=== PATIENT | male | born 1935 | race Caucasian/White ===

== ENCOUNTER 2019-04-09 10:00 | Emergency (ER) | payer OTHER ==
[2019-04-09 10:49] LABS: Absolute Lymphocytes (CBC) 1.4 K/uL (0.7-4.9); Hematocrit 46.7 % (39.6-49.0); MPV 8.6 fL (7.6-11.3); RBC Red Blood Cell Count 5.26 M/uL (4.33-5.43)
[2019-04-09 10:50] LABS: Protime INR 2.61
[2019-04-09 11:08] LABS: ALT/SGPT 15 U/L (12-78); AST/SGOT 13 U/L (15-37); Albumin 3.5 g/dL (3.4-5.0); Alkaline Phosphatase 97 U/L (45-117); BUN Blood Urea Nitrogen 13 mg/dL (7-18); Bicarbonate 25 mmol/L (21-32); Bilirubin Direct 0.4 mg/dL (0-0.2); Bilirubin Total 2.4 mg/dL (0.2-1.0); Glucose Level 75 mg/dL (74-106); Magnesium 2.3 mg/dL (1.8-2.4); NT PRO-BNP 1705 pg/mL (<450); Potassium 3.9 mmol/L (3.5-5.1); Protein, Total 7.3 g/dL (6.4-8.2); Sodium Level 143 mmol/L (136-145); Troponin (Emerg Dept Use Only) < 0.02 ng/mL (0.0-0.045)
[2019-04-09 11:43] LABS: Blood Morphology Comment NOT SEEN (NOT SEEN); Platelet Estimate ADEQ
--- NOTE | 2019-04-09 12:07 | RAD REPORT ---
EXAM DESCRIPTION: CT - Chest For Pe Angio - 04/09/2019 11:42 am CLINICAL HISTORY: HEMOPTYSIS COMPARISON: None. TECHNIQUE: Dynamically enhanced axial 3 mm thick images of the chest were obtained during administra tion of <100> mL Isovue 370 IV contrast. Coronal and oblique reconstruction images were generated and reviewed. Exam utilizes a protocol for optimal evaluation of pulmonary arterial tree. Maximum intensity projections 3D imaging was utilized All CT scans are performed using dose optimization technique as appropriate and may include automated exposure control or mA/KV adjustment according to patient size. FINDINGS: A pulmonary embolus is not seen. The main pulmonary artery is prominent which may indicate pulmonary arterial hypertension. The heart is enlarged. A thoracic aortic aneurysm is not noted. A pleural effusion is not seen. A pericardial effusion is not seen. Mild right lower lobe ground-glass opacity Gallstones are present. Gallbladder wall is not thickened Mild splenomegaly IMPRESSION: Negative for a pulmonary embolism. Mild right lower lobe ground-glass opacities indicative of alveolitis
--- NOTE | 2019-04-09 12:08 | RAD REPORT ---
EXAM DESCRIPTION: Nick Single View04/09/2019 10:30 am CLINICAL HISTORY: HEMOPTYSIS COMPARISON: none FINDINGS: The lungs appear clear of acute infiltrate. The heart is moderately enlarged. Postsurgica l changes involve the chest IMPRESSION: No acute abnormalities displayed
--- NOTE | 2019-04-09 12:21 | ER ---
Nurse's Notes [facility] Name: John Henriquez Age: 83 yrs Sex: Male : 1935 Arrival Date: 04/09/2019 Time: 10:03 Bed 5 Private MD: Diagnosis: Pneumonia Presentation: 04/09 10:07 Presenting complaint: Patient states: i noticed about 2-4 days ago when I clear my la1 throat of cough there is some blood in my sputum. Transition of care: patient was not received from another setting of care. Onset of symptoms was April 09, 2019. Risk Assessment: Do you want to hurt yourself or someone else? Patient reports no desire to harm self or others. Initial Sepsis Screen: Does the patient meet any 2 criteria? No. Patient's initial sepsis screen is negative. Does the patient have a suspected source of infection? No. Patient's initial sepsis screen is negative. Care prior to arrival: None. 10:07 Method Of Arrival: Ambulatory la1 10:07 Acuity: DILIP 3 la1 Historical: - Allergies: 10:11 NKDA; la1 - Home Meds: 10:11 Xarelto 20 mg oral tab 1 tab once daily [Active]; amlodipine 5 mg tab 1 tab once daily la1 [Active]; lisinopril 20 mg Oral tab 1 tab once daily [Active]; lisinopril 10 mg Oral tab 1 tab at night [Active]; pravastatin 40 mg oral tab 1 tab once daily [Active]; aspirin 81 mg Oral TbEC 1 tab once daily [Active]; tamsulosin 0.4 mg Oral cp24 1 cap once daily [Active]; - PMHx: 10:11 CVA; Hypertension; Atrial Fib; la1 - Immunization history:: Adult Immunizations up to date. - Social history:: Smoking status: Patient/guardian denies using tobacco. - Ebola Screening: : No symptoms or risks identified at this time. Screenin:20 Abuse screen: Denies threats or abuse. Denies injuries from another. Nutritional sg screening: No deficits noted. Tuberculosis screening: No symptoms or risk factors identified. Tuberculosis screening: Never had TB. Fall Risk None identified. Assessment: 10:20 General: Appears in no apparent distress. well groomed, well developed, well nourished, sg Behavior is calm, cooperative, appropriate for age. Pain: Denies pain. Neuro: Level of Consciousness is awake, alert, obeys commands, Oriented to person, place, time, Employee Benefits Manager are equal bilaterally Moves all extremities. Full function Gait is steady, Speech is normal, Facial symmetry appears normal. Cardiovascular: Patient's skin is warm and dry. Chest pain is denied. Respiratory: Parent/caregiver reports the patient having cough that is productive, persistent with streaks of blood. GI: Abdomen is round non-distended. : No signs and/or symptoms were reported regarding the genitourinary system. EENT: No signs and/or symptoms were reported regarding the EENT system. Derm: Skin is pink, warm \T\ dry. Musculoskeletal: Circulation, motion, and sensation intact. Range of motion: intact in all extremities, Swelling absent. 12:30 Reassessment: Patient is alert, oriented x 3, equal unlabored respirations, skin aa5 warm/dry/pink. Vital Signs: 10:11 BP 130 / 98; Pulse 88; Resp 16; Temp 98.4; Pulse Ox 98% on R/A; Weight 83.91 kg; Height la1 5 ft. 10 in. (177.80 cm); Pain 0/10; 10:11 Body Mass Index 26.54 (83.91 kg, 177.80 cm) la1 ED Course: 10:03 Patient arrived in ED. mr 10:09 Triage completed. la1 10:11 Arm band placed on left wrist. la1 10:15 Patient has correct armband on for positive identification. Bed in low position. Call sg light in reach. Side rails up X2. child monitor on. Pulse ox on. NIBP on. Warm blanket given. Head of bed elevated. 10:16 Jose Crowder PA is PHCP. jm 10:16 Mert Rinaldi MD is Attending Physician. jmm 10:31 XRAY Chest (1 view) In Process Unspecified. EDMS 10:38 Missed attempt(s): 20 gauge in right forearm. by Rosalva. hb 10:41 Inserted saline lock: 20 gauge in left forearm, using aseptic technique. ,using aseptic hb technique. by Rosalva. 11:43 CT Chest For PE Angio In Process Unspecified. EDMS 12:24 Arthur Quinn, DENNY is Primary Nurse. sg 12:30 No provider procedures requiring assistance completed. IV discontinued, intact, aa5 bleeding controlled, No redness/swelling at site. Pressure dressing applied. Administered Medications: 12:27 Drug: AZITHromycin 500 mg Route: PO; aa5 12:30 Follow up: Response: Medication administered at discharge. aa5 Outcome: 12:20 Discharge ordered by . kassy 12:30 Discharged to home ambulatory, with family. aa5 12:30 Condition: stable 12:30 Discharge instructions given to patient, family, Instructed on discharge instructions, follow up and referral plans. medication usage, Demonstrated understanding of instructions, follow-up care, medications, Prescriptions given X 1. 12:32 Patient left the ED. aa5 Signatures: Dispatcher [employer] EDMS Arthur Quinn RN RN Jose Lilly PA PA jmm Rivera, Mary mr SierraAlesha daniels RN RN aa5 Gm Garcia RN RN la1 Chelsea Hassan RN RN
--- NOTE | 2019-04-09 12:22 | EDPHYS ---
Physician Documentation [facility] Name: John Henriquez Age: 83 yrs Sex: Male : 1935 Arrival Date: 04/09/2019 Time: 10:03 Bed 5 Private MD: ED Physician Mert Rinaldi HPI: 04/09 10:29 This 83 yrs old Male presents to ER via Ambulatory with complaints of jmm Coughing up blood. 10:29 The patient or guardian reports cough. Onset: The symptoms/episode began/occurred jmm gradually, 4 day(s) ago. Modifying factors: The symptoms are alleviated by nothing, the symptoms are aggravated by nothing. Associated signs and symptoms: Pertinent negatives: chest pain, negative for shortness of breath. This is an 83 year old male with a history of atrial fib, HTN, that presents to the ED with complaints of coughing up blood for the past 4 days. Patient is currently taking 20 mg of Xarelto daily. Patient denies fever, denies shortness of breath, denies abdominal pain, denies dark or bloody stools. . Historical: - Allergies: 10:11 NKDA; la1 - Home Meds: 10:11 Xarelto 20 mg oral tab 1 tab once daily [Active]; amlodipine 5 mg tab 1 tab once daily la1 [Active]; lisinopril 20 mg Oral tab 1 tab once daily [Active]; lisinopril 10 mg Oral tab 1 tab at night [Active]; pravastatin 40 mg oral tab 1 tab once daily [Active]; aspirin 81 mg Oral TbEC 1 tab once daily [Active]; tamsulosin 0.4 mg Oral cp24 1 cap once daily [Active]; - PMHx: 10:11 CVA; Hypertension; Atrial Fib; la1 - Immunization history:: Adult Immunizations up to date. - Social history:: Smoking status: Patient/guardian denies using tobacco. - Ebola Screening: : No symptoms or risks identified at this time. ROS: 10:29 Constitutional: Negative for fever, chills, and weight loss, Cardiovascular: Negative jmm for chest pain, palpitations, and edema. 10:29 Abdomen/GI: Negative for abdominal pain, nausea, vomiting, diarrhea, and constipation, MS/Extremity: Negative for injury and deformity, Neuro: Negative for headache, weakness, numbness, tingling, and seizure. 10:29 Respiratory: Positive for cough, hemoptysis. 10:29 All other systems are negative. Exam: 10:29 Constitutional: This is a well developed, well nourished patient who is awake, alert, jmm and in no acute distress. Head/Face: atraumatic. Eyes: EOMI, no conjunctival erythema appreciated ENT: Moist Mucus Membranes Neck: Trachea midline, Supple Chest/axilla: Normal chest wall appearance and motion. 10:29 Abdomen/GI: Non distended, soft Back: Normal ROM Skin: General appearance color normal MS/ Extremity: Moves all extremities, no obvious deformities appreciated, no edema noted to the lower extremities Neuro: Awake and alert, normal gait Psych: Behavior is normal, Mood is normal, Patient is cooperative and pleasant 10:29 Cardiovascular: Rate: normal, Rhythm: regular, Pulses: no pulse deficits are appreciated. 10:29 Respiratory: the patient does not display signs of respiratory distress, Respirations: normal, Breath sounds: are clear throughout. Vital Signs: 10:11 BP 130 / 98; Pulse 88; Resp 16; Temp 98.4; Pulse Ox 98% on R/A; Weight 83.91 kg; Height la1 5 ft. 10 in. (177.80 cm); Pain 0/10; 10:11 Body Mass Index 26.54 (83.91 kg, 177.80 cm) la1 MDM: 10:19 Patient medically screened. [facility] 12:20 Data reviewed: vital signs, nurses notes. Counseling: I had a detailed discussion with [facility] the patient and/or guardian regarding: the historical points, exam findings, and any diagnostic results supporting the discharge/admit diagnosis, lab results, radiology results, the need for outpatient follow up, to return to the emergency department if symptoms worsen or persist or if there are any questions or concerns that arise at home. 04/09 10:19 Order name: Basic Metabolic Panel; Complete Time: 11:10 [facility] 04/09 10:19 Order name: CBC with Diff; Complete Time: 12:05 [facility] 04/09 10:19 Order name: LFT's; Complete Time: 11:10 [facility] 04/09 10:19 Order name: Magnesium; Complete Time: 11:10 [facility] 04/09 10:19 Order name: NT PRO-BNP; Complete Time: 11:10 [facility] 04/09 10:19 Order name: PT-INR; Complete Time: 10:57 [facility] 04/09 10:19 Order name: Troponin (emerg Dept Use Only); Complete Time: 11:10 [facility] 04/09 10:19 Order name: XRAY Chest (1 view); Complete Time: 12:22 [facility] 04/09 10:19 Order name: EKG; Complete Time: 10:20 [facility] 04/09 10:19 Order name: Cardiac monitoring; Complete Time: 11:23 [facility] 04/09 10:19 Order name: EKG - Nurse/Tech; Complete Time: 12:27 [facility] 04/09 11:12 Order name: CT Chest For PE Angio; Complete Time: 12:09 [facility] 04/09 11:44 Order name: Manual Differential; Complete Time: 12:05 [facility] 04/09 10:19 Order name: IV Saline Lock; Complete Time: 11:23 [facility] 04/09 10:19 Order name: Labs collected and sent; Complete Time: 11:23 [facility] 04/09 10:19 Order name: O2 Per Protocol; Complete Time: 11:22 [facility] 04/09 10:19 Order name: O2 Sat Monitoring; Complete Time: 11:22 [facility] Administered Medications: 12:27 Drug: AZITHromycin 500 mg Route: PO; aa5 12:30 Follow up: Response: Medication administered at discharge. aa5 Disposition: 04/09/19 12:20 Discharged to Home. Impression: Pneumonia. - Condition is Stable. - Discharge Instructions: Hemoptysis, Community-Acquired Pneumonia, Adult. - Prescriptions for azithromycin 250 mg Oral tablet - take 1 tablet by ORAL route once daily for 4 days; 4 tablet. - Medication Reconciliation Form, Thank You Letter, Antibiotic Education, Prescription Opioid Use form. - Follow up: Private Physician; When: 2 - 3 days; Reason: Recheck today's complaints, Continuance of care, Re-evaluation by your physician. Addendum: 04/11/2019 09:08 Co-signature as Attending Physician, Mert Rinaldi MD I agree with the assessment and c shin plan of care. Signatures: Dispatcher [employer] Mert Ashton MD MD cha Mickail, Joel, PA PA Alesha Ron, RN RN aa5 Attema, Gm, RN RN la1 Corrections: (The following items were deleted from the chart) 04/09 12:32 12:20 04/09/2019 12:20 Discharged to Home. Impression: Pneumonia. Condition is Stable. aa5 Forms are Medication Reconciliation Form, Thank You Letter, Antibiotic Education, Prescription Opioid Use. Follow up: Private Physician; When: 2 - 3 days; Reason: Recheck today's complaints, Continuance of care, Re-evaluation by your physician. kassy
[2019-04-09] MEDS ORDERED: AZITHROMYCIN 250 MG TAB ONE (12:25)
--- NOTE | 2019-04-10 08:09 | EKG ---
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
== END 2019-04-09 12:32 | disposition home or self-care (01) ==
LOC: ER 10:00
DX: J18.9 Pneumonia, unspecified organism (principal); I10 Essential (primary) hypertension; I63.9 Cerebral infarction, unspecified; I48.91 Unspecified atrial fibrillation
CPT/HCPCS: 93005; 85025; 80048; 36415; 83735; 85610; 80076; 84484; 83880; 71275; 71045; 99284; Q9967

== ENCOUNTER 2020-07-06 08:33 | Inpatient (IN) | payer OTHER ==
--- OUTSIDE RECORDS SUMMARY | 2020-07-06 08:37 | XMS REPORT | Continuity of Care Document ---
:1935 Author Organization [facility] t Address [address] [place] [address] Care Team Providers Name Role Phone Neo JI Primary Care Physician DR Naheed COX Attending Clinician Unavailable DR Naheed COX Admitting Clinician Unavailable Payers Payer Name Policy Type Policy Number Effective Date Expiration Date S ource Problems Condition Condition Condition Status Onset Resolution Last Treating Co mments Source Name Details Category Date Date Treatment Clinician Date Systemic Systemic Disease Active mastocytos mastocytos 09-21 An derso is is 00:00: n 00 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 09-21 Anderso 00:00: n 00 Allergies, Adverse Reactions, Alerts This patient has no known allergies or adverse reactions. Social History Social Habit Start Date Stop Date Quantity Comments Source Sex Assigned At MD Vela on Tobacco use and 2018-09-21 2018-09-21 Never used MD Vela on exposure 00:00:00 00:00:00 Alcohol intake 2018-09-21 2018-09-21 Current MD Rah webber 00:00:00 00:00:00 non-drinker of alcohol (finding) Smoking Status Start Date Stop Date Source Never smoker MD Rinaldi Medications Ordered Filled Start Stop Current Ordering Indication Dosage Frequency Signature Comments Components Source Medication Medication Date Date Medication? Clinician (SIG) Name Name amLODIPine Yes 1{tbl} Take 1 MD (NORVASC) 5 2-12 tablet by And erso mg tablet 16:41: mouth n 14 daily. aspirin 81 Yes 1{tbl} Take 1 MD mg EC 2-12 tablet by Anderso tablet 16:41: mouth n 14 daily. lisinopril 2019-0 Yes 20mg Take 20 mg M D (PRINIVIL,Z 2-12 by mouth Rashaun rso ESTRIL) 20 16:41: every n mg tablet 14 morning. lisinopril 2019-0 Yes 10mg Take 10 mg M D (PRINIVIL,Z 2-12 by mouth Rashaun rso ESTRIL) 10 16:41: every n mg tablet 14 evening. cromolyn 2019-0 Yes Systemic 100mg Take 5 mL MD (GASTROCROM 2-12 mastocytosi (100 mg) Anderso ) 100 mg/5 00:00: s by mouth 4 n mL solution 00 (four) times a day before meals and nightly. nitroglycer 2018-0 Yes 1{tbl} Place 1 M D in 1-11 tablet Anderso (NITROSTAT) 00:00: under the n 0.4 mg SL 00 tongue tablet every 5 (five) minutes as needed. Take up to 3 times XARELTO 20 Yes 1{tbl} Take 1 MD mg tablet 1-04 tablet by Brayden so 00:00: mouth n 00 daily. furosemide 2018- Yes 1{tbl} Take 1 MD (LASIX) 40 1-04 tablet by Rashaun rso mg tablet 00:00: mouth n 00 daily. pravastatin Yes 40mg Take 40 mg MD (PRAVACHOL) 6-10 by mouth Rashaun rso 40 mg 00:00: at n tablet 00 bedtime. Procedures This patient has no known procedures. Encounters Start End Encounter Admission Attending Care Care Encounter Source Date/Time Date/Time Type Type Clinicians Facility Department ID 2019-02-14 2019-02-14 Outpatient Elza [facility] [id number] [address] 10:22:00 23:59:00 [facility] Results Test Description Test Time Test Comments Results Result [facility] e Comments XR CHEST 2 VIEW 2019-02-14 PA and lateral chest, 11:11:17 2 viewsLocation code: [id number] HISTORY: Cough, Hypertensive disorderCOMPARISON: 07/26/2013COMMENTS: The lungs are clear and well inflated. The costophrenic angles aresharp. The cardiomediastinal silhouette is stable. The bones are intact.IMPRESSION: Stable chest with no acute abnormality ERYTHROCYTE SED RATE 2017-03-19 15:36:00 Test Item Value Reference Range Interpretation Comme nts SED RATE (test code = SEDR) 1 mm/hr 0-15 THYROID PANEL/SCREEN (TSH)2017-03-19 15:14:00 Test Item Value Reference Range Interpretation Comments TSH (test code = A57) 1.640 uIU/mL 0.358-3.740 B12 [id number] 15:10:00 Test Item Value Reference Range Interpretation Comments VIT B12 (test code = A60) 807.0 pg/mL 180.0-914.0 [id number] 15:10:00 Test Item Value Reference Range Interpretation Comments FOLATE (test code = A75) 22.4 ng/mL 3.1-17.5 H VITAMIN D TOTAL 25 (OH)2017-03-19 14:48:00 Test Item Value Reference Range Interpretation Comments VITAMIN D 25(OH) (test code = VD) 40.2 ng/mL 30.0-100.0 CBC (INCLUDES AUTOMATED DIFFERENTIAL)2017-03-19 14:28:00 Test Item Value Reference Range Interpretation Comments WBC (test code = WBC) 8.6 10\S\3/uL 4.5-11.0 RBC (test code = RBC) 5.58 10\S\6/uL 3.80-5.80 HGB (test code = HBG) 15.9 g/dL 14.0-18.0 HCT (test code = HCT) 50.3 % 35.0-46.0 H MCV (test code = MCV) 90.1 fL 80.0-94.0 MCH (test code = MCH) 28.5 pg 27.0-31.0 MCHC (test code = MCHC) 31.6 g/dL 32.0-36.0 L RDW (test code = RDW) 15.9 % 11.5-14.5 H PLT (test code = PLT) 180 10\S\3/uL 130-400 MPV (test code = MPV) 11.0 fL 9.4-12.4 NEUTROP # (test code = NE#) 3.9 10\S\3/uL 2.0-8.0 LYMPH # (test code = LY#) 1.8 10\S\3/uL 1.2-4.0 MONOCYTE # (test code = MO#) 0.9 10\S\3/uL 0.0-1.1 EOSINOPH # (test code = EO#) 1.9 10\S\3/uL 0.0-0.7 H BASOPHIL # (test code = BA#) 0.1 10\S\3/uL 0.0-0.3 IG # (test code = IG#) 0.13 10\S\3/uL 0.00-0.06 H NRBC # (test code = NRBC#) 0.00 10\S\3/uL 0.00-0.01 NEUTROPH % (test code = NE%) 45.5 % 35.0-73.0 LYMPH % (test code = LY%) 20.8 % 20.0-55.0 MONO % (test code = MO%) 9.8 % 2.5-10.0 EOSINOPH % (test code = EO%) 21.5 % 0.0-5.0 H BASOPHIL % (test code = BA%) 0.9 % 0.0-2.0 IG % (test code = IG%) 1.5 % 0.0-0.8 H NRBC% (test code = NRBC%) 0.0 % 0.0-0.2 MANDIFF (test code = MDIFF) NO NO RBC MORPH (test code = RBCMOR) NORMAL
[2020-07-06] MEDS ORDERED: ALBUTEROL 2.5 MG/3 ML NEB SOL ONE (09:19)
[2020-07-06] MEDS ORDERED: METHYLPREDNISOLONE 125 MG INJ ONE (09:19)
[2020-07-06 09:39] LABS: Absolute Lymphocytes (CBC) 1.3 K/uL (0.7-4.9); Basophils % 0.4 % (0-1.3); Hematocrit 45.3 % (39.6-49.0); Lymphocytes % 5.7 % (15.3-44.8); MPV 8.7 fL (7.6-11.3); RBC Red Blood Cell Count 5.61 M/uL (4.33-5.43)
[2020-07-06 09:42] LABS: Protime INR 1.88
[2020-07-06 09:54] LABS: ALT/SGPT 41 U/L (12-78); AST/SGOT 19 U/L (15-37); Albumin 3.4 g/dL (3.4-5.0); Alkaline Phosphatase 97 U/L (45-117); BUN Blood Urea Nitrogen 21 mg/dL (7-18); Bicarbonate 30 mmol/L (21-32); Bilirubin Direct 0.5 mg/dL (0-0.2); Bilirubin Total 2.9 mg/dL (0.2-1.0); CKMB Creatine Kinase MB < 1.0 ng/mL (0.3-3.6); Creatine Phosphokinase 14 U/L (39-308); Glucose Level 126 mg/dL (74-106); Lipase 81 U/L (73-393); Magnesium 2.2 mg/dL (1.8-2.4); NT PRO-BNP 3549 pg/mL (<450); Potassium 3.8 mmol/L (3.5-5.1); Protein, Total 7.3 g/dL (6.4-8.2); Sodium Level 141 mmol/L (136-145); Troponin (Emerg Dept Use Only) 0.02 ng/mL (0.0-0.045)
--- NOTE | 2020-07-06 10:01 | RAD REPORT ---
EXAM DESCRIPTION: Nick Single View07/06/2020 9:30 am CLINICAL HISTORY: Congestion COMPARISON: 2019 FINDINGS: The lungs appear clear of acute infiltrate. The heart is mildly enlarged. Postsurgical changes involve the chest. IMPRESSION: No acute abnormalities displayed
--- NOTE | 2020-07-06 10:01 | RAD REPORT ---
EXAM DESCRIPTION: CT - Abdomen Pelvis W Contrast - 07/06/2020 9:43 am CLINICAL HISTORY: Abdominal pain COMPARISON: none. TECHNIQUE: Computed axial tomography of the abdomen pelvis was obtained. 100 cc Isovue-300 was admin istered intravenously. Oral contrast was not requested which limits evaluation of bowel. All CT scans are performed using dose optimization technique as appropriate and may include automated exposure control or mA/KV adjustment according to patient size. FINDINGS: The liver, pancreas and adrenals are unremarkable Bilateral renal cysts are present. The spleen contains many hypo to isodense lesions which vary in size from a few millimeters to 17 mil limeters. Gallstones. Gallbladder wall appears mildly thickened. Prostate gland is mildly to moderately enlarged. Mild left inguinal lymphadenopathy There is no evidence of diverticulitis. IMPRESSION: Cholelithiasis. Mild gallbladder wall thickening may indicate cholecystitis Multiple splenic lesions may a represent metastases, infection or a benign process
[2020-07-06] MEDS ORDERED: CEFTRIAXONE/SWI 1gm 1 GM/10 ML SYR ONE (10:02)
[2020-07-06] MEDS ORDERED: NA CHLORIDE 0.9% 1,000 ML ONE (10:32)
[2020-07-06] MEDS ORDERED: METRONIDAZOLE 500mg IVPB 500 MG/100 ML BAG IV ONE (10:33)
--- NOTE | 2020-07-06 10:34 | EDPHYS ---
Physician Documentation [facility] Name: John Henriquez Age: 84 yrs Sex: Male : 1935 Arrival Date: 07/06/2020 Time: 08:34 Bed 14 Private MD: ED Physician Eric Murphy HPI: 07/06 09:25 This 84 yrs old Male presents to ER via Wheelchair with complaints of ma2 Shortness Of Breath. 09:25 The patient has shortness of breath with light activity. Onset: The symptoms/episode ma2 began/occurred gradually, 1 week(s) ago. Associated signs and symptoms: Pertinent positives: constipation and abdominal distension, and diffuse abd pain x 2 days , Pertinent negatives: non-productive cough, diaphoresis, fever, hemoptysis, nausea. Severity of symptoms: At their worst the symptoms were moderate in the emergency department the symptoms are unchanged. The patient has not experienced similar symptoms in the past. Historical: - Allergies: 09: Cipro; jl7 - Home Meds: : lisinopril 20 mg Oral tab 1 tab once daily [Active]; lisinopril 10 mg Oral tab 1 tab AT jl7 NIGHT [Active]; amlodipine 5 mg tab 1 tab once daily [Active]; pravastatin 40 mg Oral tab 1 tab once daily [Active]; aspirin 81 mg Oral TbEC 1 tab once daily [Active]; Xarelto 20 mg Oral tab 1 tab once daily [Active]; allopurinol 100 mg Oral tab 1 tab once daily [Active]; furosemide 40 mg Oral tab 1 tab once daily [Active]; methylprednisolone 4 mg Oral tab 1 tab once daily [Active]; - PMHx: 09:01 Atrial Fib; CVA; Hypertension; Systemic mastocytosis blood disorder; Hyperlipidemia; jl7 CHF; Gout; - PSHx: 09:01 Heart stents; CABG; Cataract surgy- Bilateral; jl7 - Immunization history:: Adult Immunizations not up to date. - Social history:: Smoking status: Patient denies any tobacco usage or history of. Patient/guardian denies using alcohol, street drugs, The patient lives with family. - Family history:: not pertinent. ROS: 09:25 Constitutional: Negative for fever, chills, and weight loss. ma2 09:25 All other systems are negative. Exam: 09:25 Constitutional: This is a well developed, well nourished patient who is awake, alert, ma2 and in no acute distress. Head/Face: Normocephalic, atraumatic. Eyes: Pupils equal round and reactive to light, extra-ocular motions intact. Lids and lashes normal. Conjunctiva and sclera are non-icteric and not injected. Cornea within normal limits. Periorbital areas with no swelling, redness, or edema. ENT: Nares patent. No nasal discharge, no septal abnormalities noted. Tympanic membranes are normal and external auditory canals are clear. Oropharynx with no redness, swelling, or masses, exudates, or evidence of obstruction, uvula midline. Mucous membranes moist. Neck: Trachea midline, no thyromegaly or masses palpated, and no cervical lymphadenopathy. Supple, full range of motion without nuchal rigidity, or vertebral point tenderness. No Meningismus. Chest/axilla: Normal chest wall appearance and motion. Nontender with no deformity. No lesions are appreciated. Cardiovascular: Regular rate and rhythm with a normal S1 and S2. No gallops, murmurs, or rubs. Normal PMI, no JVD. No pulse deficits. Respiratory: has expiratory wheeze diffuse, yet Lungs have equal breath sounds bilaterally, clear to auscultation and percussion. No rales, rhonchi noted. No increased work of breathing, no retractions or nasal flaring. Abdomen/GI: Soft, non-tender,yet moderately distended, n n tympsanic, with normal bowel sounds. No distension or tympany. No guarding or rebound. No evidence of tenderness throughout. Skin: Warm, dry with normal turgor. Normal color with no rashes, no lesions, and no evidence of cellulitis. MS/ Extremity: Pulses equal, no cyanosis. Neurovascular intact. Full, normal range of motion. Neuro: Awake and alert, GCS 15, oriented to person, place, time, and situation. Cranial nerves II-XII grossly intact. Motor strength 5/5 in all extremities. Sensory grossly intact. Cerebellar exam normal. Normal gait. Vital Signs: 08:48 BP 150 / 83; Pulse 90; Resp 28 S; Temp 98(O); Pulse Ox 97% on R/A; Weight 81.65 kg (R); jl7 Height 5 ft. 9 in. (175.26 cm) (R); Pain 0/10; 09:00 BP 139 / 56; Pulse 89; Resp 29; Pulse Ox 98% ; jl7 09:45 BP 132 / 56; Pulse 97; Resp 25; Pulse Ox 98% ; jl7 10:28 BP 140 / 56; Pulse 110; Resp 24; Pulse Ox 97% ; jl7 12:00 BP 112 / 68; Pulse 112; Resp 21 S; Pulse Ox 97% on R/A; ca1 13:00 BP 127 / 49; Pulse 100; Resp 21; Pulse Ox 97% ; jl7 08:48 Body Mass Index 26.58 (81.65 kg, 175.26 cm) 7 MDM: 08:46 Patient medically screened. [facility] 09:25 Differential diagnosis: Anxiety Reaction asthma, CHF exacerbation, Chronic Obstructive ma2 Pulmonary Disease. 10:31 Data reviewed: vital signs, nurses notes. Counseling: I had a detailed discussion with [facility] the patient and/or guardian regarding: the historical points, exam findings, and any diagnostic results supporting the discharge/admit diagnosis, the presence of at least one elevated blood pressure reading (>120/80) during this emergency department visit, the need for further work-up and treatment in the hospital. Response to treatment: the patient's symptoms have markedly improved after treatment. ED course: discussed with dr. jacobson, accepted by dr. ulloa . 07/06 08:59 Order name: BMP [facility] 07/06 08:59 Order name: CBC with Diff [facility] 07/06 08:59 Order name: Ckmb [facility] 07/06 08:59 Order name: CPK [facility] 07/06 08:59 Order name: Hepatic Function [facility] 07/06 08:59 Order name: Lipase [facility] 07/06 08:59 Order name: Magnesium [facility] 07/06 08:59 Order name: NT PRO-BNP [facility] 07/06 08:59 Order name: PT-INR; Complete Time: 10:09 [facility] 07/06 08:59 Order name: Ptt, Activated; Complete Time: 10:09 [facility] 07/06 08:59 Order name: Troponin (emerg Dept Use Only); Complete Time: 10:09 [facility] 07/06 09:01 Order name: Basic Metabolic Panel; Complete Time: 10:09 [facility] 07/06 09:01 Order name: CBC with Automated Diff; Complete Time: 21:33 [facility] 07/06 09:01 Order name: CKMB Creatine Kinase MB; Complete Time: 10:09 [facility] 07/06 08:59 Order name: XRAY CXR (1 view); Complete Time: 10: [facility] 07/06 08:59 Order name: CT Abd/Pelvis - IV Contrast Only; Complete Time: 10: [facility] 07/06 09:01 Order name: Creatine Phosphokinase; Complete Time: 10: [facility] 07/06 09:01 Order name: Liver (Hepatic) Function; Complete Time: 10: [facility] 07/06 09:01 Order name: Lipase; Complete Time: 10: [facility] 07/06 09:01 Order name: Magnesium; Complete Time: 10: [facility] 07/06 09:01 Order name: NT PRO-BNP; Complete Time: 10: [facility] 07/06 09:29 Order name: Influenza Screen (A ; Complete Time: 21:33 [facility] 07/06 10:13 Order name: US Abdomen Limited [facility] 07/06 12:23 Order name: US; Complete Time: :33 [facility] 07/06 12:28 Order name: Manual Differential; Complete Time: 21:33 [facility] 07/06 12:31 Order name: SARS-COV-2 RT PCR; Complete Time: 21:33 [facility] 07/06 08:59 Order name: EKG; Complete Time: 09:01 [facility] 07/06 08:59 Order name: Cardiac monitoring; Complete Time: 09:15 [facility] 07/06 08:59 Order name: EKG - Nurse/Tech; Complete Time: 09:15 [facility] 07/06 08:59 Order name: IV Saline Lock; Complete Time: 09:21 [facility] 07/06 08:59 Order name: Labs collected and sent; Complete Time: 09:25 [facility] 07/06 08:59 Order name: O2 Per Protocol; Complete Time: 09:15 [facility] 07/06 08:59 Order name: O2 Sat Monitoring; Complete Time: 09:15 [facility] 07/06 10:13 Order name: NPO; Complete Time: 10: [facility] 07/06 11:36 Order name: CONS Physician Consult EDMS Administered Medications: 09:25 Drug: SOLU-Medrol 125 mg Route: IVP; Site: right forearm; jl7 10:00 Follow up: Response: No adverse reaction jl7 09:26 Drug: Albuterol 1.25 mg Route: Inhalation; jl7 10:00 Follow up: Response: No adverse reaction jl7 10:15 Drug: Rocephin 1 grams Route: IV; Rate: calculated rate; Site: right forearm; jl7 10:18 Follow up: Response: No adverse reaction; IV Status: Completed infusion jl7 10:25 Drug: Flagyl 500 mg Volume: 100 ml; Route: IVPB; Rate: 200 ml/hr; Infused Over: 30 jl7 mins; Site: right forearm; 10:45 Follow up: Response: No adverse reaction; IV Status: Completed infusion jl7 10:25 Drug: NS 0.9% 1000 ml Route: IV; Rate: 125 ml/hr; Site: right forearm; jl7 13:59 Follow up: IV Status: Infusion continued upon admission jl7 Disposition: 07/06/20 10:33 Hospitalization ordered by Elan Ulloa for Inpatient Admission. Preliminary diagnosis is Acute cholecystitis. - Bed requested for Telemetry/MedSurg (Inpatient). - Status is Inpatient Admission. jl7 - Condition is Stable. - Problem is new. - Symptoms are unchanged. Signatures: Dispatcher [employer] EDMS Gage Humphrey PA PA jr8 Kori Wiseman RN RN jl7 Eric Murphy MD MD dc2 Malathi Reveles Corrections: (The following items were deleted from the chart) 09:29 09:29 Influenza Screen (A \T\ B)+BA.LAB.BRZ ordered. EDMS EDMS 10:22 09:38 CORONAVIRUS+MR.LAB.BRZ ordered. EDID EDMS 12:23 10:33 Hospitalization Ordered by Elan Ulloa MD for Inpatient Admission. Preliminary eb diagnosis is Acute cholecystitis. Bed requested for Telemetry/MedSurg (Inpatient). Status is Inpatient Admission. Condition is Stable. Problem is new. Symptoms are unchanged. ma2 14:02 12:23 07/06/2020 10:33 Hospitalization Ordered by Elan Ulloa MD for Inpatient jl7 Admission. Preliminary diagnosis is Acute cholecystitis. Bed requested for Telemetry/MedSurg (Inpatient). Status is Inpatient Admission. Condition is Stable. Problem is new. Symptoms are unchanged. eb
--- NOTE | 2020-07-06 10:34 | ER ---
Nurse's Notes [facility] Name: John Henriquez Age: 84 yrs Sex: Male : 1935 Arrival Date: 07/06/2020 Time: 08:34 Bed 14 Private MD: Diagnosis: Acute cholecystitis Presentation: 07/06 08:48 Chief complaint: Patient states: Started feeling bloated last night and it's it kind of jl7 making it hard to breathe. Reports feeling like needing to burp or pass gas but can't. Small, hard BM this morning. Coronavirus screen: Client denies travel out of the [place] in the last 14 days. At this time, the client does not indicate any symptoms associated with coronavirus-19. Ebola Screen: No symptoms or risks identified at this time. Initial Sepsis Screen: Does the patient meet any 2 criteria? No. Patient's initial sepsis screen is negative. Does the patient have a suspected source of infection? No. Patient's initial sepsis screen is negative. Risk Assessment: Do you want to hurt yourself or someone else? Patient reports no desire to harm self or others. Onset of symptoms was July 05, 2020. Care prior to arrival: None. Transition of care: patient was not received from another setting of care. 08:48 Method Of Arrival: Wheelchair jl7 08:48 Acuity: DILIP 3 jl7 Triage Assessment: 08:40 General: Appears in no apparent distress. uncomfortable, Behavior is calm, cooperative, jl7 appropriate for age. Pain: Denies pain. Neuro: Level of Consciousness is awake, alert, obeys commands, Oriented to person, place, time, situation. Cardiovascular: Heart tones present Patient's skin is warm and dry. Respiratory: Reports labored breathing Breath sounds are clear bilaterally. Onset: The symptoms/episode began/occurred yesterday, the patient has moderate shortness of breath. GI: Abdomen is round non-distended, Stools are reported to be constipated. Last BM was July 06, 2020. Bowel sounds hypoactive in right upper quadrant, left upper quadrant, right lower quadrant and left lower quadrant Abd is soft X 4 quads Abdomen is tender to palpation in right upper quadrant and left lower quadrant. Derm: Skin is pink, warm \T\ dry. Historical: - Allergies: 09:01 Cipro; jl7 - Home Meds: 09:01 lisinopril 20 mg Oral tab 1 tab once daily [Active]; lisinopril 10 mg Oral tab 1 tab AT jl7 NIGHT [Active]; amlodipine 5 mg tab 1 tab once daily [Active]; pravastatin 40 mg Oral tab 1 tab once daily [Active]; aspirin 81 mg Oral TbEC 1 tab once daily [Active]; Xarelto 20 mg Oral tab 1 tab once daily [Active]; allopurinol 100 mg Oral tab 1 tab once daily [Active]; furosemide 40 mg Oral tab 1 tab once daily [Active]; methylprednisolone 4 mg Oral tab 1 tab once daily [Active]; - PMHx: 09: Atrial Fib; CVA; Hypertension; Systemic mastocytosis blood disorder; Hyperlipidemia; jl7 CHF; Gout; - PSHx: : Heart stents; CABG; Cataract surgy- Bilateral; jl7 - Immunization history:: Adult Immunizations not up to date. - Social history:: Smoking status: Patient denies any tobacco usage or history of. Patient/guardian denies using alcohol, street drugs, The patient lives with family. - Family history:: not pertinent. Screenin:00 Abuse screen: Denies threats or abuse. Denies injuries from another. Nutritional jl7 screening: No deficits noted. Tuberculosis screening: No symptoms or risk factors identified. Fall Risk IV access (20 points). Total Hoffman Fall Scale indicates No Risk (0-24 pts). Assessment: 09:00 General: See triage assessment. jl7 10:00 Reassessment: Patient appears in no apparent distress at this time. Patient and/or jl7 family updated on plan of care and expected duration. Pain level reassessed. Patient is alert, oriented x 3, equal unlabored respirations, skin warm/dry/pink. Patient states feeling better. Patient states symptoms have improved. 10:20 Reassessment: Dr. Murphy at bedside discussing results and POC. [facility] 12:53 Reassessment: Attempted to call report. Nurse is en route to ER ICU for another pt. ca1 Will call back to take report. Vital Signs: 08:48 BP 150 / 83; Pulse 90; Resp 28 S; Temp 98(O); Pulse Ox 97% on R/A; Weight 81.65 kg (R); jl7 Height 5 ft. 9 in. (175.26 cm) (R); Pain 0/10; 09:00 BP 139 / 56; Pulse 89; Resp 29; Pulse Ox 98% ; jl7 09:45 BP 132 / 56; Pulse 97; Resp 25; Pulse Ox 98% ; jl7 10:28 BP 140 / 56; Pulse 110; Resp 24; Pulse Ox 97% ; jl7 12:00 BP 112 / 68; Pulse 112; Resp 21 S; Pulse Ox 97% on R/A; ca1 13:00 BP 127 / 49; Pulse 100; Resp 21; Pulse Ox 97% ; jl7 08:48 Body Mass Index 26.58 (81.65 kg, 175.26 cm) jl7 ED Course: 08:34 Patient arrived in ED. ds1 08:35 Kori Wiseman, DENNY is Primary Nurse. jl7 08:40 Arm band placed on right wrist. jl7 08:45 Eric Murphy MD is Attending Physician. ma2 08:52 Triage completed. jl7 09:00 Patient has correct armband on for positive identification. Placed in gown. Bed in low jl7 position. Call light in reach. Side rails up X 1. front desk monitor on. Pulse ox on. NIBP on. Warm blanket given. 09:00 No provider procedures requiring assistance completed. jl7 09:12 EKG done, by ED staff, reviewed by Eric Murphy MD. 3 09:22 Initial lab(s) drawn, by [facility], sent to lab. Inserted saline lock: 20 gauge in right jl7 forearm, using aseptic technique. Blood collected. 09:30 XRAY CXR (1 view) In Process Unspecified. EDMS 09:43 CT Abd/Pelvis - IV Contrast Only In Process Unspecified. EDMS 10:12 COVID swab sent to lab. Flu and/or RSV swab sent to lab. jl7 10:33 Elan Ulloa MD is Hospitalizing Provider. ma2 14:01 Patient admitted, IV remains in place. intact, No redness/swelling at site. jl7 Administered Medications: 09:25 Drug: SOLU-Medrol 125 mg Route: IVP; Site: right forearm; jl7 10:00 Follow up: Response: No adverse reaction jl7 09:26 Drug: Albuterol 1.25 mg Route: Inhalation; jl7 10:00 Follow up: Response: No adverse reaction jl7 10:15 Drug: Rocephin 1 grams Route: IV; Rate: calculated rate; Site: right forearm; jl7 10:18 Follow up: Response: No adverse reaction; IV Status: Completed infusion jl7 10:25 Drug: Flagyl 500 mg Volume: 100 ml; Route: IVPB; Rate: 200 ml/hr; Infused Over: 30 jl7 mins; Site: right forearm; 10:45 Follow up: Response: No adverse reaction; IV Status: Completed infusion jl7 10:25 Drug: NS 0.9% 1000 ml Route: IV; Rate: 125 ml/hr; Site: right forearm; jl7 13:59 Follow up: IV Status: Infusion continued upon admission jl7 Outcome: 10:33 Decision to Hospitalize by Provider. ma2 14:01 Admitted to Med/surg accompanied by tech, via wheelchair, room 202, with chart, Report jl7 called to DENNY Aparicio 14:01 Condition: stable 14:01 Discharge instructions given to patient, family, Instructed on the need for admit, Demonstrated understanding of instructions. 14:02 Patient left the ED. jl7 Signatures: Dispatcher [employer] EDNE Maggie Wilkes ds1 Kori Wiseman RN RN jl7 Kateryna Vee 3 Eric Murphy MD MD ma2 Joselyn Amezquita RN RN ca1 Corrections: (The following items were deleted from the chart) 09:31 08:25 SOLU-Medrol 125 mg IVP in right forearm jl7 jl7
--- NOTE | 2020-07-06 12:22 | RAD REPORT ---
EXAM DESCRIPTION: US - Abdomen Exam Limited - 07/06/2020 11:36 am CLINICAL HISTORY: Abdominal pain. COMPARISON: July 06, 2020 cat scan FINDINGS: Cholelithiasis. Stones are present within the gallbladder neck. Gallbladder wall measures 6 millimeters. Small to moderate amount of sludge within the gallbladder The biliary tree is normal caliber. IMPRESSION: Cholelithiasis. Thickened gallbladder wall probably indicating cholecystitis.
[2020-07-06 12:28] LABS: Blood Morphology Comment NOTED (NOT SEEN); Ovalocytes 1+; Platelet Estimate ADEQ
[2020-07-06 14:31] VITALS: BMI 26.2
[2020-07-06] MEDS ORDERED: NA CHLORIDE 0.9% 1,000 ML IV SCH (14:34)
[2020-07-06] MEDS ORDERED: ONDANSETRON 4 MG/2 ML VIAL IV PRN (14:34)
[2020-07-06] MEDS ORDERED: MORPHINE 2 MG/ML SYR IV PRN (14:34)
--- NOTE | 2020-07-06 15:37 | P.HP ---
Certification for Inpatient Patient admitted to: Inpatient With expected LOS: >2 Midnights Practitioner: I am a practitioner with admitting privileges, knowledge of patient current condition, hospital course, and medical plan of care. Services: Services provided to patient in accordance with Admission requirements found in Title 42 Section 412.3 of the Code of Federal Regulations Patient History Date of Service: 07/06/20 Reason for admission: Acute cholecystitis History of Present Illness: 84-year-old male, PMH: AFib (on Xarelto), hypertension, prior CVA (used very mild right-sided weakness), CAD s.p CABGx3 and stenting. Patient reports pain came on all of a sudden after eating dinner yesterday. He had right upper quadrant pain, felt bloated, with some mild nausea. Denies vomiting, diarrhea, fevers/chills. He reports he was otherwise in his usual state of health up until this began yesterday. He states the pain continued to worsen so he came to the ED. He has never had pain like this before. He states he has been more fatigued today, and feeling a little bit more short of breath than usual. She reports at baseline he gets short of breath just walking a f light of stairs. He denies any history of heart failure, and denies orthopnea. In the ED, he was noted to have a leukocytosis of 22.4, BNP: 3549, lipase: 81, COVID negative. CT abdomen/pelvis consistent with cholelithiasis with mild gallbladder wall thickening indicating cholecystitis. RUQ ultrasound confirms similar findings. The case was briefly discussed with the general surgeon who recommended admission for surgical clearance. Allergies No Known Drug Allergies Allergy (Verified 07/06/20 14:46) Unknown Home Medications: Allopurinol 100 mg PO DAILY 07/06/20 Amlodipine [Norvasc*] 5 mg PO DAILY 07/06/20 Aspirin 81 mg PO DAILY 07/06/20 Furosemide 40 mg PO DAILY 07/06/20 Lisinopril [Zestril] 10 mg PO BEDTIME 07/06/20 Lisinopril [Zestril] 20 mg PO DAILY 07/06/20 Pravastatin Sodium 40 mg PO DAILY 07/06/20 Rivaroxaban [Xarelto] 20 mg PO DAILY 07/06/20 methylPREDNISolone [Methylprednisolone] 4 mg PO DAILY 11/27/20 - Past Medical/Surgical History Diabetic: No -: afib -: CVA -: HTN -: systemic mystocytosis -: hyperlipidemia -: Gout -: heart stents -: CABG -: Cataract Sx - Family History Family History: Reviewed- Non-Contributory - Family History Father Notes: old age - Social History Smoking Status: Never smoker Alcohol use: No CD- Drugs: No Caffeine use: Yes Place of Residence: Home Review of Systems 10-point ROS is otherwise unremarkable Physical Examination - Vital Signs Temperature: 98.8 F Blood Pressure: 133/70 Pulse: 118 Respirations: 18 Pulse Ox (%): 96 - Physical Exam General: Alert, Mild distress Respiratory: Diminished, Expiratory wheezes, Other (Shallow breathing) Cardiovascular: Irregular heart rate/rhythm (Atrial fibrillation, HR: 100-115) Gastrointestinal: Soft and benign, Tenderness (RUQ and epigastrium, moderate) Musculoskeletal: No tenderness Integumentary: Other (multiple small petechiae / red lesions) Neurological: Normal speech, Normal affect - Studies Laboratory Data (last 24 hrs) 07/06/20 09:22: PT 21.9 H, INR 1.88, APTT 33.4 07/06/20 09:22: WBC 22.4 H*, Hgb 14.1, Hct 45.3, Plt Count 206 07/06/20 09:22: Sodium 141, Potassium 3.8, BUN 21 H, Creatinine 1.23, Glucose 126 H, Magnesium 2.2, Total Bilirubin 2.9 H, AST 19, ALT 41, Alkaline Phosphatase 97, Lipase 81 Microbiology Data (last 24 hrs): 07/06/20 09:57 Nasopharnyx Influenza Type A Antigen Screen - Final 07/06/20 09:57 Nasopharnyx Influenza Type B Antigen Screen - Final Assessment and Plan - Advance Directives Does patient have a Living Will: Yes Does patient have a Durable POA for Healthcare: Yes Physician Review Additional Text: Acute cholecystitis CAD s/p CABG x3, stenting Afib, persistent, on xarelto HTN History of CVA (mild right-sided weakness) -discussed with general surgery, admit, Zosyn, NPO for possible OR tomorrow pending cardiac clearance -patient is very high risk for this procedure -cardiology consulted given significant past medical history -afib with rates in 100-115 which is atypical for him, doesn't take any rate control medication -will give metoprolol -hold xarelto for surgery Time Spent Managing Pts Care (In Minutes): 55
[2020-07-06] MEDS ORDERED: FUROSEMIDE 40 MG/4 ML VIAL IV ONE (16:15)
[2020-07-06] MEDS: PIPER/TAZO/NS 3.375gm 3.375 GM/100 ML BAG IVPB SCH (16:26)
[2020-07-06] MEDS ORDERED: METOPROLOL TAR 25 MG TAB PO SCH (16:30)
[2020-07-06] MEDS: METOPROLOL TAR 25 MG TAB PO SCH (16:44)
--- NOTE | 2020-07-06 18:58 | CON ---
Date of Consultation: 07/06/2020 Reason For Service: Acute cholecystitis. History Of Present Illness: This is a case of a male with a history of CVA, history of coronary silvino ry disease, history of CABG in the past and stenting with atrial fibrillation on anticoagulation. Ye sterday, he says he had too large dinner and after that developed epigastric right upper quadrant yuri n, radiating to the back with nausea. The pain got worse to the point that he came today to the ER, admitted for acute cholecystitis with Arroyo sign positive, and a surgical consult was obtained for p ossible cholecystectomy. He says that he knows he has to do some cardiac procedures. His cardiac do ctors are in [place]. He claimed he has to have a procedure done and he has not been able to do so because he was afraid of the COVID. Now, he is regretting since now we might have to do surgical int ervention and we do not have that evaluation. The primary doctor decided to get a cardiac clearance and the cardiac clearance cannot be done, they need to do some cardiac workup and cardiac treatments before clearance for surgery could be done. Allergies: NONE. Medications: Include Norvasc, Xarelto, prednisone, lisinopril, aspirin, Norvasc. Past Surgical History: As above. Past Medical History: As above. Family History: Noncontributory. Social History: He does not smoke. He does not drink alcohol. Review of Systems: See H and P. Ten points otherwise unremarkable. No melena. No hematochezia. Physical Examination: General: Patient is awake and alert. HEENT: Pupils anicteric. Neck: Supple. Chest: Clear. Abdomen: Epigastric right upper quadrant tenderness with Arroyo sign positive. Extremities: Good capillary refill. Rectal: Deferred. Laboratory Data: Blood work shows a WBC count of 22, with hemoglobin of 14.1, and potassium is 3. T otal bilirubin of 2.9 and alkaline phos of 97. Assessment: This is an 84-year-old patient with acute cholecystitis, we have no clearance and with t hat leukocytosis, I believe that this patient needs more than just waiting for that clearance. I bel ieve this patient should be transferred to [place] since we checked in this hospital and they do not provide the cardiac clearance this weekend and also they cannot provide the service of cholecystostom y tube. If this patient cannot be taken to surgery, at least relieve the area. The patient might ne ed also workup by the GI due to increased bilirubin and that [facility], which I believe will be too risky to wait. So, my proposi tion to the primary doctor in this hospital is to transfer this patient for continuation of care and evaluation for the possible cholecystostomy tube and then elective cholecystectomy, when he is cardia c stable. The ultrasound was discussed with the patient showing the cholelithiasis and stones in the gallbladder, and also the inflammation of the gallbladder too. The common bile duct at least in thi s ultrasound does not look abnormal. Although with a bilirubin of almost 3, we should be able to rul e out if there is any stone in the common bile duct on top of the inflammation of the gallbladder, an d this needs to be addressed as soon as possible. YASMANY/SABRINA Voice ID: [id number] Report ID: [id number]
[2020-07-06 19:44] LABS: Urine Appearance CLEAR; Urine Bilirubin NEGATIVE (NEG); Urine Blood TRACE (NEG); Urine Color YELLOW; Urine Glucose NEGATIVE (NEG); Urine Protein NEGATIVE (NEG); Urine Urobilinogen 0.2 mg/dL (0.2-1.0); Urine pH 7.5 (5.0-7.0)
[2020-07-06 20:14] LABS: Urine Bacteria NONE SEEN /HPF (NONE SEEN); Urine Microscopic Reflex ORDER UMIC; Urine Mucus 1+ /HPF (NONE SEEN)
[2020-07-07] MEDS: PIPER/TAZO/NS 3.375gm 3.375 GM/100 ML BAG IVPB SCH ×3 (00:50→16:39)
[2020-07-07 06:07] LABS: Absolute Lymphocytes (CBC) 0.8 K/uL (0.7-4.9); Basophils % 0.5 % (0-1.3); Hematocrit 36.8 % (39.6-49.0); Lymphocytes % 4.2 % (15.3-44.8); MPV 8.8 fL (7.6-11.3); RBC Red Blood Cell Count 4.61 M/uL (4.33-5.43)
[2020-07-07 06:19] LABS: Protime INR 3.7
[2020-07-07 06:36] LABS: Albumin 2.6 g/dL (3.4-5.0); Bilirubin Total 3.1 mg/dL (0.2-1.0); Magnesium 2.4 mg/dL (1.8-2.4)
[2020-07-07] MEDS: METOPROLOL TAR 25 MG TAB PO SCH (08:54)
[2020-07-07] MEDS ORDERED: methylPREDNISolone 4 MG TAB PO SCH (09:30)
[2020-07-07 09:36] VITALS: O2SAT 95
--- NOTE | 2020-07-07 13:23 | PN ---
Date of Progress Note: 07/07/2020 Reason For Services: Heart disease, increased bilirubin, acute cholecystitis, symptomatic cholelithi asis. Subjective: This is a case of an 84-year-old patient admitted to this hospital with multiple medical problems that was consulted for surgical intervention. When we trying to do surgical intervention, we noticed the patient has not cardiac clearance and cannot be cleared for surgical intervention unti l further studies are done. So, we discussed with the hospital resources and there is no ERCP availa ble. There is no MRCP available. There is no GI consult available and there is nobody, who can give us the clearance for a surgical intervention. So, we initiated transfer to a higher level of care f or few things, the MRI or MRCP, GI consult and also the possibility of percutaneous cholecystostomy t ube. This may somehow relieve the area of the gallbladder and then by some time for the cardiac doct ors to do their proper testing for cholecystectomy. Even though this was done, patient is still here in the hospital. We still have no resources like those and we still pending for bed in [place]. Th e patient was accepted already in that institution. In the meantime, patient is awake and alert. Ab domen is soft and depressible. Arroyo sign positive. Laboratory Data: WBC count came down from 22 to 19. Bilirubin came up from 2.9 to 3.1. Plan: Continue with the plans of transfer to a higher level of care. Continue antibiotics. No diet yet. If you need to give some nutrition, we would suggest parenteral nutrition. HM/MODL Voice ID: [id number] Report ID: [id number]
[2020-07-07 15:01] VITALS: BP 122/59; TEMP 97.5
--- NOTE | 2020-07-07 15:58 | CON ---
Reason For Consultation: Cardiac risk evaluation prior to gallbladder surgery. History Of Present Illness: This is an 84-year-old male who presented to the emergency room with rig ht upper quadrant pain, bloating, mild nausea, and significant tenderness; presented to the emergency room, had a very high white count and signs of acute cholecystitis confirmed by right upper quadrant ultrasound. From the cardiac standpoint, patient has history of AFib on Xarelto and last Xarelto do se was taken on the 27th in the morning. He has hypertension, prior history of CVA, coronary artery disease status post cardiac bypass surgery and multiple stents placement. Patient appears to be shor t of breath and wheezing and has some orthopnea and then heart rate was fast and rapid ventricular re sponse at the time of evaluation. Past Medical History: As outlined above in HPI. Medications: Refer to reconciliation sheet for detailed list. Allergies: NO KNOWN DRUG ALLERGIES. Family History: No premature coronary artery disease or cancer. Social History: Does not smoke or drink. Does not use any drugs. Review of Systems: All systems reviewed and were negative except for mentioned in the HPI. Physical Examination: Vital Signs: Temperature of 98.8, pulse 118, breathing at 18, blood pressure 133/70, saturating 96% on room air. General: Pleasant, elderly male, in no apparent distress, however, slightly short of breath. Head and Neck: Pupils are equal, reactive to light. Intact eye movements. Mild JVD. No cervical l ymphadenopathy. Neck: Supple. Thyroid is not enlarged. Lungs: Crackles in the bases with wheezing. Heart: Irregularly irregular, tachycardic. Abdomen: Soft, nontender. Bowel sounds positive. No organomegaly. No masses or hernia. No rigidi ty or rebound. Extremities: No clubbing or cyanosis. Intact pulses. Trace edema. Skin: No rashes. Neurologic: Alert, awake, oriented x3. No acute focal deficits appreciated. Investigations: Labs were reviewed. Troponin is negative. Creatinine is 1.23. White blood cell co unt was 22.4. Assessment And Recommendations: Cardiac preop risk assessment: This is an 84-year-old male with unc ontrolled atrial fibrillation and signs of diastolic heart failure symptoms and known history of mari nary artery disease, unable to assess the functional capacity as the patient is not very active. If this surgery is emergent, I recommend to proceed with this surgery and otherwise, the patient is at m [id number] risk from the cardiac standpoint and needs further risk stratification for which I re commend a stress test. Again, unless the surgery is emergent, in which condition I would recommend t o proceed and we will monitor the patient closely. Meanwhile, he is on beta tonya for rate control and if we are to hold the Xarelto, recommend to shreyas dge with heparin due to the known history of CVA, likely linked to atrial fibrillation and heparin to be stopped for the surgery and resumed afterwards. In conclusion, this patient is at least moderate -to-high risk from the cardiac standpoint and further workup is recommended unless the surgery is kamran med to be emergent/urgent in which case, I recommend to proceed. We will monitor the patient with yo u closely. Thank you for the consult. /SABRINA Voice ID: [id number] Report ID: [id number]
--- NOTE | 2020-07-07 16:05 | P.PN ---
Subjective Date of Service: 07/07/20 Chief Complaint: Acute cholecystitis Subjective: Improving (Patient reports he feels a little bit better this morning, continues with pain, denies nausea/vomiting. Denies chest pain, shortness of breath) Review of Systems 10-point ROS is otherwise unremarkable Physical Examination - Vital Signs Temperature: 97.5 F Blood Pressure: 122/59 Pulse: 79 Respirations: 20 Pulse Ox (%): 96 - Physical Exam General: Alert, In no apparent distress, Oriented x3 HEENT: Sclerae nonicteric Respiratory: Diminished, Crackles/rales (At bases bilaterally) Cardiovascular: Irregular heart rate/rhythm (Atrial fibrillation, HR 80-90s) Gastrointestinal: Soft and benign, Tenderness (RUQ, mild-moderate. 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 lower extremities) Neurological: Normal speech, Normal affect - Studies Laboratory Data (last 24 hrs) 07/07/20 05:37: Sodium 141, Potassium 4.0, BUN 22 H, Creatinine 1.12, Glucose 115 H, Magnesium 2.4, Total Bilirubin 3.1 H, AST 16, ALT 33, Alkaline Phosphatase 71 07/07/20 05:37: PT 42.5 H, INR 3.70 07/07/20 05:37: WBC 19.2 H D, Hgb 11.7 L, Hct 36.8 L D, Plt Count 156 D Microbiology Data (last 24 hrs): 07/06/20 09:57 Nasopharnyx Influenza Type A Antigen Screen - Final 07/06/20 09:57 Nasopharnyx Influenza Type B Antigen Screen - Final Assessment & Plan Physician Review Additional Text: Acute cholecystitis CAD s/p CABG x3, stenting Afib, persistent, on xarelto HTN History of CVA (mild right-sided weakness) Systemic mastocytosis blood disorder -discussed with general surgery and cardiology -cardiology recommended patient should undergo further evaluation, a stress test, before surgical intervention. Given patient's significant past medical history. -general surgery feels the patient's gallbladder would be too high risk to undergo emergent surgery, especially patient has been on chronic steroids. In addition, with elevated bilirubin, recommends possible ERCP/MRCP, and GI/IR consult for the possibility of percutaneous cholecystostomy tube placement. This may Soma relieve the area of the gallbladder to allow the patient to undergo further cardiac evaluation prior to surgery. -transfer was initiated yesterday afternoon, and patient was accepted to [facility] in [place]. Unfortunately, we are still awaiting bed availability. -Leukocytosis to 19.2, from 22.4; Tbili up to 3.1 from 2.9 -continue IV Zosyn, NPO -holding Xarelto -his home dose steroids was doubled due to recent infection -continue metoprolol - started due to AFib in 110s-120s, with improvement of HR Dispo: awaiting bed availability for transfer to [facility] Time Spent Managing Pts Care (In Minutes): 35
--- NOTE | 2020-07-07 16:45 | P.DS ---
Admission Date: 07/07/20 Discharge Date: 07/07/20 Disposition: TRANSFER TO [facility] Reason for Admission: Acute cholecystitis Consultations: General Surgery - Dr. Rob Cardiology - Dr. Lira Procedures: CT abdomen/pelvis (07/06): Cholelithiasis. Mild gallbladder wall thickening may indicate cholecystitis. Multiple splenic lesions may a represent metastases, infection or a benign process CXR (07/06): Lungs appear clear of acute infiltrate. Heart is mildly enlarged. RUQ U/S (07/06): Cholelithiasis. Stones are present within the gallbladder neck. Gallbladder wall measures 6 mm. Small to moderate amount of sludge within the gallbladder. The biliary tree is normal caliber. Findings probably indicate cholecystitis Problem list Acute cholecystitis CAD s/p CABG x3, stenting Afib, persistent, on xarelto HTN History of CVA (mild right-sided weakness) Systemic mastocytosis blood disorder multiple Lipomas Brief History of Present Illness: 84-year-old male, presenting with right upper quadrant abdominal pain that began suddenly after eating dinner the day before presentation. He had right upper quadrant pain, felt bloated, with some mild nausea. Denies vomiting, diarrhea, fevers/chills. He reports he was otherwise in his usual state of health up until this. In the ED, he was noted to have a leukocytosis of 22.4, BNP: 3549, lipase: 81, COVID negative. CT abdomen/pelvis consistent with cholelithiasis with mild gallbladder wall thickening indicating cholecystitis. RUQ ultrasound confirms similar findings. The case was briefly discussed with the general surgeon over the phone who recommended admission to the Medical service and to obtain surgical clearance. Hospital Course: Patient was admitted, kept NPO, and started on IV Zosyn. His Xarelto was held (last taken 07/06 AM at home). He was noted to have atrial fibrillation in the 110-120s, and was started on metoprolol 25 mg b.i.d. with improvement. Cardiology was consulted and recommended that the patient should undergo further evaluation, stress test, before surgical intervention due to the patient's significant past medical history. General surgery feels the patient's gallbladder would be too high risk to undergo emergent surgery, especially patient has been on chronic steroids. In addition, with elevated bilirubin, recommends possible ERCP/MRCP, and GI/IR consult for the possibility of percutaneous cholecystostomy tube placement. This may Soma relieve the area of the gallbladder to allow the patient to undergo further cardiac evaluation prior to surgery. Transferred to tertiary care center was initiated yesterday afternoon, and patient has been accepted to [facility] in [place] and a bed has become available today. Today, patient reports feeling a little bit better, continues with the pain, denies nausea/vomiting. Morning labs revealed leukocytosis to 19.2, from 22.4; Tbili up to 3.1 from 2.9 Patient is on chronic steroids, reportedly for his gout. This was increased to twice a day given that his ongoing stress/infection. Vital Signs/Physical Exam: Temp Pulse Resp BP Pulse Ox 97.5 F 79 20 122/59 L 96 07/07/20 16:14 07/07/20 16:14 07/07/20 16:14 07/07/20 16:14 07/07/20 16:14 General: Alert (uncomfortable at times), Oriented x3 HEENT: Sclerae nonicteric Respiratory: Crackles/rales (Mild at bases bilaterally) Cardiovascular: Other (Irregularly irregular rhythm, 80s-90s) Gastrointestinal: Soft and benign, Non-distended, Tenderness (mild-moderate in RUQ; no rebound) Integumentary: Rash(es) (b/l legs, chronic), Other (multiple lipomas in bilateral arms/legs) Neurological: Normal speech, Normal affect Laboratory Data at Discharge: WBC 19.2 K/uL (4.3-10.9) H D 07/07/20 05:37 Hgb 11.7 g/dL (13.6-17.9) L 07/07/20 05:37 Hct 36.8 % (39.6-49.0) L D 07/07/20 05:37 Plt Count 156 K/uL (152-406) D 07/07/20 05:37 PT 42.5 SECONDS (9.5-12.5) H 07/07/20 05:37 INR 3.70 07/07/20 05:37 APTT 33.4 SECONDS (24.3-36.9) 07/06/20 09:22 Sodium 141 mmol/L (136-145) 07/07/20 05:37 Potassium 4.0 mmol/L (3.5-5.1) 07/07/20 05:37 BUN 22 mg/dL (7-18) H 07/07/20 05:37 Creatinine 1.12 mg/dL (0.55-1.3) 07/07/20 05:37 Glucose 115 mg/dL (74-106) H 07/07/20 05:37 Magnesium 2.4 mg/dL (1.8-2.4) 07/07/20 05:37 Total Bilirubin 3.1 mg/dL (0.2-1.0) H 07/07/20 05:37 AST 16 U/L (15-37) 07/07/20 05:37 ALT 33 U/L (12-78) 07/07/20 05:37 Alkaline Phosphatase 71 U/L (45-117) 07/07/20 05:37 Lipase 81 U/L (73-393) 07/06/20 09:22 Home Medications: Allopurinol 100 mg PO DAILY 07/06/20 Amlodipine [Norvasc*] 5 mg PO DAILY 07/06/20 Aspirin 81 mg PO DAILY 07/06/20 Furosemide 40 mg PO DAILY 07/06/20 Lisinopril [Zestril] 10 mg PO BEDTIME 07/06/20 Lisinopril [Zestril] 20 mg PO DAILY 07/06/20 Pravastatin Sodium 40 mg PO DAILY 07/06/20 Rivaroxaban [Xarelto] 20 mg PO DAILY 07/06/20 methylPREDNISolone [Methylprednisolone] 4 mg PO DAILY 07/06/20 Followup: ALEM FERRARA [Primary Care Provider] - Time spent managing pt's care (in minutes): 35
== END 2020-07-07 19:24 | disposition short-term general hospital (02) | DRG 445 ==
LOC: ER 08:33 → ERHOLD 11:34 → 2ND 13:44 → OBSVTOIN 07-07 09:18
PROVIDERS: ADMIT Hospitalist; ATTEND Hospitalist
DX: K80.00 Calculus of gallbladder with acute cholecystitis without obstruction (principal); I69.351 Hemiplegia and hemiparesis following cerebral infarction affecting right dominant side; D47.02 Systemic mastocytosis; I48.91 Unspecified atrial fibrillation; I25.10 Atherosclerotic heart disease of native coronary artery without angina pectoris; E78.5 Hyperlipidemia, unspecified; D17.9 Benign lipomatous neoplasm, unspecified; I10 Essential (primary) hypertension; Z79.82 Long term (current) use of aspirin; Z79.01 Long term (current) use of anticoagulants; Z79.52 Long term (current) use of systemic steroids; Z79.899 Other long term (current) drug therapy; Z95.5 Presence of coronary angioplasty implant and graft; Z95.1 Presence of aortocoronary bypass graft; Z88.1 Allergy status to other antibiotic agents; Z20.828 Contact with and (suspected) exposure to other viral communicable diseases
CPT/HCPCS: 36415; 71045; 74177; 76705; 80048; 80053; 80076; 81003; 81015; 82550; 82553; 82565; 83690; 83735; 83880; 84484; 85025; 85610; 85730; 87804; 93005; 94760; 96361; 96365; 96375; 99285; G0378; J0696; J1940; J2543; J2930; J7030; J7509; Q9967; U0003

== ENCOUNTER 2020-11-23 13:21 | Inpatient (IN) | payer OTHER ==
--- OUTSIDE RECORDS SUMMARY | 2020-11-23 13:27 | XMS REPORT | Continuity of Care Document ---
:1935 Author Organization [facility] t Address [address] [place] [address] Care Team Providers Name Role Phone Neo JI Primary Care Physician Bucky JI Attending Clinician Stephanie JI Attending Clinician Cathy Stubbs MD Attending Clinician Ronit Bran MD Attending Clinician Stuart Mann MD Attending Clinician STEPHANIE Attending Clinician Unavailable Alysa JI, Brenden Attending Clinician Nidia JI Attending Clinician Valencia JI Attending Clinician Jessica Pompa MD Attending Clinician Jossie Devi CRNA Attending Clinician Yadi JI Attending Clinician DR Naheed COX Attending Clinician Unavailable CATHY STUBBS Admitting Clinician Unavailable DR Naheed COX Admitting Clinician Unavailable Payers Payer Name Policy Type Policy Effective Date Expiration Date Sour ce Number MEDICAREMEDICARE PART [id number] MD Gentry Kumar AND 00:00:00 [id number] STOKevin, [place]Medicare [place]ET[place] MANAGED [id number] MD Rinaldi CAREAETNA 00:00:00 [id number]/08/2000- PresentO MEDICAREMEDICARE A [id number] [facility] [id number] 2002- 00:00[facility]00 - [facility] AET[facility] - MGD CAREAETNA [id number] [address] [facility] INDEMNITY NON 00:00:00 - Medical [id number]/ Davida ter 4-PresentComm Problems Condition Condition Condition Status Onset Resolution Last Treating Co mments Source Name Details Category Date Date Treatment Clinician Date Urinary Urinary Disease Active 2019-[address] [facility] retention retention 2-06 [facility] - 00:00: Medical 00 [place] Hypokalemi Hypokalemi Disease Active 2019-[address] a a 2-02 [facility] - 00:00: Medical 00 [place] Atrial Atrial Disease Active 2019-[address] fibrillati fibrillati 2-02 [place] kes - on on 00:00: Medical 00 [place] Chronic Chronic Disease Active 2019-[address] [facility] anticoagul anticoagul 2-02 [place] [facility] - ation ation 00:00: Medical 00 [place] Acute Acute Disease Active 2019-[address] [facility] cholecysti cholecysti 1-28 [place] [facility] - tis tis 00:00: Medical 00 [place] 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 Social History Social Habit Start Date Stop Date Quantity Comments Source Sex Assigned At [facility] kes Medical [place] Tobacco use and 2020-07-16 2020-07-[address] [facility] [address] [place] k[facility] - exposure 00:00:00 00:00:00 Medical Center Alcohol intake 2018-09-21 2018-09-21 Current MD Rah webber 00:00:00 00:00:00 non-drinker of alcohol (finding) Smoking Status Start Date Stop Date Source Never smoker [facility] - M edical [place] Medications Ordered Filled Start Stop Current Ordering Indication Dosage Frequency Signature Comments Components Source Medication Medication Date Date Medication? Clinician (SIG) Name Name rivaroxaban 2019-08 Yes prevention Take by [facility] (XARELTO) 2-08 of mouth [facility] - 20 mg Tab 17:07: thromboembo daily with Medical tablet 20 lism in dinner. [place] paroxysmal atrial fib pravastatin 2019-08 Yes 40mg QD Take [address] (PRAVACHOL) 2-08 by mouth [facility] - 40 MG 17:07: daily. Medical tablet 20 [place] lisinopriL 2019-08 Yes 20mg QD Take [address] (PRINIVIL,Z 2-08 by mouth [facility] - ESTRIL) 20 17:07: daily. Medic al MG tablet 20 [place] furosemide 2019-08 Yes 40mg QD Take [address] (LASIX) 40 2-08 by mouth [facility] - MG tablet 17:07: daily. Medica l 20 [place] aspirin 81 2019-08 Yes 81mg QD Take [address] MG EC 2-08 by mouth [facility] - tablet 17:07: daily. Medical [address] [place] [address] amLODIPine 2019-08 Yes 5mg QD Take [address] (NORVASC) 5 2-08 by mouth [facility] - MG tablet 17:07: daily. Medica l 20 [place] allopurinoL 2019-08 Yes 100mg QD Take [address] (ZYLOPRIM) 2-08 mg by [facility] - 100 MG 17:07: mouth Medical tablet 20 daily. [place] lisinopriL 2019-08 Yes 10mg QD Take [address] (PRINIVIL,Z 2-08 by mouth [facility] - ESTRIL) 10 17:07: nightly. Med ical MG tablet 20 [place] methylPREDN 2019-08 Yes 4mg QD Take [address] ISolone 2-08 by mouth [facility] - (MEDROL) 4 17:07: daily. Medic al MG tablet 20 [place] acetaminoph 2019-08 Yes 650mg Take [address] [facility] en 2-08 tablets [facility] - (TYLENOL) 00:00: (650 mg Medic al 325 MG 00 total) by Center tablet mouth every 6 (six) hours as needed for Pain (mild pain). tamsulosin 2019-08- No .4mg QD Take [address] (FLOMAX) 09-17 12-08 capsule [facility] - 0.4 mg Cap 00:00: 23:59 (0.4 mg Med ical 24 hr 00 :00 total) by Center capsule mouth nightly. traMADoL 2019-08- No 50mg Take [address] (ULTRAM) 50 09-17 12-15 tablet (50 L [facility]kes - mg tablet 00:00: 23:59 mg total) Me dical 00 :00 by mouth Center every 6 (six) hours as needed (moderate to severe pain) for up to 7 days. Max Daily Amount: 200 mg amLODIPine 2018-0 Yes 1{tbl} Take 1 MD (NORVASC) 5 2-12 tablet by And erso mg tablet 16:41: mouth n 14 daily. aspirin 81 2018-0 Yes 1{tbl} Take 1 MD mg EC [...] a day before meals and nightly. nitroglycer 2019-0 Yes 1{tbl} Place 1 M D in 1-11 tablet Anderso (NITROSTAT) 00:00: under the n 0.4 mg SL 00 tongue tablet every 5 (five) minutes as needed. Take up to 3 times XARELTO 20 2018-0 Yes 1{tbl} Take 1 MD mg tablet 1-04 tablet by Brayden so 00:00: mouth n 00 daily. furosemide 2019- Yes 1{tbl} Take 1 MD (LASIX) 40 1-04 tablet by Rashaun rso mg tablet 00:00: mouth n 00 daily. pravastatin 2015- Yes 40mg Take 40 mg MD (PRAVACHOL) 6-10 by mouth Rashaun rso 40 mg 00:00: at n tablet 00 bedtime. Vital Signs Vital Name Observation Time Observation Value Comments Source Systolic blood 2020-07-17 08:00:00 141 mm[Hg] [facility] Diastolic blood 2020-07-17 08:00:00 63 mm[Hg] [facility] Heart rate 2020-07-17 08:00:00 111 /min [facility] Body temperature 2020-07-17 08:00:00 35.78 [facility] Respiratory rate 2020-07-17 08:00:00 18 /min [facility] Oxygen saturation in 2020-07-17 08:00:00 99 /min [facility] Arterial blood by Medical Ce nter Pulse oximetry Body height 2020-07-10 15:32:00 175.3 cm [facility] Body weight 2020-07-10 15:32:00 78.8 kg [facility] BMI 2020-07-10 15:32:00 25.64 kg/m2 [facility] Procedures Procedure Date / Time Performed Performing Clinician Sour e CBC W/PLT COUNT & AUTO 2020-07-17 05:06:[address] [facility] BASIC METABOLIC PANEL (7) 2020-07-17 05:06:00 Ziyad Otero [facility] MAGNESIUM 2020-07-17 05:06:00 Ziyad Otero [facility] PHOSPHORUS 2020-07-17 05:06:00 Ziyad Otero [facility] HEPATIC FUNCTION PANEL 2020-07-17 05:06:00 Ziyad Otero CH, I [facility] (CELLAVISION MANUAL DIFF) 2020-07-17 05:06:00 Ziyad Otero [facility] CBC W/PLT COUNT & AUTO 2020-07-16 05:10:00 Ziyad Otero CH I [facility] BASIC METABOLIC PANEL (7) 2020-07-16 05:10:00 Ziyad Otero [facility] MAGNESIUM 2020-07-16 05:10:00 Ziyad Otero [facility] PHOSPHORUS 2020-07-16 05:10:00 Ziyad Otero [facility] HEPATIC FUNCTION PANEL 2020-07-16 05:10:00 Ziyad Otero [facility] SARS-COV2/RT-PCR ([facility] & 2020-07-15 17:28:00 Ziyad Otero [facility] LABS) [facility] CBC W/PLT COUNT & AUTO 2020-07-15 06:07:[address] [facility] BASIC METABOLIC PANEL (7) 2020-07-15 06:07:00 Ziyad Otero [facility] MAGNESIUM 2020-07-15 06:07:00 Ziyad Otero [facility] PHOSPHORUS 2020-07-15 06:07:00 Ziyad Otero [facility] HEPATIC FUNCTION PANEL 2020-07-15 06:07:00 Ziyad Otero [facility] CBC W/PLT COUNT & AUTO 2020-07-14 04:18:[address] [facility] BASIC METABOLIC PANEL (7) 2020-07-14 04:18:00 Ziyad Otero [facility] MAGNESIUM 2020-07-14 04:18:00 Ziyad Otero [facility] PHOSPHORUS 2020-07-14 04:18:00 Ziyad Otero [facility] HEPATIC FUNCTION PANEL 2020-07-14 04:18:00 Ziyad Otero [facility] (CELLAVISION MANUAL DIFF) 2020-07-14 04:18:00 Ziyad Otero [facility] TISSUE EXAM 2020-07-13 18:47:00 Barrera [place] [facility] AFB CULTURE + SMEAR 2020-07-13 18:44:37 ValenciaBarrera [facility] (NON-SPUTUM) [facility] ANAEROBIC CULTURE 2020-07-13 18:44:37 Valencia, Omar [facility] FUNGUS CULTURE + SMEAR 2020-07-13 18:44:37 Valencia Barrera [facility] SURGICALLY OBTAINED 2020-07-13 18:44:37 Valencia [facility] - CULTURE + GRAM STAIN Medical [facility] ter SPIN/CONCENTRATION CHARGE 2020-07-13 18:44:00 Barrera [place] [facility] LAPAROSCOPY,CHOLECYSTECTO 2020-07-13 17:55:00 Valencia Barrera [facility] COMPREHENSIVE METABOLIC 2020-07-13 05:05:00 Ziyad Otero [facility] CBC W/PLT COUNT & AUTO 2020-07-13 05:05:[address] [facility] POCT-GLUCOSE METER 2020-07-12 22:57:00 Siomara Mann [facility] NM HEPATOBILIARY (HIDA) 2020-07-12 15:15:00 Ziyad Otero [facility] CBC W/PLT COUNT & AUTO 2020-07-12 05:14:[address] [facility] ECG 12-LEAD 2020-07-11 13:21:25 Sim [facility] COMPREHENSIVE METABOLIC 2020-07-11 06:01:00 Ziyad Otero [facility] CBC W/PLT COUNT & AUTO 2020-07-11 06:01:[address] [facility] PT/APTT 2020-07-11 06:01:00 Emma Bran [facility] BILIRUBIN, DIRECT 2020-07-11 06:01:00 Beckyam, Emma Ronit [facility] LIPASE 2020-07-11 06:01:00 Siomara Mann [facility] (CELLAVISION MANUAL DIFF) 2020-07-11 06:01:00 Emma Bran [facility] [place] ERCP 2020-07-10 17:10:00 Yadi [facility] REPORT OF PROCEDURE - 2020-07-10 17:00:27 Eran Grullon [facility] ENDOSCOPY URL [facility] ERCP 2020-07-10 16:17:00 Yadi [facility] PROCEDURE W/ C-ARM 2020-07-10 16:17:00 Yadi [facility] ERCP,PAPILLOTOMY 2020-07-10 16:17:00 Yadi [facility] [place] MYOCARDIAL PERFUSION 2020-07-10 13:08:00 John Olivas [facility] I [facility] SPECT, PHARM(LEXISCAN) Medical C enter ECG 12-LEAD 2020-07-10 11:23:10 Unknown, Hl7 [facility] TREADMILL 2020-07-10 11:22:48 Unknown, Hl7 [facility] TOLERANCE(NON-NUCLEAR Medical Ce nter TREADMILL) ECG 12-LEAD 2020-07-10 11:13:05 Unknown, 7 [facility] ECG 12-LEAD 2020-07-10 11:11:00 Unknown, Hl7 [facility] COMPREHENSIVE METABOLIC 2020-07-10 05:47:00 Ziyad Otero [facility] CBC W/PLT COUNT & AUTO 2020-07-10 05:47:00 Ziyad Otero CH I [facility] PT/APTT 2020-07-10 05:47:00 Emma Bran [facility] (CELLAVISION MANUAL DIFF) 2020-07-10 05:47:00 Emma Bran [facility] US ABDOMEN LIMITED 2020-07-09 16:01:00 Evelyne, Chimkama Cathy [facility] 2D ECHO W/ DOPPLER 2020-07-09 08:27:41 John Olivas [facility] (CW/PW/COLOR) [facility] COMPREHENSIVE METABOLIC 2020-07-09 03:52:00 Ziyad Otero [facility] CBC W/PLT COUNT & AUTO 2020-07-09 03:52:[address] [facility] PT/APTT 2020-07-09 03:52:00 Emma Bran [facility] BILIRUBIN, DIRECT 2020-07-09 03:52:00 Franky Mello [facility] MR ABDOMEN WO CONTRAST 2020-07-08 15:01:00 Mario Arriaza [facility] SARS-COV2/RT-PCR ([facility] & 2020-07-08 11:36:00 Ziyad Otero [facility] - REF LABS) [facility] ECG 12-LEAD 2020-07-08 11:16:16 Yana Quintanilla [facility] PT/APTT 2020-07-08 04:56:00 Aries Villalba [facility] HEPATIC FUNCTION PANEL 2020-07-08 04:53:00 EvelyneSandip [facility] MAGNESIUM 2020-07-08 04:53:00 [facility] 2020-07-08 04:53:00 Evelyne [facility] CBC W/PLT COUNT & AUTO 2020-07-08 04:53:00 EvelyneSandip [facility] B-TYPE NATRIURETIC FACTOR 2020-07-08 04:53:00 Aries Villalba [facility] (BNP) [facility] (CELLAVISION MANUAL DIFF) 2020-07-08 04:53:00 Evelyne [facility] BASIC METABOLIC PANEL (7) 2020-07-08 04:53:00 Evelyne [facility] Plan of Care Planned Activity Planned Date Details Comments Source Future Scheduled 2020-08-10 DEPRESSION SCREENING [facility] - Test 00:00:00 (12+) [code = Medical Center DEPRESSION SCREENING (12+)] Future Scheduled 2020-04-10 INFLUENZA VACCINE (#1) [facility] Test 00:00:00 [code = INFLUENZA Medical Ce nter VACCINE (#1)] Future Scheduled 2003-12-[address] [facility] - Test 00:00:00 WELLNESS (YEAR 2 or Medical Center FIRST YEAR if no IPPE) [code = MEDICARE ANNUAL WELLNESS (YEAR 2 or FIRST YEAR if no IPPE)] Future Scheduled 2002 PNEUMOCOCCAL 65+ YRS [facility] - Test 00:00:00 (2 of 2 - PPSV23) Medical Ce nter [code = PNEUMOCOCCAL 65+ YRS (2 of 2 - PPSV23)] Encounters Start End Encounter Admission Attending Care Care Encounter Source Date/Time Date/Time Type Type Clinicians Facility Department ID 2019-02-14 2019-02-14 Outpatient Elza [facility] RAD [id number] [address] 10:22:00 23:59:00 [facility] Results Test Description Test Time Test Comments Results Result Comments Source AFB culture + smear (non-sputum) 2020-08-28 07:22:00 Test Item Value Reference Range Interpretation Comme nts Result (test code = 6463-4) No acid-fast bacilli isolated in 42 day s AFB Smear (test code = 40247-3) No acid fast bacilli [facility]2020-08-28 07:22:00 Test Item Value Reference Range Interpretation Comments CULTURE (BEAKER) (test No acid-fast bacilli code = 1095) isolated in 42 days AFB SMEAR (BEAKER) No acid fast bacilli (test code = 994) seen Fungus culture + [id number] 23:54:00 Test Item Value Reference Range Interpretation Comments Result (test code = No fungus isolated in 6463-4) 28 days Fungus Smear (test No fungal elements seen code = 1406) [facility] [id number] 23:54:00 Test Item Value Reference Range Interpretation Comments CULTURE (BEAKER) (test No fungus isolated in code = 1095) 28 days FUNGUS SMEAR (BEAKER) No fungal elements seen (test code = 1406) Anaerobic [id number] 19:09:00 Test Item Value Reference Range Interpretation Comments Result (test code = No anaerobes isolated 6463-4) [facility] [id number] 19:09:00 Test Item Value Reference Range Interpretation Comments CULTURE (BEAKER) (test No anaerobes isolated code = 1095) Tissue [id number] 16:29:00 Test Item Value Reference Range Interpretation Comments Case Report (test code Surgical Pathology = 104) Report Case: [id number] Authorizing Provider: Barrera [place] MD Collected: 07/13/2020 06:47 PM Ordering Location: [facility] Received: 07/16/2020 09:59 AM SERVICES Pathologist: Aletha Funez MD Specimen: Gallbladder DIAGNOSIS (test code = g8ierTEcUBPwa5fzVTIobBF 3220) uZzEwMzNcZnRuYmpcdWMxIH tccnRmMVxlcGljOTIwMFxhb iYwACQooLYcY5VetvwtSLqz YF5rDJ5voRrchOJgnQObVNU tNiSil8hwq992xYGyl8ciGC CDziulmLv0eXiiA46kz4Q9Z cftI04srFGmTBvkfJMlkkdm czIwXHBhclxwYXJkIEEuIEd TATmQLKGEIVPFFOJSWQ1MDT WQE5QRP2WEOMl7ACJonfVlA XVuLR5uTBUSYRCyZM7RNJJB Wg7IXGIbE9bORVOLCROCAOU SAxGBJUQJSOVVCu7LSYHPCu AAFkEhR7zQSPVPSWZWVVAVT CPhDJJppv99QJI7XePtm7V5 PHR1XBHcUKYnm0gxOXRulTF uZzEwMzNcZnRuYmpcdWMxXG OkTdHec2tae417zBAba4ryZ UQlIjU3xJGrKLKxiPFqB237 ODDqQBkkz6xpj3PjHERiwGK ss3Y4UTIPbvjojHr3jJvxH2 9rz1J9IrhcG4iyNHIhIXNdU 8DnZX8xFPEmOro7UKG9BOJ5 RYGuBPNsE0KbRB9kJPQdxJV gUPu5c1bozFbdGUNbRBK8x6 onXMgwnaKoZB1btx0lvCf4c 1xjczEgRGVmYXVsdCBQYXJh C2CvzTymDz8oaAl7bEsiTph uFJC4Duv5SG3vct30jym7zC zvSUIdfzuyHpA7XHmjKCDgu pgkMVr8SEpnHGMvsBJ0WMPl oLBtS3WcEDXzGP0ucsc8TJI 3CDjpVGDwSuK5KUQcrAImRS RzhIkjNJiil975ZQE1VkCiG I4uH0Cqi0I1mU5ufAEaTJXo pMDwJnFrODSrsi2ngBHdKFq dp9MtVRF2irT4dSZjlBBmQR HwPjE8QMpfOP8ylc14JBNoT KV6dk7dtIQkjSlfwzBgvFHo IEwhY3RjXGWws004MEGfK3N iMZJxu0N8gtNnPcKgVIMvcQ X3llJ2WMMeKJ2qtgewk2xcE FjvRJeoKDVylbP8ogJ7RODy iMVnA8XvzV7pEXLaRP8vnjr uw9pyTYR2FDmjMVCySDU9Gj CfQVYmk3Gdyqn7CpFgo7You JNaZAceN46ms544DVLnaoEh E6tspMNplzosvUYvusicMYq rkuQ8IZCuTTzzyfhlUWAuLP jlU1fnHyXlKTTahVioDHgll 2NoXGYxXGZzMjJcdGFiXHRh Bgt6AJBnqJWoSFXeVgWrN1t agipuWuOENJZvk7ngK9zlqQ HGgPIuD5WlOAkmpuTeEYfqY WxrVVKzYCR9KJ3iGfH7GOSn cn19 CPT Code(s) (test code g0gmbHYyYFYkkIA2ZiOcZRM = 3357) zq4ont8NfkMWokZLbCSjcjE IpocHgfv69cKQ8xI81LH0iW LDmPmK5TVGjlgW4Nkp7DFXm DBUnlIPxH456f9zzc2bujpH upMF5eCmyTTKzDHMlJCimUI ZzMjAgODgzMDRccGFyfQ== CLINICAL HISTORY (test d3tgoPTjVURjcGL2UbRzJCN code = 3356) dy5tbl7LsqEHihDUmAKilvC IxkyFuuw54lBB0eF70NE5tF CHcKpO6LTIcbzO8Gwf4QSVs ULWngRDwY288j9tpv2uylhK mwBQ4sGziMJWrLGNnBWlnCL UpGuAqKCD4bLUrT8xtmUUzs EH7iHGcryHfrPCxmS== SPECIMEN SOURCE (test b6rrvGDrQBZyjGX5ZkXuQKE code = 3377) sd3fzs8CymPVhwWYsPHjmdC AiyoUqou27dMR7sO43LM5wG COjOlH8UBYxdiT4Ayt9NKQa LVSwsAOgM854d7ujq1ydzrI xjCJ8hMgjYDHdRMLnARaaNA KxHuZyC0NomQSyEMLzTYFzc GFyfQ== GROSS DESCRIPTION n0woaPAlMVCayFZrYmLlSGY (test code = 3366) eINJsi6qxHEAqcKAmYcGmYu NcZnRuYmpcdWMxXGRlZmYwe 1qer136hRAou7cuOFAiUjP5 zOSgQMGyuJYdE515g5etx3n zooQhcCX8LORgPBE4KLjcqf TbejZ0JXtjuFCxGsK6TXyhd gZiCPnkcbHpztByNte9ZWAf Q261QPH4pJsaj0zuERR8FQX jDIAcVuZrBf9pjQFsA396LA CgDIGFWNGxqIe9GFWmslObt iXaqHSGy852H498s4iuPFDq vaCvwHhYgjytv5xcS948DBS hcGVydzEyMjQwXHBhcGVyaD D1ABJjSO6iovezExYnTE4wc velXiKyAB8zwrm6JpTjDG2g cmdiNzIwXGhlYWRlcnkwXGZ tx7EbwfmcYX6oZ6Abj3A6hA 9maXRcZGVmdGFiNzIwXGZvc k7hnIKtNUsjs1ZlCXK9utD2 cGRiqOVyNGQdKS66Aybpy5U bJrpuZFZ4HELpfvIfs1Kio4 cyZlLabxHsE2vtX2GhPJHbO SGpSOXrObLqcgOsc3Tgi0Cl jMUyxSw5h9jmRFEtTESguIz dj2ftKXQ0BBLvZ3Y6fKXmf8 ohHMrqIJZmxDC4xvwsQNxpX HQhebR8dbdnSWmgZSZppPG0 xpwqWOtoAZTgEaF0wgsaNMm hAJGtFJP8TVpxh832CAQ2XE xzYmtwYWdlXHBnbmNvbnRcc GduZGVjXHBsYWluXHBsYWlu XGYwXGZzMjRccWxccGxhaW5 yCeJmJxAbMCvpAK3eJZQlK7 cocWYaWIUlIBGvQ5lnChHrc V0swNetZSofqqOpWMHsE0Mc zwRlUNoxOMNvnz5miIlrRDi rLtIwXSXxv9h6vXO1nFCsbH Q4pHWcdEkjEJ9xiSOiZQWuH 9Dzn6bqyoYecL3aAAHlHT5y ICJnYWxsYmxhZGRlciIgaXM nWZR9MtRalJIqPrqejRYiIv QlH57oxLKchdynzHIbpCOtt LFoJTCnK6OmuKYvDAYgFDLm u8z7oEIsWXFlMdSksEQgvtT zSW4czNbvIneuBI2oLCBsWK qyBVLnSI7plZFqZAC8aJNfv SXeGAD1y3WgVaJxsDZ8OgTo XKfnNUHogr6fHOPndbXqjKO nyPJ2OJ6wjScvnnyinWjhAO ErcEdsCGAjRDFcyN4tjMvjl L8qu8dxF9t9FkSjT0WvqZyd bmluZyByZXZlYWxzIGEgMC4 4TWuyES9oQDmzIM4mPGKtEW waiEdugn0qleHhtlzhQu3xd 6GbLIRmPGYcWEdlpQb5gm5k IFRoZXJlIGFyZSBubyBjYWx ekGzuKEssRJibNCZ7zMAeoX 0npRtoLRD3h7CpJrBcyTI6R tRsGGqkFG30S68fNLEzhjU7 QI3lCmOnb96dTXAiZ9BubDl qmMLje7WynPPplOWfSA4fKI CuUSLmZ8YlYNOjBW4wCRNxB JR9ELqkCH0gPXX8crVvGLWg VDVmzIW5tManvw3zNQUcsIB sc2BfkFY5vBVnCMWwK5Dng2 1eTZNrXLDyaXOluUQ3VJTgu T4lGNEuQEXwBLhabRbgsWyw QNojb1OiULY7k7NrOcNitUR 6JF0jurqlvsTskaLEUU4ejR NjPJTboeQGqNbdtkVBxbv8G WxsZXMsIFBBLCBIVCAoQVND UClccGFyfQ== MICROSCOPIC p2luuBVeCYFutPR1EmQjDME DESCRIPTION (test code ft7ksi6NceYCtmKTtNVgmbB = 3371) NtfrNpij80cVF1mK39KO4qQ SIzPwP3VCUkydN6Typ5GDJb YGDaaUIaY904e3lxd5zwgpD vmUD0yZikFFWtJUXgXBsxVC JmHpJwLNLeWj2ilHQiNlawH XJ9 Gross assessment was [facility] performed at ([facility], code = 2777) Department of Pathology, [address] [place] [address], Technical component [facility] was performed at ([facility], code = 2778) Department of Pathology, [address] [place] [id number], Professional component [facility] was performed at ([facility], code = 2779) Department of Pathology, [address] [place] [address], [facility] [id number] 16:29:00Surgical Pathology Report Case: [id number] Authorizing Provider: Barrera [place] MD Collected: 07/13/2020 06:47 PM Ordering Location: [facility] Received: 07/16/2020 09:59 AM SERVICES Pathologist: Aletha Funez MD Specimen: Gallbladder A. GALLBLADDER, CHOLECYSTECTOMY: - ACUTE AND CHRONIC CHOLECYSTITIS WITH SEROSITIS AND CHOLELITHIASIS. SigningPathologist Direct Phone Line: [phone] signed by Aletha Funez MD on 07/17/2020 at 4:29 [id number] cholecystitis GallbladderReceived in formalin labeled with the patient's name, accession number and "gallbladder" is a 7.0 x 3.7 x 1.4 cm previously opened gallbladder with a 0.2 cm inlength by 0.3 cm in diameter attached cystic duct. The serosa is dusky martinez-pink, hyperemic and smooth to shaggy. Sectioning reveals a 0.4 x 0.3 x 0.3 cm yellow-green, bosselated calculus. There are no calculi lodged within the cystic duct. The mucosa is martinez-brown, focally hemorrhagic and trabeculated. The wall measures 0.4 cm thick. Continuous Process Rotary [employer] sections are submitted in A1-A2, with the inkedcystic duct margin in A1.DARI Najera, HT (ASCP)Performed.[facility], Department of Pathology, [address] [place] [id number], CesktzHenry [facility], [facility], [address] [place] [id number], KyomrdHenry [facility], Department of [facility]ology, [address] [place] [id number], RBR with platelet count + automated [id number] 06:28:00 Test Item Value Reference Range Interpretation Comments WBC (test code = 6690-2) 10.6 See_Comment H [A utomated message] The system Xyo generated this result transmitted ref erence range: 3.5 - 10 .5 K/L. The refe rence range was not u sed to interpret this result as normal/abnor mal. RBC (test code = 789-8) 4.54 See_Comment L [Au tomated message] The system Xyo generated this result transmitted ref erence range: 4.63 - 6 .08 M/L. The refe rence range was not u sed to interpret this result as normal/abnor mal. MCHC (test code = 786-4) 29.4 See_Comment L [A utomated message] The system Xyo generated this result transmitted ref erence range: 32.3 - 3 6.5 GM/DL. The refe rence range was not u sed to interpret this result as normal/abnor mal. Hematocrit (test code = 39.1 % 40.1-51 L 4544-3) MCV (test code = 787-2) 86.1 fL 79-92.2 MCH (test code = 785-6) 25.3 pg 25.7-32.2 L RDW (test code = 788-0) 18.6 % 11.6-14.4 H Platelets (test code = 233 See_Comment [Aut omated message] 267-3) The system Xyo generated this result transmitted ref erence range: 150 - 45 0 K/CU MM. The referen ce range was not u sed to interpret this result as normal/abnor mal. MPV (test code = 10.1 fL 9.4-12.4 35696-0) nRBC (test code = 413) 0 See_Comment [Aut omated message] The system Xyo generated this result transmitted ref erence range: 0 - 0 /1 00 WBC. The refere nce range was not u sed to interpret this result as normal/abnor mal. Lab Interpretation (test Abnormal code = 09430-9) [facility] [id number] 06:28:00 Test Item Value Reference Range Interpretation Comments % Neutros (test code = 66 % 2816) % Lymphs (test code = 13 % 2817) % Monos (test code = 2818) 4 % % Eos (test code = 2819) 13 % % Baso (test code = 2820) 1 % % Atypical Lymphs (test 3 % 0-0 H code = 2829) # Neutros (test code = 7.00 K/ul 1.78-5.38 H 2830) # Lymphs (test code = 1.38 K/ul 1.32-3.57 2831) # Monos (test code = 2832) 0.42 K/uL 0.3-0.82 # Eos (test code = 2834) 1.38 K/uL 0.04-0.54 H # Baso (test code = 2835) 0.11 K/uL 0.01-0.08 H # Atypical Lymphs (test 0.32 K/uL 0-0 H code = 2858) Total Counted (test code = 100 1351) Platelet Morphology (test Normal code = 486) Toxic Granulation (test Present code = 771) Polychromasia (test code = 1+ few 478) Anisocytosis (test code = 1+ few 961) Macrocytes (test code = 1+ few 964) Poikilocytes (test code = 1+ few 966) Schistocytes (test code = 1+ few 765) Elliptocytes (test code = 1+ few 962) Ovalocytes (test code = 1+ few 477) Artifact (test code = Present 3432) Platelet Conc (test code = Adequate 3438) TON (test code = OTN) Structural Analysis Engineer ID - Jaida comments: Slide comments: Lab Interpretation (test Abnormal code = 43709-3) [facility](CELLAVISION MANUAL DIFF)2020-07-17 06:28:00 Test Item Value Reference Range Interpretation Comments NEUTROPHILS - REL 66 % (CELLAVISION)(BEAKER) (test code = 2816) LYMPHOCYTES - REL 13 % (CELLAVISION)(BEAKER) (test code = 2817) MONOCYTES - REL 4 % (CELLAVISION)(BEAKER) (test code = 2818) EOSINOPHILS - REL 13 % (CELLAVISION)(BEAKER) (test code = 2819) BASOPHILS - REL 1 % (CELLAVISION)(BEAKER) (test code = 2820) ATYPICAL LYMPHOCYTES - REL 3 % 0-0 H (CELLAVISION)(BEAKER) (test code = 2829) NEUTROPHILS - ABS 7.00 K/ul 1.78-5.38 H (CELLAVISION)(BEAKER) (test code = 2830) LYMPHOCYTES - ABS 1.38 K/ul 1.32-3.57 (CELLAVISION)(BEAKER) (test code = 2831) MONOCYTES - ABS 0.42 K/uL 0.30-0.82 (CELLAVISION)(BEAKER) (test code = 2832) EOSINOPHILS - ABS 1.38 K/uL 0.04-0.54 H (CELLAVISION)(BEAKER) (test code = 2834) BASOPHILS - ABS 0.11 K/uL 0.01-0.08 H (CELLAVISION)(BEAKER) (test code = 2835) ATYPICAL LYMPHOCYTES - ABS 0.32 K/uL 0.00-0.00 H (CELLAVISION)(BEAKER) (test code = 2858) TOTAL COUNTED (BEAKER) (test code = 100 1351) PLT MORPHOLOGY (BEAKER) (test code Normal = 486) TOXIC GRANULATION (BEAKER) (test Present code = 771) POLYCHROMATOPHILLIC RBCS(BEAKER) 1+ few (test code = 478) ANISOCYTOSIS (BEAKER) (test code = 1+ few 961) MACROCYTES (BEAKER) (test code = 1+ few 964) POIKILOCYTES (BEAKER) (test code = 1+ few 966) SCHISTOCYTES (BEAKER) (test code = 1+ few 765) ELLIPTOCYTES (BEAKER) (test code = 1+ few 962) OVALOCYTES (BEAKER) (test code = 1+ few 477) ARTIFACT (CELLAVISION)(BEAKER) Present (test code = 3432) PLATELET CONCENTRATION Adequate (CELLAVISION)(BEAKER) (test code = 3438) Structural Analysis Engineer ID - Jaida comments: Slide comments:CBC W/PLT COUNT & AUTO [id number] 06:28:00 Test Item Value Reference Range Interpretation Comments WHITE BLOOD CELL COUNT (BEAKER) 10.6 K/ L 3.5-10.5 H (test code = 775) RED BLOOD CELL COUNT (BEAKER) 4.54 M/ L 4.63-6.08 L (test code = 761) HEMOGLOBIN (BEAKER) (test code = 11.5 GM/DL 13.7-17.5 L 410) HEMATOCRIT (BEAKER) (test code = 39.1 % 40.1-51.0 L 411) MEAN CORPUSCULAR VOLUME (BEAKER) 86.1 fL 79.0-92.2 (test code = 753) MEAN CORPUSCULAR HEMOGLOBIN 25.3 pg 25.7-32.2 L (BEAKER) (test code = 751) MEAN CORPUSCULAR HEMOGLOBIN CONC 29.4 GM/DL 32.3-36.5 L (BEAKER) (test code = 752) RED CELL DISTRIBUTION WIDTH 18.6 % 11.6-14.4 H (BEAKER) (test code = 412) PLATELET COUNT (BEAKER) (test 233 K/CU MM 150-450 code = 756) MEAN PLATELET VOLUME (BEAKER) 10.1 fL 9.4-12.4 (test code = 754) NUCLEATED RED BLOOD CELLS 0 /100 WBC 0-0 (BEAKER) (test code = 413) Basic Metabolic [id number] 05:39:00 Test Item Value Reference Range Interpretation Comments Sodium (test code = 138 meq/L 667-930 5333-2) Potassium (test 3.9 meq/L 3.5-5.1 code = 2823-3) Chloride (test code 106 meq/L 98-107 = 2075-0) CO2 (test code = 27 meq/L 22-29 2027-9) BUN (test code = 17 mg/dL 7-21 3094-0) Creatinine (test 0.90 mg/dL 0.57-1.25 code = 2160-0) Glucose (test code 85 mg/dL 70-105 = 2345-7) Calcium (test code 8.6 mg/dL 8.4-10.2 = 13543-3) EGFR (test code = 81 mL/min/1.73 [place] [address]-0) NOT ACCURATE CREATININE CLEARANCE IN PREDICTING GLOMERULAR FILTRATION RATE . ESTIMATED GFR I S NOT APPLICABLE FOR DIALYSIS PATIEN LELA. TON (test code = Structural Analysis Engineer ID - TON) [facility] [id number] 05:39:00 Test Item Value Reference Range Interpretation Comments Protein, Total (test 5.4 See_Comment L [Autom ated code = 2885-2) message] The system which generated this result transmit florencio reference range : 6.0 - 8.3 gm/dL . The reference range was not u sed to interpret th is result as normal/abnormal . Albumin (test code = 2.6 g/dL 3.5-5 L 97823-3) Total Bilirubin (test 1.6 mg/dL 0.2-1.2 H code = 1974-2) Bilirubin, Direct 1.1 mg/dL 0.1-0.5 H (test code = 1967-7) Alkaline Phosphatase 189 U/L 40-150 H (test code = 6768-6) AST (test code = 20 U/L 5-34 1920-8) ALT (test code = 83 U/L 6-55 H 1742-6) TON (test code = TON) Structural Analysis Engineer ID - HOLGER [facility] Interpretation Abnormal (test code = 33088-2) [facility] 05:[facility]00 Test Item Value Reference Range Interpretation Comments Magnesium (test code = 2.0 mg/dL 1.6-2.6 66286-9) TON (test code = TON) Structural Analysis Engineer ID - HOLGER [facility] Interpretation (test Normal code = 86445-1) [facility] 05:[facility]00 Test Item Value Reference Range Interpretation Comments Phosphorus (test code = 3.0 mg/dL 2.3-4.7 2777-1) TON (test code = TON) Structural Analysis Engineer ID - HOLGER L Lab Interpretation (test Normal code = 81146-7) [facility] [id number] 05:39:00 Test Item Value Reference Range Interpretation Comments SODIUM (BEAKER) 138 meq/L 136-145 (test code = 381) POTASSIUM (BEAKER) 3.9 meq/L 3.5-5.1 (test code = 379) CHLORIDE (BEAKER) 106 meq/L 98-107 (test code = 382) CO2 (BEAKER) (test 27 meq/L 22-29 code = 355) BLOOD UREA NITROGEN 17 mg/dL 7-21 (BEAKER) (test code = 354) CREATININE (BEAKER) 0.90 mg/dL 0.57-1.25 (test code = 358) GLUCOSE RANDOM 85 mg/dL 70-105 (BEAKER) (test code = 652) CALCIUM (BEAKER) 8.6 mg/dL 8.4-10.2 (test code = 697) EGFR (BEAKER) (test 81 mL/min/1.73 ESTIMA FLORENCIO GFR IS code = 1092) sq m NOT ACCURATE CREATININE CLEARANCE IN PREDICTING GLOMERULAR FILTRATION RATE . ESTIMATED GFR I S NOT APPLICABLE FOR DIALYSIS PATIEN TS. Structural Analysis Engineer ID - HOLGER [id number] 05:39:00 Test Item Value Reference Range Interpretation Comments MAGNESIUM (BEAKER) (test code = 2.0 mg/dL 1.6-2.6 627) Structural Analysis Engineer ID - HOLGER [id number] 05:39:00 Test Item Value Reference Range Interpretation Comments PHOSPHORUS (BEAKER) (test code = 3.0 mg/dL 2.3-4.7 604) Structural Analysis Engineer ID - HOLGER LHEPATIC FUNCTION [id number] 05:39:00 Test Item Value Reference Range Interpretation Comments TOTAL PROTEIN (BEAKER) (test code = 5.4 gm/dL 6.0-8.3 L 770) ALBUMIN (BEAKER) (test code = 1145) 2.6 g/dL 3.5-5.0 L BILIRUBIN TOTAL (BEAKER) (test code 1.6 mg/dL 0.2-1.2 H = 377) BILIRUBIN DIRECT (BEAKER) (test 1.1 mg/dL 0.1-0.5 H code = 706) ALKALINE PHOSPHATASE (BEAKER) (test 189 U/L 40-150 H code = 346) AST (SGOT) (BEAKER) (test code = 20 U/L 5-34 353) ALT (SGPT) (BEAKER) (test code = 83 U/L 6-55 H 347) Structural Analysis Engineer ID - HOLGER LSurgically obtained culture + gram [id number] 11:33:00 Test Item Value Reference Range Interpretation Comments Result (test code = 6463-4) No growth Gram Stain Result (test No organisms seen code = 1123) TON (test code = TON) [facility] GRAM [id number] 11:33:00 Test Item Value Reference Range Interpretation Comments CULTURE (BEAKER) (test code No growth = 1095) GRAM STAIN RESULT (BEAKER) 1+ WBCs (test code = 1123) GRAM STAIN RESULT (BEAKER) No organisms seen (test code = 473990) SARS-CoV2/RT-PCR (Asymptomatic ONLY)2020-07-16 09:52:00 Test Item Value Reference Range Interpretation Comments SARS-COV2/RT-PCR Negative Not Detected, (test code = Negative, See 65543-6) external report for linked test SARS-COV-2 [facility] PERFORMING LAB (test code = 81364-0) TON (test code = Negative result for this TON) test determines that SARS-CoV-2 RNA was not present in the specimen above the Limit of Detection (LOD). However, Negative results do not preclude SARS-CoV-2 infection and should not be used as the sole basis for treatment or patient management decisions. Negative results must be combined with clinical observations, patient history, and epidemiological information. A false negative result may occur if a specimen is improperly collected, transported or handled. A false negative result should be considered if patient's recent exposures or clinical presentation indicate that COVID-19 (SARS-CoV-2) is likely and diagnostic tests for other causes of illness are negative. Re-testing should be considered in cases of suspected false negatives. The limit of detection for this assay is 800 copies/mL. This SARS CoV-2 test is a real-time RT-PCR test intended for the qualitative detection of nucleic acid from SARS-CoV-2 in a nasopharyngeal swab specimen collected from individuals suspected of COVID-19 by their healthcare provider. This test has not been Food and Drug Administration (FDA) cleared or approved. This is a modified version of an approved Emergency Use Authorization (EUA) and is in the process of review by the FDA. Once authorized by the FDA, the issued EUA will be effective until the declaration that circumstances exist justifying the authorization of the emergency use of in vitro diagnostic tests for detection and/or diagnosis of COVID-19 is terminated under Section 564(b)(2) of the Act or the EUA is revoked under Section 564(g) of the Act. Fact Sheet for Healthcare Providers:https://www.[employer]/sites/default/f claire/product/documents/F act_Sheet_HC_Providers_L rss_FBWJ-PpD-1.pdf Fact Sheet for Healthcare Patients:https://www.[employer]/sites/default/fi les/product/documents/Fa ct_Sheet_Patients_Lyra_S ARS-CoV-2.pdf Performing Laboratory:[facility] [address] [facility])2020-07-16 09:52:00 Test Item Value Reference Range Interpretation Comments SARS-COV2/RT-PCR (test Negative Not Detected, Negative, code = 0640299) See external report for linked test SARS-COV-2 PERFORMING LAB [facility] (test code = 5034408) Negative result for this test determines that SARS-CoV-2 RNA was not present in the specimen above the Limit of Detection (LOD). However, Negative results do not preclude SARS-CoV-2 infection and should not be used as the sole basis for treatment or patient management decisions. Negative results mustbe combined with clinical observations, patient history, and epidemiological information. A false negative result may occur if a specimen is improperly collected, transported or handled. A false negative result should be considered if patient's recent exposures or clinical presentation indicate that COVID-19 (SARS-CoV-2) is likely and diagnostic tests for other causes of illness are negative. Re-testing should be considered in cases of suspected false negatives.The limit of detection for this assay is 800 copies/mL.This SARS CoV-2 test is a real-time RT-PCR test intended for the qualitative detection of nucleic acid from SARS-CoV-2 in a nasopharyngeal swab specimen collected from individuals susp ected of COVID-19 by their healthcare provider.This test has not been Food and Drug Administration (FDA) cleared or approved. This is a modified version of an approved Emergency Use Authorization (EUA) and is in the process of review by the FDA. Once authorized by the FDA, the issued EUA will be effective until the declaration that circumstances exist justifying the authorization of the emergency use of in vitro diagnostic tests for detection and/or diagnosis of COVID-19 is terminated under Section 564(b)(2) of the Act or the EUA is revoked under Section 564(g) of the Act.Fact Sheet for Healthcare Providers:https://www.[employer]/sites/default/files/product/documents/Fact_Shee e_JY_Jypnovwty_Awlq_WTQE-UdA-9.pdfFact Sheet for Healthcare Patients:https://www.[employer]/sites/default/files/product/ documents/Vusj_Xbfvf_Zizaswbb_Jywi_NZRG-KrU-9.pdfPerforming Laboratory:[facility] [place], [place] [address].[place], [place] [address]DWY W/PLT COUNT & AUTO [id number] 06:22:00 Test Item Value Reference Range Interpretation Comments WHITE BLOOD CELL COUNT (BEAKER) 11.0 K/ L 3.5-10.5 H (test code = 775) RED BLOOD CELL COUNT (BEAKER) 4.46 M/ L 4.63-6.08 L (test code = 761) HEMOGLOBIN (BEAKER) (test code = 11.3 GM/DL 13.7-17.5 L 410) HEMATOCRIT (BEAKER) (test code = 39.1 % 40.1-51.0 L 411) MEAN CORPUSCULAR VOLUME (BEAKER) 87.7 fL 79.0-92.2 (test code = 753) MEAN CORPUSCULAR HEMOGLOBIN 25.3 pg 25.7-32.2 L (BEAKER) (test code = 751) MEAN CORPUSCULAR HEMOGLOBIN CONC 28.9 GM/DL 32.3-36.5 L (BEAKER) (test code = 752) RED CELL DISTRIBUTION WIDTH 18.1 % 11.6-14.4 H (BEAKER) (test code = 412) PLATELET COUNT (BEAKER) (test 223 K/CU MM 150-450 code = 756) MEAN PLATELET VOLUME (BEAKER) 10.6 fL 9.4-12.4 (test code = 754) NUCLEATED RED BLOOD CELLS 0 /100 WBC 0-0 (BEAKER) (test code = 413) NEUTROPHILS RELATIVE PERCENT 52 % (BEAKER) (test code = 429) LYMPHOCYTES RELATIVE PERCENT 18 % (BEAKER) (test code = 430) MONOCYTES RELATIVE PERCENT 9 % (BEAKER) (test code = 431) EOSINOPHILS RELATIVE PERCENT 15 % (BEAKER) (test code = 432) BASOPHILS RELATIVE PERCENT 1 % (BEAKER) (test code = 437) NEUTROPHILS ABSOLUTE COUNT 5.69 K/ L 1.78-5.38 H (BEAKER) (test code = 670) LYMPHOCYTES ABSOLUTE COUNT 2.03 K/ L 1.32-3.57 (BEAKER) (test code = 414) MONOCYTES ABSOLUTE COUNT (BEAKER) 1.03 K/ L 0.30-0.82 H (test code = 415) EOSINOPHILS ABSOLUTE COUNT 1.64 K/ L 0.04-0.54 H (BEAKER) (test code = 416) BASOPHILS ABSOLUTE COUNT (BEAKER) 0.13 K/ L 0.01-0.08 H (test code = 417) IMMATURE GRANULOCYTES-RELATIVE 5 % 0-1 H PERCENT (BEAKER) (test code = 2801) BASIC METABOLIC [id number] 06:20:00 Test Item Value Reference Range Interpretation Comments SODIUM (BEAKER) 138 meq/L 136-145 (test code = 381) POTASSIUM (BEAKER) 3.9 meq/L 3.5-5.1 (test code = 379) CHLORIDE (BEAKER) 107 meq/L 98-107 (test code = 382) CO2 (BEAKER) (test 28 meq/L 22-29 code = 355) BLOOD UREA NITROGEN 13 mg/dL 7-21 (BEAKER) (test code = 354) CREATININE (BEAKER) 0.86 mg/dL 0.57-1.25 (test code = 358) GLUCOSE RANDOM 79 mg/dL 70-105 (BEAKER) (test code = 652) CALCIUM (BEAKER) 8.6 mg/dL 8.4-10.2 (test code = 697) EGFR (BEAKER) (test 85 mL/min/1.73 ESTIMA FLORENCIO GFR IS code = 1092) sq m NOT ACCURATE CREATININE CLEARANCE IN PREDICTING GLOMERULAR FILTRATION RATE . ESTIMATED GFR I S NOT APPLICABLE FOR DIALYSIS PATIEN TS. Structural Analysis Engineer ID - HOLGER [id number] 06:20:00 Test Item Value Reference Range Interpretation Comments MAGNESIUM (BEAKER) (test code = 1.9 mg/dL 1.6-2.6 627) Structural Analysis Engineer ID - HOLGER [id number] 06:20:00 Test Item Value Reference Range Interpretation Comments PHOSPHORUS (BEAKER) (test code = 2.4 mg/dL 2.3-4.7 604) Structural Analysis Engineer ID - HOLGER LHEPATIC FUNCTION [id number] 06:20:00 Test Item Value Reference Range Interpretation Comments TOTAL PROTEIN (BEAKER) (test code = 5.3 gm/dL 6.0-8.3 L 770) ALBUMIN (BEAKER) (test code = 1145) 2.5 g/dL 3.5-5.0 L BILIRUBIN TOTAL (BEAKER) (test code 1.6 mg/dL 0.2-1.2 H = 377) BILIRUBIN DIRECT (BEAKER) (test 1.1 mg/dL 0.1-0.5 H code = 706) ALKALINE PHOSPHATASE (BEAKER) (test 194 U/L 40-150 H code = 346) AST (SGOT) (BEAKER) (test code = 27 U/L 5-34 353) ALT (SGPT) (BEAKER) (test code = 113 U/L 6-55 H 347) Structural Analysis Engineer ID - HOLGER [id number] 07:13:00 Test Item Value Reference Range Interpretation Comments MAGNESIUM (BEAKER) (test code = 1.8 mg/dL 1.6-2.6 627) Structural Analysis Engineer ID - HOLGER [id number] 07:13:00 Test Item Value Reference Range Interpretation Comments PHOSPHORUS (BEAKER) (test code = 2.2 mg/dL 2.3-4.7 L 604) Structural Analysis Engineer SONAL WREN LBASIC METABOLIC [id number] 07:13:00 Test Item Value Reference Range Interpretation Comments SODIUM (BEAKER) 139 meq/L 136-145 (test code = 381) POTASSIUM (BEAKER) 4.3 meq/L 3.5-5.1 (test code = 379) CHLORIDE (BEAKER) 108 meq/L 98-107 H (test code = 382) CO2 (BEAKER) (test 26 meq/L 22-29 code = 355) BLOOD UREA NITROGEN 9 mg/dL 7-21 (BEAKER) (test code = 354) CREATININE (BEAKER) 0.80 mg/dL 0.57-1.25 (test code = 358) GLUCOSE RANDOM 109 mg/dL 70-105 H (BEAKER) (test code = 652) CALCIUM (BEAKER) 8.4 mg/dL 8.4-10.2 (test code = 697) EGFR (BEAKER) (test 93 mL/min/1.73 ESTIMA FLORENCIO GFR IS code = 1092) sq m NOT ACCURATE CREATININE CLEARANCE IN PREDICTING GLOMERULAR FILTRATION RATE . ESTIMATED GFR I S NOT APPLICABLE FOR DIALYSIS PATIEN TS. Structural Analysis Engineer ID Rae WREN LSpecimen slightly ictericHEPATIC FUNCTION [id number] 07:13:00 Test Item Value Reference Range Interpretation Comments TOTAL PROTEIN (BEAKER) (test code = 5.3 gm/dL 6.0-8.3 L 770) ALBUMIN (BEAKER) (test code = 1145) 2.6 g/dL 3.5-5.0 L BILIRUBIN TOTAL (BEAKER) (test code 2.3 mg/dL 0.2-1.2 H = 377) BILIRUBIN DIRECT (BEAKER) (test 1.3 mg/dL 0.1-0.5 H code = 706) ALKALINE PHOSPHATASE (BEAKER) (test 205 U/L 40-150 H code = 346) AST (SGOT) (BEAKER) (test code = 44 U/L 5-34 H 353) ALT (SGPT) (BEAKER) (test code = 168 U/L 6-55 H 347) Structural Analysis Engineer SONAL WREN LSpecimen slightly ictericCBC W/PLT COUNT & AUTO [id number] 06:48:00 Test Item Value Reference Range Interpretation Comments WHITE BLOOD CELL COUNT (BEAKER) 13.8 K/ L 3.5-10.5 H (test code = 775) RED BLOOD CELL COUNT (BEAKER) 4.59 M/ L 4.63-6.08 L (test code = 761) HEMOGLOBIN (BEAKER) (test code = 11.6 GM/DL 13.7-17.5 L 410) HEMATOCRIT (BEAKER) (test code = 40.1 % 40.1-51.0 411) MEAN CORPUSCULAR VOLUME (BEAKER) 87.4 fL 79.0-92.2 (test code = 753) MEAN CORPUSCULAR HEMOGLOBIN 25.3 pg 25.7-32.2 L (BEAKER) (test code = 751) MEAN CORPUSCULAR HEMOGLOBIN CONC 28.9 GM/DL 32.3-36.5 L (BEAKER) (test code = 752) RED CELL DISTRIBUTION WIDTH 18.0 % 11.6-14.4 H (BEAKER) (test code = 412) PLATELET COUNT (BEAKER) (test 215 K/CU MM 150-450 code = 756) MEAN PLATELET VOLUME (BEAKER) 10.8 fL 9.4-12.4 (test code = 754) NUCLEATED RED BLOOD CELLS 0 /100 WBC 0-0 (BEAKER) (test code = 413) NEUTROPHILS RELATIVE PERCENT 67 % (BEAKER) (test code = 429) LYMPHOCYTES RELATIVE PERCENT 11 % (BEAKER) (test code = 430) MONOCYTES RELATIVE PERCENT 9 % (BEAKER) (test code = 431) EOSINOPHILS RELATIVE PERCENT 9 % (BEAKER) (test code = 432) BASOPHILS RELATIVE PERCENT 1 % (BEAKER) (test code = 437) NEUTROPHILS ABSOLUTE COUNT 9.22 K/ L 1.78-5.38 H (BEAKER) (test code = 670) LYMPHOCYTES ABSOLUTE COUNT 1.49 K/ L 1.32-3.57 (BEAKER) (test code = 414) MONOCYTES ABSOLUTE COUNT (BEAKER) 1.21 K/ L 0.30-0.82 H (test code = 415) EOSINOPHILS ABSOLUTE COUNT 1.18 K/ L 0.04-0.54 H (BEAKER) (test code = 416) BASOPHILS ABSOLUTE COUNT (BEAKER) 0.08 K/ L 0.01-0.08 (test code = 417) IMMATURE GRANULOCYTES-RELATIVE 5 % 0-1 H PERCENT (BEAKER) (test code = 2801) SPIN/CONCENTRATION [id number] 12:45:00 Test Item Value Reference Range Interpretation Comments Concentration charged (test code = Done 2658) [facility] [id number] 12:45:00 Test Item Value Reference Range Interpretation Comments CONCENTRATION CHARGED (BEAKER) (test Done code = 5821) CBC W/PLT COUNT & AUTO [id number] 10:02:00 Test Item Value Reference Range Interpretation Comments WHITE BLOOD CELL COUNT (BEAKER) 13.1 K/ L 3.5-10.5 H (test code = 775) RED BLOOD CELL COUNT (BEAKER) 5.29 M/ L 4.63-6.08 (test code = 761) HEMOGLOBIN (BEAKER) (test code = 13.3 GM/DL 13.7-17.5 L 410) HEMATOCRIT (BEAKER) (test code = 46.7 % 40.1-51.0 411) MEAN CORPUSCULAR VOLUME (BEAKER) 88.3 fL 79.0-92.2 (test code = 753) MEAN CORPUSCULAR HEMOGLOBIN 25.1 pg 25.7-32.2 L (BEAKER) (test code = 751) MEAN CORPUSCULAR HEMOGLOBIN CONC 28.5 GM/DL 32.3-36.5 L (BEAKER) (test code = 752) RED CELL DISTRIBUTION WIDTH 18.6 % 11.6-14.4 H (BEAKER) (test code = 412) PLATELET COUNT (BEAKER) (test 226 K/CU MM 150-450 code = 756) MEAN PLATELET VOLUME (BEAKER) 10.5 fL 9.4-12.4 (test code = 754) NUCLEATED RED BLOOD CELLS 0 /100 WBC 0-0 (BEAKER) (test code = 413) (CELLAVISION MANUAL DIFF)2020-07-14 10:02:00 Test Item Value Reference Range Interpretation Comments NEUTROPHILS - REL 89 % (CELLAVISION)(BEAKER) (test code = 2816) LYMPHOCYTES - REL 3 % (CELLAVISION)(BEAKER) (test code = 2817) MONOCYTES - REL 4 % (CELLAVISION)(BEAKER) (test code = 2818) EOSINOPHILS - REL 1 % (CELLAVISION)(BEAKER) (test code = 2819) MYELOCYTES - REL 1 % 0-0 H (CELLAVISION)(BEAKER) (test code = 2822) BANDS - REL (CELLAVISION)(BEAKER) 2 % 0-10 (test code = 2826) NEUTROPHILS - ABS 11.66 K/ul 1.78-5.38 H (CELLAVISION)(BEAKER) (test code = 2830) LYMPHOCYTES - ABS 0.39 K/ul 1.32-3.57 L (CELLAVISION)(BEAKER) (test code = 2831) MONOCYTES - ABS 0.52 K/uL 0.30-0.82 (CELLAVISION)(BEAKER) (test code = 2832) EOSINOPHILS - ABS 0.13 K/uL 0.04-0.54 (CELLAVISION)(BEAKER) (test code = 2834) MYELOCYTES-ABS 0.13 K/uL 0.00-0.00 H (CELLAVISION)(BEAKER) (test code = 2837) BANDS - ABS (CELLAVISION)(BEAKER) 0.26 K/uL 0.00-0.80 (test code = 2840) TOTAL COUNTED (BEAKER) (test code 100 = 1351) WBC MORPHOLOGY (BEAKER) (test Normal code = 487) GIANT PLATELETS (BEAKER) (test Present code = 313) POLYCHROMATOPHILLIC RBCS(BEAKER) 1+ few (test code = 478) ANISOCYTOSIS (BEAKER) (test code 2+ moderate = 961) MICROCYTES (BEAKER) (test code = 1+ few 965) MACROCYTES (BEAKER) (test code = 2+ moderate 964) POIKILOCYTES (BEAKER) (test code 2+ moderate = 966) ELLIPTOCYTES (BEAKER) (test code 1+ few = 962) OVALOCYTES (BEAKER) (test code = 2+ moderate 477) TEAR DROP CELLS (BEAKER) (test 1+ few code = 481) ARTIFACT (CELLAVISION)(BEAKER) Present (test code = 3432) PLATELET CONCENTRATION Adequate (CELLAVISION)(BEAKER) (test code = 3438) Structural Analysis Engineer SONAL - Leticia Holland comments: Slide comments:[id number] 05:43:00 Test Item Value Reference Range Interpretation Comments MAGNESIUM (BEAKER) (test code = 2.0 mg/dL 1.6-2.6 627) Structural Analysis Engineer ID - [id number] 05:43:00 Test Item Value Reference Range Interpretation Comments PHOSPHORUS (BEAKER) (test code = 3.4 mg/dL 2.3-4.7 604) Structural Analysis Engineer ID - EDASIBASIC METABOLIC [id number] 05:43:00 Test Item Value Reference Range Interpretation Comments SODIUM (BEAKER) 140 meq/L 136-145 (test code = 381) POTASSIUM (BEAKER) 4.3 meq/L 3.5-5.1 (test code = 379) CHLORIDE (BEAKER) 109 meq/L 98-107 H (test code = 382) CO2 (BEAKER) (test 21 meq/L 22-29 L code = 355) BLOOD UREA NITROGEN 13 mg/dL 7-21 (BEAKER) (test code = 354) CREATININE (BEAKER) 0.86 mg/dL 0.57-1.25 (test code = 358) GLUCOSE RANDOM 132 mg/dL 70-105 H (BEAKER) (test code = 652) CALCIUM (BEAKER) 8.6 mg/dL 8.4-10.2 (test code = 697) EGFR (BEAKER) (test 85 mL/min/1.73 ESTIMA FLORENCIO GFR IS code = 1092) sq m NOT ACCURATE CREATININE CLEARANCE IN PREDICTING GLOMERULAR FILTRATION RATE . ESTIMATED GFR I S NOT APPLICABLE FOR DIALYSIS PATIEN TS. Structural Analysis Engineer ID - EDASISpecimen slightly ictericHEPATIC FUNCTION [id number] 05:43:00 Test Item Value Reference Range Interpretation Comments TOTAL PROTEIN (BEAKER) (test code = 6.3 gm/dL 6.0-8.3 770) ALBUMIN (BEAKER) (test code = 1145) 3.1 g/dL 3.5-5.0 L BILIRUBIN TOTAL (BEAKER) (test code 3.5 mg/dL 0.2-1.2 H = 377) BILIRUBIN DIRECT (BEAKER) (test 2.0 mg/dL 0.1-0.5 H code = 706) ALKALINE PHOSPHATASE (BEAKER) (test 281 U/L 40-150 H code = 346) AST (SGOT) (BEAKER) (test code = 97 U/L 5-34 H 353) ALT (SGPT) (BEAKER) (test code = 281 U/L 6-55 H 347) Structural Analysis Engineer ID - EDASISpecimen slightly ictericComprehensive metabolic panel 2020-07-13 06:16:00 Test Item Value Reference Range Interpretation Comments Protein, Total (test 5.6 See_Comment L [Autom ated code = 2885-2) message] The system which generated this result transmitted reference range : 6.0 - 8.3 gm/dL . The reference range was not used to interpret this result as normal/abnormal . Albumin (test code = 2.8 g/dL 3.5-5 L 92806-6) Alkaline Phosphatase 250 U/L 40-150 H (test code = 6768-6) Total Bilirubin 3.7 mg/dL 0.2-1.2 H (test code = 1975-2) Sodium (test code = 143 meq/L 931-900 2009-2) Potassium (test code 3.9 meq/L 3.5-5.1 = 2823-3) Chloride (test code 109 meq/L 98-107 H = 2075-0) CO2 (test code = 27 meq/L 22-29 2028-9) BUN (test code = 18 mg/dL 7-21 3094-0) Creatinine (test 0.93 mg/dL 0.57-1.25 code = 2160-0) Glucose (test code = 98 mg/dL 70-105 2345-7) Calcium (test code = 8.4 mg/dL 8.4-10.2 09169-5) AST (test code = 175 U/L 5-34 H 1920-8) ALT (test code = 315 U/L 6-55 H 1742-6) EGFR (test code = 78 mL/min/1.73 [place] [address]-3) m NOT ACCURATE CREATININE CLEARANCE IN PREDICTING GLOMERULAR FILTRATION RATE . ESTIMATED GFR I S NOT APPLICABLE FOR DIALYSIS PATIENTS. TON (test code = Structural Analysis Engineer ID - TON) ADMINSpecimen slightly icteric Lab Interpretation Abnormal (test code = 95451-6) [facility] [id number] 06:16:00 Test Item Value Reference Range Interpretation Comments TOTAL PROTEIN 5.6 gm/dL 6.0-8.3 L (BEAKER) (test code = 770) ALBUMIN (BEAKER) 2.8 g/dL 3.5-5.0 L (test code = 1145) ALKALINE PHOSPHATASE 250 U/L 40-150 H (BEAKER) (test code = 346) BILIRUBIN TOTAL 3.7 mg/dL 0.2-1.2 H (BEAKER) (test code = 377) SODIUM (BEAKER) (test 143 meq/L 136-145 code = 381) POTASSIUM (BEAKER) 3.9 meq/L 3.5-5.1 (test code = 379) CHLORIDE (BEAKER) 109 meq/L 98-107 H (test code = 382) CO2 (BEAKER) (test 27 meq/L 22-29 code = 355) BLOOD UREA NITROGEN 18 mg/dL 7-21 (BEAKER) (test code = 354) CREATININE (BEAKER) 0.93 mg/dL 0.57-1.25 (test code = 358) GLUCOSE RANDOM 98 mg/dL 70-105 (BEAKER) (test code = 652) CALCIUM (BEAKER) 8.4 mg/dL 8.4-10.2 (test code = 697) AST (SGOT) (BEAKER) 175 U/L 5-34 H (test code = 353) ALT (SGPT) (BEAKER) 315 U/L 6-55 H (test code = 347) EGFR (BEAKER) (test 78 mL/min/1.73 ESTIMA FLORENCIO GFR IS code = 1092) sq m NOT ACCURATE CREATININE CLEARANCE IN PREDICTING GLOMERULAR FILTRATION RATE . ESTIMATED GFR I S NOT APPLICABLE FOR DIALYSIS PATIEN TS. Structural Analysis Engineer ID - ADMINSpecimen slightly ictericCBC W/PLT COUNT & AUTO [id number] 05:29:00 Test Item Value Reference Range Interpretation Comments WHITE BLOOD CELL COUNT (BEAKER) 11.4 K/ L 3.5-10.5 H (test code = 775) RED BLOOD CELL COUNT (BEAKER) 4.88 M/ L 4.63-6.08 (test code = 761) HEMOGLOBIN (BEAKER) (test code = 12.2 GM/DL 13.7-17.5 L 410) HEMATOCRIT (BEAKER) (test code = 42.4 % 40.1-51.0 411) MEAN CORPUSCULAR VOLUME (BEAKER) 86.9 fL 79.0-92.2 (test code = 753) MEAN CORPUSCULAR HEMOGLOBIN 25.0 pg 25.7-32.2 L (BEAKER) (test code = 751) MEAN CORPUSCULAR HEMOGLOBIN CONC 28.8 GM/DL 32.3-36.5 L (BEAKER) (test code = 752) RED CELL DISTRIBUTION WIDTH 18.1 % 11.6-14.4 H (BEAKER) (test code = 412) PLATELET COUNT (BEAKER) (test 195 K/CU MM 150-450 code = 756) MEAN PLATELET VOLUME (BEAKER) 11.0 fL 9.4-12.4 (test code = 754) NUCLEATED RED BLOOD CELLS 0 /100 WBC 0-0 (BEAKER) (test code = 413) NEUTROPHILS RELATIVE PERCENT 56 % (BEAKER) (test code = 429) LYMPHOCYTES RELATIVE PERCENT 14 % (BEAKER) (test code = 430) MONOCYTES RELATIVE PERCENT 9 % (BEAKER) (test code = 431) EOSINOPHILS RELATIVE PERCENT 15 % (BEAKER) (test code = 432) BASOPHILS RELATIVE PERCENT 1 % (BEAKER) (test code = 437) NEUTROPHILS ABSOLUTE COUNT 6.38 K/ L 1.78-5.38 H (BEAKER) (test code = 670) LYMPHOCYTES ABSOLUTE COUNT 1.58 K/ L 1.32-3.57 (BEAKER) (test code = 414) MONOCYTES ABSOLUTE COUNT (BEAKER) 0.98 K/ L 0.30-0.82 H (test code = 415) EOSINOPHILS ABSOLUTE COUNT 1.72 K/ L 0.04-0.54 H (BEAKER) (test code = 416) BASOPHILS ABSOLUTE COUNT (BEAKER) 0.14 K/ L 0.01-0.08 H (test code = 417) IMMATURE GRANULOCYTES-RELATIVE 5 % 0-1 H PERCENT (BEAKER) (test code = 2801) POC-Glucose [id number] 23:10:00 Test Item Value Reference Range Interpretation Comments POC-Glucose Meter (test 93 mg/dL 70-110 : TE STED AT [facility] code = 1538) [address] [facility], [facility] 30: Structural Analysis Engineer/Techni cecille ID = [id number] for ROSELIA SOUZA Lab Interpretation (test Normal code = 83966-1) [facility] CampusPOCT-GLUCOSE [id number] 23:10:00 Test Item Value Reference Range Interpretation Comments POC-GLUCOSE METER 93 mg/dL 70-110 : TESTED A T [facility] 6720 (BEAKER) (test code = [place], 1538) [address]: Structural Analysis Engineer/Techni cecille ID = [id number] for ROSELIA SPENCE HEPATOBILIARY [id number] 15:57:00Unlisted Reason for Exam - Click Yes and Enter Reason Below->No [facility] : 1935 Sex: MFINAL REPORT PROCEDURE: HEPATOBILIARY SCAN CPT CODE: 782 26 INDICATION: Cholecystitis PROTOCOL: 5.4 mCi of Tc-99m mebrofenin was injected intravenously. Images of the upper abdomen were obtained for approximately 75 minutes after tracer injectionand at four hours after injection. FINDINGS: Initial tracer uptake into the liver is uniform but moderately decreased. Subsequent tracer clearance from the liver is markedly decreased. There is good visualization of the extrahepatic biliary duct, and the tracer appears appropriately in the small bowel. The gallbladder is never visualized. IMPRESSION:1. 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 Cholecystitis. Signed: Rosales Giang MDReport Verified Date/Time: 07/12/2020 15:57:58 Reading Location: [address] [address] Reading Room NM hepatobiliary (HIDA) [id number] 15:57:00Interface, External Ris In - 07/12/2020 4:00 PM CSTFINAL REPORT PROCEDURE: HEPATOBILIARY SCAN CPT CODE: 93601 INDICATION: Cholecystitis PROTOCOL: 5.4 mCi of Tc-99m mebrofenin was injected intravenously. Images of the upper abdomen were obtained for approximately 75 minutes after tracer injection and at four hours after injection. FINDINGS: Initial tracer uptake into the liver is uniform but moderately decreased. Subsequent tracer clearance from the liver is markedly decreased. There is good visualization of the extrahepatic biliary duct, andthe tracer appears appropriately in the small bowel. The gallbladder is never visualized. IMPRESSION:1. 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 Cholecystitis. Signed: Rosales Giang MDReport Verified Date/Time: 07/12/2020 15:57:58 Reading Location: [address] Reading Room [facility] W/PLT COUNT & AUTO [id number] 05:55:00 Test Item Value Reference Range Interpretation Comments WHITE BLOOD CELL COUNT (BEAKER) 13.9 K/ L 3.5-10.5 H (test code = 775) RED BLOOD CELL COUNT (BEAKER) 5.03 M/ L 4.63-6.08 (test code = 761) HEMOGLOBIN (BEAKER) (test code = 12.9 GM/DL 13.7-17.5 L 410) HEMATOCRIT (BEAKER) (test code = 42.7 % 40.1-51.0 411) MEAN CORPUSCULAR VOLUME (BEAKER) 84.9 fL 79.0-92.2 (test code = 753) MEAN CORPUSCULAR HEMOGLOBIN 25.6 pg 25.7-32.2 L (BEAKER) (test code = 751) MEAN CORPUSCULAR HEMOGLOBIN CONC 30.2 GM/DL 32.3-36.5 L (BEAKER) (test code = 752) RED CELL DISTRIBUTION WIDTH 18.4 % 11.6-14.4 H (BEAKER) (test code = 412) PLATELET COUNT (BEAKER) (test 173 K/CU MM 150-450 code = 756) MEAN PLATELET VOLUME (BEAKER) 10.6 fL 9.4-12.4 (test code = 754) NUCLEATED RED BLOOD CELLS 0 /100 WBC 0-0 (BEAKER) (test code = 413) NEUTROPHILS RELATIVE PERCENT 61 % (BEAKER) (test code = 429) LYMPHOCYTES RELATIVE PERCENT 13 % (BEAKER) (test code = 430) MONOCYTES RELATIVE PERCENT 8 % (BEAKER) (test code = 431) EOSINOPHILS RELATIVE PERCENT 13 % (BEAKER) (test code = 432) BASOPHILS RELATIVE PERCENT 1 % (BEAKER) (test code = 437) NEUTROPHILS ABSOLUTE COUNT 8.55 K/ L 1.78-5.38 H (BEAKER) (test code = 670) LYMPHOCYTES ABSOLUTE COUNT 1.82 K/ L 1.32-3.57 (BEAKER) (test code = 414) MONOCYTES ABSOLUTE COUNT (BEAKER) 1.12 K/ L 0.30-0.82 H (test code = 415) EOSINOPHILS ABSOLUTE COUNT 1.79 K/ L 0.04-0.54 H (BEAKER) (test code = 416) BASOPHILS ABSOLUTE COUNT (BEAKER) 0.09 K/ L 0.01-0.08 H (test code = 417) IMMATURE GRANULOCYTES-RELATIVE 4 % 0-1 H PERCENT (BEAKER) (test code = 2801) ECG [id number] 21:23:57Interface, External Ris In - 07/11/2020 9:24 PM CSTVentricular Rate 98 BPMAtrial Rate 227 BPMQRS Duration 104 msQ-T Interval 384 msQTC Calculation(Bazett) 490 msR [place] 108 degreesT [place] 36 degreesAtrial fibrillation with premature ventricular or aberrantly conducted complexesRightward axisNonspecificST abnormalityProlonged QTAbnormal ECGWhen compared with ECG of 10-JUL-2020 11:11,No significant change was foundConfirmed by MD Yessenia, Adolfo ([id number]) on 07/11/2020 9:23:56 [facility] HospitalTreadmill tolerance(Non-Nuclear Treadmill)2020-07-11 17:43:55 Interface, External Ris In 07/11/2020 5:44 PM CSTProtocol Name REGADENOSON Time In Exercise Phase00:01:00 Max. Systolic BP 121 mmHgMax Diastolic BP 56 mmHgMax Heart Rate 116 BPMMax Predicted Heart Rate 138 BPMReason For Termination Predetermined end point Reason for Test Pre-Op Evaluation Target HR Formula (220 - Age)*100% Arrhythmias ventricular premature beats Resting ECG Atrial fibrillation STChanges No Significant Changes Overall Impression Indeterminate due to pharmacological stress Nuclear data reported separatelyChest Pain none HR Response To Exercise BP Response To Exercise Amlodipine, Lasix, LisinoprilPRAVASTATINConfirmed by fellow Alejandro Bourgeois ([id number]) on 07/10/2020 1:30:13 PMConfirmed by Silvia QUINTANILLA BASANT ([id number]) on 07/11/2020 5:43:52 [facility] HospitalLipase2020-12-02 09:54:00 Test Item Value Reference Range Interpretation Comments Lipase (test code = 37 U/L 3040-3) TON (test code = TON) Structural Analysis Engineer ID - AAHAMIDSpecimen slightly icteric Lab Interpretation Normal (test code = 38675-7) [facility] CampusLIPASE2020-12-02 09:54:00 Test Item Value Reference Range Interpretation Comments LIPASE (BEAKER) (test code = 749) 37 U/L Structural Analysis Engineer ID - AAHAMIDSpecimen slightly ictericCBC W/PLT COUNT & AUTO [id number] 09:28:00 Test Item Value Reference Range Interpretation Comments WHITE BLOOD CELL COUNT (BEAKER) 13.3 K/ L 3.5-10.5 H (test code = 775) RED BLOOD CELL COUNT (BEAKER) 5.26 M/ L 4.63-6.08 (test code = 761) HEMOGLOBIN (BEAKER) (test code = 13.0 GM/DL 13.7-17.5 L 410) HEMATOCRIT (BEAKER) (test code = 45.1 % 40.1-51.0 411) MEAN CORPUSCULAR VOLUME (BEAKER) 85.7 fL 79.0-92.2 (test code = 753) MEAN CORPUSCULAR HEMOGLOBIN 24.7 pg 25.7-32.2 L (BEAKER) (test code = 751) MEAN CORPUSCULAR HEMOGLOBIN CONC 28.8 GM/DL 32.3-36.5 L (BEAKER) (test code = 752) RED CELL DISTRIBUTION WIDTH 17.8 % 11.6-14.4 H (BEAKER) (test code = 412) PLATELET COUNT (BEAKER) (test 183 K/CU MM 150-450 code = 756) MEAN PLATELET VOLUME (BEAKER) 10.8 fL 9.4-12.4 (test code = 754) NUCLEATED RED BLOOD CELLS 0 /100 WBC 0-0 (BEAKER) (test code = 413) (CELLAVISION MANUAL DIFF)2020-07-11 09:28:00 Test Item Value Reference Range Interpretation Comments NEUTROPHILS - REL 51 % (CELLAVISION)(BEAKER) (test code = 2816) LYMPHOCYTES - REL 9 % (CELLAVISION)(BEAKER) (test code = 2817) MONOCYTES - REL 10 % (CELLAVISION)(BEAKER) (test code = 2818) EOSINOPHILS - REL 25 % (CELLAVISION)(BEAKER) (test code = 2819) BANDS - REL (CELLAVISION)(BEAKER) 5 % 0-10 (test code = 2826) ATYPICAL LYMPHOCYTES - REL 1 % 0-0 H (CELLAVISION)(BEAKER) (test code = 2829) NEUTROPHILS - ABS 6.78 K/ul 1.78-5.38 H (CELLAVISION)(BEAKER) (test code = 2830) LYMPHOCYTES - ABS 1.20 K/ul 1.32-3.57 L (CELLAVISION)(BEAKER) (test code = 2831) MONOCYTES - ABS 1.33 K/uL 0.30-0.82 H (CELLAVISION)(BEAKER) (test code = 2832) EOSINOPHILS - ABS 3.33 K/uL 0.04-0.54 H (CELLAVISION)(BEAKER) (test code = 2834) BANDS - ABS (CELLAVISION)(BEAKER) 0.67 K/uL 0.00-0.80 (test code = 2840) ATYPICAL LYMPHOCYTES - ABS 0.13 K/uL 0.00-0.00 H (CELLAVISION)(BEAKER) (test code = 2858) TOTAL COUNTED (BEAKER) (test code 100 = 1351) WBC MORPHOLOGY (BEAKER) (test Normal code = 487) PLT MORPHOLOGY (BEAKER) (test Normal code = 486) ANISOCYTOSIS (BEAKER) (test code 1+ few = 961) MICROCYTES (BEAKER) (test code = 1+ few 965) POIKILOCYTES (BEAKER) (test code 2+ moderate = 966) ELLIPTOCYTES (BEAKER) (test code 1+ few = 962) OVALOCYTES (BEAKER) (test code = 2+ moderate 477) ARTIFACT (CELLAVISION)(BEAKER) Present (test code = 3432) PLATELET CONCENTRATION Adequate (CELLAVISION)(BEAKER) (test code = 3438) Structural Analysis Engineer ID - Vivien OverholtUser comments: Slide comments:Bilirubin, direct 2020-07-11 07:00:00 Test Item Value Reference Range Interpretation Comments Bilirubin, Direct (test 0.9 mg/dL 0.1-0.5 H code = 1968-7) TON (test code = TON) Structural Analysis Engineer ID - JAD Shrestha Lab Interpretation (test Abnormal code = 84447-5) [facility]COMPREHENSIVE METABOLIC [id number] 07:00:00 Test Item Value Reference Range Interpretation Comments TOTAL PROTEIN 5.7 gm/dL 6.0-8.3 L (BEAKER) (test code = 770) ALBUMIN (BEAKER) 2.8 g/dL 3.5-5.0 L (test code = 1145) ALKALINE PHOSPHATASE 60 U/L 40-150 (BEAKER) (test code = 346) BILIRUBIN TOTAL 2.0 mg/dL 0.2-1.2 H (BEAKER) (test code = 377) SODIUM (BEAKER) (test 143 meq/L 136-145 code = 381) POTASSIUM (BEAKER) 3.3 meq/L 3.5-5.1 L (test code = 379) CHLORIDE (BEAKER) 109 meq/L 98-107 H (test code = 382) CO2 (BEAKER) (test 25 meq/L 22-29 code = 355) BLOOD UREA NITROGEN 19 mg/dL 7-21 (BEAKER) (test code = 354) CREATININE (BEAKER) 1.05 mg/dL 0.57-1.25 (test code = 358) GLUCOSE RANDOM 82 mg/dL 70-105 (BEAKER) (test code = 652) CALCIUM (BEAKER) 8.1 mg/dL 8.4-10.2 L (test code = 697) AST (SGOT) (BEAKER) 7 U/L 5-34 (test code = 353) ALT (SGPT) (BEAKER) 8 U/L 6-55 (test code = 347) EGFR (BEAKER) (test 68 mL/min/1.73 ESTIMA FLORENCIO GFR IS code = 1092) sq m NOT ACCURATE CREATININE CLEARANCE IN PREDICTING GLOMERULAR FILTRATION RATE . ESTIMATED GFR I S NOT APPLICABLE FOR DIALYSIS PATIEN TS. Structural Analysis Engineer ID - JAD MSpecimen slightly ictericBILIRUBIN, [id number] 07:00:00 Test Item Value Reference Range Interpretation Comments BILIRUBIN DIRECT (BEAKER) (test 0.9 mg/dL 0.1-0.5 H code = 706) Structural Analysis Engineer ID - JAD MPT/[id number] 06:37:00 Test Item Value Reference Interpretation Comments Range Protime (test code = 15.9 See_Comment H [Autom ated 9712-2) message] The system which generated this result transmitted reference range : 11.9 - 14.2 seconds. The reference range was not used to interpret this result as normal/abnormal . INR (test code = 1.32 See_Comment [Automated 4541-6) message] The system which generated this result transmitted reference range : <=5.90. The reference range was not used to interpret this result as normal/abnormal . PTT (test code = 38.4 See_Comment H [Automated 29524-4) message] The system which generated this result transmitted reference range : 22.5 - 36.0 seconds. The reference range was not used to interpret this result as normal/abnormal . TON (test code = Effective 01/05/2019: TON) PT Reference Range ChangeNew: 11.9-14.2 Previous: 11.7-14.7 RECOMMENDED COUMADIN/WARFARIN INR THERAPY RANGESSTANDARD DOSE: 2.0-3.0 Includes: PROPHYLAXIS for venous thrombosis, systemic embolization; TREATMENT for venous thrombosis and/or pulmonary embolus.HIGH RISK: Target INR is 2.5-3.5 for patients wiht mechanical heart valves. Lab Interpretation Abnormal (test code = 47313-3) [facility] CampusPT/[id number] 06:37:00 Test Item Value Reference Range Interpretation Comments PROTIME (BEAKER) (test code = 15.9 seconds 11.9-14.2 H 759) INR (BEAKER) (test code = 370) 1.32 <=5.90 PARTIAL THROMBOPLASTIN TIME 38.4 seconds 22.5-36.0 H (GENOVEVA) (test code = 760) Effective 01/05/2019: PT Reference Range ChangeNew: 11.9-14.2 Previous: 11.7- 14.7RECOMMENDED COUMADIN/WARFARIN INR THERAPY RANGESSTANDARD DOSE: 2.0-3.0 Includes: PROPHYLAXIS for venous thrombosis, systemic embolization; TREATMENT for venous thrombosis and/or pulmonary embolus.HIGH RISK: Target INR is2.5-3.5 for patients wiht mechanical heart valves.CA, [id number] 21:07:00Reason for exam:->Hyperbilirubinemia, abnormal imaging [facility] : 1935 Sex: MFINAL REPORT Examination: ERCP 4 fluoroscopic spot views were obtain ed during the procedure by the ordering service. Images are nondiagnostic as no radiologist was present at the time of imaging. Fluoroscopic time was 50.9 seconds. Please see the procedure report for details. 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 No interpretation was requested. Refer to the operative report for findings. Refer to PACS for patient radiation dose information.FL [id number] 17:10:00Interface, External Ris In - 07/10/2020 7:25 PM CSTFluoroscopic unit utilized for a procedure performed in the OR. No interpretation was requested. Refer to the operative report for findings. Referto PACS for patient radiation dose information.[facility] CampusMYOCARD IMAGING, MULTI, PHARM, [id number] 17:08:00Unlisted Reason for Exam - Click Yes and Enter Reason Below->YesUnlisted Reason for Exam->pre-op eval [facility] : 1935 Sex: MFINAL REPORT PROCEDURE: MYOCARDIAL PERFUSION SPECT IMAGING (Rest/Stre ss)CPT CODE: 14677 INDICATION: Preoperative evaluation for cholecystectomy, known CAD CARDIOVASCULARPROFILE:CAD History: CAD, CABGRisk Factors: CVABMI: 26Medications: Amlodipine, Lasix, lisinopril, pravastatin STRESS PROTOCOL:Pharmacologic stress was achieved with a 10-second intravenous infusion of regadenoson 0.4 mg. The radiopharmaceutical was administered 30 seconds after the start of the regadenoson infusion. IMAGING PROTOCOL:10.7 mCi of Tc-99m sestamibi was injected intravenously at rest, andnon-gated SPECT images were obtained. Then, 30.9 mCi of Tc-99m sestamibi was injected intravenously at peak stress, and gated SPECT images were obtained. Image quality is good. REST FINDINGS:HR: 96/minBP: 119/56 mmHgPrelim. EKG: Atrial fibrillation.Perfusion: Decreased radiotracer uptake in the anterior and apical LV.Wall Motion: Global hypokinesis, worst in the apical and anterior LV(LVEF 45%). LV Volume: Normal.RV Volume: Normal. STRESS FINDINGS:HR: 116/min (84% of MPHR)BP: 121/56 mmHgPrelim. EKG: No ischemic changes.Symptoms: Shortness of breath (treatment not required).Perfusion: Decreased radiotracer uptake in the anterior wall, apical, mid anterolateral lateral apical segments.LV Volume: Not significantly changed from rest. IMPRESSION:1. Abnormal study.2. Abnormal myocardial perfusio n. There is a large size, severe severity, fixed perfusion abnormality in the mid and apical anterior and apical segments of the LV, additionally there is a small size, moderate severity, partially reversible perfusion abnormality in the apical lateral and mid anterolateral segments of the LV.3. Mildly reduced resting LVEF.4. Normal extracardiac tracer distribution.5. There is no prior study for comparison. Signed: Rosales Giang MDReport Verified Date/Time: 07/10/2020 17:08:00 Reading Location: [address] Reading Room NM myocardial perfusion SPECT, pharm(Lexiscan)2020-07-10 17:08:00Interface, External Ris In - 07/10/2020 5:10 PM CSTFINAL REPORT PROCEDURE: MYOCARDIAL PERFUSION SPECT IMAGING (Rest/Stress)CPT CODE: 99842 INDICATION: Preoperative evaluation for cholecystectomy, known CAD CARDIOVASCULAR PROFILE:CAD History: CAD, CABGRisk Factors: CVABMI: 26Medi cations: Amlodipine, Lasix, lisinopril, pravastatin STRESS PROTOCOL:Pharmacologic stress was achieved with a 10-second intravenous infusion of regadenoson 0.4 mg. The radiopharmaceutical was administered 30 seconds after the start of the regadenoson infusion. IMAGING PROTOCOL:10.7 mCi of Tc-99m sestamibi was injected intravenously at rest, and non-gated SPECT images were obtained. Then, 30.9 mCi of Tc-99m sestamibi was injected intravenously at peak stress, and gated SPECT images were obtained. Image quality is good. REST FINDINGS:HR: 96/minBP: 119/56 mmHgPrelim. EKG: Atrial fibrillation.Perfusion: Decreased radiotracer uptake in the anterior and apical LV.Wall Motion: Global hypokinesis, worst inthe apical and anterior LV(LVEF 45%). LV Volume: Normal.RV Volume: Normal. STRESS FINDINGS:HR: 116/min (84% of MPHR)BP: 121/56 mmHgPrelim. EKG: No ischemic changes.Symptoms: Shortness of breath(treatment not required).Perfusion: Decreased radiotracer uptake in the anterior wall, apical, mid anterolateral lateral apical segments.LV Volume: Not significantly changed from rest. IMPRESSION:1. Abnormal study.2. Abnormal myocardial perfusion. There is a large size, severe severity, fixed perfusion abnormality in the mid and apical anterior and apical segments of the LV, additionally there is a small size, moderate severity, partially reversible perfusion abnormality in the apical lateral and mid anterolateral segments of the LV.3. Mildly reduced resting LVEF.4. Normal extracardiac tracer distribution.5. There is no prior study for comparison. Signed: Rosales Giang MDReport Verified Date/Time: 07/10/2020 17:08:00 Reading Location: [address] Reading Room [facility](CELLAVISION MANUAL DIFF)2020-07-10 15:46:00 Test Item Value Reference Range Interpretation Comments NEUTROPHILS - REL 47 % (CELLAVISION)(BEAKER) (test code = 2816) LYMPHOCYTES - REL 17 % (CELLAVISION)(BEAKER) (test code = 2817) MONOCYTES - REL 5 % (CELLAVISION)(BEAKER) (test code = 2818) EOSINOPHILS - REL 22 % (CELLAVISION)(BEAKER) (test code = 2819) BASOPHILS - REL 1 % (CELLAVISION)(BEAKER) (test code = 2820) METAMYELOCYTES - REL 1 % 0-0 H (CELLAVISION)(BEAKER) (test code = 2821) MYELOCYTES - REL 1 % 0-0 H (CELLAVISION)(BEAKER) (test code = 2822) PROMYELOCYTES - REL 1 % 0-0 H (CELLAVSION)(BEAKER) (test code = 2825) BANDS - REL (CELLAVISION)(BEAKER) 4 % 0-10 (test code = 2826) ATYPICAL LYMPHOCYTES - REL 1 % 0-0 H (CELLAVISION)(BEAKER) (test code = 2829) NEUTROPHILS - ABS 6.25 K/ul 1.78-5.38 H (CELLAVISION)(BEAKER) (test code = 2830) LYMPHOCYTES - ABS 2.26 K/ul 1.32-3.57 (CELLAVISION)(BEAKER) (test code = 2831) MONOCYTES - ABS 0.67 K/uL 0.30-0.82 (CELLAVISION)(BEAKER) (test code = 2832) EOSINOPHILS - ABS 2.93 K/uL 0.04-0.54 H (CELLAVISION)(BEAKER) (test code = 2834) BASOPHILS - ABS 0.13 K/uL 0.01-0.08 H (CELLAVISION)(BEAKER) (test code = 2835) METAMYELOCYTES - ABS 0.13 K/uL 0.00-0.00 H (CELLAVISION)(BEAKER) (test code = 2836) MYELOCYTES-ABS 0.13 K/uL 0.00-0.00 H (CELLAVISION)(BEAKER) (test code = 2837) PROMYELOCYTES - ABS 0.13 K/uL 0.00-0.00 H (CELLAVISION)(BEAKER) (test code = 2838) BANDS - ABS (CELLAVISION)(BEAKER) 0.53 K/uL 0.00-0.80 (test code = 2840) ATYPICAL LYMPHOCYTES - ABS 0.13 K/uL 0.00-0.00 H (CELLAVISION)(BEAKER) (test code = 2858) TOTAL COUNTED (BEAKER) (test code 100 = 1351) PLT MORPHOLOGY (BEAKER) (test Normal code = 486) TOXIC GRANULATION (BEAKER) (test Present code = 771) VACUOLATED NEUTROPHILS (BEAKER) Present (test code = 483) PLASMACYTOID LYMPHS(BEAKER) (test Present code = 1677) ANISOCYTOSIS (BEAKER) (test code 1+ few = 961) MICROCYTES (BEAKER) (test code = 1+ few 965) POIKILOCYTES (BEAKER) (test code 2+ moderate = 966) ELLIPTOCYTES (BEAKER) (test code 1+ few = 962) TEAR DROP CELLS (BEAKER) (test 1+ few code = 481) ARTIFACT (CELLAVISION)(BEAKER) Present (test code = 3432) PLATELET CONCENTRATION Adequate (CELLAVISION)(BEAKER) (test code = 3438) Structural Analysis Engineer ID - JimmyBryant comments: Slide comments:CBC W/PLT COUNT & AUTO [id number] 15:13:00 Test Item Value Reference Range Interpretation Comments WHITE BLOOD CELL COUNT (BEAKER) 13.3 K/ L 3.5-10.5 H (test code = 775) RED BLOOD CELL COUNT (BEAKER) 5.30 M/ L 4.63-6.08 (test code = 761) HEMOGLOBIN (BEAKER) (test code = 13.4 GM/DL 13.7-17.5 L 410) HEMATOCRIT (BEAKER) (test code = 45.4 % 40.1-51.0 411) MEAN CORPUSCULAR VOLUME (BEAKER) 85.7 fL 79.0-92.2 (test code = 753) MEAN CORPUSCULAR HEMOGLOBIN 25.3 pg 25.7-32.2 L (BEAKER) (test code = 751) MEAN CORPUSCULAR HEMOGLOBIN CONC 29.5 GM/DL 32.3-36.5 L (BEAKER) (test code = 752) RED CELL DISTRIBUTION WIDTH 18.2 % 11.6-14.4 H (BEAKER) (test code = 412) PLATELET COUNT (BEAKER) (test 193 K/CU MM 150-450 code = 756) MEAN PLATELET VOLUME (BEAKER) 11.1 fL 9.4-12.4 (test code = 754) NUCLEATED RED BLOOD CELLS 0 /100 WBC 0-0 (BEAKER) (test code = 413) NEUTROPHILS RELATIVE PERCENT 53 % (BEAKER) (test code = 429) LYMPHOCYTES RELATIVE PERCENT 13 % (BEAKER) (test code = 430) MONOCYTES RELATIVE PERCENT 9 % (BEAKER) (test code = 431) EOSINOPHILS RELATIVE PERCENT 22 % (BEAKER) (test code = 432) BASOPHILS RELATIVE PERCENT 1 % (BEAKER) (test code = 437) NEUTROPHILS ABSOLUTE COUNT 7.01 K/ L 1.78-5.38 H (BEAKER) (test code = 670) LYMPHOCYTES ABSOLUTE COUNT 1.74 K/ L 1.32-3.57 (BEAKER) (test code = 414) MONOCYTES ABSOLUTE COUNT (BEAKER) 1.16 K/ L 0.30-0.82 H (test code = 415) EOSINOPHILS ABSOLUTE COUNT 2.99 K/ L 0.04-0.54 H (BEAKER) (test code = 416) BASOPHILS ABSOLUTE COUNT (BEAKER) 0.11 K/ L 0.01-0.08 H (test code = 417) IMMATURE GRANULOCYTES-RELATIVE 3 % 0-1 H PERCENT (BEAKER) (test code = 2801) COMPREHENSIVE METABOLIC [id number] 06:40:00 Test Item Value Reference Range Interpretation Comments TOTAL PROTEIN 5.8 gm/dL 6.0-8.3 L (BEAKER) (test code = 770) ALBUMIN (BEAKER) 3.0 g/dL 3.5-5.0 L (test code = 1145) ALKALINE PHOSPHATASE 59 U/L 40-150 (BEAKER) (test code = 346) BILIRUBIN TOTAL 2.5 mg/dL 0.2-1.2 H (BEAKER) (test code = 377) SODIUM (BEAKER) (test 143 meq/L 136-145 code = 381) POTASSIUM (BEAKER) 3.5 meq/L 3.5-5.1 (test code = 379) CHLORIDE (BEAKER) 110 meq/L 98-107 H (test code = 382) CO2 (BEAKER) (test 24 meq/L 22-29 code = 355) BLOOD UREA NITROGEN 18 mg/dL 7-21 (BEAKER) (test code = 354) CREATININE (BEAKER) 0.97 mg/dL 0.57-1.25 (test code = 358) GLUCOSE RANDOM 80 mg/dL 70-105 (BEAKER) (test code = 652) CALCIUM (BEAKER) 8.5 mg/dL 8.4-10.2 (test code = 697) AST (SGOT) (BEAKER) 9 U/L 5-34 (test code = 353) ALT (SGPT) (BEAKER) 13 U/L 6-55 (test code = 347) EGFR (BEAKER) (test 74 mL/min/1.73 ESTIMA FLORENCIO GFR IS code = 1092) sq m NOT ACCURATE CREATININE CLEARANCE IN PREDICTING GLOMERULAR FILTRATION RATE . ESTIMATED GFR I S NOT APPLICABLE FOR DIALYSIS PATIEN TS. Structural Analysis Engineer ID - EDASISpecimen slightly ictericPT/[id number] 06:18:00 Test Item Value Reference Range Interpretation Comments PROTIME (BEAKER) (test code = 15.8 seconds 11.9-14.2 H 759) INR (BEAKER) (test code = 370) 1.31 <=5.90 PARTIAL THROMBOPLASTIN TIME 33.1 seconds 22.5-36.0 (BEAKER) (test code = 760) Effective 01/05/2019: PT Reference Range ChangeNew: 11.9-14.2 Previous: 11.7- 14.7RECOMMENDED COUMADIN/WARFARIN INR THERAPY RANGESSTANDARD DOSE: 2.0-3.0 Includes: PROPHYLAXIS for venous thrombosis, systemic embolization; TREATMENT for venous thrombosis and/or pulmonary embolus.HIGH RISK: Target INR is2.5-3.5 for patients wiht mechanical heart valves.U/S, ABDOMINAL, [id number] 16:21:00Reason for exam:->cholecystitis for percutaneous cholecystectomy tube placementUKIAH VALLEY [facility]ENTERName: [facility]IA : 1935 Sex: MFINAL REPORT Right upper quadrant abdominal ultrasound, 07/09/2020. History: Cholelithiasis, concern for biliary obstruction. Comparison: MRCP 07/08/2020. Discussion: Transverse and longitudinal images of the right upper quadrant of the abdomen were obtained demonstrating a liver of normal size and echogenicity measuring 13.7 cm in length. There is no evidence of a focal hepatic mass. The portal vein is patent with hepatopetal flow and is within normal limits measuring 9 mm in diameter. The biliary tree is within normal limits with the common bile duct measuring 6 mm in diameter. The gallbladder contains sludge and small stones. Gallbladder measures 4.3 cmin diameter with 4 mm wall thickness. There is no pericholecystic fluid. The sonographic Arroyo's sign was negative. The right kidney is normal in size and echogenicity without evidence of hydronephrosis, stones, or mass and measures 11.4 cm in length. Several simple cysts are identified withinthe right kidney ranging from 1.0-2.5 cm in diameter. The pancreatic body and proximal tail are visualized and are normal in appearance. The abdominal aorta is within normal limits. There is no evidence of free fluid. IMPRESSION: 1. Cholelithiasis with gallbladder sludge and mild wall thickening, but negative sonographic Arroyo sign.2. Benign-appearing right renal cysts. Signed: Oscar García MDReport Verified Date/Time: 07/09/2020 16:21:05 Reading Location: [place] [address] Angio Body Reading Room US abdomen [id number] 16:21:00Interface, External Ris In - 07/09/2020 4:23 PM CSTFINAL REPORT Right upper quadrant abdominal ultrasound, 07/09/2020. History: Cholelithiasis, concern for biliary obstruction.Comparison: MRCP 07/08/2020. Discussion: Transverse and longitudinal images of the right upper quadrant of the abdomen were obtained demonstrating a liver of normal size and echogenicity measuring 13.7cm in length. There is no evidence of a focal hepatic mass. The portal vein is patent with hepatopetal flow and is within normal limits measuring 9 mm in diameter. The biliary tree is within normal limits with the common bile duct measuring 6 mm in diameter. The gallbladder contains sludge and small stones. Gallbladder measures 4.3 cm in diameter with 4 mm wall thickness. There is no pericholecystic fluid. The sonographic Arroyo's sign was negative. The right kidney is normal in sizeand echogenicity without evidence of hydronephrosis, stones, or mass and measures 11.4 cm in length.Several simple cysts are identified within the right kidney ranging from 1.0-2.5 cm in diameter. Thepancreatic body and proximal tail are visualized and are normal in appearance. The abdominal aorta is within normal limits. There is no evidence of free fluid. IMPRESSION: 1. Cholelithiasis with gallbladder sludge and mild wall thickening, but negative sonographic Arroyo sign.2. Benign-appearing right renal cysts. Signed: Oscar García MDReport Verified Date/Time: 07/09/2020 16:21:05 Reading Location: [place] [address] Angio Body Reading Room [facility] W/Doppler(CW/PW/Color)2020-07-09 11:31:12[facility]SMINIDOK[facility] E[facility]ART[facility] MKCKESSON CPACSInterface, External Ris In - 07/09/2020 11:31 AM CSTTransthoracic Echocardiography Report (TTE) Demographics Patient Name JOHN TAPIA Date of Study 07/09/2020 Gender Male Visit Number [id number] Race Unknown Room [id number] Number Date of 1935 Referring Emma Bran Physician Age 84 year(s) Automatic [employer] Wil Lowe RDCS Interpreting Lizandro Chino Physician Fellow TRUPTI Rai Procedure Type of Study TTE procedure:2DECHO W DOPPLER(CW/PW/COLOR) (Routine) Indications:Pre-op.Clinical HistoryCVA, CAD, HTN, AFIB, HLDHGB 12.4HCT 43.0 %Contrast Medium: Definity.Height: 69 inches Weight: 78.47 kg (173 lbs) BSA: 1.94 m^2 BMI: 25.55 kg/m^2HR:90 bpm BP: 135/60 mmHg Summary The left ventricle is chamber size (by vol index) is normal. Septal motion is abnormal, likely related to prior cardiac surgery . Basal inferior wall not well seen. Apical anterior wall appears severely hypokinetic. All of the other segments contract normally. LVEF by Medina's method of disk assessment is normal (55- 60%) . LV diastolic function is indeterminate. The right ventricular chamber size is mildly enlarged with reduced systolic function (S' = 6 m/s). Mild m itral regurgitation. Mild tricuspid regurgitation. Estimated peak systolic PA pressure is 30-35 mmHg(normal range) . Signature Findings Left Ventricle LV endocardiumis well visualized with IV ultrasound enhancing agent.The left ventricle is chamber size (by vol index) is normal. Normal LV wall thickness. Septal motion is abnormal, likely related to prior cardiac surgery . Basal inferior wall not well seen. Apical anterior wall appears severely hypokinetic. All of the other segments contract normally. Global LV systolic function normal . LVEF by Medina's method of disk assessment is normal (55-60%) . LV diastolic function is indeterminate. Left Atrium LA size is severely enlarged (>48 ml/m2) . Right Ventricle The right ventricular chamber size is mildly enlarged with reduced systolic function (S' = 6 m/s). Right Atrium RA size is mildly dilated. Atrial Septum Normal interatrial septum by available views. Aortic Valve Mild AoV cusp thickening. Mild AoV cusp calcification. Mitral Valve Moderate MV leaflet thickening. Mild MV leaflet calcification. Mild mitral annular calcification. Mild mitral regurgitation. Tricuspid Valve Mild TV leaflet thickening. Mild tricuspid regurgitation. Estimated peak systolic PA pressure is 30-35 mmHg (normal range) . Pulmonic Valve Normal PV structure. Mild pulmonary regurgitation. Aorta Proximal ascend ing aorta size is normal . Pericardium No significant pericardial effusion is visualized. IVC/SVC/PA/PV/Pleural The estimated RA pressure by IVC dynamics 5-10mmHg .Chambers/Structures Left Atrium LA Volume: 98.41 ml LA Area: 32.91 cm^2 LA Vol.Index: 51 ml/m^2 Left Ventricle LVIDd: 5.25 cm LVEDV:132.29 ml LVSeptum Diastolic: 0.94 cm LV PW Diastolic: 0.82 cm LVEDV Medina's:127.38 ml LVESV Medina's:46.76 ml LVEF Medina's: 63.3 % LVEDVI: 66 ml/m^2 LVESVI: 24 ml/m^2 LVOT Diameter: 2.32 cm Right Atrium RA Area: 25.56 cm^2 Right Ventricle RV Diast Dim.: 4.63 cm TAPSE: 1.38 cm RVOT VTI: 11.18 cm Aorta Ascending Aorta: 3 cm Doppler/Quantitative Measurements Aortic Valve Peak Velocity: 1.14 m/s Mean Velocity: 0.85 m/s Peak Gradient: 5.24 mmHg Mean Gradient: 3.17 mmHg AV Area (continuity): 3.68 cm^2 AV VTI: 19.88 cm AV DVI: 0.87 LVOT Peak Velocity: 0.85 m/s Peak Gradient: 2.9 mmHg Mean Velocity: 0.61 m/s Mean Gradient: 1.72 mmHg LVOT Diameter: 2.32 cm LVOT VTI: 17.32 cm LVOT Area: 4.23 cm^2 LVOT SV:73.18 ml LVOT CO: 6.59 l/min LVOT CI: 3.4 l/min/m^2 Tricuspid Valve TR Velocity: 2.2 m/s TR Gradient: 19.36 mmHgSummit CampusBILIRUBIN, [id number] 08:02:00 Test Item Value Reference Range Interpretation Comments BILIRUBIN DIRECT (BEAKER) (test 0.8 mg/dL 0.1-0.5 H code = 706) Structural Analysis Engineer ID - AFTAB OMPREHENSIVE METABOLIC [id number] 05:30:00 Test Item Value Reference Range Interpretation Comments TOTAL PROTEIN 5.6 gm/dL 6.0-8.3 L (BEAKER) (test code = 770) ALBUMIN (BEAKER) 2.9 g/dL 3.5-5.0 L (test code = 1145) ALKALINE PHOSPHATASE 58 U/L 40-150 (BEAKER) (test code = 346) BILIRUBIN TOTAL 2.9 mg/dL 0.2-1.2 H (BEAKER) (test code = 377) SODIUM (BEAKER) (test 143 meq/L 136-145 code = 381) POTASSIUM (BEAKER) 3.9 meq/L 3.5-5.1 (test code = 379) CHLORIDE (BEAKER) 111 meq/L 98-107 H (test code = 382) CO2 (BEAKER) (test 21 meq/L 22-29 L code = 355) BLOOD UREA NITROGEN 20 mg/dL 7-21 (BEAKER) (test code = 354) CREATININE (BEAKER) 0.97 mg/dL 0.57-1.25 (test code = 358) GLUCOSE RANDOM 69 mg/dL 70-105 L (BEAKER) (test code = 652) CALCIUM (BEAKER) 8.4 mg/dL 8.4-10.2 (test code = 697) AST (SGOT) (BEAKER) 13 U/L 5-34 (test code = 353) ALT (SGPT) (BEAKER) 16 U/L 6-55 (test code = 347) EGFR (BEAKER) (test 74 mL/min/1.73 ESTIMA FLORENCIO GFR IS code = 1092) sq m NOT ACCURATE CREATININE CLEARANCE IN PREDICTING GLOMERULAR FILTRATION RATE . ESTIMATED GFR I S NOT APPLICABLE FOR DIALYSIS PATIEN TS. Structural Analysis Engineer ID - EDASISpecimen slightly ictericCBC W/PLT COUNT & AUTO [id number] 05:12:00 Test Item Value Reference Range Interpretation Comments WHITE BLOOD CELL COUNT (BEAKER) 12.3 K/ L 3.5-10.5 H (test code = 775) RED BLOOD CELL COUNT (BEAKER) 5.02 M/ L 4.63-6.08 (test code = 761) HEMOGLOBIN (BEAKER) (test code = 12.4 GM/DL 13.7-17.5 L 410) HEMATOCRIT (BEAKER) (test code = 43.0 % 40.1-51.0 411) MEAN CORPUSCULAR VOLUME (BEAKER) 85.7 fL 79.0-92.2 (test code = 753) MEAN CORPUSCULAR HEMOGLOBIN 24.7 pg 25.7-32.2 L (BEAKER) (test code = 751) MEAN CORPUSCULAR HEMOGLOBIN CONC 28.8 GM/DL 32.3-36.5 L (BEAKER) (test code = 752) RED CELL DISTRIBUTION WIDTH 17.5 % 11.6-14.4 H (BEAKER) (test code = 412) PLATELET COUNT (BEAKER) (test 171 K/CU MM 150-450 code = 756) MEAN PLATELET VOLUME (BEAKER) 10.3 fL 9.4-12.4 (test code = 754) NUCLEATED RED BLOOD CELLS 0 /100 WBC 0-0 (BEAKER) (test code = 413) NEUTROPHILS RELATIVE PERCENT 65 % (BEAKER) (test code = 429) LYMPHOCYTES RELATIVE PERCENT 10 % (BEAKER) (test code = 430) MONOCYTES RELATIVE PERCENT 11 % (BEAKER) (test code = 431) EOSINOPHILS RELATIVE PERCENT 11 % (BEAKER) (test code = 432) BASOPHILS RELATIVE PERCENT 1 % (BEAKER) (test code = 437) NEUTROPHILS ABSOLUTE COUNT 8.03 K/ L 1.78-5.38 H (BEAKER) (test code = 670) LYMPHOCYTES ABSOLUTE COUNT 1.27 K/ L 1.32-3.57 L (BEAKER) (test code = 414) MONOCYTES ABSOLUTE COUNT (BEAKER) 1.35 K/ L 0.30-0.82 H (test code = 415) EOSINOPHILS ABSOLUTE COUNT 1.32 K/ L 0.04-0.54 H (BEAKER) (test code = 416) BASOPHILS ABSOLUTE COUNT (BEAKER) 0.08 K/ L 0.01-0.08 (test code = 417) IMMATURE GRANULOCYTES-RELATIVE 2 % 0-1 H PERCENT (BEAKER) (test code = 2801) [id number] 05:00:00 Test Item Value Reference Range Interpretation Comments PROTIME (BEAKER) (test code = 18.5 seconds 11.9-14.2 H 759) INR (BEAKER) (test code = 370) 1.59 <=5.90 PARTIAL THROMBOPLASTIN TIME 42.8 seconds 22.5-36.0 H (BEAKER) (test code = 760) Effective 01/05/2019: PT Reference Range ChangeNew: 11.9-14.2 Previous: 11.7- 14.7RECOMMENDED COUMADIN/WARFARIN INR THERAPY RANGESSTANDARD DOSE: 2.0-3.0 Includes: PROPHYLAXIS for venous thrombosis, systemic embolization; TREATMENT for venous thrombosis and/or pulmonary embolus.HIGH RISK: Target INR is2.5-3.5 for patients wiht mechanical heart valves.SARS-COV2/RT-PCR ([facility]) 2020-07-08 18:39:00 Test Item Value Reference Range Interpretation Comments SARS-COV2/RT-PCR (test Negative Not Detected, Negative, code = 2456634) See external report for linked test SARS-COV-2 PERFORMING LAB [facility] (test code = 2235847) Negative result for this test determines that SARS-CoV-2 RNA was not present in the specimen above the Limit of Detection (LOD). However, Negative results do not preclude SARS-CoV-2 infection and should not be used as the sole basis for treatment or patient management decisions. Negative results mustbe combined with clinical observations, patient history, and epidemiological information. A false negative result may occur if a specimen is improperly collected, transported or handled. A false negative result should be considered if patient's recent exposures or clinical presentation indicate that COVID-19 (SARS-CoV-2) is likely and diagnostic tests for other causes of illness are negative. Re-testing should be considered in cases of suspected false negatives.The limit of detection for this assay is 800 copies/mL.This SARS CoV-2 test is a real-time RT-PCR test intended for the qualitative detection of nucleic acid from SARS-CoV-2 in a nasopharyngeal swab specimen collected from individuals susp ected of COVID-19 by their healthcare provider.This test has not been Food and Drug Administration (FDA) cleared or approved. This is a modified version of an approved Emergency Use Authorization (EUA) and is in the process of review by the FDA. Once authorized by the FDA, the issued EUA will be effective until the declaration that circumstances exist justifying the authorization of the emergency use of in vitro diagnostic tests for detection and/or diagnosis of COVID-19 is terminated under Section 564(b)(2) of the Act or the EUA is revoked under Section 564(g) of the Act.Fact Sheet for Healthcare Providers:https://www.[employer]/sites/default/files/product/documents/Fact_Shenaheed andujarj_XH_Xbiampgtp_Sonn_FVDZ-TsN-3.pdfFact Sheet for Healthcare Patients:https://www.[employer]/sites/default/files/product/ documents/Tniw_Rqbrb_Hpaqjsmm_Hwhy_GQPB-HaA-4.pdfPerforming Laboratory:[facility], [place] [address]XG, ABDOMEN, MRCP 2020-07-08 16:21:00Unlisted Reason for Exam - Click Yes and Enter Reason Below->NoUKIAH VALLEY MEDICAL [facility]ENTERName: JOHN TAPIA : 1935 Sex: MFINAL REPORT MR, ABDOMEN, MRCP HISTORY: Biliary obstruction suspected COMPARISON: None. TECHNIQUE: MRI of the abdomen with exam tailored to evaluate the biliary tree and the pancreas. Multiplanar, multisequence images, including heavily T2-weighted MRCP sequences were obtained. FINDINGS: Bile ducts: Normal in caliber. Questionable punctate stone at the distal common bile duct (series 1501 image 28). Otherwise no intraluminal filling defects. No significant strictures or dilated intra- or extrahepatic bile ducts. Mild narrowing of the common hepatic duct at the armando hepatis, favored to be related to crossing vesselsLiver: 14 mm T2 hyperintensity in segment 4, circumscribed, likely a hemangioma but incompletely characterized without contrast.Gallbladder: 2 small calculi in the gallbladder neck. Gallbladder wall thickening up to 6 mm.Pancreas: Cystic focus in the tail measuring 2 to 3 mm mm. No main pancreatic ductal dilation. Additional Findings:Lung bases: Bibasal atelectasis and a small right pleural effusion. Cardiomegaly. Spleen: Numerous T2 hyperintensities throughout the spleen, up to 2.5 cm. Moderate splenomegaly.Adrenals: UnremarkableKidneys and ureters: Bilateral renal cysts. No hydronephrosis.Bowel: Nondilated bowel with no wall thickening.Lymph nodes: No lymphadenopathy.Peritoneum: Unremarkable.Vessels: UnremarkableAbdominal wall: Unremarkable.Bones: Median sternotomy wires. Degenerative changes of the spine. IMPRESSION: The exam is motion degraded 1.Cholelithiasis. Gallbladder wall thickening, moderately concerning for acute cholecystitis. No biliary ductal dilation. Questionable punctate stone in the distal common bile duct.2.Small right pleural effusion.3.Multiple moderate T2 hyperintensities in the spleen, largest 2.5 cm, query hemangioma or hamartoma. A follow-up contrast-enhanced abdominal MRI is recommended on a nonemergent basis.4.A 14 mm moderate T2 hyperintensity in the liver, likely a hemangioma. 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 Recommend one year follow-up MRCP.6.Moderate splenomegaly Signed: Cullen Arzola MDRconnecticut hospice Verified Date/Time: 07/08/2020 16:21:50 Reading Location: [address] Body Reading Room MR abdomen without IV contrast [id number] 16:21:00Interface, External Ris In - 07/08/2020 4:24 PM CSTFINAL REPORT MR, ABDOMEN,MRCP HISTORY: Biliary obstruction suspected COMPARISON: None. TECHNIQUE: MRI of the abdomen with exam tailored to evaluate the biliary tree and the pancreas. Multiplanar, multisequence images, including heavily T2-weighted MRCP sequences were obtained. FINDINGS: Bile ducts: Normal in caliber. Questionable punctate stone at the distal common bile duct (series 1501 image 28). Otherwise no intraluminal filling defects. No significant strictures or dilated intra- or extrahepatic bile ducts. Mild narrowing of the common hepatic duct at the armando hepatis, favored to be related to crossing vesselsLiver:14 mm T2 hyperintensity in segment 4, circumscribed, likely a hemangioma but incompletely characterized without contrast.Gallbladder: 2 small calculi in the gallbladder neck. Gallbladder wall thickening up to 6 mm.Pancreas: Cystic focus in the tail measuring 2 to 3 mm mm. No main pancreatic ductal dilation. Additional Findings:Lung bases: Bibasal atelectasis and a small right pleural effusion. Cardiomegaly. Spleen: Numerous T2 hyperintensities throughout the spleen, up to 2.5 cm. Moderate splenomegaly.Adrenals: UnremarkableKidneys and ureters: Bilateral renal cysts. No hydronephrosis.Bowel: Nondilated bowel with no wall thickening.Lymph nodes: No lymphadenopathy.Peritoneum: Unremarkable.Vessels: Un remarkableAbdominal wall: Unremarkable.Bones: Median sternotomy wires. Degenerative changes of the spine. IMPRESSION: The exam is motion degraded 1.Cholelithiasis. Gallbladder wall thickening, moderately concerning for acute cholecystitis. No biliary ductal dilation. Questionable punctate stone inthe distal common bile duct.2.Small right pleural effusion.3.Multiple moderate T2 hyperintensities in the spleen, largest 2.5 cm, query hemangioma or hamartoma. A follow-up contrast-enhanced abdominal MRI is recommended on a nonemergent basis.4.A 14 mm moderate T2 hyperintensity in the liver, likely ahemangioma. 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 Recommend one year follow-up MRCP.6.Moderate splenomegaly Signed: Cullen Arzola MDReport Verified Date/Time: 07/08/2020 16:21:50 Reading Location: [facility] B1 C013[facility] CT Body Reading Room [facility] W/PLT COUNT & AUTO [id number] 08:17:00 Test Item Value Reference Range Interpretation Comments WHITE BLOOD CELL COUNT (BEAKER) 15.6 K/ L 3.5-10.5 H (test code = 775) RED BLOOD CELL COUNT (BEAKER) 4.88 M/ L 4.63-6.08 (test code = 761) HEMOGLOBIN (BEAKER) (test code = 12.1 GM/DL 13.7-17.5 L 410) HEMATOCRIT (BEAKER) (test code = 42.0 % 40.1-51.0 411) MEAN CORPUSCULAR VOLUME (BEAKER) 86.1 fL 79.0-92.2 (test code = 753) MEAN CORPUSCULAR HEMOGLOBIN 24.8 pg 25.7-32.2 L (BEAKER) (test code = 751) MEAN CORPUSCULAR HEMOGLOBIN CONC 28.8 GM/DL 32.3-36.5 L (BEAKER) (test code = 752) RED CELL DISTRIBUTION WIDTH 17.3 % 11.6-14.4 H (BEAKER) (test code = 412) PLATELET COUNT (BEAKER) (test 180 K/CU MM 150-450 code = 756) MEAN PLATELET VOLUME (BEAKER) 10.9 fL 9.4-12.4 (test code = 754) NUCLEATED RED BLOOD CELLS 0 /100 WBC 0-0 (BEAKER) (test code = 413) (CELLAVISION MANUAL DIFF)2020-07-08 08:17:00 Test Item Value Reference Range Interpretation Comments NEUTROPHILS - REL 66 % (CELLAVISION)(BEAKER) (test code = 2816) LYMPHOCYTES - REL 12 % (CELLAVISION)(BEAKER) (test code = 2817) MONOCYTES - REL 6 % (CELLAVISION)(BEAKER) (test code = 2818) EOSINOPHILS - REL 11 % (CELLAVISION)(BEAKER) (test code = 2819) BANDS - REL (CELLAVISION)(BEAKER) 5 % 0-10 (test code = 2826) NEUTROPHILS - ABS 10.30 K/ul 1.78-5.38 H (CELLAVISION)(BEAKER) (test code = 2830) LYMPHOCYTES - ABS 1.87 K/ul 1.32-3.57 (CELLAVISION)(BEAKER) (test code = 2831) MONOCYTES - ABS 0.94 K/uL 0.30-0.82 H (CELLAVISION)(BEAKER) (test code = 2832) EOSINOPHILS - ABS 1.72 K/uL 0.04-0.54 H (CELLAVISION)(BEAKER) (test code = 2834) BANDS - ABS (CELLAVISION)(BEAKER) 0.78 K/uL 0.00-0.80 (test code = 2840) TOTAL COUNTED (BEAKER) (test code 100 = 1351) PLT MORPHOLOGY (BEAKER) (test Normal code = 486) VACUOLATED NEUTROPHILS (BEAKER) Present (test code = 483) ANISOCYTOSIS (BEAKER) (test code 1+ few = 961) POIKILOCYTES (BEAKER) (test code 2+ moderate = 966) ELLIPTOCYTES (BEAKER) (test code 2+ moderate = 962) ARTIFACT (CELLAVISION)(BEAKER) Present (test code = 3432) PLATELET CONCENTRATION Adequate (CELLAVISION)(BEAKER) (test code = 3438) Structural Analysis Engineer ID - Vivien OverholtUser comments: Slide comments:B-type Natriuretic Factor (BNP)2020-07-08 06:26:00 Test Item Value Reference Range Interpretation Comments BNP (test code = 83180-4) 278 pg/mL 0-100 H TON (test code = TON) Structural Analysis Engineer ID - JAD M Lab Interpretation (test Abnormal code = 59938-7) [facility]B-[facility] NAT[facility] FACTOR (BNP)2020-07-08 06:26:00 Test Item Value Reference Range Interpretation Comments B-TYPE NATRIURETIC PEPTIDE (BEAKER) 278 pg/mL 0-100 H (test code = 700) Structural Analysis Engineer ID - JAD [id number] 06:14:00 Test Item Value Reference Range Interpretation Comments MAGNESIUM (BEAKER) (test code = 2.2 mg/dL 1.6-2.6 627) Structural Analysis Engineer ID - [id number] 06:14:00 Test Item Value Reference Range Interpretation Comments PHOSPHORUS (BEAKER) (test code = 3.2 mg/dL 2.3-4.7 604) Structural Analysis Engineer ID - LETICIAASIBASIC METABOLIC [id number] 06:14:00 Test Item Value Reference Range Interpretation Comments SODIUM (BEAKER) 142 meq/L 136-145 (test code = 381) POTASSIUM (BEAKER) 4.1 meq/L 3.5-5.1 (test code = 379) CHLORIDE (BEAKER) 111 meq/L 98-107 H (test code = 382) CO2 (BEAKER) (test 23 meq/L -29 code = 355) BLOOD UREA NITROGEN 23 mg/dL 7-21 H (BEAKER) (test code = 354) CREATININE (BEAKER) 0.96 mg/dL 0.57-1.25 (test code = 358) GLUCOSE RANDOM 66 mg/dL 70-105 L (BEAKER) (test code = 652) CALCIUM (BEAKER) 8.8 mg/dL 8.4-10.2 (test code = 697) EGFR (BEAKER) (test 75 mL/min/1.73 ESTIMA FLORENCIO GFR IS code = 1092) sq m NOT ACCURATE CREATININE CLEARANCE IN PREDICTING GLOMERULAR FILTRATION RATE . ESTIMATED GFR I S NOT APPLICABLE FOR DIALYSIS PATIEN TS. Structural Analysis Engineer ID - EDASISpecimen slightly ictericHEPATIC FUNCTION [id number] 06:14:00 Test Item Value Reference Range Interpretation Comments TOTAL PROTEIN (BEAKER) (test code = 5.7 gm/dL 6.0-8.3 L 770) ALBUMIN (BEAKER) (test code = 1145) 2.9 g/dL 3.5-5.0 L BILIRUBIN TOTAL (BEAKER) (test code 2.7 mg/dL 0.2-1.2 H = 377) BILIRUBIN DIRECT (BEAKER) (test 0.7 mg/dL 0.1-0.5 H code = 706) ALKALINE PHOSPHATASE (BEAKER) (test 61 U/L 40-150 code = 346) AST (SGOT) (BEAKER) (test code = 12 U/L 5-34 353) ALT (SGPT) (BEAKER) (test code = 21 U/L 6-55 347) Structural Analysis Engineer ID - EDASISpecimen slightly ictericPT/[id number] 05:43:00 Test Item Value Reference Range Interpretation Comments PROTIME (BEAKER) (test code = 20.2 seconds 11.9-14.2 H 759) INR (BEAKER) (test code = 370) 1.79 <=5.90 PARTIAL THROMBOPLASTIN TIME 39.6 seconds 22.5-36.0 H (BEAKER) (test code = 760) Effective 01/05/2019: PT Reference Range ChangeNew: 11.9-14.2 Previous: 11.7- 14.7RECOMMENDED COUMADIN/WARFARIN INR THERAPY RANGESSTANDARD DOSE: 2.0-3.0 Includes: PROPHYLAXIS for venous thrombosis, systemic embolization; TREATMENT for venous thrombosis and/or pulmonary embolus.HIGH RISK: Target INR is2.5-3.5 for patients wiht mechanical heart valves.XR CHEST 2 [id number] 11:11:17PA and lateral chest, 2 viewsLocation code: [id number] HISTORY: Cough, Hypertensive disorderCOMPARISON: 07/26/2013COMMENTS: The lungs are clear and well inflated. The costophrenic angles aresharp. The cardiomediastinal silhouette is stable. The bones are intact.IMPRESSION: Stable chest with no acute abnormality ERYTHROCYTE SED [id number] 15:36:00 Test Item Value Reference Range Interpretation Comments SED RATE (test code = SEDR) 1 mm/hr 0-15 THYROID PANEL/SCREEN (TSH)2017-03-19 15:14:00 Test Item Value Reference Range Interpretation Comments TSH (test code = A57) 1.640 uIU/mL 0.358-3.740 B12 [id number] 15:10:00 Test Item Value Reference Range Interpretation Comments VIT B12 (test code = A60) 807.0 pg/mL 180.0-914.0 [id number] 15:10:00 Test Item Value Reference Range Interpretation Comments FOLATE (test code = A75) 22.4 ng/mL 3.1-17.5 H VITAMIN D TOTAL 25 (OH)2017-03-19 14:48:00 Test Item Value Reference Range Interpretation Comments VITAMIN D 25(OH) (test code = VD) 40.2 ng/mL 30.0-100.0 CBC (INCLUDES AUTOMATED DIFFERENTIAL)2017-03-19 14:28:00 Test Item Value Reference Range Interpretation Comments WBC (test code = WBC) 8.6 10\\S\\3/uL 4.5-11.0 RBC (test code = RBC) 5.58 10\\S\\6/uL 3.80-5.80 HGB (test code = HBG) 15.9 g/dL 14.0-18.0 HCT (test code = HCT) 50.3 % 35.0-46.0 H MCV (test code = MCV) 90.1 fL 80.0-94.0 MCH (test code = MCH) 28.5 pg 27.0-31.0 MCHC (test code = MCHC) 31.6 g/dL 32.0-36.0 L RDW (test code = RDW) 15.9 % 11.5-14.5 H PLT (test code = PLT) 180 10\\S\\3/uL 130-400 MPV (test code = MPV) 11.0 fL 9.4-12.4 NEUTROP # (test code = NE#) 3.9 10\\S\\3/uL 2.0-8.0 LYMPH # (test code = LY#) 1.8 10\\S\\3/uL 1.2-4.0 MONOCYTE # (test code = MO#) 0.9 10\\S\\3/uL 0.0-1.1 EOSINOPH # (test code = EO#) 1.9 10\\S\\3/uL 0.0-0.7 H BASOPHIL # (test code = BA#) 0.1 10\\S\\3/uL 0.0-0.3 IG # (test code = IG#) 0.13 10\\S\\3/uL 0.00-0.06 H NRBC # (test code = NRBC#) 0.00 10\\S\\3/uL 0.00-0.01 NEUTROPH % (test code = NE%) [...]
--- NOTE | 2020-11-23 14:35 | RAD REPORT ---
EXAM DESCRIPTION: RAD - Chest Single View - 11/23/2020 2:11 pm CLINICAL HISTORY: CHEST PAIN, shortness of breath COMPARISON: Portable June 2020 TECHNIQUE: AP portable chest image was obtained 11/23/2020 2:11 pm . FINDINGS: Lung volumes are low. Cardiomegaly is present similar to comparison. Central vasculature i s prominent. Sternotomy wires are in place. Interstitial and scattered alveolar opacities are present in both lung candelaria. Clinical history does not indicate pneumonia. Lung parenchymal changes could be related to failure or volume overload. No measurable pleural effusion and no pneumothorax. No acute bony abnormality seen. No acute aortic findings suspected. IMPRESSION: Interstitial and scattered alveolar opacities with cardiomegaly. Chest findings favor failure or volume overload.
[2020-11-23 14:45] LABS: Absolute Lymphocytes (CBC) 0.7 K/uL (0.7-4.9); Basophils % 0.7 % (0-1.3); Hematocrit 42.5 % (39.6-49.0); Lymphocytes % 4.7 % (15.3-44.8); MPV 8.9 fL (7.6-11.3); RBC Red Blood Cell Count 5.18 M/uL (4.33-5.43)
[2020-11-23 14:47] LABS: Protime INR 2.6
[2020-11-23] MEDS ORDERED: PIPER/TAZO/NS 3.375gm 3.375 GM/100 ML BAG ONE (14:48)
[2020-11-23] MEDS ORDERED: ACETAMINOPHEN 325 MG TABLET ONE (14:48)
[2020-11-23] MEDS ORDERED: NA CHLORIDE 0.9% 250 ML ONE (14:48)
[2020-11-23 14:59] LABS: ALT/SGPT 18 U/L (12-78); AST/SGOT 15 U/L (15-37); Alkaline Phosphatase 93 U/L (45-117); BUN Blood Urea Nitrogen 13 mg/dL (7-18); Bicarbonate 26 mmol/L (21-32); Bilirubin Direct 0.5 mg/dL (0-0.2); Bilirubin Total 3.1 mg/dL (0.2-1.0); Glucose Level 80 mg/dL (74-106); Lipase 58 U/L (73-393); Magnesium 2.1 mg/dL (1.8-2.4); NT PRO-BNP 4994 pg/mL (<450); Protein, Total 6.9 g/dL (6.4-8.2); Sodium Level 141 mmol/L (136-145); Troponin (Emerg Dept Use Only) < 0.02 ng/mL (0.0-0.045)
[2020-11-23 15:58] LABS: Blood Morphology Comment NOT SEEN (NOT SEEN); Platelet Estimate ADEQ
--- NOTE | 2020-11-23 16:28 | RAD REPORT ---
EXAM DESCRIPTION: CT - Abdomen Pelvis W Contrast - 11/23/2020 3:57 pm CLINICAL HISTORY: lower abdominal pain COMPARISON: Abdomen Pelvis W Contrast dated 07/06/2020 TECHNIQUE: Biphasic, helical CT imaging of the abdomen and pelvis was performed following 100 ml non -ionic IV contrast. No oral contrast administered. All CT scans are performed using dose optimization technique as appropriate and may include automated exposure control or mA/KV adjustment according to patient size. FINDINGS: Small bilateral pleural effusions are present with partial atelectasis of each lower lobe. Gynecomastia is present on the left only partially imaged. Cardiomegaly is present without pericardi al thickening or effusion. This is predominantly biatrial enlargement. Dense coronary artery calcific ations are present. No pericardial effusion. No focal liver lesion. No portal vein abnormality identifiable. Gallbladder is absent. No abnormal bi liary tree dilatation. No pancreatic abnormality seen. Spleen is prominent in size measuring 17 cm in AP dimension compared to 15 cm last June. The mult iple small low-density lesions in the spleen are again noted with many measuring slightly larger than in June. Dysplasia or possible metastatic disease cannot be excluded though the splenic lesions remain nonspecific. Symmetric renal function is seen with no hydronephrosis or suspicious renal mass. No pyelonephritis o r acute parenchymal process. No adrenal abnormalities. Urinary bladder is only partially filled. Lobu lated prostate gland projects into the bladder base this is similar to prior imaging. No gastric dilatation gastric wall thickening. Fluid fills but does not dilate the stomach. No small bowel abnormality seen. The appendix is normal. Cecum through descending colon show no suspicious fin dings. Sigmoid colon is redundant with moderately prominent diverticulosis. In the mid sigmoid colon there is a 5-6 centimeter long length showing circumferential wall thickening. There is prominent str anding and edema in the adjacent fat. A few small lymph nodes are present. No extraluminal free air o r abnormal free fluid collections seen. No pneumatosis. No hernia, mass or bulky lymphadenopathy. Patient does have prominent inguinal lymph nodes up to 2 cm in maximum dimension. These are likely reactive lymph nodes. No suspicious bony findings. Degenerative changes are present. IMPRESSION: Acute sigmoid diverticulitis pattern with no free air, abscess or surgically emergent co mponent. Patient has extensive diverticulosis. Colon mass etiology is unlikely but not excluded. Follow-up col onoscopy can be performed after recovery from the acute event. Progressive splenomegaly with interval enlargement of the multiple hypodense lesions in the spleen. S plenic lesions may be related to the mastocytosis history. Metastatic etiology is not excluded.
--- NOTE | 2020-11-23 16:56 | ER ---
Nurse's Notes [facility] Name: John Henriquez Age: 84 yrs Sex: Male : 1935 Arrival Date: 11/23/2020 Time: 13:22 Bed 17 Private MD: Diagnosis: Acute Diverticulitis;Unspecified atrial fibrillation Presentation: 11/23 13:25 Chief complaint: Patient states: Lower abdominal pain since midnight. SOB this morning. ca1 Denies cough, fever. EMS states: Abdominal pain started at midnight. Denies N/V/D. Pain is intermittent at a pain scale of 6-7/10. 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 IV started at RAC 20G. BGL 153, HR 130 HX of Afib, BP 183/88. Coronavirus screen: Client denies travel out of the [place] in the last 14 days. shortness of breath. Ebola Screen: Patient negative for fever greater than or equal to 101.5 degrees Fahrenheit, and additional compatible Ebola Virus Disease symptoms Patient denies exposure to infectious person. Patient denies travel to an Ebola-affected area in the 21 days before illness onset. No symptoms or risks identified at this time. Initial Sepsis Screen: Does the patient meet any 2 criteria? RR > 20 per min. HR > 90 bpm. Yes Does the patient have a suspected source of infection? No. Patient's initial sepsis screen is negative. Risk Assessment: Do you want to hurt yourself or someone else? Patient reports no desire to harm self or others. Onset of symptoms was November 23, 2020. 13:25 Method Of Arrival: EMS: [facility] ca1 13:25 Acuity: DILIP 2 ca1 Historical: - Allergies: 13:38 Cipro; ca1 - PMHx: 13:38 Atrial Fib; CHF; CVA; Gout; Hyperlipidemia; Hypertension; Systemic mastocytosis blood ca1 disorder; - PSHx: 13:38 Heart stents; CABG; Cataract surgy- Bilateral; ca1 15:31 Cholecystectomy; jd3 - Immunization history:: Flu vaccine is not up to date. - Social history:: Smoking status: Patient denies any tobacco usage or history of. Screenin:24 Abuse screen: Denies threats or abuse. Nutritional screening: No deficits noted. jd3 Tuberculosis screening: No symptoms or risk factors identified. Fall Risk Fall in past 12 months (25 points). IV access (20 points). Ambulatory Aid- None/Bed Rest/Nurse Assist (0 pts). Gait- Normal/Bed Rest/Wheelchair (0 pts) Mental Status- Oriented to own ability (0 pts). Total Hoffman Fall Scale indicates Low Risk Score (25-44 pts). Fall prevention measures have been instituted. Side Rails Up X 2 Placed close to Nursing Station Frequent Obs/Assesments occuring Family Present and informed to notify staff if they need to leave bedside. Assessment: 14:00 General: Appears in no apparent distress. uncomfortable, Behavior is calm, cooperative, jd3 appropriate for age, Reports fatigue for 0-12 hours. Pain: Complains of pain in abdomen Quality of pain is described as sharp. Neuro: Level of Consciousness is awake, alert, obeys commands, Oriented to person, place, time, situation. Cardiovascular: Capillary refill < 3 seconds Patient's skin is warm and dry. Rhythm is irregular. Respiratory: Reports shortness of breath on exertion Airway is patent Respiratory effort is even, labored, Respiratory pattern is symmetrical, tachypnea Breath sounds are diminished bilaterally. GI: Abdomen is round non-distended, Abd is soft and non tender X 4 quads. Reports lower abdominal pain. : No signs and/or symptoms were reported regarding the genitourinary system. EENT: No signs and/or symptoms were reported regarding the EENT system. Derm: Skin is intact, Skin is dry, Skin is normal, Skin temperature is warm. Musculoskeletal: Circulation, motion, and sensation intact. Range of motion: intact in all extremities. 15:00 Reassessment: No changes from previously documented assessment. Patient and/or family jd3 updated on plan of care and expected duration. Pain level reassessed. 16:13 Reassessment: No changes from previously documented assessment. Patient and/or family jd3 updated on plan of care and expected duration. Pain level reassessed. Patient states feeling better. 17:14 Reassessment: No changes from previously documented assessment. Patient and/or family jd3 updated on plan of care and expected duration. Pain level reassessed. Patient states feeling better. 18:20 Reassessment: Patient appears in no apparent distress at this time. Patient and/or jd3 family updated on plan of care and expected duration. Pain level reassessed. pt appears less labored with respirations. awaiting admission Patient states feeling better. 19:38 Reassessment: [id number]. General: Appears in no apparent distress. Behavior is ea calm, cooperative, appropriate for age. Pain: Denies pain. Neuro: Level of Consciousness is awake, alert, obeys commands, Oriented to person, place, time, situation. Cardiovascular: Patient's skin is warm and dry. Respiratory: Airway is patent Respiratory effort is even, Respiratory pattern is symmetrical, tachypnea. 21:42 Reassessment: Patient and/or family updated on plan of care and expected duration. Pain ea level reassessed. Patient is alert, oriented x 3, equal unlabored respirations, skin warm/dry/pink. Awaiting on receiving nurse to call back for report. Vital Signs: 13:25 BP 165 / 76; Pulse 115; Resp 30; Temp 98.3; Pulse Ox 97% on R/A; Weight 78.93 kg; ca1 Height 5 ft. 10 in. (177.80 cm) (R); Pain 8/10; 15:00 BP 160 / 80; Pulse 115; Resp 25 S; Pulse Ox 99% on 2 lpm NC; jd3 16:13 BP 146 / 66; Pulse 111; Resp 26 S; Pulse Ox 100% on R/A; jd3 17:13 BP 135 / 71; Pulse 112; Resp 23 S; Pulse Ox 97% on 2 lpm NC; jd3 18:21 BP 131 / 91; Pulse 109; Resp 25 S; Pulse Ox 97% on 2 lpm NC; jd3 19:39 BP 122 / 55; Pulse 109; Resp 25; Pulse Ox 98% on R/A; ea 21:47 BP 120 / 62; Pulse 104; Resp 22; Pulse Ox 98% ; ea 13:25 Body Mass Index 24.97 (78.93 kg, 177.80 cm) ca1 ED Course: 13:22 Patient arrived in ED. iw 13:37 Triage completed. ca1 13:38 Arm band placed on right wrist. ca1 13:42 Jose Crowder PA is PHCP. jmm 13:42 Wayne Peña MD is Attending Physician. jmm 14:04 Ashu Steele, DENNY is Primary Nurse. jd3 14:12 XRAY Chest (1 view) In Process Unspecified. EDMS 15:25 Patient has correct armband on for positive identification. Bed in low position. Call jd3 light in reach. Side rails up X2. quality assurance monitor chassis on. Pulse ox on. NIBP on. 15:57 CT Abd/Pelvis - IV Contrast Only In Process Unspecified. EDMS 16:52 Jenny Christian MD is Hospitalizing Provider. kassy 19:28 No provider procedures requiring assistance completed. ea 19:36 Patient admitted, IV remains in place. ea 20:06 Primary Nurse role handed off by Ashu Steele, DENNY tt3 20:32 Fauzia Bains, DENNY is Primary Nurse. ea Administered Medications: 14:27 Not Given (Patient Refused): morphine 2 mg IVP once; (PAIN>8) RASS on ADMN: Combtv4, jd3 Very Agttd3, Agttd2, Rstlss1, AlertClm0, Drwsy-1, LtSdtn-2, ModSdtn-3, DpSdtn-4, UnArsble-5 x2 14:27 Not Given (Patient Refused): Zofran (Ondansetron) 4 mg IVP once; over 2 minutes jd3 14:58 Drug: NS 0.9% 250 ml Route: IV; Rate: bolus; Site: right antecubital; jd3 15:50 Follow up: Response: No adverse reaction; IV Status: Completed infusion jd3 14:59 Drug: Tylenol 650 mg Route: PO; jd3 15:50 Follow up: Response: No adverse reaction jd3 14:59 Drug: Zosyn 3.375 grams Route: IVPB; Infused Over: 60 mins; Site: right antecubital; jd3 15:50 Follow up: Response: No adverse reaction; IV Status: Completed infusion jd3 18:05 Drug: Lasix (furosemide) 40 mg Route: IVP; Site: right antecubital; jd3 18:31 Follow up: Response: No adverse reaction jd3 Output: 18:53 Urine: 475ml (Voided); Total: 475ml. jd3 Outcome: 16:55 Decision to Hospitalize by Provider. jmm 19:36 Instructed on the need for admit. ea 21:44 Patient left the ED. ea 21:45 Admitted to Med/surg via wheelchair, with chart, Report called to Receiving nurse ea 21:45 Condition: stable Signatures: Dispatcher [employer] EDJose Romo PA PA jmm Williams, Irene, RN RN iw Antunez, Elena, RN RN ea Davies, Jonathon, RN RN jJoselyn Claros RN DENNY ca1 Cory Rae tt3 Corrections: (The following items were deleted from the chart) 14:59 14:58 NS 0.9% 250 ml IV at bolus in left forearm jd3 jd3 18:22 18:20 Reassessment: Patient appears in no apparent distress at this time. Patient jd3 and/or family updated on plan of care and expected duration. Pain level reassessed. pt appears less labored with respirations Patient states feeling better. jd3 18:23 18:21 Pulse 109bpm; Resp 25bpm; Spontaneous; Pulse Ox 97% 2 lpm Nasal Cannula; jd3 jd3
--- NOTE | 2020-11-23 16:56 | EDPHYS ---
Physician Documentation [facility] Name: John Henriquez Age: 84 yrs Sex: Male : 1935 Arrival Date: 11/23/2020 Time: 13:22 Bed 17 Private MD: ED Physician Wayne Peña HPI: 11/23 14:23 This 84 yrs old Male presents to ER via EMS with complaints of abdominal pain.jmm 14:23 The patient presents with abdominal pain in the lower abdomen. Onset: The jmm symptoms/episode began/occurred today. The symptoms do not radiate. Associated signs and symptoms: Pertinent negatives: diarrhea, vomiting. The symptoms are described as achy. Modifying factors: The symptoms are alleviated by nothing, the symptoms are aggravated by. The patient has not experienced similar symptoms in the past. Historical: - Allergies: 13:38 Cipro; ca1 - PMHx: 13:38 Atrial Fib; CHF; CVA; Gout; Hyperlipidemia; Hypertension; Systemic mastocytosis blood ca1 disorder; - PSHx: 13:38 Heart stents; CABG; Cataract surgy- Bilateral; ca1 15:31 Cholecystectomy; jd3 - Immunization history:: Flu vaccine is not up to date. - Social history:: Smoking status: Patient denies any tobacco usage or history of. ROS: 14:23 Constitutional: Negative for fever, chills, and weight loss, Cardiovascular: Negative jmm for chest pain, palpitations, and edema, Respiratory: Negative for shortness of breath, cough, wheezing, and pleuritic chest pain. 14:23 Abdomen/GI: Positive for abdominal pain. 14:23 All other systems are negative. Exam: 14:23 Constitutional: This is a well developed, well nourished patient who is awake, alert, jmm and in no acute distress. Head/Face: atraumatic. Eyes: EOMI, no conjunctival erythema appreciated ENT: Moist Mucus Membranes Neck: Trachea midline, Supple Chest/axilla: Normal chest wall appearance and motion. Cardiovascular: Regular rate and rhythm. No edema appreciated Respiratory: Normal respirations, no respiratory distress appreciated 14:23 Skin: General appearance color normal MS/ Extremity: Moves all extremities, no obvious deformities appreciated, no edema noted to the lower extremities Neuro: Awake and alert, normal gait Psych: Behavior is normal, Mood is normal, Patient is cooperative and pleasant 14:23 Abdomen/GI: Inspection: abdomen appears normal, Bowel sounds: normal, Palpation: soft, mild abdominal tenderness, in the right lower quadrant and left lower quadrant. Vital Signs: 13:25 BP 165 / 76; Pulse 115; Resp 30; Temp 98.3; Pulse Ox 97% on R/A; Weight 78.93 kg; ca1 Height 5 ft. 10 in. (177.80 cm) (R); Pain 8/10; 15:00 BP 160 / 80; Pulse 115; Resp 25 S; Pulse Ox 99% on 2 lpm NC; jd3 16:13 BP 146 / 66; Pulse 111; Resp 26 S; Pulse Ox 100% on R/A; jd3 17:13 BP 135 / 71; Pulse 112; Resp 23 S; Pulse Ox 97% on 2 lpm NC; jd3 18:21 BP 131 / 91; Pulse 109; Resp 25 S; Pulse Ox 97% on 2 lpm NC; jd3 19:39 BP 122 / 55; Pulse 109; Resp 25; Pulse Ox 98% on R/A; ea 21:47 BP 120 / 62; Pulse 104; Resp 22; Pulse Ox 98% ; ea 13:25 Body Mass Index 24.97 (78.93 kg, 177.80 cm) ca1 MDM: 13:59 Patient medically screened. [facility] 16:51 Data reviewed: vital signs, nurses notes. Counseling: I had a detailed discussion with [facility] the patient and/or guardian regarding: the historical points, exam findings, and any diagnostic results supporting the discharge/admit diagnosis, lab results, radiology results, the need for further work-up and treatment in the hospital. ED course: I discussed the patient with Dr. Christian whom accepted the patient for admission. . 11/23 13:45 Order name: Basic Metabolic Panel [facility] 11/23 13:45 Order name: CBC with Diff [facility] 11/23 13:45 Order name: LFT's [facility] 11/23 13:45 Order name: Magnesium [facility] 11/23 13:45 Order name: NT PRO-BNP; Complete Time: 15:04 [facility] 11/23 13:45 Order name: PT-INR; Complete Time: 15:04 [facility] 11/23 13:45 Order name: Troponin (emerg Dept Use Only); Complete Time: 15:04 [facility] 11/23 13:45 Order name: Lipase; Complete Time: 15:04 [facility] 11/23 13:45 Order name: Basic Metabolic Panel; Complete Time: 15:04 [facility] 11/23 13:45 Order name: CBC with Automated Diff; Complete Time: 16:01 [facility] 11/23 13:45 Order name: Liver (Hepatic) Function; Complete Time: 15:04 [facility] 11/23 13:46 Order name: Magnesium; Complete Time: 15:04 [facility] 11/23 15:58 Order name: Manual Differential; Complete Time: 16:01 [facility] 11/23 16:43 Order name: COVID-19 : Document "Date of Symptom Onset" if Symptomatic. 11/23 13:45 Order name: XRAY Chest (1 view); Complete Time: 14:38 [facility] 11/23 15:37 Order name: CT Abd/Pelvis - IV Contrast Only; Complete Time: 16:33 [facility] 11/23 17:18 Order name: CBC with Automated Diff [facility] 11/23 17:18 Order name: CBC with Automated Diff [facility] 11/23 17:18 Order name: Comprehensive Metabolic Panel [facility] 11/23 17:18 Order name: Comprehensive Metabolic Panel [facility] 11/23 17:18 Order name: Troponin I [facility] 11/23 17:18 Order name: Troponin I; Complete Time: 19:21 [facility] 11/23 17:18 Order name: Troponin I [facility] 11/23 18:46 Order name: SARS-COV-2 RT PCR; Complete Time: 18:46 [facility] 11/23 13:45 Order name: EKG; Complete Time: 13:46 [facility] 11/23 13:45 Order name: Cardiac monitoring; Complete Time: 14:04 [facility] 11/23 13:45 Order name: EKG - Nurse/Tech; Complete Time: 14:18 [facility] 11/23 13:45 Order name: IV Saline Lock; Complete Time: 14:04 [facility] 11/23 13:45 Order name: Labs collected and sent; Complete Time: 14:04 [facility] 11/23 13:45 Order name: O2 Per Protocol; Complete Time: 14:04 [facility] 11/23 13:45 Order name: O2 Sat Monitoring; Complete Time: 14:04 [facility] 11/23 17:18 Order name: CONS Physician Consult [facility] 11/23 17:18 Order name: Heart Healthy EDMS Administered Medications: 14:27 Not Given (Patient Refused): morphine 2 mg IVP once; (PAIN>8) RASS on ADMN: Combtv4, jd3 Very Agttd3, Agttd2, Rstlss1, AlertClm0, Drwsy-1, LtSdtn-2, ModSdtn-3, DpSdtn-4, UnArsble-5 x2 14:27 Not Given (Patient Refused): Zofran (Ondansetron) 4 mg IVP once; over 2 minutes jd3 14:58 Drug: NS 0.9% 250 ml Route: IV; Rate: bolus; Site: right antecubital; jd3 15:50 Follow up: Response: No adverse reaction; IV Status: Completed infusion jd3 14:59 Drug: Tylenol 650 mg Route: PO; jd3 15:50 Follow up: Response: No adverse reaction jd3 14:59 Drug: Zosyn 3.375 grams Route: IVPB; Infused Over: 60 mins; Site: right antecubital; jd3 15:50 Follow up: Response: No adverse reaction; IV Status: Completed infusion jd3 18:05 Drug: Lasix (furosemide) 40 mg Route: IVP; Site: right antecubital; jd3 18:31 Follow up: Response: No adverse reaction jd3 Disposition: 11/23/20 16:55 Hospitalization ordered by Jenny Christian for Inpatient Admission. Preliminary diagnosis are Acute Diverticulitis, Unspecified atrial fibrillation. - Bed requested for Telemetry/MedSurg (Inpatient). - Status is Inpatient Admission. ea - Condition is Stable. - Problem is new. - Symptoms are unchanged. Addendum: 11/28/2020 10:09 Co-signature as Attending Physician, Wayne Peña MD I agree with the assessment and t w4 plan of care. Signatures: Dispatcher [employer] EDMS Jose Crowder PA PA jmm Garcia, Cindy, Fauzia Loco RN, RN RN ea Davies, Jonathon, RN RN jd3 Wadley, Terrence, MD MD tw4 Joselyn Amezquita RN DENNY ca1 Corrections: (The following items were deleted from the chart) 11/23 20:57 16:55 Hospitalization Ordered by Jenny Christian MD for Inpatient Admission. Preliminary cg diagnosis is Acute Diverticulitis; Unspecified atrial fibrillation. Bed requested for Telemetry/MedSurg (Inpatient). Status is Inpatient Admission. Condition is Stable. Problem is new. Symptoms are unchanged. [facility] 21:44 20:57 11/23/2020 16:55 Hospitalization Ordered by Jenny Christian MD for Inpatient ea Admission. Preliminary diagnosis is Acute Diverticulitis; Unspecified atrial fibrillation. Bed requested for Telemetry/MedSurg (Inpatient). Status is Inpatient Admission. Condition is Stable. Problem is new. Symptoms are unchanged. cg
[2020-11-23] MEDS ORDERED: ALBUTEROL 2.5 MG/3 ML NEB SOL NEB PRN (17:07)
[2020-11-23] MEDS ORDERED: ONDANSETRON 4 MG/2 ML VIAL IV PRN (17:07)
[2020-11-23] MEDS ORDERED: MORPHINE 2 MG/ML SYR IV PRN (17:07)
[2020-11-23] MEDS ORDERED: HYDRALAZINE HCL 20 MG/ML VIAL IV PRN (17:10)
[2020-11-23] MEDS ORDERED: FUROSEMIDE 40 MG/4 ML VIAL ONE (17:15)
--- NOTE | 2020-11-23 17:34 | P.HP ---
Certification for Inpatient With expected LOS: >2 Midnights Patient will require the following post-hospital care: None Practitioner: I am a practitioner with admitting privileges, knowledge of patient current condition, hospital course, and medical plan of care. Services: Services provided to patient in accordance with Admission requirements found in Title 42 Section 412.3 of the Code of Federal Regulations Patient History Date of Service: 11/23/20 Reason for admission: Shortness of breath and abdominal pain History of Present Illness: 84-year-old male with history of hypertension, atrial fibrillation on chronic anticoagulation with Xarelto, presented today because of worsening shortness of breath initially on exertion now recurrent at rest, no associated cough, fever or chills. He also have lower quadrant abdominal pain since the last 3 days intermittent associated with constipation. On presentation in the ED he was noted with AFib with RVR. He follows with Cardiology as outpatient. states he has be nonadherence with medications. He has been admitted for AFib with RVR, CHF as well as CT scan finding of acute sigmoid diverticulitis Allergies No Known Drug Allergies Allergy (Verified 07/06/20 14:46) Unknown Home Medications: Allopurinol 100 mg PO DAILY 07/06/20 Amlodipine [Norvasc*] 5 mg PO DAILY 07/06/20 Aspirin 81 mg PO DAILY 07/06/20 Furosemide 40 mg PO DAILY 07/06/20 Lisinopril [Zestril] 10 mg PO BEDTIME 07/06/20 Lisinopril [Zestril] 20 mg PO DAILY 07/06/20 Pravastatin Sodium 40 mg PO DAILY 07/06/20 Rivaroxaban [Xarelto] 20 mg PO DAILY 07/06/20 methylPREDNISolone [Methylprednisolone] 4 mg PO DAILY 07/06/20 - Past Medical/Surgical History Diabetic: No -: afib -: CVA -: HTN -: systemic mystocytosis -: hyperlipidemia -: Gout -: heart stents -: CABG -: Cataract Sx - Family History Father Notes: old age - Social History Alcohol use: No CD- Drugs: No Caffeine use: Yes Review of Systems 10-point ROS is otherwise unremarkable Physical Examination - Physical Exam General: Alert, In no apparent distress, Oriented x3 HEENT: Atraumatic, Normocephalic, PERRLA Neck: Supple, 2+ carotid pulse no bruit, JVD not distended Respiratory: Diminished, Crackles/rales Cardiovascular: Normal pulses, Normal S1 S2, Irregular heart rate/rhythm Gastrointestinal: Normal bowel sounds, Soft and benign, Non-distended, Tenderness Musculoskeletal: No clubbing, Swelling Integumentary: No rashes, No breakdown Neurological: Cranial nerves 3-12 intact External genitalia: Edema - Studies Laboratory Data (last 24 hrs) 11/23/20 14:29: PT 30.2 H, INR 2.60 11/23/20 14:29: WBC 15.30 H, Hgb 13.3 L, Hct 42.5, Plt Count 165 11/23/20 14:29: Sodium 141, Potassium 4.0, BUN 13, Creatinine 1.00, Glucose 80, Magnesium 2.1, Total Bilirubin 3.1 H, AST 15, ALT 18, Alkaline Phosphatase 93, Lipase 58 L Assessment and Plan - Problems (Diagnosis) (1) Sigmoid diverticulitis Current Visit: Yes Status: Acute (2) CHF exacerbation Current Visit: Yes Status: Acute (3) Atrial fibrillation with RVR Current Visit: Yes Status: Acute (4) HTN (hypertension) Current Visit: Yes Status: Acute - Advance Directives Does patient have a Living Will: Yes Does patient have a Durable POA for Healthcare: Yes Physician Review: Patient Assessed, Agree with Above Assessment and Plan Physician Review Additional Text: Impression/plan Acute sigmoid diverticulitis. CHF exacerbation-possibly diastolic Hypertension AFib with RVR Plan Will admit patient to inpatient status We start empirical antibiotics with Levaquin/Flagyl Continue anticoagulation with Xarelto follow WBC Daily Avoid nephrotoxins Will start IV Lasix given CHF symptoms Cardiology to follow We increased metoprolol to 50 Q 12 for now for rate control -
[2020-11-23] MEDS: IPRATROPIUM BROM 0.5MG/2.5ML NEB SCH (20:20)
[2020-11-23] MEDS ORDERED: IPRATROPIUM BROM 0.5MG/2.5ML ONE (20:38)
[2020-11-23 20:46] VITALS: BMI 25.0
[2020-11-23] MEDS: metroNIDAZOLE 500 MG TABLET PO SCH (23:40)
[2020-11-23] MEDS: METOPROLOL TAR 50 MG TAB PO SCH (23:40)
[2020-11-23] MEDS: RIVAROXABAN 20 MG TABLET PO SCH (23:41)
[2020-11-23] MEDS: Levofloxacin500mg IV 500 MG/100 ML BAG IV SCH (23:41)
[2020-11-23] MEDS: MELATONIN 5 MG TABLET PO PRN (23:44)
[2020-11-24] MEDS: ACETAMINOPHEN 500 MG TAB PO PRN ×2 (01:17→23:33)
[2020-11-24] MEDS: IPRATROPIUM BROM 0.5MG/2.5ML NEB SCH ×4 (02:15→20:15)
[2020-11-24 05:33] LABS: Basophils % 0.5 % (0-1.3); Hematocrit 40.6 % (39.6-49.0); Lymphocytes % 7.1 % (15.3-44.8); MPV 9.1 fL (7.6-11.3); RBC Red Blood Cell Count 4.92 M/uL (4.33-5.43)
[2020-11-24 05:36] LABS: Albumin 2.6 g/dL (3.4-5.0); Bilirubin Total 3.5 mg/dL (0.2-1.0); Potassium 4.1 mmol/L (3.5-5.1); Protein, Total 6.3 g/dL (6.4-8.2)
[2020-11-24] MEDS: metroNIDAZOLE 500 MG TABLET PO SCH ×3 (09:37→20:14)
[2020-11-24] MEDS: FUROSEMIDE 40 MG/4 ML VIAL IV SCH ×2 (09:37→17:40)
[2020-11-24] MEDS: METOPROLOL TAR 50 MG TAB PO SCH ×2 (09:37→20:14)
[2020-11-24] MEDS: ASPIRIN 81 MG CHEWABLE TABLET PO SCH (09:37)
--- NOTE | 2020-11-24 13:43 | P.PN ---
Subjective Date of Service: 11/24/20 Chief Complaint: Shortness of breath and abdominal pain Subjective: No new changes (feels breathing is slightly better. still with lower abdominal pain - intermittent, comes in waves, no better, no worse. no nausea/vomiting, small BM overnight) Review of Systems 10-point ROS is otherwise unremarkable Physical Examination - Vital Signs Temperature: 98 F Blood Pressure: 126/69 Pulse: 69 Respirations: 20 Pulse Ox (%): 95 - Studies Laboratory Data (last 24 hrs) 11/23/20 14:29: PT 30.2 H, INR 2.60 11/23/20 14:29: WBC 15.30 H, Hgb 13.3 L, Hct 42.5, Plt Count 165 11/23/20 14:29: Sodium 141, Potassium 4.0, BUN 13, Creatinine 1.00, Glucose 80, Magnesium 2.1, Total Bilirubin 3.1 H, AST 15, ALT 18, Alkaline Phosphatase 93, Lipase 58 L Assessment & Plan Physician Review Additional Text: Physical Exam Gen: NAD HEENT: Normal conjunctiva, sclerae anicteric CV: Irregularly irregular rhythm, rate controlled, no murmur Pulm: Diminished bilaterally at bases with mild crackles Abdomen: Soft, mild-moderate tenderness to palpation left lower quadrant, no rebound Ext: trace edema, no rash Problem List Acute sigmoid diverticulitis. acute CHF exacerbation-possibly diastolic (new onset) Hypertension AFib with RVR continue empiric antibiotics with Levaquin/Flagyl Continue anticoagulation with Xarelto WBC slightly improved, cultures pending continue IV lasix for CHF symptoms / pleural edema Avoid nephrotoxins patient denies history of Chf, but reports h/o CAD, HTN, Afib Cardiology consulted continue metoprolol (increased from 50 q12) on 11/23 no improvement in pain, will back down to clear liquid diet Dispo: anticipate dc home in ~24-48hrs - Time Spent Managing Pts Care (In Minutes): 35
[2020-11-24] MEDS: RIVAROXABAN 20 MG TABLET PO SCH (17:40)
[2020-11-24] MEDS: Levofloxacin500mg IV 500 MG/100 ML BAG IV SCH (17:40)
[2020-11-24] MEDS: MELATONIN 5 MG TABLET PO PRN (23:33)
[2020-11-25] MEDS: IPRATROPIUM BROM 0.5MG/2.5ML NEB SCH ×4 (02:50→19:50)
[2020-11-25 06:12] LABS: Absolute Lymphocytes (CBC) 1.3 K/uL (0.7-4.9); Basophils % 0.5 % (0-1.3); Hematocrit 39.3 % (39.6-49.0); Lymphocytes % 11.4 % (15.3-44.8); MPV 8.8 fL (7.6-11.3); RBC Red Blood Cell Count 4.79 M/uL (4.33-5.43)
[2020-11-25 06:25] LABS: Albumin 2.5 g/dL (3.4-5.0); Bilirubin Total 2.4 mg/dL (0.2-1.0); Magnesium 2.2 mg/dL (1.8-2.4); Potassium 3.5 mmol/L (3.5-5.1)
[2020-11-25] MEDS: FUROSEMIDE 40 MG/4 ML VIAL IV SCH (08:56)
[2020-11-25] MEDS: ASPIRIN 81 MG CHEWABLE TABLET PO SCH (08:56)
[2020-11-25] MEDS: METOPROLOL TAR 50 MG TAB PO SCH ×2 (08:57→21:50)
[2020-11-25] MEDS: metroNIDAZOLE 500 MG TABLET PO SCH ×3 (08:57→21:50)
--- NOTE | 2020-11-25 13:00 | P.PN ---
Subjective Date of Service: 11/25/20 Chief Complaint: Shortness of breath and abdominal pain Subjective: Improving (still with lower abdominal pain but improved, not as severe, not as often. Tolerating clear liquid diet, not worsening pain, denies nausea/vomiting. Breathing more comfortably.) Review of Systems 10-point ROS is otherwise unremarkable Physical Examination - Vital Signs Temperature: 97.6 F Blood Pressure: 112/54 Pulse: 74 Respirations: 20 Pulse Ox (%): 96 Assessment & Plan Physician Review: Patient Assessed, Agree with Above Assessment and Plan Physician Review Additional Text: Physical Exam Gen: NAD HEENT: Normal conjunctiva, sclerae anicteric CV: Irregularly irregular rhythm, rate controlled Pulm: Diminished bilaterally at bases, otherwise clear to auscultation, nonlabored respirations on RA Abdomen: Soft, mild-moderate TTP in LLQ, no rebound Ext: trace edema, no rash Problem List Acute sigmoid diverticulitis. Acute CHF exacerbation-possibly diastolic (new onset) Hypertension AFib with RVR continue empiric antibiotics with Levaquin/Flagyl Continue anticoagulation with Xarelto WBC slightly improved, cultures pending - no growth so far Patient does not appear as volume will decrease Lasix from twice daily to daily for CHF symptoms / pleural edema Avoid nephrotoxins patient denies history of Chf, but reports h/o CAD, HTN, Afib Cardiology consulted continue metoprolol (increased from 50 q12) on 11/23 advance to full liquid diet today Dispo: anticipate dc home in ~24-48hrs - Time Spent Managing Pts Care (In Minutes): 35
--- NOTE | 2020-11-25 13:38 | CON ---
Date of Consultation: 11/24/2020 Reason For Consultation: Shortness of breath. History Of Present Illness: An 84-year-old male with history of atrial fibrillation on chronic antic oagulation with Xarelto, follows up with a farm tractor mechanic elsewhere, presented with abdominal pain, abd ominal tenderness. No fever. No nausea or diarrhea, but he had also shortness of breath and orthopn ea and some lower extremity edema. In the emergency room, he was noted to be in atrial fibrillation with RVR. However, this was completely controlled at the later time. At the time my evaluation, the patient's heart rate was controlled and he had no further shortness of breath. He was given Lasix 4 0 mg IV q.12 hours and his shortness of breath is completely resolved. Past Medical History: As outlined above in HPI. Medications: Refer to reconciliation sheet for detailed list. Allergies: NO KNOWN DRUG ALLERGIES. Social History: He does not smoke or drink. Does not use any drugs. Family History: No premature coronary artery disease or cancer. Review of Systems: All systems reviewed and they were negative except what is mentioned in HPI. Physical Examination: Vital Signs: Reviewed. Head and Neck: Pupils are equal, reactive to light. Intact eye movements. No JVD. No cervical lym phadenopathy. Neck: Supple. Thyroid is not enlarged. Lungs: Clear to auscultation bilaterally. No rhonchi, rales, or crackles. No accessory muscle use. Heart: Regular rate and rhythm. No extra sounds. Abdomen: Soft, tender in the left lower abdomen. No organomegaly. No masses or hernia. No rigidit y or rebound. Extremities: No edema, clubbing, or cyanosis. Intact pulses. Skin: No rash noted. Neurologic: Alert, awake, oriented x3. No acute focal deficits appreciated. Investigations: White blood cell count 16.3, hemoglobin 13.3. Cardiac troponins are 0.05 and then 0 .1 and then 0.05. EKG without acute specific abnormalities. He had atrial fibrillation. Assessment And Recommendations: 1.Acute on chronic diastolic heart failure. The patient follows up with a farm tractor mechanic elsewhere. Responded very well to IV Lasix and now he appears to be euvolemic. I recommended to switch to oral Lasix 40 mg by mouth twice a day once patient is discharged to follow up with primary farm tractor mechanic fo r further workup if deemed necessary. 2.Borderline leak of troponin. No chest pain. This could be due to the heart failure exacerbation. Again, the patient is well known to farm tractor mechanic in the area. I recommend no further workup at thi s point, as the patient is asymptomatic and follow up with his primary farm tractor mechanic post discharge. 3.Acute diverticulitis to probably cause the exacerbation of his congestive heart failure and atrial fibrillation with rapid ventricular response and mild troponin leak and is being managed by hospital ist. 4.Atrial fibrillation, rate is controlled now. Continue rate-controlling medicine and Xarelto. Thank you for the consult. SR/MODL Voice ID: [id number] Report ID: [id number]
[2020-11-25] MEDS ORDERED: FUROSEMIDE 40 MG TABLET PO SCH (14:00)
[2020-11-25] MEDS: Levofloxacin500mg IV 500 MG/100 ML BAG IV SCH (17:12)
[2020-11-25] MEDS: RIVAROXABAN 20 MG TABLET PO SCH (17:13)
[2020-11-25] MEDS: MELATONIN 5 MG TABLET PO PRN (21:54)
[2020-11-26] MEDS: IPRATROPIUM BROM 0.5MG/2.5ML NEB SCH ×4 (01:40→19:35)
[2020-11-26 05:48] LABS: Absolute Lymphocytes (CBC) 1.2 K/uL (0.7-4.9); Basophils % 1.2 % (0-1.3); Hematocrit 40.5 % (39.6-49.0); Lymphocytes % 11.3 % (15.3-44.8); MPV 8.9 fL (7.6-11.3); RBC Red Blood Cell Count 4.91 M/uL (4.33-5.43)
[2020-11-26 06:01] LABS: Magnesium 2.2 mg/dL (1.8-2.4); Potassium 3.6 mmol/L (3.5-5.1)
[2020-11-26 07:41] LABS: Anisocytosis 1+; Blood Morphology Comment NOTED (NOT SEEN); Elliptocytes 1+; Platelet Estimate ADEQ
[2020-11-26 07:42] LABS: Hypochromasia 1+
[2020-11-26] MEDS: METOPROLOL TAR 50 MG TAB PO SCH ×2 (08:01→21:48)
[2020-11-26] MEDS: metroNIDAZOLE 500 MG TABLET PO SCH ×3 (08:01→21:48)
[2020-11-26] MEDS: ASPIRIN 81 MG CHEWABLE TABLET PO SCH (08:01)
[2020-11-26] MEDS: FUROSEMIDE 40 MG TABLET PO SCH (08:01)
--- NOTE | 2020-11-26 08:35 | RAD REPORT ---
EXAM DESCRIPTION: RAD - Chest Single View - 11/26/2020 8:23 am CLINICAL HISTORY: hypoxia, chf COMPARISON: Portable November 23 TECHNIQUE: AP portable chest image was obtained 11/26/2020 8:23 am . FINDINGS: Lung volumes are low but improved. Skin fold artifacts overlie the lower right chest. Inte rstitial and alveolar opacities are improved from the prior examination. Heart size has decreased. Pulmonary vasculature less prominent. No pneumothorax or enlarging pleural effusion. IMPRESSION: CHF/volume overload findings show moderate improvement from November 23 imaging.
--- NOTE | 2020-11-26 12:32 | P.PN ---
Subjective Date of Service: 11/26/20 Chief Complaint: Shortness of breath and abdominal pain Subjective: No new changes (continues with lower abdominal pain, not worsening by eating, no nausea/vomiting feels about the same as yesterday, also reporting slight SOB this morning, dry throat urinating without issue, +BM yesterday) Review of Systems 10-point ROS is otherwise unremarkable Physical Examination - Vital Signs Temperature: 98.1 F Blood Pressure: 109/61 Pulse: 79 Respirations: 18 Pulse Ox (%): 97 Assessment & Plan Physician Review Additional Text: Physical Exam Gen: NAD, AAOx3 HEENT: Normal conjunctiva, sclerae anicteric CV: Irregularly irregular rhythm, rate controlled Pulm: Diminished bilaterally at bases, otherwise clear to auscultation, nonlabored respirations on RA Abdomen: Soft, mild-moderate TTP in lower abdomen - suprapubic/LLQ, no rebound, nondistended Ext: trace edema to ankles, no rash Problem List Acute sigmoid diverticulitis. Acute CHF exacerbation-possibly diastolic (new onset) Hypertension AFib with RVR continue empiric antibiotics with Levaquin/Flagyl continue anticoagulation with Xarelto leukocytosis resolved, cultures without growth so far Patient more euvolemic, changed IV lasix BID to daily on 11/26, Cardiology consulted, recommends 40mg PO BID lasix on discharge renal function stable patient denies history of CHF, but reports h/o CAD, HTN, Afib Cardiology consulted continue metoprolol (increased from 50 q12) on 11/23 continue full liquid diet Dispo: anticipate dc home in ~24-48hrs - Time Spent Managing Pts Care (In Minutes): 35
[2020-11-26] MEDS: RIVAROXABAN 20 MG TABLET PO SCH (17:06)
[2020-11-26] MEDS: Levofloxacin500mg IV 500 MG/100 ML BAG IV SCH (17:07)
[2020-11-26] MEDS: MELATONIN 5 MG TABLET PO PRN (21:48)
[2020-11-27] MEDS: IPRATROPIUM BROM 0.5MG/2.5ML NEB SCH ×4 (01:00→19:20)
[2020-11-27 05:38] LABS: Absolute Lymphocytes (CBC) 1.1 K/uL (0.7-4.9); Basophils % 0.7 % (0-1.3); Hematocrit 40.6 % (39.6-49.0); Lymphocytes % 12.3 % (15.3-44.8); MPV 8.8 fL (7.6-11.3); RBC Red Blood Cell Count 4.97 M/uL (4.33-5.43)
[2020-11-27 05:59] LABS: Albumin 2.5 g/dL (3.4-5.0); Bilirubin Total 1.3 mg/dL (0.2-1.0); Magnesium 2.2 mg/dL (1.8-2.4); Potassium 3.7 mmol/L (3.5-5.1); Protein, Total 6.1 g/dL (6.4-8.2)
[2020-11-27] MEDS: metroNIDAZOLE 500 MG TABLET PO SCH ×3 (08:18→21:35)
[2020-11-27] MEDS: ASPIRIN 81 MG CHEWABLE TABLET PO SCH (08:18)
[2020-11-27] MEDS: METOPROLOL TAR 50 MG TAB PO SCH ×2 (08:18→21:35)
[2020-11-27] MEDS: FUROSEMIDE 40 MG TABLET PO SCH (08:18)
[2020-11-27 09:42] LABS: Platelet Estimate ADEQ
[2020-11-27 09:43] LABS: Anisocytosis 1+; Blood Morphology Comment NOTED (NOT SEEN)
[2020-11-27] MEDS ORDERED: POLYETHYL GLY 3350 17 GM/DOSE PO ONE (15:08)
--- NOTE | 2020-11-27 15:15 | P.PN ---
Subjective Date of Service: 11/27/20 Chief Complaint: Shortness of breath and abdominal pain Patient reports improvement in her abdominal pain. He denies any shortness of breath today. He reports no bowel movement for 3 days. Physical Examination - Vital Signs Temperature: 98.7 F Blood Pressure: 112/58 Pulse: 72 Respirations: 18 Pulse Ox (%): 96 - Physical Exam General: Alert, In no apparent distress, Oriented x3 HEENT: Mucous membr. moist/pink Neck: JVD not distended Respiratory: Clear to auscultation bilaterally, Normal air movement Cardiovascular: No edema, Regular rate/rhythm, Normal S1 S2 Gastrointestinal: Normal bowel sounds, No guarding, Tenderness (Right lower quadrant and suprapubic area) Musculoskeletal: No swelling, No tenderness Integumentary: No rashes, No erythema Neurological: Normal strength at 5/5 x4 extr, Cranial nerves 3-12 intact Assessment And Plan Physician Review: Patient Assessed, Agree with Above Assessment and Plan Physician Review Additional Text: Problem List Acute sigmoid diverticulitis. Acute CHF exacerbation-possibly diastolic (new onset) Hypertension AFib with RVR Plan: continue empiric antibiotics with Levaquin/Flagyl. Consult general surgery given slow response to antibiotics. ZLeukocytosis resolved. Blood cultures: No growth to date. Patient appeared compensated for CHF. Cardiology recommends 40mg PO BID lasix on discharge renal function is stable Patient denies history of CHF, but reports h/o CAD, HTN, Afib Echocardiogram is ordered. Cardiology is following. continue metoprolol 50 mg b.i.d. patient also on Xarelto Clear liquid diet as tolerated. -
[2020-11-27] MEDS: RIVAROXABAN 20 MG TABLET PO SCH (16:44)
[2020-11-27] MEDS: Levofloxacin500mg IV 500 MG/100 ML BAG IV SCH (16:44)
--- NOTE | 2020-11-27 19:34 | CON ---
Date of Consultation: 11/27/2020 Reason For Service: Lower abdominal pain. History Of Present Illness: This is the case of an 84-year-old patient, admitted to the [facility] 3 days ago with abdominal pain, found to have acute diverticulitis with a segment of the sigmoid c olon inflamed and pericolonic fat stranding. The patient has been receiving Levaquin and has been ea ting since the 3 days, but the pain is not improving and a surgical consult was obtained today. He s tates he has colonoscopy about 3 years ago. He does not recall any pathology that he was told. The patient has history of heart disease with a history of congestive heart failure. Allergies: NONE. Past Medical History: Heart disease, AFib, CVA, and hypertension. Medications: Include Norvasc, aspirin, allopurinol, Xarelto, methylprednisolone. Past Surgical History: Includes cataract surgery, CABG, cholecystectomy. Family History: Noncontributory. Review of Systems: See H and P. Physical Examination: General: The patient is awake, alert. HEENT: Pupils equal, reactive. Anicteric. Neck: Supple. Chest: Clear. Abdomen: Soft and depressible. The patient has lower abdominal pain, left and right side. No guard ing or rebound. No Rovsing sign. No psoas signs. Rectal: Deferred. Extremities: Good capillary refill. Laboratory Data: Blood work shows WBC count of 8.9 with a hemoglobin of 12.6. CAT scan of the abdom en and pelvis done shows acute sigmoid diverticulitis with no free air. The area of sigmo id inflammation is approximately 6 cm in length in the sigmoid area. There is circumferential wall t hickening. There is also stranding and edema of the adjacent fat. No pneumatosis. Appendix looks n ormal. All this is by radiologist. Assessment: This is an 84-year-old patient with acute diverticulitis. He was admitted to the [facility], treated with some other conditions, but diet has always been there. I believe we have to slow do wn in his diet. In the meantime, we are going to keep him n.p.o. since the pain got worse. We are g oing to repeat the CAT scan once again to make sure we could see the progress of that sigmoid edema a nd diverticulitis. 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 He understands the options of emergent laparotomy with bowel resection if clinically he deteriorates. YASMANY/SABRINA Voice ID: [id number] Report ID: [id number]
[2020-11-28] MEDS: MELATONIN 5 MG TABLET PO PRN ×2 (00:32→21:52)
[2020-11-28] MEDS: IPRATROPIUM BROM 0.5MG/2.5ML NEB SCH ×4 (01:15→20:20)
[2020-11-28 05:43] LABS: Absolute Lymphocytes (CBC) 1.1 K/uL (0.7-4.9); Basophils % 0.6 % (0-1.3); Lymphocytes % 13.3 % (15.3-44.8); MPV 8.6 fL (7.6-11.3)
[2020-11-28 06:13] LABS: Potassium 3.6 mmol/L (3.5-5.1)
[2020-11-28] MEDS: ASPIRIN 81 MG CHEWABLE TABLET PO SCH (09:50)
[2020-11-28] MEDS: METOPROLOL TAR 50 MG TAB PO SCH ×2 (09:50→21:51)
[2020-11-28] MEDS: metroNIDAZOLE 500 MG TABLET PO SCH ×3 (09:51→21:51)
[2020-11-28] MEDS: FUROSEMIDE 40 MG TABLET PO SCH (09:51)
[2020-11-28] MEDS: SENOSIDES 8.6 MG TAB PO SCH (09:51)
--- NOTE | 2020-11-28 09:55 | RAD REPORT ---
EXAM DESCRIPTION: CT - Abdomen Pelvis Wo Contrast - 11/28/2020 9:32 am CLINICAL HISTORY: Abdominal pain. diverticulitis COMPARISON: Abdomen Pelvis W Contrast dated 11/23/2020 TECHNIQUE: CT imaging of the abdomen and pelvis was performed without contrast. Solid organ, bowel a nd vascular assessment is limited due to lack of IV and oral contrast. All CT scans are performed using dose optimization technique as appropriate and may include automated exposure control or mA/KV adjustment according to patient size. FINDINGS: Trace pleural fluid bilaterally with linear subsegmental atelectasis in both lung bases.Sm all hiatal hernia is present. No intrahepatic or extrahepatic biliary tree dilatation is seen. Cholecystectomy clips are present a small amount of pneumobilia. Spleen is mildly prominent. Low-density splenic lesions are not well ass essed on today's noncontrast study. The adrenal glands are normal. Multiple bilateral renal cysts are seen without hydronephrosis. There is inflammatory changes seen surrounding the sigmoid colon in the lower abdomen were multiple d iverticular present. The degree of inflammation in this region however is moderately improved since c omparative study. Moderate fecal retention is noted. There is no abscess visualized. No free fluid or free air. The appendix is normal. Mildly prominent presumably reactive left axillary lymph nodes are seen. The prostate gland is mildly to moderately enlarged. Moderate lower lumbar degenerative changes. IMPRESSION: Moderate improvement in the acute sigmoid diverticulitis pattern since the comparative s tudy. No abscess or free air evident. A limited non-contrast examination was performed as detailed.
--- NOTE | 2020-11-28 12:59 | PN ---
Date of Progress Note: 11/28/2020 Diagnosis: Diverticulitis. Subjective: The patient doing better. No nausea. No vomiting. Having bowel movement, mostly diarr hea. Review of Systems: Ten points otherwise unremarkable. Physical Examination: Chest: Clear. Abdomen: Soft and depressible. No guarding, rebound, or peritoneal signs. Mild suprapubic and left lower quadrant tenderness. Imaging: CAT scan of the abdomen and pelvis reviewed today shows improvement of the previous diverti culitis. Plan: Full liquid diet. Advance diet slowly. The patient explained about diverticular diet too. YASMANY/SABRINA Voice ID: [id number] Report ID: [id number]
[2020-11-28] MEDS: RIVAROXABAN 20 MG TABLET PO SCH (16:59)
[2020-11-28] MEDS: Levofloxacin500mg IV 500 MG/100 ML BAG IV SCH (16:59)
--- NOTE | 2020-11-28 19:08 | P.PN ---
Subjective Date of Service: 11/28/20 Chief Complaint: Shortness of breath and abdominal pain Patient reports improvement in her abdominal pain. No fever. Physical Examination - Vital Signs Temperature: 98.4 F Blood Pressure: 123/56 Pulse: 76 Respirations: 18 Pulse Ox (%): 99 - Physical Exam General: Alert, In no apparent distress, Oriented x3 Neck: JVD not distended Respiratory: Clear to auscultation bilaterally, Normal air movement Cardiovascular: No edema, Regular rate/rhythm, Normal S1 S2 Gastrointestinal: Soft and benign, Non-distended, Tenderness (Lower abdomen) Musculoskeletal: No swelling, No tenderness Integumentary: No rashes Neurological: Normal strength at 5/5 x4 extr Assessment And Plan Physician Review: Patient Assessed, Agree with Above Assessment and Plan Physician Review Additional Text: Problem List Acute sigmoid diverticulitis. Acute CHF exacerbation-possibly diastolic (new onset) Hypertension AFib with RVR Plan: continue Levaquin/Flagyl. General surgery input appreciated. Repeat CT abdomen results reviewed and reporting improvement in diverticulitis inflammation. Normal appendix. Leukocytosis resolved. Blood cultures: No growth to date. Patient appeared compensated for CHF. Cardiology recommends 40mg PO BID lasix on discharge Renal function is stable Patient denies history of CHF, but reports h/o CAD, HTN, Afib Echocardiogram is ordered. Cardiology is following. continue metoprolol 50 mg b.i.d. patient also on Xarelto Clear liquid diet as tolerated. -
[2020-11-28] MEDS ORDERED: predniSONE 20 MG TAB PO ONE (19:36)
[2020-11-29] MEDS: IPRATROPIUM BROM 0.5MG/2.5ML NEB SCH ×4 (01:15→20:00)
[2020-11-29 06:45] LABS: Urine Appearance CLEAR (Clear); Urine Bilirubin NEGATIVE (Negative); Urine Blood 1+ (Negative); Urine Color DK YELLOW (Yellow); Urine Glucose NEGATIVE (Negative); Urine Protein NEGATIVE (Negative); Urine Specific Gravity 1.015 (1.005-1.030); Urine pH 5.5 (5.0-7.0)
[2020-11-29 08:03] LABS: Urine Bacteria NONE SEEN /HPF (NONE SEEN); Urine RBC <5 /HPF (NONE SEEN)
--- NOTE | 2020-11-29 08:21 | ECHO ---
HEIGHT: 5 ft 10 in WEIGHT: 174 lb 0 oz DATE OF STUDY: 11/28/[address]: marina fernandez 2-DIMENSIONAL: YES M.MODE: YES DOPPLER: YES COLOR FLOW: YES TDS: NO PORTABLE: NO DEFINITY: NO BUBBLE STUDY: NO DIAGNOSIS: PULMONARY EDEMA CARDIAC HISTORY: CATHERIZATION: YES SURGERY: YES PROSTHETIC VALVE: NO PACEMAKER: NO MEASUREMENTS (cm) DIASTOLIC (NORMALS) SYSTOLIC (NORMALS) IVSd 1.2 (0.6-1.2) LA Diam 4.9 (1.9-4.0) LVEF 50% LVIDd 3.7 (3.5-5.7) LVIDs 2.7 (2.0-3.5) %FS 25% LVPWd 1.2 (0.6-1.2) Ao Diam 2.8 (2.0-3.7) 2 DIMENSIONAL ASSESSMENT: RIGHT ATRIUM: NORMAL LEFT ATRIUM: DILATED RIGHT VENTRICLE: NORMAL LEFT VENTRICLE: NORMAL TRICUSPID VALVE: NORMAL MITRAL VALVE: MITRAL ANNULAR CALCIFICATION PULMONIC VALVE: NORMAL AORTIC VALVE: NORMAL PERICARDIAL EFFUSION: NONE AORTIC ROOT: NORMAL LEFT VENTRICULAR WALL MOTION: NORMAL DOPPLER/COLOR FLOW: MILD MITRAL AND TRICUSPID REGURGITATION. COMMENTS: NORMAL LEFT VENTRICULAR EJECTION FRACTION. MILD MITRAL AND TRICUSPID REGURGITATION. NORMAL RIGHT VENTRICULAR SYSTOLIC PRESSURE. LEFT ATRIAL ENLARGEMENT. NO EFFUSION. MITRAL ANNULAR CALCIFICATION. TECHNOLOGIST: Brandon KOO
[2020-11-29] MEDS: ASPIRIN 81 MG CHEWABLE TABLET PO SCH (09:06)
[2020-11-29] MEDS: METOPROLOL TAR 50 MG TAB PO SCH ×2 (09:06→21:22)
[2020-11-29] MEDS: metroNIDAZOLE 500 MG TABLET PO SCH ×3 (09:07→21:22)
[2020-11-29] MEDS: SENOSIDES 8.6 MG TAB PO SCH (09:07)
[2020-11-29] MEDS: predniSONE 20 MG TAB PO SCH (09:07)
[2020-11-29] MEDS: FUROSEMIDE 40 MG TABLET PO SCH (09:07)
[2020-11-29] MEDS: allopurinoL 100 MG TAB PO SCH (09:09)
--- NOTE | 2020-11-29 10:46 | P.PN ---
Subjective Date of Service: 11/29/20 Chief Complaint: Shortness of breath and abdominal pain Patient developed urinary retention last night I was straight cath. About 700 mL of urine was drained. No blood. UA is negative for UTI Patient states abdominal pain is much better. He is tolerating soft diet. Physical Examination - Vital Signs Temperature: 97.5 F Blood Pressure: 140/65 Pulse: 70 Respirations: 18 Pulse Ox (%): 100 - Physical Exam General: Alert, In no apparent distress HEENT: Mucous membr. moist/pink Respiratory: Clear to auscultation bilaterally, Normal air movement Cardiovascular: No edema, Regular rate/rhythm, Normal S1 S2 Gastrointestinal: Normal bowel sounds, Soft and benign, Non-distended, Tenderness (Mild tenderness in the suprapubic area.) Musculoskeletal: No swelling Integumentary: Other (Diffuse skin nodules.) Neurological: Normal strength at 5/5 x4 extr, Cranial nerves 3-12 intact Assessment And Plan Physician Review: Patient Assessed, Agree with Above Assessment and Plan Physician Review Additional Text: Problem List Acute sigmoid diverticulitis. Acute diastolic heart failure. Hypertension AFib with RVR Plan: continue Levaquin/Flagyl. General surgery input appreciated. Repeat CT abdomen results reviewed and reporting improvement in diverticulitis inflammation. Normal appendix. Leukocytosis resolved. Blood cultures: No growth to date. Patient appeared compensated for CHF. Cardiology recommends 40mg PO BID lasix on discharge Renal function is stable. Continue current dose Lasix. Patient denies history of CHF, but reports h/o CAD, HTN, Afib Echocardiogram: Normal EF. Cardiology is following. continue metoprolol 50 mg b.i.d. patient also on Xarelto Advanced diet as tolerated. -
--- NOTE | 2020-11-29 10:55 | PN ---
Diagnosis: History of diverticulitis. Subjective: The patient is doing better. No more abdominal pain. No nausea, no vomiting. Having g ood bowel movement. Some difficulty urinating, but the abdomen feels better. Review of Systems: Ten points otherwise unremarkable. Physical Examination: General: The patient is awake, alert. Chest: Clear. Abdomen: Soft and depressible. No guarding or rebound. No peritoneal signs. Extremities: Good capillary refill. Plan: Advance diet to diverticular diet. He was fully explained the importance of diverticular diet and importance of following up with the stem cleaning machine feeder to see when is the last time he had a col onoscopy and consider repeating that to make sure it just diverticulum and not neoplasia causing the trouble. He understood. YASMANY/SABRINA Voice ID: [id number] Report ID: [id number]
[2020-11-29 15:13] LABS: Urine Appearance CLEAR (Clear); Urine Bilirubin NEGATIVE (Negative); Urine Blood 2+ (Negative); Urine Color YELLOW (Yellow); Urine Glucose NEGATIVE (Negative); Urine Protein NEGATIVE (Negative); Urine Urobilinogen 0.2 mg/dL (0.2-1.0)
[2020-11-29] MEDS: Levofloxacin500mg IV 500 MG/100 ML BAG IV SCH (16:40)
[2020-11-29] MEDS: RIVAROXABAN 20 MG TABLET PO SCH (16:40)
[2020-11-29 16:55] LABS: Urine Microscopic Reflex ORDER UMIC
[2020-11-29 17:22] LABS: Urine Bacteria <20 /HPF (NONE SEEN)
[2020-11-29] MEDS: TAMSULOSIN 0.4 MG SR CAP PO SCH (21:22)
[2020-11-29] MEDS: MELATONIN 5 MG TABLET PO PRN (23:45)
[2020-11-30] MEDS: IPRATROPIUM BROM 0.5MG/2.5ML NEB SCH ×4 (02:30→20:55)
[2020-11-30 07:15] LABS: Hematocrit 39.9 % (39.6-49.0); Lymphocytes % 10.5 % (15.3-44.8); MPV 8.7 fL (7.6-11.3); RBC Red Blood Cell Count 4.87 M/uL (4.33-5.43)
[2020-11-30 07:16] LABS: Absolute Lymphocytes (CBC) 1.3 K/uL (0.7-4.9); Basophils % 0.4 % (0-1.3)
[2020-11-30 07:30] LABS: Albumin 2.4 g/dL (3.4-5.0); Phosphorus 2.3 mg/dL (2.5-4.9); Potassium 3.8 mmol/L (3.5-5.1)
[2020-11-30] MEDS: predniSONE 20 MG TAB PO SCH (08:51)
[2020-11-30] MEDS: SENOSIDES 8.6 MG TAB PO SCH (08:51)
[2020-11-30] MEDS: metroNIDAZOLE 500 MG TABLET PO SCH ×3 (08:51→20:53)
[2020-11-30] MEDS: ASPIRIN 81 MG CHEWABLE TABLET PO SCH (08:51)
[2020-11-30] MEDS: allopurinoL 100 MG TAB PO SCH (08:51)
[2020-11-30] MEDS: FUROSEMIDE 40 MG TABLET PO SCH (08:52)
[2020-11-30] MEDS: METOPROLOL TAR 50 MG TAB PO SCH ×2 (08:52→20:53)
[2020-11-30 10:18] LABS: Anisocytosis 1+; Blood Morphology Comment NOTED (NOT SEEN); Elliptocytes 1+; White Blood Cell Scan OK (OK)
--- NOTE | 2020-11-30 13:24 | P.PN ---
Subjective Date of Service: 11/30/20 Chief Complaint: Shortness of breath and abdominal pain Patient with intermittent urinary retention. Eaton catheter inserted in retained last night. Patient requesting the Eaton catheter to be removed this morning. Patient states abdominal pain continued to improve. He is tolerating soft diet. He also has regular bowel movement. Physical Examination - Vital Signs Temperature: 97.2 F Blood Pressure: 118/59 Pulse: 75 Respirations: 16 Pulse Ox (%): 96 - Physical Exam General: Alert, In no apparent distress HEENT: Mucous membr. moist/pink Neck: Supple, JVD not distended Respiratory: Clear to auscultation bilaterally, Normal air movement Cardiovascular: No edema, Regular rate/rhythm, Normal S1 S2 Gastrointestinal: Normal bowel sounds, Soft and benign, Tenderness (Mild tenderness in the right lower quadrant) Musculoskeletal: No swelling, No erythema Integumentary: Other (Generalize skin nodules.) Neurological: Normal strength at 5/5 x4 extr Urinary: Eaton catheter Assessment And Plan Physician Review: Patient Assessed, Agree with Above Assessment and Plan Physician Review Additional Text: Problem List Acute sigmoid diverticulitis. Acute diastolic heart failure. Hypertension AFib with RVR Plan: continue Levaquin/Flagyl. General surgery input appreciated. Repeat CT abdomen results reviewed and reporting improvement in diverticulitis inflammation. Normal appendix. Leukocytosis resolved. Blood cultures: No growth to date. Patient appeared compensated for CHF. Cardiology recommends 40mg PO BID lasix on discharge Renal function is stable. Continue current dose Lasix. Patient denies history of CHF, but reports h/o CAD, HTN, Afib Echocardiogram: Normal EF. Cardiology is following. continue metoprolol 50 mg b.i.d. patient also on Xarelto Remove Eaton catheter. Voiding trial. May discharge patient home once he is able to void without difficulty. -
[2020-11-30 13:40] LABS: Platelet Estimate ADEQ
[2020-11-30] MEDS: RIVAROXABAN 20 MG TABLET PO SCH (17:44)
[2020-11-30] MEDS: Levofloxacin500mg IV 500 MG/100 ML BAG IV SCH (17:44)
--- NOTE | 2020-11-30 18:11 | P.DS ---
Admission Date: 11/23/20 Discharge Date: 12/01/20 Disposition: DC HOME/HOME HEALTH CARE Discharge Condition: FAIR Reason for Admission: Shortness of breath and abdominal pain Brief History of Present Illness: 84-year-old man with history of hypertension, atrial fibrillation on chronic anticoagulation with Xarelto, presented to the ED because of worsening shortness of breath from shortness of breath with exertion to shortness of breath at rest. He also reported lower quadrant abdominal pain associated with constipation. On presentation in the ED he was noted with AFib with RVR. CT scan finding of acute sigmoid diverticulitis. He follows with Cardiology as outpatient. He was been admitted for AFib with RVR, CHF and acute diverticulitis. Hospital Course: Patient treated with IV Levaquin/Flagyl. Seen by General surgery and medical management recommended. Repeat CT abdomen after several days of antibiotics showed improvement in diverticulitis inflammation. Appendix was normal Leukocytosis resolved. Blood cultures: No growth to date. Patient appeared compensated for CHF. Cardiology recommended to continue lasix on discharge Renal function was stable on Lasix. Patient denies history of CHF, but reports h/o CAD, HTN, Afib Echocardiogram: Normal EF. Seen by cardiology continued metoprolol 50 mg b.i.d. patient also on Xarelto. Patient developed acute urinary retention. Corbin catheter inserted. He declined Dc home with corbin catheter. Corbin catheter was discontinued per his request but later had more difficulty with voiding. Corbin catheter reinserted. Patient placed on Flomax. He is discharged with home health. Voiding trial within 2 weeks. Follow up with urology- Dr. Velez as an outpatient. Vital Signs/Physical Exam: Temp Pulse Resp BP Pulse Ox 97.2 F 75 16 118/59 L 96 11/30/20 13:24 11/30/20 13:24 11/30/20 13:24 11/30/20 13:24 11/30/20 13:24 General: Alert, In no apparent distress, Oriented x3 HEENT: Mucous membr. moist/pink Neck: JVD not distended Respiratory: Clear to auscultation bilaterally, Normal air movement Cardiovascular: No edema, Normal S1 S2, Irregular heart rate/rhythm Gastrointestinal: Soft and benign, Non-distended, No tenderness Musculoskeletal: No swelling Integumentary: No rashes, Other (Multiple generalized skin nodules) Neurological: Normal strength at 5/5 x4 extr, Cranial nerves 3-12 intact Laboratory Data at Discharge: WBC 12.30 K/uL (4.3-10.9) H D 11/30/20 07:00 Hgb 12.5 g/dL (13.6-17.9) L 11/30/20 07:00 Hct 39.9 % (39.6-49.0) 11/30/20 07:00 Plt Count 196 K/uL (152-406) 11/30/20 07:00 PT 30.2 SECONDS (9.5-12.5) H 11/23/20 14:29 INR 2.60 11/23/20 14:29 Sodium 139 mmol/L (136-145) 11/30/20 07:00 Potassium 3.8 mmol/L (3.5-5.1) 11/30/20 07:00 BUN 12 mg/dL (7-18) 11/30/20 07:00 Creatinine 0.90 mg/dL (0.55-1.3) 11/30/20 07:00 Glucose 91 mg/dL (74-106) 11/30/20 07:00 Phosphorus 2.3 mg/dL (2.5-4.9) L 11/30/20 07:00 Magnesium 2.2 mg/dL (1.8-2.4) 11/27/20 05:12 Total Bilirubin 1.3 mg/dL (0.2-1.0) H 11/27/20 05:12 AST 8 U/L (15-37) L 11/27/20 05:12 ALT 10 U/L (12-78) L 11/27/20 05:12 Alkaline Phosphatase 66 U/L (45-117) 11/27/20 05:12 Troponin I 0.05 ng/mL (0.0-0.045) H 11/24/20 13:25 Lipase 58 U/L (73-393) L 11/23/20 14:29 Home Medications: Allopurinol 100 mg PO DAILY 07/06/20 Furosemide 40 mg PO DAILY 07/06/20 Pravastatin Sodium 40 mg PO DAILY 07/06/20 Rivaroxaban [Xarelto] 20 mg PO DAILY 07/06/20 methylPREDNISolone [Methylprednisolone] 4 mg PO DAILY 07/06/20 Aspirin [Aspirin EC 81 MG] 81 mg PO DAILY 11/23/20 Melatonin/Pyridoxine [Melatonin 5 mg Tablet] 5 mg PO BEDTIME 11/23/20 Ciprofloxacin HCl [Cipro 500 MG Tablet] 500 mg PO BID #8 tab 11/30/20 Metoprolol Tartrate [Lopressor*] 50 mg PO BID #60 tab 11/30/20 Senosides [Senokot*] 17.2 mg PO DAILY #30 tab 11/30/20 Tamsulosin [Flomax*] 0.4 mg PO BEDTIME #30 cap 11/30/20 metroNIDAZOLE [Flagyl*] 500 mg PO TID #12 tablet 11/30/20 New Medications: Ciprofloxacin HCl [Cipro 500 MG Tablet] 500 mg PO BID #8 tab metroNIDAZOLE [Flagyl*] 500 mg PO TID #12 tablet Tamsulosin [Flomax*] 0.4 mg PO BEDTIME #30 cap Metoprolol Tartrate [Lopressor*] 50 mg PO BID #60 tab Senosides [Senokot*] 17.2 mg PO DAILY #30 tab Diet: AHA Activity: Fall precautions Followup: Sarthak Armstrong MD [ACTIVE - CAN ADMIT] - John Rob MD [ACTIVE - CAN ADMIT] - NONE,NONE [Primary Care Provider] - Blayne Velez [ACTIVE - CAN ADMIT] - (Call to make an appointment. ) Time spent managing pt's care (in minutes): 40
[2020-11-30] MEDS: TAMSULOSIN 0.4 MG SR CAP PO SCH (20:53)
[2020-11-30] MEDS: MELATONIN 5 MG TABLET PO PRN (22:00)
[2020-12-01] MEDS: IPRATROPIUM BROM 0.5MG/2.5ML NEB SCH ×2 (01:58→08:29)
[2020-12-01 06:00] LABS: Albumin 2.5 g/dL (3.4-5.0); Phosphorus 2.1 mg/dL (2.5-4.9); Potassium 3.7 mmol/L (3.5-5.1)
[2020-12-01 09:30] VITALS: O2SAT 99
[2020-12-01] MEDS: FUROSEMIDE 40 MG TABLET PO SCH (09:44)
[2020-12-01] MEDS: SENOSIDES 8.6 MG TAB PO SCH (09:45)
[2020-12-01] MEDS: predniSONE 20 MG TAB PO SCH (09:45)
[2020-12-01] MEDS: ASPIRIN 81 MG CHEWABLE TABLET PO SCH (09:45)
[2020-12-01] MEDS: METOPROLOL TAR 50 MG TAB PO SCH (09:45)
[2020-12-01] MEDS: allopurinoL 100 MG TAB PO SCH (09:46)
[2020-12-01] MEDS: metroNIDAZOLE 500 MG TABLET PO SCH (09:46)
[2020-12-01 09:47] VITALS: BP 151/67
[2020-12-01 09:55] VITALS: TEMP 97.2
--- NOTE | 2020-12-01 10:47 | P.PN ---
Subjective Date of Service: 12/01/20 Chief Complaint: Shortness of breath and abdominal pain Patient reporting difficulty with urination and constipation. Eaton catheter was removed yesterday in the morning per his request. Patient voided about 400 ml later during the day. He could not void well this morning. Only 25 mL out and has not been able to void since then. Physical Examination - Vital Signs Temperature: 97.2 F Blood Pressure: 151/67 Pulse: 85 Respirations: 16 Pulse Ox (%): 96 - Physical Exam General: Alert, In no apparent distress, Oriented x3 HEENT: Mucous membr. moist/pink Respiratory: Clear to auscultation bilaterally, Normal air movement Cardiovascular: No edema, Regular rate/rhythm, Normal S1 S2 Gastrointestinal: Normal bowel sounds, Soft and benign, Non-distended Musculoskeletal: No tenderness Integumentary: Other (Generalized skin nodules) Neurological: Normal strength at 5/5 x4 extr Assessment And Plan Physician Review: Patient Assessed, Agree with Above Assessment and Plan Physician Review Additional Text: Problem List Acute sigmoid diverticulitis. Acute diastolic heart failure. Hypertension AFib with RVR Plan: continue Levaquin/Flagyl. General surgery input appreciated. Repeat CT abdomen results reviewed and reporting improvement in diverticulitis inflammation. Normal appendix. Leukocytosis resolved. Blood cultures: No growth to date. Patient appeared compensated for CHF. Cardiology recommends 40mg PO BID lasix on discharge Renal function is stable. Continue current dose Lasix. Patient denies history of CHF, but reports h/o CAD, HTN, Afib Echocardiogram: Normal EF. continue metoprolol 50 mg b.i.d. patient also on Xarelto Patient failed voiding trial. Reinsert Eaton catheter. Patient informed he may need a catheter retained for about 2 weeks. Continue Flomax. Considering discharge with home health and follow up with urology as an outpatient. -
== END 2020-12-01 12:42 | disposition home health service (06) | DRG 291 ==
LOC: ER 13:21 → ERHOLD 17:08 → 2ND 22:43
PROVIDERS: ADMIT Internal Medicine; ATTEND Internal Medicine
DX: I11.0 Hypertensive heart disease with heart failure (principal); I50.31 Acute diastolic (congestive) heart failure; K57.32 Diverticulitis of large intestine without perforation or abscess without bleeding; I48.91 Unspecified atrial fibrillation; M10.9 Gout, unspecified; I25.10 Atherosclerotic heart disease of native coronary artery without angina pectoris; E78.5 Hyperlipidemia, unspecified; N40.0 Benign prostatic hyperplasia without lower urinary tract symptoms; D72.829 Elevated white blood cell count, unspecified; K59.00 Constipation, unspecified; R33.9 Retention of urine, unspecified; Z95.5 Presence of coronary angioplasty implant and graft; Z90.49 Acquired absence of other specified parts of digestive tract; Z86.73 Personal history of transient ischemic attack (TIA), and cerebral infarction without residual deficits; Z88.1 Allergy status to other antibiotic agents; Z79.01 Long term (current) use of anticoagulants; Z79.82 Long term (current) use of aspirin; Z79.899 Other long term (current) drug therapy; Z20.822 Contact with and (suspected) exposure to COVID-19
CPT/HCPCS: 36415; 71045; 74176; 74177; 80048; 80053; 80069; 80076; 81001; 81003; 81015; 83690; 83735; 83880; 84484; 85025; 85610; 93005; 93306; 94640; 94760; 96365; 96375; 99285; J1940; J2543; J7050; J7512; Q9967; U0003

== ENCOUNTER 2021-11-16 10:19 | Inpatient (IN) | payer OTHER ==
--- OUTSIDE RECORDS SUMMARY | 2021-11-16 10:32 | XMS REPORT | Clinical Summary ---
:1935 Author Organization [facility] MD [facility] Address [address] [place] [address] Care Team Providers Name Role Phone Osiel Rowe MD Unavailable Yana Sharma MD Unavailable [phone] MD Neo Primary Care Provider Allergies No known active allergies Medications Medication Sig Dispensed Refills Start Date End Date Status XARELTO 20 mg tablet Take 1 tablet by 0 08/13/2018 Active mouth daily. amLODIPine (NORVASC) 5 Take 1 tablet by 0 Active mg tablet mouth daily. aspirin 81 mg EC tablet Take 1 tablet by 0 Active mouth daily. pravastatin (PRAVACHOL) Take 40 mg by 0 01/18/2016 Active 40 mg tablet mouth at bedtime. lisinopril Take 20 mg by 0 Activ e (PRINIVIL,ZESTRIL) 20 mouth every mg tablet morning. lisinopril Take 10 mg by 0 Activ e (PRINIVIL,ZESTRIL) 10 mouth every mg tablet evening. furosemide (LASIX) 40 Take 1 tablet by 3 08/13/2018 Active mg tablet mouth daily. nitroglycerin Place 1 tablet 5 08/20/2018 Active (NITROSTAT) 0.4 mg SL under the tongue tablet every 5 (five) minutes as needed. Take up to 3 times cromolyn (GASTROCROM) Take 5 mL (100 480 mL 3 09/21/2018 Active 100 mg/5 mL mg) by mouth 4 solutionIndications: (four) times a Systemic mastocytosis day before meals and nightly. Active Problems Problem Noted Date Systemic mastocytosis 09/21/2018 Eosinophilia 09/21/2018 Surgical History Surgery Date Site/Laterality Comments COLONOSCOPY 08/10/2016 - 08/09/2017 CORONARY ARTERY BYPASS GRAFT 07/10/2011 - 08/09/2011 Medical History Medical History Date Comments Hypertension 07/30/2010 Personal history of stroke 07/30/2010 Hyperlipidemia 07/30/2010 Irregular heart beat 11/25/2017 A-Fib Chronic fatigue syndrome 07/30/2010 Functional visual loss 01/2018 cataracts Asbestosis 1968 Polyp of colon 2016 Removed Benign prostatic hyperplasia 2000 Blood transfusion, without reported 01/2011 open heart surgery-double bypass diagnosis Arthritis 2000 Gout 1999 Social History Tobacco Use Types Packs/Day Years Used Date Never Smoker Smokeless Tobacco: Never Used Alcohol Use Standard Drinks/Week Comments No 0 (1 standard drink = 0.6 oz pure alcoho l) Sex Assigned at Date Recorded Not on file Obstetrics History Last Filed Vital Signs Not on file Plan of Treatment Health Maintenance Due Date Last Done Comments COVID-19 Vaccination (1) 1942 Results Not on fileafter 11/16/2020 Insurance Payer Benefit Plan Subscriber ID Effective Phone Address Typ e / Group Dates MEDICARE MEDICARE PART [id number] 2002-Prese [phone] [facility] Medicare A AND B nt [employer] SOLUTIONS [address] [place] [phone] [employer] MA[employer]GED [employer] O [id number] 2000-[place]se [address] [place] [id number] [place] [address] Care Teams 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
--- OUTSIDE RECORDS SUMMARY | 2021-11-16 10:40 | XMS REPORT | Continuity of Care Document ---
:1935 Author Organization [facility] t Address [address]. [address] [place] [address] Care Team Providers Name Role Phone Hilda Garcia Jr. Primary Care Physician ROGER Attending Clinician Unavailable Doctor Unassigned, Name Attending Clinician Unavailable Norman BALDWIN, L Attending Clinician Unavailable CRAM Attending Clinician Unavailable CRAM Attending Clinician Unavailable Ruy COMMUNICATIONS DEPARTMENT HEAD, G Attending Clinician Pooja JI, Li Attending Clinician Erasmo JI Attending Clinician Juan aCrlos JI, Rakel Attending Clinician DR Naheed GARCIA Attending Clinician Unavailable ROGER Admitting Clinician Unavailable ERASMO Admitting Clinician Unavailable Erasmo JI Admitting Clinician GUILLERMO ANGEL Admitting Clinician Unavailable DR Naheed GARCIA Admitting Clinician Unavailable Payers Payer Name Policy Type Policy Number Effective Date Expiration Date S jennifer MEDICARE A B [id number] [employer] OPEN ACCESS [id number] 2013 HMO NAP 00:00:00 Problems Condition Condition Condition Status Onset Resolution Last Treating Co mments Source Name Details Category Date Date Treatment Clinician Date 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 [place] 00 [facility] Splenic Splenic Disease Active 2020-08 [facility] lesion lesion 2-29 ity of 00:00: [place] [facility] Acute Acute Disease Active 2020-08 Univers systolic systolic 2-29 ity of heart heart 00:00: [place] failure failure 00 Medical Branch Cardiac Cardiac Disease Active 2020-08 Univers volume volume 2-29 ity of overload overload 00:00: [place] [facility] 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-29 ity of valve valve 00:00: [place] regurgitat regurgitat 00 Me dical ion ion Branch Pleural Pleural Disease Active 2020-08 Univers effusion effusion 2-29 ity of on right on right 00:00: [place] [facility] Sepsis due Sepsis due Disease Active 2020-08 U nivers to to 2-25 ity of gram-negat gram-negat 00:00: [place] rupal rupal 00 Medical bacteria bacteria Branch Systemic Systemic Disease Active mastocytos mastocytos 2-12 An derso is is 00:00: n 00 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 2-12 Anderso 00:00: n 00 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 00:00: [place] [facility] Essential Essential Disease Active Uni vers hypertensi hypertensi 6-28 it y of on on 00:00: [place] [facility] Hyperchole Hyperchole Disease Active U nivers sterolemia sterolemia 6-28 it y of 00:00: [place] [facility] BPH BPH Disease Active Univers (benign (benign 6-28 it[place] of prostatic prostatic 00:[place] hypertroph hypertroph 00 Me dical y) y) Branch Allergies, Adverse Reactions, Alerts Allergy Allergy Status Severity Reaction(s) Onset Inactive Treating Comm ents Source Name Type Date Date Clinician NO KNOWN Drug Active Univers ALLERGIE Class ity of [facility] NO KNOWN [facility] Social History Social Habit Start Date Stop Date Quantity Comments Source Exposure to Not sure University of SARS-CoV-2 [place] [facility] (event) Branch Tobacco use and 2018-09-21 2018-09-21 Smokeless tobacco MD Rinaldi exposure 00:00:00 00:00:00 non-user Alcohol intake 2018-09-21 2018-09-21 Current MD Rah webber 00:00:00 00:00:00 non-drinker of alcohol (finding) Sex [birth year] At [birth year] MD Vela on 00:00:00 00:00:00 Smoking Status Start Date Stop Date Source Never smoker [facility] Medical Branch Medications Ordered Filled Start Stop Current Ordering Indication Dosage Frequency Signature Comments Components Source Medication Medication Date Date Medication? Clinician (SIG) Name Name aspirin 81 0 Yes 1{tbl} Take 1 Uni vers mg EC 1-11 tablet by ity of tablet 23:09: mouth [place] 58 daily. Medical Branch lisinopril 0 Yes 10mg Take 10 mg U nivers 10 mg 1-11 by mouth ity of tablet 23:09: daily. [address] Branch ergocalcife Yes 50mg 50 mg. [facility] ers rol, 08-20 ity of vitamin D2, 23:09: [place] (VITAMIN D2 58 Medical ORAL) Branch allopurinoL Yes 400mg 400 mg Uni vers 100 mg 1-11 daily. ity of tablet 23:09: [address] Branch mesalamine Yes 5mg 5 mg at [facility] ers (5-AMINOSAL 1-11 bedtime. ity of ICYLIC ACID 23:09: [place] [address] Medical Branch Magnesium 0 Yes 1000mg 1,000 mg Un odilon Oxide 500 1-11 daily. ity of mg Cap 23:09: [address] aspirin 81 0 Yes 1{tbl} Take 1 Uni vers mg EC 1-11 tablet by ity of tablet 23:09: mouth [place] 58 daily. Medical Branch lisinopril 0 Yes 10mg Take 10 mg U nivers 10 mg 1-11 by mouth ity of tablet 23:09: daily. [address] Branch ergocalcife 2021-0 Yes 50mg 50 mg. [facility] ers rol, 11 ity of vitamin D2, 23:09: [place] (VITAMIN D2 58 Medical ORAL) Branch allopurinoL 2021-0 Yes 400mg 400 mg Uni vers 100 mg 1-11 daily. ity of tablet 23:09: [address] Branch mesalamine 2022-0 Yes 5mg 5 mg at [facility] (5-AMINOSAL 1-11 bedtime. ity of ICYLIC ACID 23:09: [place] [address] Medical Branch Magnesium 2021-0 Yes 1000mg 1,000 mg Un odilon Oxide 500 1-11 daily. ity of mg Cap 23:09: [address] Branch aspirin 81 0 Yes 1{tbl} Take 1 Uni vers mg EC 1-11 tablet by ity of tablet 23:09: mouth [place] 58 daily. Medical Branch lisinopril 0 Yes 10mg Take 10 mg U nivers 10 mg 1-11 by mouth ity of tablet 23:09: daily. [address] ergocalcife 0 Yes 50mg 50 mg. [facility] rol, 11 ity of vitamin D2, 23:09: [place] (VITAMIN D2 58 Medical ORAL) [place] allopurinoL 0 Yes 400mg 400 mg Uni vers 100 mg 1-11 daily. ity of tablet 23:09: [address] mesalamine 0 Yes 5mg 5 mg at [facility] (5-AMINOSAL 1-11 bedtime. ity of ICYLIC ACID 23:09: [place] [address] Medical Branch Magnesium 0 Yes 1000mg 1,000 mg Un odilon Oxide 500 1-11 daily. ity of mg Cap 23:09: [address] aspirin 81 0 Yes 1{tbl} Take 1 Uni vers mg EC 1-11 tablet by ity of tablet 23:09: mouth [place] 58 daily. Medical Branch aspirin 81 2021-0 Yes 1{tbl} Take 1 Uni vers mg EC 1-11 tablet by ity of tablet 23:09: mouth [place] 58 daily. Medical Branch lisinopril 0 Yes 10mg Take 10 mg U nivers 10 mg 1-11 by mouth ity of tablet 23:09: daily. [address] ergocalcife 0 Yes 50mg 50 mg. [facility] rol, 11 ity of vitamin D2, 23:09: [place] (VITAMIN D2 58 Medical ORAL) [place] allopurinoL 0 Yes 400mg 400 mg Uni vers 100 mg 1-11 daily. ity of tablet 23:09: [address] Branch mesalamine 0 Yes 5mg 5 mg at [facility] (5-AMINOSAL 1-11 bedtime. ity of ICYLIC ACID 23:09: [place] [address] Medical Branch Magnesium Yes 1000mg 1,000 mg Un odilon Oxide 500 -11 daily. ity of mg Cap 23:09: [place] [address] Medical Branch lisinopril Yes 10mg Take 10 mg U nivers 10 mg 11 by mouth ity of tablet 23:09: daily. [address] Branch ergocalcife Yes 50mg 50 mg. [facility] rol, 08-20 ity of vitamin D2, 23:09: [place] (VITAMIN D2 58 Medical ORAL) Branch allopurinoL Yes 400mg 400 mg Uni vers 100 mg 11 daily. ity of tablet 23:09: [address] Branch mesalamine Yes 5mg 5 mg at [facility] (5-AMINOSAL 08-20 bedtime. ity of ICYLIC ACID 23:09: [place] [address] Medical Branch Magnesium Yes 1000mg 1,000 mg Un odilon Oxide 500 -11 daily. ity of mg Cap 23:09: [address] Branch tamsulosin 2021- Yes [id number] .4mg Take 1 Univers 0.4 mg 24 08-20 capsule by it y of hr capsule 00:00: 04:59 mouth [place] 00 :00 daily for Medical 90 days. Branch Methylpredn 2021- Yes [id number] 4mg Take 1 Univers isolone 4 08-20 tablet by ity of mg tablet 00:00: 04:59 mouth [place] 00 :00 daily for Medical 90 days. Branch pantoprazol 2021- Yes [id number] 40mg Take 1 Univers e 40 mg EC 08-20 tablet by it y of tablet 00:00: 04:59 mouth [place] 00 :00 daily for Medical 90 days. Branch isosorbide 2021- Yes [id number] 30mg Take 1 Univers mononitrate 08-20 tablet by i ty of 30 mg 24 hr 00:00: 04:59 [place] tablet 00 :00 daily for Medical 90 days. Branch tamsulosin 2021- Yes [id number] .4mg Take 1 Univers 0.4 mg 24 08-20 [id number] capsule by it y of hr capsule 00:00: 04:59 mouth [place] 00 :00 daily for Medical 90 days. [place] Methylpredn 2021- Yes [id number] 4mg Take 1 Univers isolone 4 08-20 [id number] tablet by ity of mg tablet 00:00: 04:59 mouth [place] 00 :00 daily for Medical 90 days. Branch pantoprazol 2021- Yes [id number] 40mg Take 1 Univers e 40 mg EC 08-20 [id number] tablet by it y of tablet 00:00: 04:59 mouth [place] 00 :00 daily for Medical 90 days. Branch isosorbide 2021- Yes [id number] 30mg Take 1 Univers mononitrate 08-20 73861 tablet by i ty of 30 mg 24 hr 00:00: 04:59 [place] tablet 00 :00 daily for Medical 90 days. Branch tamsulosin 2021- Yes [id number] .4mg Take 1 Univers 0.4 mg 24 08-20 57575 capsule by it y of hr capsule 00:00: 04:59 mouth [place] 00 :00 daily for Medical 90 days. [place] Methylpredn 2021- Yes [id number] 4mg Take 1 Univers isolone 4 08-20 96143 tablet by ity of mg tablet 00:00: 04:59 mouth [place] 00 :00 daily for Medical 90 days. Branch pantoprazol 2021- Yes [id number] 40mg Take 1 Univers e 40 mg EC 08-20 75806 tablet by it y of tablet 00:00: 04:59 mouth [place] 00 :00 daily for Medical 90 days. Branch isosorbide 2021- Yes [id number] 30mg Take 1 Univers mononitrate 08-20 61469 tablet by i ty of 30 mg 24 hr 00:00: 04:59 [place] tablet 00 :00 daily for Medical 90 days. Branch tamsulosin 2021- Yes [id number] .4mg Take 1 Univers 0.4 mg 24 08-20 [id number] capsule by it y of hr capsule 00:00: 04:59 mouth [place] 00 :00 daily for Medical 90 days. Branch Methylpredn 2021- Yes [id number] 4mg Take 1 Univers isolone 4 08-20 44478 tablet by ity of mg tablet 00:00: 04:59 mouth [place] 00 :00 daily for Medical 90 days. Branch pantoprazol 2021- Yes [id number] 40mg Take 1 Univers e 40 mg EC 08-20 83989 tablet by it y of tablet 00:00: 04:59 mouth [place] 00 :00 daily for Medical 90 days. Branch isosorbide 2021- Yes [id number] 30mg Take 1 Univers mononitrate 08-20 15054 tablet by i ty of 30 mg 24 hr 00:00: 04:59 [place] tablet 00 :00 daily for Medical 90 days. [place] tamsulosin 2021- Yes [id number] .4mg Take 1 Univers 0.4 mg 24 08-20 75757 capsule by it y of hr capsule 00:00: 04:59 mouth [place] 00 :00 daily for Medical 90 days. Branch Methylpredn 2021- Yes [id number] 4mg Take 1 Univers isolone 4 08-2004 tablet by ity of mg tablet 00:00: 04:59 mouth [place] 00 :00 daily for Medical 90 days. Branch pantoprazol 2021- Yes [id number] 40mg Take 1 Univers e 40 mg EC 08-20 71926 tablet by it y of tablet 00:00: 04:59 mouth [place] 00 :00 daily for Medical 90 days. Branch isosorbide 2021- Yes [id number] 30mg Take 1 Univers mononitrate 08-20 90660 tablet by i ty of 30 mg 24 hr 00:00: 04:59 [place] tablet 00 :00 daily for Medical 90 days. Branch furosemide Yes 40mg 40 mg, Unive rs (LASIX) 1-10 Oral, ity of tablet 40 23:00: QAM+PM, [place] mg 00 First dose Medical on Thu [place] 08/19/21 at 1700, Until Discontinu ed, Routine artificial Yes 1[drp] 1 Drop, Un doilon tears(hypro 10 Both Eyes, it y of mellose) 20:21: PRN, [place] (ISOPTO-TEA 51 Starting Medi tawanna RS) 0.5 % on Mon Branch ophthalmic 08/19/21 at drops 1 1421, Drop Until Discontinu ed, Routine, Dry eyes barium 2021- No [id number] 20mL 20 mL, Univ ers sulfate-NO 08-19 Oral, ity of CHARGE- 17:00: 16:53 ONCE, 1 [place] (VARIBAR 00 :00 dose, On Medical NECTOR) 40 Thu Branch % (w/v) 08/19/21 at oral 1100, suspension Routine 20 mL barium No [id number] 10g 10 g, Unive rs sulfate 08-19 Oral, ity of (VARIBAR 17:00: 16:53 ONCE, 1 [place] THIN 00 :00 dose, On Medical LIQUID) 81 Thu Branch % (w/w) 08/19/21 at oral powder 1100, 10 g Routine Methylpredn 2021- No 4mg Take 4 mg Univers isolone 4 08-19 by mouth. ity of mg tablet 15:20: 00:00 [place] 39 :00 Medical Branch tamsulosin 2021- No .4mg Take 0.4 Un odilon 0.4 mg 24 08-19 mg by ity of hr capsule 15:20: 00:00 mouth [place] 39 :00 daily. Medical Branch metoprolol 2021- No 50mg Take 50 mg Univers tartrate 50 08-19 by mouth 2 i ty of mg tablet 15:20: 00:00 (two) [place] 39 :00 times Medical daily. Branch mupirocin 2 Yes [id number] Apply to Univers % ointment 08-19 83544 area(s) 3 ity of 00:00: (three) [place] 00 times Medical daily. Branch mupirocin 2 Yes [id number] Apply to Univers % ointment 08-19 10553 area(s) 3 ity of 00:00: (three) [place] 00 times Medical daily. Branch mupirocin 2 Yes [id number] Apply to Univers % ointment 08-19 area(s) 3 ity of 00:00: (three) [place] 00 times Medical daily. Branch mupirocin 2 0 Yes [id number] Apply to Univers % ointment 08-19 area(s) 3 ity of 00:00: (three) [place] 00 times Medical daily. Branch mupirocin 2 Yes [id number] Apply to Univers % ointment 08-1904 area(s) 3 ity of 00:00: (three) [place] 00 times Medical daily. Branch furosemide 2021- Yes [id number] 40mg Take 1 Univers 40 mg 08-19 tablet by ity of tablet 00:00: 04:59 mouth [place] 00 :00 every Medical morning Branch and evening for 90 days. metoprolol 2021- Yes [id number] 75mg Take 75 mg Univers tartrate 75 08-19 22227 by mouth 2 ity of mg Tab 00:00: 04:59 (two) [place] 00 :00 times Medical daily for Branch 90 days. guaiFENesin 2021- Yes [id number] 100mg Take 5 mL Univers 100 mg/5 mL 08-19 by mouth it y of solution 00:00: 04:59 every 4 [place] 00 :00 (four) Medical hours as Branch needed for Cough for up to 90 days. furosemide 2021- Yes [id number] 40mg Take 1 Univers 40 mg 08-19 tablet by ity of tablet 00:00: 04:59 mouth [place] 00 :00 every Medical morning Branch and evening for 90 days. metoprolol 2021- Yes [id number] 75mg Take 75 mg Univers tartrate 75 08-19 07457 by mouth 2 ity of mg Tab 00:00: 04:59 (two) [place] 00 :00 times Medical daily for Branch 90 days. guaiFENesin 2021- Yes [id number] 100mg Take 5 mL Univers 100 mg/5 mL 08-19 91872 by mouth it y of solution 00:00: 04:59 every 4 [place] 00 :00 (four) Medical hours as Branch needed for Cough for up to 90 days. furosemide 2021- Yes [id number] 40mg Take 1 Univers 40 mg 08-19 83060 tablet by ity of tablet 00:00: 04:59 mouth [place] 00 :00 every Medical morning Branch and evening for 90 days. metoprolol 2021- Yes [id number] 75mg Take 75 mg Univers tartrate 75 08-19 36110 by mouth 2 ity of mg Tab 00:00: 04:59 (two) [place] 00 :00 times Medical daily for Branch 90 days. guaiFENesin 2021- Yes [id number] 100mg Take 5 mL Univers 100 mg/5 mL 08-19 55666 by mouth it y of solution 00:00: :59 every 4 [place] 00 :00 (four) Medical hours as Branch needed for Cough for up to 90 days. furosemide 2021- Yes [id number] 40mg Take 1 Univers 40 mg 08-19 13733 tablet by ity of tablet 00:00: :59 mouth [place] 00 :00 every Medical morning Branch and evening for 90 days. metoprolol 2021- Yes [id number] 75mg Take 75 mg Univers tartrate 75 08-19 26650 by mouth 2 ity of mg Tab 00:00: 04:59 (two) [place] 00 :00 times Medical daily for Branch 90 days. guaiFENesin 2021- Yes [id number] 100mg Take 5 mL Univers 100 mg/5 mL 08-19 76986 by mouth it y of solution 00:00: :59 every 4 [place] 00 :00 (four) Medical hours as Branch needed for Cough for up to 90 days. furosemide 2021- Yes [id number] 40mg Take 1 Univers 40 mg 08-19 78517 tablet by ity of tablet 00:00: 04:59 mouth [place] 00 :00 every Medical morning Branch and evening for 90 days. metoprolol 2021- Yes [id number] 75mg Take 75 mg Univers tartrate 75 08-19 73313 by mouth 2 ity of mg Tab 00:00: 04:59 (two) [place] 00 :00 times Medical daily for Branch 90 days. guaiFENesin 2021- Yes [id number] 100mg Take 5 mL Univers 100 mg/5 mL 08-19 71405 by mouth it y of solution 00:00: 04:59 every 4 [place] 00 :00 (four) Medical hours as Branch needed for Cough for up to 90 days. amoxicillin 2021- Yes [id number] 1{tbl} Take 1 Univers -clavulanat 08-19 20297 tablet by i ty of e 875-125 00:00: 05:59 mouth [place] mg per 00 :00 every 12 Medical tablet (twelve) Branch hours for 3 days. amoxicillin 2021- Yes [id number] 1{tbl} Take 1 Univers -clavulanat 08-19 92106 tablet by i ty of e 875-125 00:00: 05:59 mouth [place] mg per 00 :00 every 12 Medical tablet (twelve) Branch hours for 3 days. rivaroxaban Yes 20mg 20 mg, Univ ers (XARELTO) 08-18 Oral, ity of tablet 20 16:00: DAILY, [place] mg 00 First dose Medical on Sun Branch 08/18/21 at 1000, Until Discontinu ed, Routine acetaminoph 2021- No 650mg 650 mg, U nivers en 08-16 Oral, ity of (TYLENOL) 17:00: 18:11 ONCE, 1 [place] tablet 650 00 :00 dose, On Medic al mg Thu08/16/21 Branch at 1100, Routine furosemide 2021- No 40mg 40 mg, Univ ers (LASIX) 08-16 Slow IV ity of injection 14:00: 19:50 Push, [place] 40 mg 00 :15 Q12H, Medical First dose Branch on Thu08/16/21 at 0800, Until Discontinu ed, Routine metoprolol Yes 75mg 75 mg, Unive rs tartrate 08-16 Oral, BID, ity o f (LOPRESSOR) 02:00: First dose [place] tablet 75 00 (after Medical mg last Branch modificati on) on [place] 08/15/21 at 2000, Until Discontinu ed, Routine amoxicillin Yes 1{tbl} 1 tablet, Univers -clavulanat 08-16 Oral, ity of e 02:00: Q12H, [place] (AUGMENTIN) 00 First dose Me dical 875-125 mg on [place] Branch per tablet 08/15/21 at 1 tablet 2000, Until Discontinu ed, Routine
Reason for Anti-Infec tive: Documented Infection< br>Documen florencio Infection Site: Blood
D uration of Therapy: 7 days furosemide 2021- No 40mg 40 mg, Univ ers (LASIX) 08-15 Oral, ity of tablet 40 23:00: 03:43 QAM+PM, [place] mg 00 :19 First dose Medical (after Branch last modificati on) on [place] 08/15/21 at 1700, Until Discontinu ed, Routine isosorbide Yes 30mg 30 mg, Unive rs mononitrate 08-15 Oral, ity of (IMDUR) 24 22:30: DAILY, [place] hr tablet 00 First dose Medi tawanna 30 mg on [place] Branch 08/15/21 at 1630, Until Discontinu ed, Routine furosemide 2021- No 40mg 40 mg, Univ ers (LASIX) 08-15 Slow IV ity of injection 18:00: 17:23 Push, [place] 40 mg 00 :00 ONCE, 1 Medical dose, On Branch [place] 08/15/21 at 1200, Routine heparin 2021- No 1000U/h 1,000 Unive rs 25,000 08-15 Units/hr ity of Units/250 17:07: 12:50 (10 [place] mL 48 :59 mL/hr), IV Medical (Premixed Infusion, [facility] h Bag) in TITRATE, 0.45 % NS Parameters in Admin. Instr., Starting on [place] 08/15/21 at 1107
CA UTION - If LMWH given in ER, AVOID bolus and start next dose/drip 12 hrs after ER dosage.&nb sp; M ust program rate using programmab le infusion pump.&nbsp ; Dafne ck with the ordering provider first prior to any administra tion should the patient be on existing/a dditional anticoagul ant therapy.&n bsp; Range, Dosing and Testing&nb sp; - aPTT < 40: & nbsp;Bolus 3000 units, increase rate 100 units/hr.& nbsp;- aPTT 40-49:&nbs p; In crease rate 50 units/hr. - aPTT 50-70:&nbs p; NO CHANGE.&am p;nbsp;- aPTT 71-85:&nbs p; De crease rate 50 units/hr.& nbsp;- aPTT 86-100:&nb sp; H old 30 minutes, decrease rate 100 units/hr.& nbsp;- aPTT 101-150:&n bsp; Hold 60 minutes, decrease rate 150 units/hr.& nbsp;- aPTT > 150: Hold 60 minutes, decrease rate 300 units/hr.& nbsp;&nbsp ;Check aPTT 6 hours after initiation , then Q6H after every change, aPTT Q12H once therapeuti c levels are reached.&n bsp; DO NOT ADJUST INITIAL BOLUS OR INITIAL INFUSION RATE.
lisinopriL 0 Yes 10mg 10 mg, Unive rs (PRINIVIL,Z 1-06 Oral, ity of ESTRIL) 17:00: DAILY, [place] tablet 10 00 First dose Medi tawanna mg on [place] Branch 08/15/21 at 1100, Until Discontinu ed, Routine melatonin 0 Yes 9mg 9 mg, Univers (MELATIN) 1-06 Oral, QHS, ity of tablet 9 mg 03:00: First dose [place] 00 (after Medical last Branch modificati on) on 08/14/21 at 2100, Until Discontinu ed, Routine furosemide 2021- No 20mg 20 mg, Univ ers (LASIX) 1 01-05 Oral, ity of tablet 20 15:00: 17:06 QAM+PM, [place] mg 00 :18 First dose Medical on Thu Branch 08/14/21 at 0900, Until Discontinu ed, Routine silver Yes Topical, Univers sulfADIAZIN 1-05 BID, First it y of E 02:00: dose on [place] (SILVADENE) 00 Thu08/13/21 Me dical 1 % cream at 2000, Branch Until Discontinu ed, Routine iodixanol 2021- No PRN, Univers (VISIPAQUE 08-13 Starting ity of 320-100 mL) 16:00: 16:00 on Thu [place] injection 57 :57 08/13/21 at Medic al 1000, Branch Until Thu08/13/21 at 1000, Routine heparin 2021- No PRN, Univers 1,000 08-13 Starting ity of unit/mL 14:55: 14:55 on Thu [place] injection 08 :08 08/13/21 at Medic al 0855, Branch Until Thu08/13/21 at 0855, Routine NaCl 0.9% 2021- No IV Univers (NS) bolus 08-13 Infusion, ity of infusion 14:46: 15:05 CONTINUOUS [place] 51 :41 PRN, Medical Starting [place] on Thu08/13/21 at 0846, Until Thu08/13/21 at 0905, STAT lidocaine 2021- No Infiltrati U nivers 1% (PF) 08-13 on, PRN, ity of (XYLOCAINE) 14:25: 14:25 Starting [place] injection 08 :08 on [facility] 08/13/21 at Branch 0825, Until Thu08/13/21 at 0825, Routine FENTanyl PF 2021- No Slow IV Un odilon (SUBLIMAZE 08-13 Push, PRN, it y of (PF)) 14:08: 14:08 Starting [place] injection 15 :15 on [facility] 08/13/21 at Branch 0808, Until Discontinu ed, Routine midazolam 2021- No IV [place], Uni vers (VERSED) 08-13 PRN, ity of injection 14:08: 14:08 Starting [place] 10 :10 on [facility] 08/13/21 at Branch 0808, Until Discontinu ed, Routine potassium 2021- No 15mmol 15 mmol, U nivers phosphate 08-13 IV ity of 15 mmol in 13:45: 18:48 Piggyback, [place] NaCl 0.9% 00 :00 ONCE, 1 Medical (NS) 150 mL dose, On Bran ch piggyback Thu08/13/21 at 0745, 150 mL magnesium 2g 2 g, IV Univ ers sulfate in 08-13 Piggyback, it y of water 2 13:45: 17:45 ONCE, 1 [place] gram/50 mL 00 :00 dose, On Medic al (4 %) Thu08/13/21 Branch infusion 2 at 0745, g Routine aspirin Oral, PRN, Uni vers chewable 08-13 Starting ity of tablet 13:43: 13:43 on [facility] 45 :45 08/13/21 at Medical 0743, Branch Until Discontinu ed, Routine albumin .145g/k 12.47 g Uni vers (PLASBUMIN) 08-12 g (0.145 ity o f 25 % 22:15: 23:29 g/kg ?86 [place] injection 00 :00 kg), IV Medical 12.47 g Infusion, Branch ONCE, 1 dose, On Thu08/12/21 at 1615, 50 mL
Dai cation: HEPATORENA L SYNDROME (TREATMENT )
Comme nts: 1. Albumin + octreotide and midodrine< br>Comm ents: 2. Albumin + norepineph rine for patients in the ICU sod 2021- No [id number] 1{packe 1 Packet, [facility] bicarb-citr 08-12 t} Oral, ity o f ic 21:45: 21:37 ONCE, 1 [place] ac-simeth 00 :00 dose, On Medica l (E-Z-GAS Thu08/12/21 Branc h II) at 1545, 2.21-1.53 Routine gram/4 gram packet 1 Packet barium 2021- No [id number] 40mL 40 mL, U nivers sulfate 08-12 Oral, ity of (E-Z-HD 21:45: 21:37 ONCE, 1 [place] BARIUM) 98 00 :00 dose, On Medic al % oral Thu08/12/21 Branch suspension at 1545, 40 mL Routine barium 2021- No [id number] 40mL 40 mL, U nivers sulfate 08-12 [id number] Oral, ity of (LIQUID E-Z 21:45: 21:37 ONCE, 1 [place] PAQUE) 60 % 00 :00 dose, On Medi tawanna (w/v) oral Thu08/12/21 Bra nch suspension at 1545, 40 mL Routine furosemide 2021- No 20mg 20 mg, [facility] ers (LASIX) 08-12 Slow IV ity of injection 14:00: 22:05 Push, BID, [place] 20 mg 00 :02 First dose Medical (after Branch last modificati on) on Thu08/12/21 at 0800, Until Discontinu ed, Routine furosemide 2021- No 40mg 40 mg, [facility] ers (LASIX) 08-11 Slow IV ity of injection 22:15: 21:07 Push, [place] 40 mg 00 :00 ONCE, 1 Medical dose, On Branch [place] 08/11/21 at 1615, DRAKE ipratropium No 3mL 3 mL, [facility] ers -albuteroL 08-11 Inhalation it y of (DUONEB) 21:30: 21:04 , ONCE, 1 [place] 0.5 mg-3 00 :00 dose, On Medical mg(2.5 mg [place] 08/11/21 Bran ch base)/3 mL at 1530, nebulizer DRAKE solution 3 mL benzonatate Yes 100mg 100 mg, Un odilon (TESSALON 08-11 Oral, ity of PERLES) 15:00: Q6HPRN, [place] capsule 100 00 Starting Medi tawanna mg on Sun Branch 08/11/21 at 0900, Until Discontinu ed, Routine, Cough guaiFENesin Yes 100mg 100 mg, Un odilon 100 mg/5 mL 08-11 Oral, ity of solution 15:00: Q4HPRN, [place] 100 mg 00 Starting Medical on Sun Branch 08/11/21 at 0900, Until Discontinu ed, Routine, Cough gadobenate 2021- No [id number] .2mL/kg 17.2 mL Univers dimeglumine 08-10 (0.2 mL/kg i ty of (MULTIHANCE 04:30: 04:30 ?86 kg), [place] -20 mL) 00 :00 Intravenou Medica l injection s, ONCE, 1 Bran ch 17.2 mL dose, On Thu08/09/21 at 2230, Routine mupirocin 2020-08 Yes Univers (BACTROBAN ity of OINT) 2 % 20:00: [place] skin 00 Medical ointment Branch guaiFENesin 2020-08- No 100mg 100 mg, U nivers 100 mg/5 mL 08-11 Oral, Q4H, i ty of solution 19:00: 14:57 First dose [place] 100 mg 00 :25 on Thu Medical 08/09/21 Branch at 1300, Until Discontinu ed, Routine NaCl 0.9% 2020-08- No [id number] 250mL at 20 Univers (NS) IV 03 mL/hr, IV ity of infusion 18:45: 13:26 Infusion, [place] 250 mL 00 :59 CONTINUOUS Medical , Starting Branch on Thu08/09/21 at 1245, Until Thu08/12/21 at 0726, Routine
KVO
FENTanyl PF 2020-08- No Slow IV Un odilon (SUBLIMAZE 08-09 Push, ity of (PF)) 18:33: 18:33 TITRATE - [place] injection 14 :14 FOR Medical PROCEDURE Branch USE, 1 dose, Starting on Thu08/09/21 at 1233, Until Thu08/09/21 at 1233, Routine midazolam 2020-08- No IV Push, Uni vers (VERSED) 08-09 TITRATE - ity o f injection 18:33: 18:33 FOR [place] 10 :10 PROCEDURE Medical USE, 1 Branch dose, Starting on Thu08/09/21 at 1233, Until Thu08/09/21 at 1233, Routine midazolam 2020-08- No IV Push, Uni vers (VERSED) 08-09 TITRATE - ity o f injection 18:27: 18:27 FOR [place] 09 :09 PROCEDURE Medical USE, 1 Branch dose, Starting on Thu08/09/21 at 1227, Until Thu08/09/21 at 1227, Routine FENTanyl PF 2020-08- No Slow IV Un odilon (SUBLIMAZE 08-09 Push, ity of (PF)) 18:27: 18:27 TITRATE - [place] injection 00 :00 FOR Medical PROCEDURE Branch USE, 1 dose, Starting on Thu08/09/21 at 1227, Until Thu08/09/21 at 1227, Routine lidocaine 2020-08- No Topical, Uni vers 4% 08-09 TITRATE - ity of (XYLOCAINE) 18:23: 18:23 FOR [place] 4 % (40 13 :13 PROCEDURE Medical mg/mL) USE, 1 Branch topical dose, solution Starting on Thu08/09/21 at 1223, Until Thu08/09/21 at 1223, Routine lidocaine 2020-08- No 1{patch 1 Patch, Univers (LIDODERM) 08-10 } Topical, ity of 5 % (700 17:15: 05:15 Administer [place] mg/patch) 00 :00 over 12 Medical patch 1 Hours, Branch Patch ONCE, 1 dose, On Thu08/09/21 at 1115, Routine magnesium 2020-08 No 4g 4 g, IV Univ ers sulfate in 08-09 Piggyback, it y of water 4 15:15: 15:09 ONCE, 1 [place] gram/50 mL 00 :00 dose, On Medic al (8 %) IV Thu Piggyback 4 08/09/21 g at 0915, Routine lidocaine 2020-08- No 1{patch 1 Patch, Univers (LIDODERM) 08-18 } Topical, ity of 5 % (700 20:53: 12:48 Administer [place] mg/patch) 09 :39 over 12 Medical patch 1 Hours, Branch Patch QDAILYPRN, Starting on [place] 08/08/21 at 1453, Until 08/18/21 at 0648, Routine, abd muscle pain furosemide 2020-08- No 40mg 40 mg, Univ ers (LASIX) 08-12 Slow IV ity of injection 02:00: 13:31 Push, BID, [place] 40 mg 00 :09 First dose Medical on Thu Branch 12/29/21 at 2000, Until Discontinu ed, Routine lidocaine 2020-08 No 15mL 15 mL, Unive rs 1% 08-07 Infiltrati ity of (XYLOCAINE) 21:45: 22:46 on, ONCE, [place] 10 mg/mL (1 00 :00 1 dose, On Me dical %) [facility] Branch injection 08/07/21 15 mL at 1545, Routine iopamidol 2020-08- No [id number] 100mL 100 mL, Univers (ISOVUE 08-07 Intravenou ity o f 370-500 mL) 04:45: 03:25 s, ONCE, 1 [place] injection 00 :00 dose, On Medica l 100 mL [facility] 08/06/21 at 2245, Routine ceFEPIme 2020-08- No 2000mg 2,000 mg, U nivers (MAXIPIME) 06 IV ity of 2,000 mg in 03:30: 16:52 Piggyback, [place] NaCl 0.9% 00 :36 Q12H ABX, Medic al (NS) 100 mL First dose Br anch MINI-BAG (after last modificati on) on Thu08/06/21 at 2130, Until Discontinu ed, Administer over 30 Minutes, 100 mL
Reas on for Anti-Infec tive: Documented Infection< br>Documen florencio Infection Site: Blood
D uration of Therapy: 7 days atorvastati 2020-08 Yes 40mg 40 mg, Univ ers n (LIPITOR) Oral, QHS, it y of tablet 40 03:00: First dose [place] mg 00 on [facility] 08/06/21 Branch at 2100, Until Discontinu ed, Routine melatonin 2020-08- No 6mg 6 mg, Univer s (MELATIN) 05 Oral, QHS, ity of tablet 6 mg 03:00: 20:37 First dose [place] 00 :51 (after Medical last Branch modificati on) on [facility] 08/06/21 at 2100, Until Discontinu ed, Routine NaCl 0.9% 2020-08- No [id number] 250mL at 20 Univers (NS) IV 10-07 mL/hr, IV ity of infusion 18:45: 13:18 Infusion, [place] as 250 mL 00 :08 CONTINUOUS Medical , Starting Branch on Thu08/06/21 at 1245, Until Thu08/07/21 at 0718, Routine
KVO
pantoprazol 2020-08 Yes 40mg 40 mg, Univ ers e 10-07 Oral, ity of (PROTONIX) 15:00: DAILY, [place] EC tablet 00 First dose Medi tawanna 40 mg on Thu Branch 08/06/21 at 0900, Until Discontinu ed, Routine diphenhydrA 2020-08 Yes 25mg 25 mg, Univ ers MINE 10-07 Oral, ity of (BENADRYL) 14:00: Q6HPRN, [place] tablet 25 11 Starting Medica l mg on [facility] 08/06/21 at 0800, Until Discontinu ed, Routine, Itching sennosides 2020-08 Yes 8.6mg 8.6 mg, Uni vers (SENOKOT) 10-07 Oral, BID, ity of tablet 8.6 14:00: First dose [place] mg 00 on [facility] 08/06/21 Branch at 0800, Until Discontinu ed, Routine polyethylen 2020-08 Yes 17g 17 g, [place] [facility] glycol 10-07 Oral, BID, ity o f 3350 powder 14:00: First dose [place] 17 g 00 (after Medical last Branch modificati on) on Thu08/06/21 at 0800, Until Discontinu ed, Routine benzonatate 2020-08 No 100mg 100 mg, U nivers (TESSALON 10-0702 Oral, Q6H, ity of PERLES) 14:00: 14:57 First dose [place] as capsule 100 00 :25 on [facility] Medica l mg 08/06/21 Branch at 0800, Until Discontinu ed, Routine glycerin/mi 2020-08- No 225mL 225 mL, U nivers neral oil 10-07 Rectal, ity of (AGLO 13:54: 15:47 ONCE, 1 [place] ENEMA) 00 :00 dose, On Medical (COMPOUNDED [facility] ) Enem 225 08/06/21 mL at 0800, Routine sulfur 2020-08- No [id number] 5mL 5 mL, Univ ers hexafluorid 10-06 Intravenou i ty of e microsphr 19:00: 19:00 s, ONCE, 1 [place] (LUMASON) 00 :00 dose, On Medica l injection 5 Thu [facility] 08/05/21 at 1300, Routine
reconnaissance crewmember approving Restricted medication : RAMONITA KIMBERLY PIZANOAM ceFEPIme 2020-08- No 1000mg 1,000 mg, U nivers (MAXIPIME) 10-06 IV ity of 1,000 mg in 15:30: 01:17 [place], [place] NaCl 0.9% 00 :41 Q12H ABX, Medic al (NS) 50 mL First dose [facility] MINI-BAG on Thu08/05/21 at 0930, Until Discontinu ed, Administer over 30 Minutes, 50 mL
Reas on for Anti-Infec tive: Documented Infection< br>Documen florencio Infection Site: Blood
D uration of Therapy: 7 days sodium 2020-08 Yes 4mL 4 mL, Univers chloride 7% 10-06 Inhalation it y of (HYPER-HARINDER) 15:00: , DAILY, [place] nebulizer 00 First dose Medi tawanna solution 4 on Thu Branch mL 08/05/21 at 0900, Until Discontinu ed, Routine ipratropium 2020-08 Yes 3mL 3 mL, Unive rs -albuteroL 10-06 Inhalation ity of (DUONEB) 02:00: , BID, [place] 0.5 mg-3 00 First dose Medic al mg(2.5 mg (after Branch base)/3 mL last nebulizer modificati solution 3 on) on [facility] 08/04/21 at 2000, Until Discontinu ed, Routine lactated 2020-08- No 1000mL at 999 Univ ers ringers IV 10-05 12-26 mL/hr, ity of infusion 19:00: 19:30 1,000 mL, [place] as 1,000 mL 00 :00 IV Medical Infusion, Branch ONCE, 1 dose, On [place] 08/04/21 at 1300, Routine cefTRIAXone 2020-08- No 2000mg 2,000 mg, Univers (ROCEPHIN) 10-05 IV ity of 2,000 mg in 18:00: 14:19 Piggyback, [place] NaCl 0.9% 00 :39 Q24H ABX, Medic al (NS) 100 mL First dose Br anch MINI-BAG (after last modificati on) on [place] 08/04/21 at 1200, Until Discontinu ed, Administer over 30 Minutes, 100 mL
Reas on for Anti-Infec tive: Documented Infection< br>Documen florencio Infection Site: Respirator y
Durat ion of Therapy: 7 days tamsulosin 2020-08 Yes .4mg 0.4 mg, Univ ers (FLOMAX) 10-05 Oral, ity of capsule 0.4 15:00: DAILY, [place] mg 00 First dose Medical on [facility] 08/04/21 at 0900, Until Discontinu ed, Routine Methylpredn 2020-08 Yes 4mg 4 mg, Unive rs isolone 10-05 Oral, ity of (MEDROL) 15:00: DAILY, [place] tablet 4 mg 00 First dose Me dical on [facility] 08/04/21 at 0900, Until Discontinu ed, Routine aspirin EC 2020-08 Yes 81mg 81 mg, Unive rs tablet 81 10-05 Oral, ity of mg 15:00: DAILY, [place] 00 First dose Medical on [facility] 08/04/21 at 0900, Until Discontinu ed, Routine polyethylen 2020-08 No 17g 17 g, Univ ers e glycol 10-05 Oral, ity of 3350 powder 15:00: 03:08 DAILY, [place] as 17 g 00 :46 First dose Medical on [facility] 08/04/21 at 0900, Until Discontinu ed, Routine pravastatin 2020-08- No 40mg 40 mg, Uni vers (PRAVACHOL) 10-05 Oral, ity of tablet 40 15:00: 03:08 DAILY, [place] mg 00 :08 First dose Medical on [facility] 08/04/21 at 0900, Until Discontinu ed, Routine melatonin 2020-08- No 3mg 3 mg, Univer s (MELATIN) 10-05 Oral, QHS, ity of tablet 3 mg 04:30: 02:03 First dose [place] 00 :27 on [facility] 08/03/21 Branch at 2230, Until Discontinu ed, Routine metoprolol 2020-08- No 50mg 50 mg, Univ ers tartrate 10-05 Oral, BID, ity of (LOPRESSOR) 02:00: 22:27 First dose [place] tablet 50 00 :17 on Sat Medical mg 08/03/21 Branch at 2000, Until Discontinu ed, Routine HEPARIN 2020-08- No 4000U 4,000 Univers SODIUM 10-05 Units, IV ity of (PORCINE) 01:30: 02:21 Push, [place] 1,000 00 :00 ONCE, 1 Medical UNIT/ML dose, On Branch BOLUS ACS Sat ORDER SET 08/03/21 at 1930, DRAKE heparin 2020-08- No 3000U FOR Univers (1,000 10-05 REBOLUSING ity of unit/mL, 10 01:18: 16:52 , Starting [place] mL vial) 11 :36 on Sat Medical for 08/03/21 Branch Rebolusing at 1918, Until [place] 08/15/21 at 1052, Routine
Dosing based on aPPT testing parameters (refer to continuous heparin drip order).
heparin 2020-08- No 1000U/h 1,000 Unive rs 25,000 10-05 Units/hr ity of Units/250 01:18: 16:52 (10 [place] mL 11 :36 mL/hr), IV Medical (Premixed Infusion, Branc h Bag) in TITRATE, 0.45 % NS Parameters in Admin. Instr., Starting on 08/03/21 at 1918
CA UTION - If LMWH given in ER, AVOID bolus and start next dose/drip 12 hrs after ER dosage.&nb sp; M ust program rate using programmab le infusion pump.&nbsp ; Dafne ck with the ordering provider first prior to any administra tion should the patient be on existing/a dditional anticoagul ant therapy. Rang e, Dosing and Testing: &nbs p;FOR [facility], AND [facility] ONLY &nbs p; - aPTT < 35: & nbsp;Bolus 5000 units, increase rate 300 units/hr&n bsp; - aPTT 35-44:&nbs p; Lyle moreno 3000 units, increase rate 200 units/hr&n bsp; - aPTT 45-54:&nbs p; In crease rate 100 units/hr&n bsp; - aPTT 55-85:&nbs p;&nbs p;NO CHANGE&nbs p; - aPTT 86-95:&nbs p; De crease rate 100 units/hr&n bsp; - aPTT 96-120:&nb sp; H old 30 minutes, decrease rate 150 units/hr&n bsp; - aPTT > 120: Hold 60 minutes, decrease rate 200 units/hr&n bsp; Check aPTT 6 hours after initiation , then Q6H after every change, aPTT Q12H once therapeuti c levels are reached.&a mp;nbsp;&n bsp; ____ &nbs p; FO [facility] ONLY - aPTT < 40: & nbsp;Bolus 5000 units, increase rate 300 units/hr&n bsp; - aPTT 40-49:&nbs p; Lyle moreno 3000 units, increase rate 200 units/hr&n bsp; - aPTT 50-59:&nbs p; In crease rate 100 units/hr&n bsp; - aPTT 60-85:&nbs p; NO CHANGE&nbs p; - aPTT 86-95:&nbs p; De crease rate 100 units/hr&n bsp; - aPTT 96-120:&nb sp; H old 30 minutes, decrease rate 150 units/hr&n bsp; - aPTT > 120: Hold 60 minutes, decrease rate 200 units/hr&n bsp; Check aPTT 6 hours after initiation , then Q6H after every change, aPTT Q12H once therapeuti c levels are reached.&n bsp; DO NOT ADJUST INITIAL BOLUS OR INITIAL INFUSION RATE.
azithromyci 2020-08- No 500mg 500 mg, IV Univers n 10-05 Piggyback, ity of (ZITHROMAX) 01:00: 00:45 Q24H ABX, [place] 500 mg in 00 :00 3 doses, Medica l NaCl 0.9% First dose Bran ch (NS) 250 mL on Sat VIAL-MATE 08/03/21 IV at 1900, piggyback Last dose on 08/05/21 at 1900, Administer over 60 Minutes, 250 mL
Reas on for Anti-Infec tive: Documented Infection< br>Documen florencio Infection Site: Respirator y
Durat ion of Therapy: Other (see Comments) NaCl 0.9% 2020-08- No 1000mL at 1,000 U nivers (NS) IV 2-25 12-25 mL/hr, ity of infusion 20:45: 19:55 Intravenou [place] 1,000 mL 00 :00 s, ONCE, 1 Medic al dose, On Branch 08/03/21 at 1445, DRAKE ondansetron 2020-08- No 4mg 4 mg, Slow Univers (ZOFRAN 2-25 12-25 IV Push, ity of (PF)) 19:30: 17:08 ONCE, 1 [place] injection 4 00 :00 dose, On Medi tawanna mg Sat Branch 08/03/21 at 1330, DRAKE metroNIDAZO 2020-08- No 500mg 500 mg, IV Univers LE in NaCl 2-25 12-25 Infusion, ity of (iso-os) 18:30: 19:45 ONCE, 1 [place] (FLAGYL 00 :00 dose, On Medical I.V.) RTU Sat Branch IV infusion 08/03/21 500 mg at 1230, Administer over 75 Minutes, 100 mL
R barbie for Anti-Infec tive: Empiric Therapy for Suspected Infection< br>Empiric Therapy Site: Other
O ther site: unknown
Duration of therapy: 72 hours
R estricted use approved by: EMERGENCY DEPARTMENT PRESCRIBER cefTRIAXone 2020-08 No 2000mg 2,000 mg, Univers (ROCEPHIN) 2- 12-25 IV ity of 2,000 mg in 18:30: 18:50 [place], [place] NaCl 0.9% 00 :00 ONCE, 1 Medical (NS) 100 mL dose, On Bran ch MINI-BAG 08/03/21 at 1230, Administer over 30 Minutes, 100 mL
Reas on for Anti-Infec tive: Empiric Therapy for Suspected Infection< br>Empiric Therapy Site: Other
O ther site: unknown
Duration of therapy: 72 hours acetaminoph 2020-08- No 1000mg 1,000 mg, Univers en ADULT 10-04 12-25 IV ity of (OFIRMEV) 18:15: 18:05 Infusion, [place] injection 00 :00 Administer Medi tawanna 1,000 mg over 15 Branch Minutes, ONCE NOW, 1 dose, On 08/03/21 at 1215, Routine
Indicatio n: Non-periop erative Patient
Approved by: Per Policy (NPO Status) NaCl 0.9% 2020-08 No 1000mL at 999 Uni vers (NS) bolus 2-25 12-25 mL/hr, ity of infusion 18:15: 20:07 1,000 mL, [place] as 1,000 mL 00 :00 IV Medical Infusion, Branch ONCE, 1 dose, On 08/03/21 at 1215, DRAKE lisinopril 2020-08- No 20mg Take 20 mg Univers 20 mg 2-25 12-25 by mouth ity of tablet 17:43: 00:00 daily. [place] 28 :00 [facility] Branch amLODIPine 2020-08- No 1{tbl} Take 1 Un odilon 5 mg tablet 2-25 12-25 tablet by it y of 17:31: 00:00 mouth [place] 11 :00 daily. Medical Branch vancomycin 2020-08- No 15mg/kg 1,250 mg Univers 1250 mg in 2-25 12-25 (rounded ity of NS 250 mL 17:30: 19:59 from [place] RTU IV 00 :00 1,285.5 mg Medical Piggyback = 15 mg/kg Bran ch 1,250 mg ?85.7 kg), IV Piggyback, ONCE, 1 dose, On 08/03/21 at 1130, Administer over 90 Minutes
Reason for Anti-Infec tive: Empiric Therapy for Suspected Infection< br>Empiric Therapy Site: Other
O ther site: unknown
Duration of therapy: 72 hours aspirin 81 2018-0 Yes 1{tbl} Take 1 MD mg EC 2-12 tablet by Anderso tablet 10:41: mouth n 14 daily. lisinopril Yes 20mg Take 20 mg M D (PRINIVIL,Z 2-12 by mouth Rashaun rso ESTRIL) 20 10:41: every n mg tablet 14 morning. lisinopril Yes 10mg Take 10 mg M D (PRINIVIL,Z 2-12 by mouth Rashaun rso ESTRIL) 10 10:41: every n mg tablet 14 evening. amLODIPine 2018- Yes 1{tbl} Take 1 MD (NORVASC) 5 2-12 tablet by And erso mg tablet 10:41: mouth n 14 daily. cromolyn Yes Systemic 100mg Take 5 mL MD (GASTROCROM 2-12 mastocytosi (100 mg) Anderso ) 100 mg/5 00:00: s by mouth 4 n mL solution 00 (four) times a day before meals and nightly. cromolyn 2020- No 100mg Take 100 Uni vers 100 mg/5 mL 2-12 12-25 mg by ity of solution 00:00: 00:00 mouth 4 [place] 00 :00 (four) Medical times Branch daily with meals or snack. nitroglycer 2018- Yes 1{tbl} Place 1 M D in 1-11 tablet Anderso (NITROSTAT) 00:00: under the n 0.4 mg SL 00 tongue tablet every 5 (five) minutes as needed. Take up to 3 times rivaroxaban Yes 1{tbl} Take 1 Un odilon (XARELTO) 1-04 tablet by ity o f 20 mg 00:00: mouth [place] tablet 00 daily. [facility] rivaroxaban Yes 1{tbl} Take 1 Un odilon (XARELTO) 1-04 tablet by ity o f 20 mg 00:00: mouth [place] tablet 00 daily. [facility] rivaroxaban Yes 1{tbl} Take 1 Un odilon (XARELTO) 1-04 tablet by ity o f 20 mg 00:00: mouth [place] tablet 00 daily. [facility] rivaroxaban Yes 1{tbl} Take 1 Un odilon (XARELTO) 1-04 tablet by ity o f 20 mg 00:00: mouth [place] tablet 00 daily. [facility] rivaroxaban Yes 1{tbl} Take 1 Un odilon (XARELTO) 1-04 tablet by ity o f 20 mg 00:00: mouth [place] tablet 00 daily. [facility] furosemide Yes 1{tbl} Take 1 MD (LASIX) 40 1-04 tablet by Rashaun rso mg tablet 00:00: mouth n 00 daily. XARELTO 20 Yes 1{tbl} Take 1 MD mg tablet 1-04 tablet by Brayden so 00:00: mouth n 00 daily. furosemide 2021- No 1{tbl} Take 1 Un odilon 40 mg 1-04 01-10 tablet by ity of tablet 00:00: 00:00 mouth [place] 00 :00 daily. [facility] pravastatin Yes 40mg Take 40 mg Univers 40 mg 6-10 by mouth ity of tablet 00:00: daily. [place] [facility] pravastatin Yes 40mg Take 40 mg Univers 40 mg 6-10 by mouth ity of tablet 00:00: daily. [facility] pravastatin Yes 40mg Take 40 mg Univers 40 mg 6-10 by mouth ity of tablet 00:00: daily. [place] [facility] pravastatin Yes 40mg Take 40 mg Univers 40 mg 6-10 by mouth ity of tablet 00:00: daily. [facility] pravastatin Yes 40mg Take 40 mg Univers 40 mg 6-10 by mouth ity of tablet 00:00: daily. [address] Branch pravastatin 2016-0 Yes 40mg Take 40 mg MD (PRAVACHOL) 6-10 by mouth Rashaun rso 40 mg 00:00: at n tablet 00 bedtime. Immunizations Ordered Filled Immunization Date Status Comments [facility] e Immunization Name Name SARS-COV-2 COVID-19 2021-08-20 Completed Unive rsity of PFIZER VACCINE 00:00:00 [facility] SARS-COV-2 COVID-19 2021-08-20 Completed Unive rsity of PFIZER VACCINE 00:00:00 [facility] SARS-COV-2 COVID-19 2021-08-20 Completed Unive rsity of PFIZER VACCINE 00:00:00 [facility] SARS-COV-2 COVID-19 2021-08-20 Completed Unive rsity of PFIZER VACCINE 00:00:00 [facility] SARS-COV-2 COVID-19 2021-08-20 Completed Unive rsity of PFIZER VACCINE 00:00:00 [facility] SARS-COV-2 COVID-19 2021-01-14 Completed Unive rsity of PFIZER VACCINE 00:00:00 [facility] SARS-COV-2 COVID-19 2021-01-14 Completed Unive rsity of PFIZER VACCINE 00:00:00 [facility] SARS-COV-2 COVID-19 2021-01-14 Completed Unive rsity of PFIZER VACCINE 00:00:00 [facility] SARS-COV-2 COVID-19 2021-01-14 Completed Unive rsity of PFIZER VACCINE 00:00:00 [facility] SARS-COV-2 COVID-19 2021-01-14 Completed Unive rsity of PFIZER VACCINE 00:00:00 [facility] SARS-COV-2 COVID-19 2020-12-24 Completed Unive rsity of PFIZER VACCINE 00:00:00 [facility] SARS-COV-2 COVID-19 2020-12-24 Completed Unive rsity of PFIZER VACCINE 00:00:00 [facility] SARS-COV-2 COVID-19 2020-12-24 Completed Unive rsity of PFIZER VACCINE 00:00:00 [facility] SARS-COV-2 COVID-19 2020-12-24 Completed Unive rsity of PFIZER VACCINE 00:00:00 [facility] SARS-COV-2 COVID-19 2020-12-24 Completed Unive rsity of PFIZER VACCINE 00:00:00 [facility] Branch Pneumococcal 13 2017-08-10 Completed Universit y of Conjugate, PCV13 00:00:00 [facility] dical (Prevnar 13) Branch Influenza Virus 2017-08-10 Completed Universit y of Vaccine Quad IM 00:00:00 [place] Med ical Multi-dose 6+ MO Branch Pneumococcal 13 2017-08-10 Completed Universit y of Conjugate, PCV13 00:00:00 [facility] dical (Prevnar 13) Branch Influenza Virus 2017-08-10 Completed Universit y of Vaccine Quad IM 00:00:00 [place] Med ical Multi-dose 6+ MO Branch Pneumococcal 13 2017-08-10 Completed Universit y of Conjugate, PCV13 00:00:00 [facility] dical (Prevnar 13) Branch Influenza Virus 2017-08-10 Completed Universit y of Vaccine Quad IM 00:00:00 [place] Med ical Multi-dose 6+ MO Branch Pneumococcal 13 2017-08-10 Completed Universit y of Conjugate, PCV13 00:00:00 [facility] dical (Prevnar 13) Branch Influenza Virus 2017-08-10 Completed Universit y of Vaccine Quad IM 00:00:00 [place] Med ical Multi-dose 6+ MO Branch Pneumococcal 13 2017-08-10 Completed Universit y of Conjugate, PCV13 00:00:00 [facility] dical (Prevnar 13) Branch Influenza Virus 2017-08-10 Completed Universit y of Vaccine Quad IM 00:00:00 [place] Med ical Multi-dose 6+ MO Branch Vital Signs Vital Name Observation Time Observation Value Comments Source HEIGHT 2020-07-10 15:32:00 175.3 cm WEIGHT 2020-07-10 15:32:00 78.8 kg HEIGHT 2020-07-07 23:10:00 175.3 cm WEIGHT 2020-07-07 20:24:00 78.8 kg Systolic blood 2021-08-20 22:07:00 104 mm[Hg] Univer sity of pressure [facility] Diastolic blood 2021-08-20 22:07:00 50 mm[Hg] Unive rsity of pressure [facility] Heart rate 2021-08-20 22:07:00 70 /min [facility] Respiratory rate 2021-08-20 22:07:00 18 /min [facility] Oxygen saturation in 2021-08-20 22:07:00 96 /min [facility] blood by [facility] Pulse oximetry [place] Body temperature 2021-08-20 14:50:00 35.89 [place] [facility] Body weight 2021-08-04 14:00:00 86 kg [facility] BMI 2021-08-04 14:00:00 27.20 kg/m2 [facility] Body height 2021-08-03 22:33:00 177.8 cm [facility] HEIGHT 2020-07-10 15:32:00 175.3 cm WEIGHT 2020-07-10 15:32:00 78.8 kg HEIGHT 2020-07-07 23:10:00 175.3 cm WEIGHT 2020-07-07 20:24:00 78.8 kg Procedures Procedure Date / Time Performing Clinician Source Performed HOME HEALTH - OTHER 2021-10-09 06:01:00 Doctor Unassigned, [facility] Name [facility] [place] PHYSICIAN ORDERS 2021-09-13 06:01:00 Doctor Unassigned, [facility] [place] HOME HEALTH - OTHER 2021-08-30 06:01:00 Doctor Unassigned, [facility] Name Medical [place] COVID-19 (ID NOW RAPID 2021-08-20 20:47:00 Zachary Merida [facility] TESTING) Medical Branch COVID-19 (ID NOW RAPID 2021-08-19 20:50:00 Clancy [facility] TESTING) Medical Branch LAB ONLY COVID 2021-08-19 20:50:00 [facility] f [place] INTERPRETATION [facility] [place] MODIFIED BARIUM SWALLOW 2021-08-19 16:55:00 Stephenie [facility] DUPLEX VENOUS LEG RIGHT - 2021-08-18 14:53:11 Laura Casiano [facility] BY VASCULAR LAB [facility] MAGNESIUM 2021-08-18 09:34:00 Stephenie [facility] COMP. METABOLIC PANEL 2021-08-18 09:34:00 Stephenie, [facility] ([id number]) [facility] CBC WITHOUT DIFF 2021-08-18 09:34:00 Stephenie, [facility] ACTIVATED PARTIAL THRMPLAS 2021-08-18 09:33:00 Pierce, Adelso [facility] ACTIVATED PARTIAL THRMPLAS 2021-08-18 02:27:00 Pierce, Adelso [facility] ACTIVATED PARTIAL THRMPLAS 2021-08-17 20:01:00 Pierce, Adelso [facility] MAGNESIUM 2021-08-17 11:43:00 Stepheine [facility] BASIC METABOLIC PANEL (NA, 2021-08-17 11:43:00 [facility], CL, CO2, GLUCOSE, BUN, [place] Medica l Branch CREATININE, [place]) CBC WITH DIFF 2021-08-17 11:43:00 Stephenie [facility] ACTIVATED PARTIAL THRMPLAS 2021-08-17 11:43:00 Pierce, Adelso [facility] CBC WITHOUT DIFF 2021-08-16 23:19:00 Stephenie [facility] ACTIVATED PARTIAL THRMPLAS 2021-08-16 23:19:00 Pierce, Adelso [facility] DUPLEX VENOUS LEG LEFT - 2021-08-16 21:40:50 Stephenie [facility] BY VASCULAR LAB [facility] URINALYSIS 2021-08-16 20:50:00 Stephenie [facility] URINE CULTURE 2021-08-16 20:50:00 Stephenie [facility] CREATININE, URINE RANDOM 2021-08-16 20:49:00 Stephenie [facility] UREA NITROGEN, URINE 2021-08-16 20:49:00 Stephenie [facility] SODIUM, URINE RANDOM 2021-08-16 20:49:00 Stephenie [facility] XR KUB 2021-08-16 20:15:53 Stephenie, [facility] PREPARE PACKED RBC 2021-08-16 20:00:14 Stephenie, [facility] ABORH CONFIRMATION (LAB 2021-08-16 18:40:00 Stephenie, Uni [facility] ONLY) [facility] TROPONIN I 2021-08-16 17:53:00 Stephenie, [facility] HB ABO GROUPING 2021-08-16 17:53:00 Stephenie, [facility] MAGNESIUM 2021-08-16 11:48:00 Verona [facility] TROPONIN I 2021-08-16 11:48:00 Stephenie [facility] BASIC METABOLIC PANEL (NA, 2021-08-16 11:48:00 Verona, [facility] K, CL, CO2, GLUCOSE, BUN, Medica l Branch CREATININE, CA) CBC WITHOUT DIFF 2021-08-16 11:48:00 Verona [facility] ACTIVATED PARTIAL THRMPLAS 2021-08-16 11:48:00 [facility] PART[facility] 2021-08-15 22:58:00 [facility] WITHOUT DIFF 2021-08-15 18:27:00 Julieth, [facility] XR CHEST 1 VW 2021-08-15 17:38:00 Verona [facility] MAGNESIUM 2021-08-15 17:30:00 Clancy [facility] TROPONIN I 2021-08-15 17:30:00 Verona [facility] BASIC METABOLIC PANEL (NA, 2021-08-15 17:30:00 Clancy, [facility] K, CL, CO2, GLUCOSE, BUN, Medica l Branch CREATININE, CA) ACTIVATED PARTIAL THRMPLAS 2021-08-15 10:48:00 [facility] 2021-08-15 10:47:00 Verona [facility] BASIC METABOLIC PANEL (NA, 2021-08-15 10:47:00 Verona [facility] K, CL, CO2, GLUCOSE, BUN, Medica l Branch CREATININE, CA) CBC WITHOUT DIFF 2021-08-15 10:47:00 Verona [facility] ACTIVATED PARTIAL THRMPLAS 2021-08-14 21:58:00 Stan Adelso [facility] XR CHEST 1 VW 2021-08-14 17:44:00 Julieth [facility] ACTIVATED PARTIAL THRMPLAS 2021-08-14 09:45:00 Adelso Pierce [facility] BASIC METABOLIC PANEL (NA, 2021-08-14 09:44:00 Verona [facility] K, CL, CO2, GLUCOSE, BUN, Medica l Branch CREATININE, CA) CBC WITH DIFF 2021-08-14 09:44:00 Verona [facility] US RETROPERITONEAL LIMITED 2021-08-14 02:17:17 Kay Clancy [facility] MAGNESIUM 2021-08-13 19:11:00 Stephenie [facility] BASIC METABOLIC PANEL (NA, 2021-08-13 19:11:00 [facility] K, CL, CO2, GLUCOSE, BUN, Sandy [facility] CREATININE, CA) HB ECG ROUTINE & RHYTHM 2021-08-13 18:53:59 Stephenie [facility] CORONARY ANGIOGRAPHY 2021-08-13 14:24:40 Doctor Unassigned, [facility] Name Medical Branch MAGNESIUM 2021-08-13 11:29:00 Stephenie [facility] BASIC METABOLIC PANEL (NA, 2021-08-13 11:29:00 [facility] K, CL, CO2, GLUCOSE, BUN, [facility] CREATININE, CA) CBC WITH DIFF 2021-08-13 11:29:00 Stephenie [facility] EXTERNAL PROVIDER RECORDS 2021-08-13 06:01:00 Doctor Unassigned, [facility] ACTIVATED PARTIAL THRMPLAS 2021-08-13 01:51:00 Job, N[facility]man [facility] BASIC METABOLIC PANEL (NA, 2021-08-12 23:35:00 [facility] K, CL, CO2, GLUCOSE, BUN, [facility] CREATININE, CA) FL BARIUM SWALLOW 2021-08-12 22:15:24 Stephenie [facility] ACTIVATED PARTIAL THRMPLAS 2021-08-12 18:57:00 Job, Nouman U niversity [facility] ACTIVATED PARTIAL THRMPLAS 2021-08-12 12:17:00 Job, Nouman [facility] LACTATE DEHYDROGENASE 2021-08-12 11:33:00 Verona, [facility] PROTHROMBIN TIME / INR 2021-08-12 11:33:00 Verona, [facility] LACTIC ACID WHOLE BLOOD 2021-08-12 11:33:00 Verona, [facility] BASIC METABOLIC PANEL (NA, 2021-08-12 11:32:00 Verona, [facility] K, CL, CO2, GLUCOSE, BUN, [facility] [place] CREATININE, CA) CBC WITH DIFF 2021-08-12 11:32:00 Verona, [facility] ACTIVATED PARTIAL THRMPLAS 2021-08-12 06:10:00 Job Nouman [facility] XR CHEST 1 VW 2021-08-11 21:11:00 Verona, [facility] MAGNESIUM 2021-08-11 20:49:00 Stephenie [facility] BASIC METABOLIC PANEL (NA, 2021-08-11 20:49:00 [facility] K, CL, CO2, GLUCOSE, BUN, Sandy [facility] CREATININE, CA) N-TERMINAL PRO-BNP 2021-08-11 20:49:00 Verona, [facility] COVID-19 (ID NOW RAPID 2021-08-11 20:49:00 Verona, [facility] TESTING [facility] LAB ONLY COVID 2021-08-11 20:49:00 Verona, [facility] D-DIMER 2021-08-11 17:55:00 Verona, [facility] ACTIVATED PARTIAL THRMPLAS 2021-08-11 17:55:00 Job, Nouman [facility] URINALYSIS 2021-08-11 15:51:00 Verona, [facility] CREATININE, URINE RANDOM 2021-08-11 15:51:00 Clancy, [facility] UREA NITROGEN, URINE 2021-08-11 15:51:00 Verona, [facility] POTASSIUM, URINE RANDOM 2021-08-11 15:51:00 Verona, [facility] SODIUM, URINE RANDOM 2021-08-11 15:51:00 Clancy, [facility] HB ECG ROUTINE & RHYTHM 2021-08-11 15:38:17 Verona, [facility] HAPTOGLOBIN, SERUM 2021-08-11 12:02:00 Verona, [facility] HEPATIC FUNCTION PANEL 2021-08-11 12:02:00 Clancy, [facility] ([id number]) (ALB,T.PRO,BILI Medical Branch T,BU/BC,ALT,AST,ALK PHOS) BASIC METABOLIC PANEL (NA, 2021-08-11 12:02:00 Clancy, [facility] K, CL, CO2, GLUCOSE, BUN, Medica l Branch CREATININE, CA) CBC WITH DIFF 2021-08-11 12:02:00 Clancy, [facility] RETICULOCYTES AUTOMATED 2021-08-11 12:02:00 Verona, [facility] ACTIVATED PARTIAL THRMPLAS 2021-08-11 12:01:00 Job, N[facility]man [facility] ACTIVATED PARTIAL THRMPLAS 2021-08-11 00:06:00 Job, Nouman [facility] PHOSPHORUS 2021-08-10 11:58:00 Stephenie [facility] MAGNESIUM 2021-08-10 11:58:00 Stephenie [facility] COMP. METABOLIC PANEL 2021-08-10 11:58:00 Stephenie [facility] ([id number]) [facility] CBC WITH DIFF 2021-08-10 11:58:00 Stephenie [facility] ACTIVATED PARTIAL THRMPLAS 2021-08-10 11:57:00 [facility]ogany [facility] MR ABDOMEN W WO CONTRAST 2021-08-10 04:28:22 [facility] ACTIVATED PARTIAL THRMPLAS 2021-08-10 00:28:00 Mahogany Kaiser [facility] TRANSESOPHAGEAL ECHO (DEANDRA) 2021-08-09 19:32:35 Moreno Montoya [facility] COMPLETE W/ DOPPLER AND Medical Branch COLOR COVID-19 (ID NOW RAPID 2021-08-09 14:44:00 Stephenie [facility] TESTING) [facility] LAB ONLY COVID 2021-08-09 14:44:00 [facility] MAGNESIUM 2021-08-09 12:13:00 Kierra Cortes [facility] BASIC METABOLIC PANEL (NA, 2021-08-09 12:13:00 Kierra Cortes [facility] K, CL, CO2, GLUCOSE, BUN, Medica l Branch CREATININE, CA) CBC WITH DIFF 2021-08-09 12:13:00 Kierra Cortes [facility] ACTIVATED PARTIAL THRMPLAS 2021-08-09 12:13:00 Mahogany [facility] N-TERMINAL PRO-BNP 2021-08-09 12:13:00 Kierra Cortes [facility] ACTIVATED PARTIAL THRMPLAS 2021-08-09 06:58:00 Mahogany [facility] XR ANKLE 3+ VW RIGHT 2021-08-08 22:00:00 Kierra Cortes [facility] XR FOOT 3+ VW RIGHT 2021-08-08 22:00:00 Kierra Cortes [facility] LACTATE DEHYDROGENASE 2021-08-08 18:14:00 [place] [facility] ACTIVATED PARTIAL THRMPLAS 2021-08-08 18:14:00 Mahogany Kaiser [facility] LOWER EXTREMITY ARTERIAL 2021-08-08 17:20:24 Kierra Cortes [facility] DUPLEX BILATERAL - BY Medical anch VASCULAR LAB DUPLEX VENOUS LEGS 2021-08-08 17:20:17 Kierra Cortes [facility] BILATERAL - BY VASCULAR [facility] LAB MAGNESIUM 2021-08-08 11:59:00 Sophia [facility] HEPATIC FUNCTION PANEL 2021-08-08 11:59:00 Kierra Cortes [facility] ([id number]) (ALB,T.PRO,BILI [facility] T,BU/BC,ALT,AST,ALK PHOS) BASIC METABOLIC PANEL (NA, 2021-08-08 11:59:00 Kierra Cortes [facility] K, CL, CO2, GLUCOSE, BUN, Medica l Branch CREATININE, CA) CBC WITH DIFF 2021-08-08 11:59:00 Kierra Cortes [facility] ACTIVATED PARTIAL THRMPLAS 2021-08-08 05:28:00 Mahogany Kaiser [facility] XR CHEST 1 VW 2021-08-07 22:24:[address] [facility] BODY FLUID (BACTEC BOTTLE) 2021-08-07 22:21:00 Tala Rangel U [facility] BODY FLUID FUNGUS CULTURE 2021-08-07 22:21:00 Tala Rangel [facility] (BACTEC BOTTLE) [facility] AMYLASE BODY FLUID 2021-08-07 21:45:00 Sawyer [facility] GLUCOSE BODY FLUID 2021-08-07 21:45:00 Sawyer [facility] T.PROTEIN BODY FLUID 2021-08-07 21:45:00 Sawyer [facility] BODY FLUID DIRECT COUNT 2021-08-07 21:45:00 Sawyer [facility] AFB CULTURE 2021-08-07 21:45:00 Mikey Pattonammed [facility] CYTO PLEURAL FLUID 2021-08-07 21:45:00 Sawyer [facility] LDH TOTAL BODY FLUID 2021-08-07 21:45:00 Sawyer [facility] HEPATIC FUNCTION PANEL 2021-08-07 20:46:00 Kierra Cortes [facility] ([id number]) (ALB,T.PRO,[facility] T,BU/BC,ALT,AST,ALK PHOS) ACTIVATED PARTIAL THRMPLAS 2021-08-07 20:46:00 Mahogany Kaiser [facility] MAGNESIUM 2021-08-07 08:08:00 Rao [facility] RHEUMATOID FACTOR 2021-08-07 08:08:00 Rao [facility] C-REACTIVE PROTEIN 2021-08-07 08:08:00 Constantin Yeh [facility] BASIC METABOLIC PANEL (NA, 2021-08-07 08:08:00 [facility] K, CL, CO2, GLUCOSE, BUN, Medica l Branch CREATININE, CA) CBC WITH DIFF 2021-08-07 08:08:00 [facility] ACTIVATED PARTIAL THRMPLAS 2021-08-07 08:08:00 Mahogany Kaiser [facility] SPUTUM CULTURE 2021-08-07 04:23:00 Rao [facility] BLOOD CULTURE SCREEN 2021-08-07 04:15:00 Constantin Yeh [facility] URINALYSIS 2021-08-07 04:06:00 Rao [facility] BLOOD CULTURE SCREEN 2021-08-07 03:59:00 Constantin Yeh [facility] POCT GLUCOSE (AUTOMATED) 2021-08-07 03:46:00 Tesfaye Wheeler [facility] CT ABDOMEN PELVIS W 2021-08-07 03:32:00 Constantin Yeh [facility] CONTRAST [facility] CT THORAX W CONTRAST 2021-08-07 03:32:00 Constantin Yeh [facility] ACTIVATED PARTIAL THRMPLAS 2021-08-06 19:43:00 Mahogany Kaiser [facility] SEDIMENTATION RATE 2021-08-06 15:56:00 [facility] CBC WITH DIFF 2021-08-06 15:56:00 Clancy [facility] MAGNESIUM 2021-08-06 12:21:00 Rao [facility] HAPTOGLOBIN, SERUM 2021-08-06 12:21:00 [facility] HEPATIC FUNCTION PANEL 2021-08-06 12:21:00 [facility] ([id number]) (ALB,T.PRO,BILI [facility] T,BU/BC,ALT,AST,ALK PHOS) BASIC METABOLIC PANEL (NA, 2021-08-06 12:21:00 Constantin Yeh [facility] K, CL, CO2, GLUCOSE, BUN, Medica l Branch CREATININE, CA) PROTHROMBIN TIME / INR 2021-08-06 12:21[facility]PLAS 2021-08-06 12:21:00 [facility] N-TERMINAL PRO-BNP 2021-08-06 12:21:00 Moreno Montoya [facility] ACTIVATED PARTIAL THRMPLAS 2021-08-06 05:49:00 [facility]any [facility] ACTIVATED PARTIAL THRMPLAS 2021-08-05 22:53:00 [facility]any [facility] TRANSTHORACIC ECHO (TTE) 2021-08-05 17:19:00 Rc Ac [facility] COMPLETE W/ CONTRAST Al-Davignesh Alcazar [facility] ACTIVATED PARTIAL THRMPLAS 2021-08-05 15:27:00 Mahogany Kaiser [facility] URINALYSIS 2021-08-05 14:46:00 Main [facility] PNEUMOCOCCAL ANTIGEN 2021-08-05 14:46:00 Main, [facility] HB ECG ROUTINE & RHYTHM 2021-08-05 13:42:49 Main [facility] MAGNESIUM 2021-08-05 10:01:00 Main, [facility] FERRITIN SERUM 2021-08-05 10:01:00 Julieth [facility] BASIC METABOLIC PANEL (NA, 2021-08-05 10:01:00 Ramsey [facility] K, CL, CO2, GLUCOSE, BUN, Medica [facility] CREATININE, CA) IRON PANEL 2021-08-05 10:01:00 Julieth [facility] CBC WITH DIFF 2021-08-05 10:01:00 Ramsey [facility] GLYCOSYLATED HEMOGLOBIN 2021-08-05 [facility]:01[facility] ACTIVATED PARTIAL THRMPLAS 2021-08-05 10:01:00 Mahogany Kaiser [facility] ACTIVATED PARTIAL THRMPLAS 2021-08-04 21:49:00 [facility] ACTIVATED PARTIAL THRMPLAS 2021-08-04 15:46:00 Mahogany Kaiser [facility] MAGNESIUM 2021-08-04 08:07:00 Micah Rhoades [facility] TROPONIN I 2021-08-04 08:07:[address] [facility] MaximusRaf Sahu Alcazar [facility] BASIC METABOLIC PANEL (NA, 2021-08-04 08:07:00 Micah Rhoades [facility] K, CL, CO2, GLUCOSE, BUN, Medica l Branch CREATININE, CA) CBC WITH DIFF 2021-08-04 08:07:00 Verona [facility] ACTIVATED PARTIAL THRMPLAS 2021-08-04 08:07:00 Mahogany Kaiser [facility] TROPONIN I 2021-08-04 02:03:00 Yashira [facility] MaximusRaf Sahu Alcazar [facility] ACTIVATED PARTIAL THRMPLAS 2021-08-04 01:29:00 Mahogany [facility] HEPARIN ANTI-XA, 2021-08-04 01:29:00 Job [facility] UNFRACTIONATED HEPARIN Medical B ranch TROPONIN I 2021-08-04 00:15:00 Job [facility] PROCALCITONIN 2021-08-04 00:15:00 Job [facility] SPUTUM CULTURE 2021-08-04 00:11:00 Job [facility] MRSA / MSSA SCREEN BY PCR, 2021-08-04 00:11:00 Mahogany Kaiser [facility] HB ECG ROUTINE & RHYTHM 2021-08-03 23:02:51 Mahogany Kaiser [facility] LACTIC ACID WHOLE BLOOD 2021-08-03 20:59:00 Elizabeth Redmond [facility] XR CHEST 1 VW 2021-08-03 18:17:12 Elizabeth Redmond [facility] BLOOD CULTURE SCREEN 2021-08-03 18:11:00 Elizabeth Redmond [facility] RAPID INFLUENZA A/B 2021-08-03 18:11:00 Elizabeth Redmond [facility] COVID-19 (ID NOW RAPID 2021-08-03 18:11:00 Elizabeth Redmond [facility] TESTING) [facility] LAB ONLY COVID 2021-08-03 18:11:00 [facility] INTERPRETATION [facility] LIPASE 2021-08-03 17:43:00 Elizabeth Redmond [facility] MAGNESIUM 2021-08-03 17:43:00 Elizabeth Redmond [facility] TROPONIN I 2021-08-03 17:43:00 Elizabeth Redmond [facility] COMP. METABOLIC PANEL 2021-08-03 17:43:00 Elizabeth Redmond [facility] ([id number]) [facility] CBC WITH DIFF 2021-08-03 17:43:00 Elizabeth Redmond [facility] N-TERMINAL PRO-BNP 2021-08-03 17:43:00 Elizabeth Redmond [facility] LACTIC ACID WHOLE BLOOD 2021-08-03 17:36:00 Elizabeth Redmond [facility] BLOOD CULTURE SCREEN 2021-08-03 17:34:00 Elizabeth Redmond [facility] PROTHROMBIN TIME / INR 2021-08-03 17:34:00 Elizabeth Redmond [facility] ACTIVATED PARTIAL THRMPLAS 2021-08-03 17:34:00 Elizabeth Redmond [facility] FIBRINOGEN 2021-08-03 17:34:00 Elizabeth Redmond [facility] BLOOD CULTURE WORKUP 2021-08-03 17:34:00 Elizabeth Redmond [facility] GRAM NEGATIVE BLOOD 2021-08-03 17:34:00 [facility] PATHOGENS DNA [facility] PROBE-AEROBIC HB ECG ROUTINE & RHYTHM 2021-08-03 17:15:20 Elizabeth Redmond [facility] CRITICAL CARE 2021-08-03 16:47:00 Elizabeth Redmond [facility] EMERGENCY DEPARTMENT 2021-08-03 06:01:00 Doctor Lexissigned, [facility] DOCUMENTS [facility] EMERGENCY SERVICES 2021-08-03 06:01:00 Doctor Tracy, [facility] AGREEMENTS AND [facility] AUTHORIZATIONS Plan of Care Planned Activity Planned Date Details Comments Source Future Scheduled Test 1942 00:00:00 COVID-19 Vaccination MD Rinaldi (1) [code = COVID-19 Vaccination (1)] Encounters Start End Encounter Admission Attending Care Care Encounter Source Date/Time Date/Time Type Type Clinicians Facility Department ID 2021-05-17 Inpatient UR ARI-ITTHenrietta [facility] Internal [id number] SLE 18:03:13 Bryn LAU 2021-10-09 2021-10-09 Orders Doctor SARAH [id number] Univers 00:00:00 00:00:00 Only Unassigned, BRIANA [id number] ity of [facility] 4.2.7.2.686 Anton [place] [id number] [place] [address] Branch 2021-09-13 2021-09-13 Orders Doctor SMITH [id number] Univers 00:00:00 00:00:00 Only Unassigned, BRIANA [id number] ity of [facility] 4.2.7.2.686 Anton as [phone] [place] [address] Branch 2021-08-30 2021-08-30 Orders Doctor SMITH [id number] Univers 00:00:00 00:00:00 Only Unassigned, BRIANA [id number] ity of [place] [facility] 4.2.7.2.686 Anton as [id number] [place] [address] Branch 2021-08-21 2021-08-21 Transition ARMIDA [place] [id number] Univers 00:00:00 00:00:00 of Care Francesla BHATTI [id number] i ty of [place] [id number] [place] [address] Branch 2021-08-03 2021-08-20 Inpatient X [facility]LAND [facility] MARYLU [id number] Univers 10:48:00 20:35:00 MARK RAGLAND it y of [facility] 2021-08-03 2021-08-20 [facility] Elizabeth Redmond 1.2.840. [id number] Univers 10:48:00 20:35:00 Encounter Bj Patton 350.1 .13.10 ity of [facility] 4.2.7.2.686 [place] Tala Rangel [phone] [id number] Medical AngleMark murrell 100 Bran 2019-02-14 2019-02-14 Outpatient Elza GARCIA, [facility] [id number] [facility] 10:22:00 23:59:00 ALYCIA [facility] Results Test Description Test Time Test Comments Results Result Comments Source COMP. METABOLIC PANEL (33318) 2021-08-18 10:38:55 Test Item Value Reference Range Interpretation Comme nts NA (test code = 1565307801) 135 mmol/L 135-145 K (test code = 1745287053) 4.1 mmol/L 3.5-5.0 CL (test code = 1868092089) 108 mmol/L 98-108 CO2 TOTAL (test code = 3812284233) 24 mmol/L 23-31 AGAP (test code = 1928592808) 2-16 BUN (test code = 0323136262) 39 mg/dL 7-23 H GLUCOSE (test code = 7967262481) 76 mg/dL 70-110 CREATININE (test code = 1.19 mg/dL 0.60-1.25 7475535058) TOTAL BILI (test code = 1.4 mg/dL 0.1-1.1 H 4439662973) CALCIUM (test code = 2868156328) 9.1 mg/dL 8.6-10.6 T PROTEIN (test code = 5691912512) 5.8 g/dL 6.3-8.2 L ALBUMIN (test code = 7285557036) 2.5 g/dL 3.5-5.0 L ALK PHOS (test code = 6374487890) 82 U/L 34-122 ALTv (test code = 1742-6) 12 U/L 5-50 AST(SGOT) (test code = 8627350189) 13 U/L 13-40 eGFR (test code = 7489862705) mL/min/1.73m2 TON (test code = TON) Association of Glomerular Filtration Rate (GFR) and Staging of Kidney Disease* + +-------- + ------+| GFR (mL/min/1.73 m2) ?| With Kidney Damage ?| ?Without Kidney Damage+ +-- + +| ?>90 ?| ?Stage one ?| ? Normal ?+ +------- + -------+| ?60-89 ?| ?Stage two ?| ? Decreased GFR ? + +-------- + ------+| ?30-59 ?| ?Stage three ?| ? Stage three ? + +-------- + ------+| ?15-29 ?| ?Stage four ? | ? Stage four ?+ +------- + -------+| ?<15 (or dialysis) ? ?| ?Stage five ? | ? Stage five ?+ +------- + -------+ *Each stage assumes the associated GFR level has been in effect for at least three months. ?Stages 1 to 5, with or without kidney disease, indicate chronic kidney disease. Notes: Determination of stages one and two (with eGFR >59mL/min/1.73 m2) requires estimation of kidney damage for at least three months as defined by structural or functional abnormalities of the kidney, manifested by either:Pathological abnormalities or Markers of kidney damage (including abnormalities in the composition of the blood or urine or abnormalities in imaging tests). Lab Interpretation (test code = Abnormal 37883-6) [facility]55 Test Item Value Reference Range Interpretation Comments MAGNESIUM (test code = 6306382483) 1.8 mg/dL 1.7-2.4 Lab Interpretation (test code = Normal 76253-3) [facility] WITHOUT [id number] 09:55:11 Test Item Value Reference Range Interpretation Comments WBC (test code = See_Comment H [Automated message] 6690-2) The system [employer] generated this result transmitted ref erence range: 4.20 - 1 0.70 10*3/?L. The reference range was not used to int erpret this result as normal/abnormal . RBC (test code = 789-8) See_Comment L [Au tomated message] The system [employer] generated this result transmitted ref erence range: 4.26 - 5 .52 10*6/?L. The reference range was not used to int erpret this result as normal/abnormal . HGB (test code = 718-7) 8.1 g/dL 12.2-16.4 L HCT (test code = 27.4 % 38.4-49.3 L 4544-3) MCH (test code = 785-6) 23.2 pg 26.1-32.7 L MCV (test code = 787-2) 78.5 fL 81.7-95.6 L MCHC (test code = 29.6 g/dL 31.2-35.0 L 786-4) PLT (test code = 777-3) See_Comment L [Au tomated message] The system [employer] generated this result transmitted ref erence range: 150 - 32 8 10*3/?L. The reference range was not used to int erpret this result as normal/abnormal . MPV (test code = Not Measure d 55680-1) RDW-CV (test code = 19.1 % 12.1-15.4 H 788-0) RDW-SD (test code = 54.4 fL 38.5-51.6 H 27890-9) NRBC x10^3 (test code = <0.01 See_Comment [Au tomated message] 8852936684) The system [employer] generated this result transmitted ref erence range: 10*3/?L. The reference range was not used to int erpret this result as normal/abnormal . NRBC/100 WBC (test code See_Comment [Au tomated message] = 8077166680) The system [employer] generated this result transmitted ref erence range: 0.0 - 10 .0 /100 WBCs. The reference range was not used to int erpret this result as normal/abnormal . IPF % (test code = 6.1 % 1.2-10.7 Platelet count 1525877515) measured by fluorescence me thod. Lab Interpretation Abnormal (test code = 28472-1) [facility] [id number] 09:53:55 Test Item Value Reference Range Interpretation Comments APTT Patient (test code See_Comment H [Au tomated message] = 3173-2) The system [employer] generated this result transmitted ref erence range: 26 - 36 Seconds. The reference range was not used to int erpret this result as normal/abnormal . Lab Interpretation (test Abnormal code = 64072-0) [facility] [id number] 02:51:29 Test Item Value Reference Range Interpretation Comments APTT Patient (test code See_Comment H [Au tomated message] = 3173-2) The system [employer] generated this result transmitted ref erence range: 26 - 36 Seconds. The reference range was not used to int erpret this result as normal/abnormal . Lab Interpretation (test Abnormal code = 98488-4) [facility] [id number] 20:20:21 Test Item Value Reference Range Interpretation Comments APTT Patient (test code See_Comment H [Au tomated message] = 3173-2) The system [employer] generated this result transmitted ref erence range: 26 - 36 Seconds. The reference range was not used to int erpret this result as normal/abnormal . Lab Interpretation (test Abnormal code = 01918-8) [facility] 12[facility]53:29 Test Item Value Reference Range Interpretation Comments MAGNESIUM (test code = 5045994476) 1.9 mg/dL 1.7-2.4 Lab Interpretation (test code = Normal 81211-3) [facility] (NA, K, CL, CO2, GLUCOSE, BUN, CREATININE, CA)2021-08-17 12:53:29 Test Item Value Reference Range Interpretation Comments NA (test code = 133 mmol/L 135-145 L 6892133385) K (test code = 4.4 mmol/L 3.5-5.0 2479429780) CL (test code = 107 mmol/L 98-108 1906339269) CO2 TOTAL (test code = 22 mmol/L 23-31 L 8832905357) AGAP (test code = 2-16 8200072394) BUN (test code = 43 mg/dL 7-23 H 4876949787) GLUCOSE (test code = 84 mg/dL 70-110 9880307746) CREATININE (test code = 1.28 mg/dL 0.60-1.25 H 1006093522) CALCIUM (test code = 9.0 mg/dL 8.6-10.6 7861680322) eGFR (test code = mL/min/1.73m2 7203909418) TON (test code = TON) Association of Glomerular Filtration Rate (GFR) and Staging of Kidney Disease* + --+ --+ ------+| GFR (mL/min/1.73 m2) ?| With Kidney Damage ?| ?Without Kidney Damage+ --------+ --------+ +| ?>90 ?| ?Stage one ?| ? Normal ?+ ---+ ---+ -------+| ?60-89 ?| ?Stage two ?| ? Decreased GFR ? + --+ --+ ------+| ?30-59 ?| ?Stage three ?| ? Stage three ? + --+ --+ ------+| ?15-29 ?| ?Stage four ? | ? Stage four ?+ ---+ ---+ -------+| ?<15 (or dialysis) ? ?| ?Stage five ? | ? Stage five ?+ ---+ ---+ -------+ *Each stage assumes the associated GFR level has been in effect for at least three months. ?Stages 1 to 5, with or without kidney disease, indicate chronic kidney disease. Notes: Determination of stages one and two (with eGFR >59mL/min/1.73 m2) requires estimation of kidney damage for at least three months as defined by structural or functional abnormalities of the kidney, manifested by either:Pathological abnormalities or Markers of kidney damage (including abnormalities in the composition of the blood or urine or abnormalities in imaging tests). Lab Interpretation Abnormal (test code = 22359-4) [facility] WITH [id number] 12:39:46 Test Item Value Reference Range Interpretation Comments WBC (test code = See_Comment H [Automated 8106-2) message] The sy stem which generated this result transmitted reference range : 4.20 - 10.70 10*3/?L. The reference range was not used to interpret this result as normal/abnormal . RBC (test code = See_Comment L [Automated 559-8) message] The sy stem which generated this result transmitted reference range : 4.26 - 5.52 10*6/?L. The reference range was not used to interpret this result as normal/abnormal . HGB (test code = 8.3 g/dL 12.2-16.4 L 718-7) HCT (test code = 27.9 % 38.4-49.3 L 4544-3) MCV (test code = 78.2 fL 81.7-95.6 L 787-2) MCH (test code = 23.2 pg 26.1-32.7 L 785-6) MCHC (test code = 29.7 g/dL 31.2-35.0 L 786-4) RDW-SD (test code = 53.5 fL 38.5-51.6 H 85668-0) RDW-CV (test code = 18.8 % 12.1-15.4 H 788-0) PLT (test code = See_Comment L [Automated 777-3) message] The sy stem which generated this result transmitted reference range : 150 - 328 10*3/ ?L. The reference r lucas was not used to interpret this result as normal/abnormal . MPV (test code = Not Measure d 97423-0) IPF % (test code = 7.2 % 1.2-10.7 Platelet count [id number]) measured by fluorescence method. NRBC/100 WBC (test See_Comment [Automat ed code = 4182324730) message] The system which generated this result transmitted reference range : 0.0 - 10.0 /100 WBCs. The refer ence range was not u sed to interpret th is result as normal/abnormal . NRBC x10^3 (test code <0.01 See_Comment [Auto mated = 0537641819) message] The s ystem which generated this result transmitted reference range : 10*3/?L. The reference range was not used to interpret this result as normal/abnormal . GRAN MAT (NEUT) % 49.6 % (test code = 770-8) IMM GRAN % (test code 1.00 % = 5468781588) LYMPH % (test code = 15.1 % 736-9) MONO % (test code = 9.7 % 5905-5) EOS % (test code = 24.2 % 713-8) BASO % (test code = 0.4 % 706-2) GRAN MAT x10^3(ANC) 5.65 10*3/uL 1.99-6.95 (test code = 1001761652) IMM GRAN x10^3 (test 0.11 10*3/uL 0.00-0.06 H code = 3852722472) LYMPH x10^3 (test code 1.72 10*3/uL 1.09-3.23 = 731-0) MONO x10^3 (test code 1.11 10*3/uL 0.36-1.02 H = 742-7) EOS x10^3 (test code = 2.76 10*3/uL 0.06-0.53 H 711-2) BASO x10^3 (test code 0.05 10*3/uL 0.01-0.09 = 704-7) Lab Interpretation Abnormal (test code = 39587-0) [facility] [id number] 12:21:23 Test Item Value Reference Range Interpretation Comments APTT Patient (test code = See_Comment [ Automated message] 8933-2) The system [employer] generated this result transmitted ref erence range: 26 - 36 Seconds. The re ference range was not u sed to interpret this result as normal/abnor mal. Lab Interpretation (test Normal code = 67076-7) [facility]CBC WITHOUT [id number] 23:44:11 Test Item Value Reference Range Interpretation Comments WBC (test code = See_Comment H [Automated message] 2690-2) The system [employer] generated this result transmitted ref erence range: 4.20 - 1 0.70 10*3/?L. The reference range was not used to int erpret this result as normal/abnormal . RBC (test code = 789-8) See_Comment L [Au tomated message] The system [employer] generated this result transmitted ref erence range: 4.26 - 5 .52 10*6/?L. The reference range was not used to int erpret this result as normal/abnormal . HGB (test code = 718-7) 8.2 g/dL 12.2-16.4 L HCT (test code = 27.3 % 38.4-49.3 L 4544-3) MCH (test code = 785-6) 23.8 pg 26.1-32.7 L MCV (test code = 787-2) 79.1 fL 81.7-95.6 L MCHC (test code = 30.0 g/dL 31.2-35.0 L 786-4) PLT (test code = 777-3) See_Comment L [Au tomated message] The system [employer] generated this result transmitted ref erence range: 150 - 32 8 10*3/?L. The reference range was not used to int erpret this result as normal/abnormal . MPV (test code = Not Measure d 16572-1) RDW-CV (test code = 18.8 % 12.1-15.4 H 788-0) RDW-SD (test code = 54.3 fL 38.5-51.6 H 94409-5) NRBC x10^3 (test code = <0.01 See_Comment [Au tomated message] 9732935277) The system [employer] generated this result transmitted ref erence range: 10*3/?L. The reference range was not used to int erpret this result as normal/abnormal . NRBC/100 WBC (test code See_Comment [Au tomated message] = 8627501181) The system [employer] generated this result transmitted ref erence range: 0.0 - 10 .0 /100 WBCs. The reference range was not used to int erpret this result as normal/abnormal . IPF % (test code = 6.2 % 1.2-10.7 Platelet count 1325659730) measured by fluorescence me thod. Lab Interpretation Abnormal (test code = 21154-6) [facility] [id number] 23:40:49 Test Item Value Reference Range Interpretation Comments APTT Patient (test code See_Comment H [Au tomated message] = 3173-2) The system [employer] generated this result transmitted ref erence range: 26 - 36 Seconds. The reference range was not used to int erpret this result as normal/abnormal . Lab Interpretation (test Abnormal code = 14449-0) [facility] Center[facility] Packed RBC (in units), 1 Units 2021-08-16 20:00:14 Test Item Value Reference Range Interpretation Comments Cross Match Result Compatible (test code = 4409) ISBT Blood Type Code (test code = 987000) Unit Blood Type (test A Pos code = 4410) Unit Number (test [id number] code = 4411) Blood Expiration Date & Time (test code = 697337) Status Information Issued (test code = 4412) Product Red Blood Cells Identification (test code = 4413) Product Code (test [id number] Performed at [facility] code = 4414) Laboratory [facility] Blood Ghkb[address] [facility] [address]Robj Free: [phone] A No. [id number] [facility] CenterTROPONIN [id number] 19:06:24 Test Item Value Reference Interpretation Comments Range TROPONIN I (test 0.033 ng/mL See_Comment [Automated code = 8060502368) message] The system which generated this result transmitted reference range : <=0.034. The reference range was not used to interpret this result as normal/abnormal . TON (test code = Reference (Normal) TON) Range (defined by the 99th percentile reference limit): <= 0.034 ng/mL Note: Cardiac troponin begins to rise 3-4 hours after the onset of ischemia. Repeat in 4-6 hours if the sample was drawn within 3-4 hours of the onset of the symptom and found normal. Diagnosis of myocardial injury is made with acute changes in cTn concentrations with at least one serial sample above the 99th percentile upper reference limit (URL), taken together with the patient's clinical presentation. Biotin has been reported to cause a negative bias, interpret results relative to patient's use of biotin. Lab Interpretation Normal (test code = 02032-4) [facility] CenterABORH Confirmation (Lab Only)2021-08-16 19:00:19 Test Item Value Reference Range Interpretation Comments ABO & RH (test AB Positive Performed at [facility] code = 20) Laboratory [facility] Blood Bank[address] [facility] [address]Xkni Free: [phone] A No. [id number] [facility] CenterType and Screen - ONCE [id number] 18:38:41 Test Item Value Reference Range Interpretation Comments ABO & RH (test AB POSITIVE Performed at [facility] code = 20) Laboratory [facility] Blood Bank[address] [facility] [address]Kypz Free: [phone] A No. [id number] IAT (test code = Negative Performed a t [facility] 1185) Laboratory [facility] Blood Bank[address] [place] [address] [place] [address]Dbyf Free: [phone] A No. [id number] [facility] CenterJEAN-PAULKevin [id number] 13:18:03 Test Item Value Reference Interpretation Comments Range TROPONIN I (test 0.045 ng/mL See_Comment H [Automated code = 3681787066) message] The system which generated this result transmitted reference range : <=0.034. The reference range was not used to interpret this result as normal/abnormal . TON (test code = Reference (Normal) TON) Range (defined by the 99th percentile reference limit): <= 0.034 ng/mL Note: Cardiac troponin begins to rise 3-4 hours after the onset of ischemia. Repeat in 4-6 hours if the sample was drawn within 3-4 hours of the onset of the symptom and found normal. Diagnosis of myocardial injury is made with acute changes in cTn concentrations with at least one serial sample above the 99th percentile upper reference limit (URL), taken together with the patient's clinical presentation. Biotin has been reported to cause a negative bias, interpret results relative to patient's use of biotin. Lab Interpretation Abnormal (test code = 01545-7) [facility] (NA, K, CL, CO2, GLUCOSE, BUN, CREATININE, CA)2021-08-16 12:47:14 Test Item Value Reference Range Interpretation Comments NA (test code = 134 mmol/L 135-145 L 2495768112) K (test code = 4.7 mmol/L 3.5-5.0 8770747140) CL (test code = 109 mmol/L 98-108 H 8078730409) CO2 TOTAL (test code = 22 mmol/L 23-31 L 2696481751) AGAP (test code = 2-16 5283668520) BUN (test code = 36 mg/dL 7-23 H 5833120954) GLUCOSE (test code = 73 mg/dL 70-110 1336277114) CREATININE (test code = 1.26 mg/dL 0.60-1.25 H 0025359705) CALCIUM (test code = 9.1 mg/dL 8.6-10.6 5823273933) eGFR (test code = mL/min/1.73m2 7665568884) TON (test code = TON) Association of Glomerular Filtration Rate (GFR) and Staging of Kidney Disease* + --+ --+ ------+| GFR (mL/min/1.73 m2) ?| With Kidney Damage ?| ?Without Kidney Damage+ --------+ --------+ +| ?>90 ?| ?Stage one ?| ? Normal ?+ ---+ ---+ -------+| ?60-89 ?| ?Stage two ?| ? Decreased GFR ? + --+ --+ ------+| ?30-59 ?| ?Stage three ?| ? Stage three ? + --+ --+ ------+| ?15-29 ?| ?Stage four ? | ? Stage four ?+ ---+ ---+ -------+| ?<15 (or dialysis) ? ?| ?Stage five ? | ? Stage five ?+ ---+ ---+ -------+ *Each stage assumes the associated GFR level has been in effect for at least three months. ?Stages 1 to 5, with or without kidney disease, indicate chronic kidney disease. Notes: Determination of stages one and two (with eGFR >59mL/min/1.73 m2) requires estimation of kidney damage for at least three months as defined by structural or functional abnormalities of the kidney, manifested by either:Pathological abnormalities or Markers of kidney damage (including abnormalities in the composition of the blood or urine or abnormalities in imaging tests). Lab Interpretation Abnormal (test code = 99229-3) [facility] 12:47:14 Test Item Value Reference Range Interpretation Comments MAGNESIUM (test code = 0558521101) 2.0 mg/dL 1.7-2.4 Lab Interpretation (test code = Normal 46226-0) [facility] CenterCB WITHOUT [id number] 12:30:16 Test Item Value Reference Range Interpretation Comments WBC (test code = See_Comment H [Automated message] 6690-2) The system [employer] generated this result transmitted ref erence range: 4.20 - 1 0.70 10*3/?L. The reference range was not used to int erpret this result as normal/abnormal . RBC (test code = 789-8) See_Comment L [Au tomated message] The system [employer] generated this result transmitted ref erence range: 4.26 - 5 .52 10*6/?L. The reference range was not used to int erpret this result as normal/abnormal . HGB (test code = 718-7) 7.7 g/dL 12.2-16.4 L HCT (test code = 26.4 % 38.4-49.3 L 4544-3) MCH (test code = 785-6) 23.0 pg 26.1-32.7 L MCV (test code = 787-2) 78.8 fL 81.7-95.6 L MCHC (test code = 29.2 g/dL 31.2-35.0 L 786-4) PLT (test code = 777-3) See_Comment L [Au tomated message] The system [employer] generated this result transmitted ref erence range: 150 - 32 8 10*3/?L. The reference range was not used to int erpret this result as normal/abnormal . MPV (test code = Not Measure d 86217-5) RDW-CV (test code = 19.5 % 12.1-15.4 H 788-0) RDW-SD (test code = 55.2 fL 38.5-51.6 H 17172-5) NRBC x10^3 (test code = <0.01 See_Comment [Au tomated message] 6909586010) The system [employer] generated this result transmitted ref erence range: 10*3/?L. The reference range was not used to int erpret this result as normal/abnormal . NRBC/100 WBC (test code See_Comment [Au tomated message] = 9174034913) The system [employer] generated this result transmitted ref erence range: 0.0 - 10 .0 /100 WBCs. The reference range was not used to int erpret this result as normal/abnormal . IPF % (test code = 5.8 % 1.2-10.7 Platelet count 6005115511) measured by fluorescence me thod. Lab Interpretation Abnormal (test code = 56216-0) [facility] [id number] 12:08:34 Test Item Value Reference Range Interpretation Comments APTT Patient (test code See_Comment H [Au tomated message] = 3173-2) The system [employer] generated this result transmitted ref erence range: 26 - 36 Seconds. The reference range was not used to int erpret this result as normal/abnormal . Lab Interpretation (test Abnormal code = 06239-3) [facility] [id number] 23:21:11 Test Item Value Reference Range Interpretation Comments APTT Patient (test code See_Comment H [Au tomated message] = 3173-2) The system [employer] generated this result transmitted ref erence range: 26 - 36 Seconds. The reference range was not used to int erpret this result as normal/abnormal . Lab Interpretation (test Abnormal code = 56517-4) [facility] WITHOUT [id number] 19:12:37 Test Item Value Reference Range Interpretation Comments WBC (test code = See_Comment H [Automated message] 6690-2) The system [employer] generated this result transmitted ref erence range: 4.20 - 1 0.70 10*3/?L. The reference range was not used to int erpret this result as normal/abnormal . RBC (test code = 789-8) See_Comment L [Au tomated message] The system [employer] generated this result transmitted ref erence range: 4.26 - 5 .52 10*6/?L. The reference range was not used to int erpret this result as normal/abnormal . HGB (test code = 718-7) 9.3 g/dL 12.2-16.4 L HCT (test code = 32.0 % 38.4-49.3 L 4544-3) MCH (test code = 785-6) 23.0 pg 26.1-32.7 L MCV (test code = 787-2) 79.2 fL 81.7-95.6 L MCHC (test code = 29.1 g/dL 31.2-35.0 L 786-4) PLT (test code = 777-3) See_Comment L [Au tomated message] The system [employer] generated this result transmitted ref erence range: 150 - 32 8 10*3/?L. The reference range was not used to int erpret this result as normal/abnormal . MPV (test code = Not Measure d 24862-2) RDW-CV (test code = 19.6 % 12.1-15.4 H 788-0) RDW-SD (test code = 56.0 fL 38.5-51.6 H 97420-4) NRBC x10^3 (test code = <0.01 See_Comment [Au tomated message] 2543128656) The system [employer] generated this result transmitted ref erence range: 10*3/?L. The reference range was not used to int erpret this result as normal/abnormal . NRBC/100 WBC (test code See_Comment [Au tomated message] = 2792481399) The system [employer] generated this result transmitted ref erence range: 0.0 - 10 .0 /100 WBCs. The reference range was not used to int erpret this result as normal/abnormal . IPF % (test code = 8.3 % 1.2-10.7 Platelet count 1959417787) measured by fluorescence me thod. Lab Interpretation Abnormal (test code = 37083-1) [facility] [id number] 18:02:48 Test Item Value Reference Interpretation Comments Range TROPONIN I (test 0.046 ng/mL See_Comment H [Automated code = 2791397756) message] The system which generated this result transmitted reference range : <=0.034. The reference range was not used to interpret this result as normal/abnormal . TON (test code = Reference (Normal) TON) Range (defined by the 99th percentile reference limit): <= 0.034 ng/mL Note: Cardiac troponin begins to rise 3-4 hours after the onset of ischemia. Repeat in 4-6 hours if the sample was drawn within 3-4 hours of the onset of the symptom and found normal. Diagnosis of myocardial injury is made with acute changes in cTn concentrations with at least one serial sample above the 99th percentile upper reference limit (URL), taken together with the patient's clinical presentation. Biotin has been reported to cause a negative bias, interpret results relative to patient's use of biotin. Lab Interpretation Abnormal (test code = 81475-2) [facility] METABOLIC PANEL (NA, K, CL, CO2, GLUCOSE, BUN, CREATININE, CA)2021-08-15 17:49:27 Test Item Value Reference Range Interpretation Comments NA (test code = 135 mmol/L 135-145 5058130792) K (test code = 4.6 mmol/L 3.5-5.0 8458051561) CL (test code = 108 mmol/L 98-108 8709131720) CO2 TOTAL (test code = 22 mmol/L 23-31 L 1744719221) AGAP (test code = 2-16 7554389646) BUN (test code = 34 mg/dL 7-23 H 8041849937) GLUCOSE (test code = 97 mg/dL 70-110 8499537856) CREATININE (test code = 1.22 mg/dL 0.60-1.25 7297465283) CALCIUM (test code = 9.2 mg/dL 8.6-10.6 5990812514) eGFR (test code = mL/min/1.73m2 5865844467) TON (test code = TON) Association of Glomerular Filtration Rate (GFR) and Staging of Kidney Disease* + --+ --+ ------+| GFR (mL/min/1.73 m2) ?| With Kidney Damage ?| ?Without Kidney Damage+ --------+ --------+ +| ?>90 ?| ?Stage one ?| ? Normal ?+ ---+ ---+ -------+| ?60-89 ?| ?Stage two ?| ? Decreased GFR ? + --+ --+ ------+| ?30-59 ?| ?Stage three ?| ? Stage three ? + --+ --+ ------+| ?15-29 ?| ?Stage four ? | ? Stage four ?+ ---+ ---+ -------+| ?<15 (or dialysis) ? ?| ?Stage five ? | ? Stage five ?+ ---+ ---+ -------+ *Each stage assumes the associated GFR level has been in effect for at least three months. ?Stages 1 to 5, with or without kidney disease, indicate chronic kidney disease. Notes: Determination of stages one and two (with eGFR >59mL/min/1.73 m2) requires estimation of kidney damage for at least three months as defined by structural or functional abnormalities of the kidney, manifested by either:Pathological abnormalities or Markers of kidney damage (including abnormalities in the composition of the blood or urine or abnormalities in imaging tests). Lab Interpretation Abnormal (test code = 58702-9) [facility] 17:49:27 Test Item Value Reference Range Interpretation Comments MAGNESIUM (test code = 5675014257) 2.1 mg/dL 1.7-2.4 Lab Interpretation (test code = Normal 60373-3) [facility] METABOLIC PANEL (NA, K, CL, CO2, GLUCOSE, BUN, CREATININE, CA)2021-08-15 11:30:35 Test Item Value Reference Range Interpretation Comments NA (test code = 135 mmol/L 135-145 1681130978) K (test code = 4.8 mmol/L 3.5-5.0 2775616454) CL (test code = 111 mmol/L 98-108 H 4736648951) CO2 TOTAL (test code = 21 mmol/L 23-31 L 6757345760) AGAP (test code = 2-16 7335765518) BUN (test code = 35 mg/dL 7-23 H 4517313027) GLUCOSE (test code = 85 mg/dL 70-110 5082348421) CREATININE (test code = 1.16 mg/dL 0.60-1.25 4548904124) CALCIUM (test code = 8.6 mg/dL 8.6-10.6 2039569978) eGFR (test code = mL/min/1.73m2 4734071134) TON (test code = TON) Association of Glomerular Filtration Rate (GFR) and Staging of Kidney Disease* + --+ --+ ------+| GFR (mL/min/1.73 m2) ?| With Kidney Damage ?| ?Without Kidney Damage+ --------+ --------+ +| ?>90 ?| ?Stage one ?| ? Normal ?+ ---+ ---+ -------+| ?60-89 ?| ?Stage two ?| ? Decreased GFR ? + --+ --+ ------+| ?30-59 ?| ?Stage three ?| ? Stage three ? + --+ --+ ------+| ?15-29 ?| ?Stage four ? | ? Stage four ?+ ---+ ---+ -------+| ?<15 (or dialysis) ? ?| ?Stage five ? | ? Stage five ?+ ---+ ---+ -------+ *Each stage assumes the associated GFR level has been in effect for at least three months. ?Stages 1 to 5, with or without kidney disease, indicate chronic kidney disease. Notes: Determination of stages one and two (with eGFR >59mL/min/1.73 m2) requires estimation of kidney damage for at least three months as defined by structural or functional abnormalities of the kidney, manifested by either:Pathological abnormalities or Markers of kidney damage (including abnormalities in the composition of the blood or urine or abnormalities in imaging tests). Lab Interpretation Abnormal (test code = 89167-1) [facility] 11:30:35 Test Item Value Reference Range Interpretation Comments MAGNESIUM (test code = 1490499703) 2.1 mg/dL 1.7-2.4 Lab Interpretation (test code = Normal 18267-1) [facility] WITHOUT [id number] 11:21:34 Test Item Value Reference Range Interpretation Comments WBC (test code = See_Comment H [Automated message] 6690-2) The system [employer] generated this result transmitted ref erence range: 4.20 - 1 0.70 10*3/?L. The reference range was not used to int erpret this result as normal/abnormal . RBC (test code = 789-8) See_Comment L [Au tomated message] The system [employer] generated this result transmitted ref erence range: 4.26 - 5 .52 10*6/?L. The reference range was not used to int erpret this result as normal/abnormal . HGB (test code = 718-7) 8.2 g/dL 12.2-16.4 L HCT (test code = 27.9 % 38.4-49.3 L 4544-3) MCH (test code = 785-6) 23.0 pg 26.1-32.7 L MCV (test code = 787-2) 78.2 fL 81.7-95.6 L MCHC (test code = 29.4 g/dL 31.2-35.0 L 786-4) PLT (test code = 777-3) See_Comment L [Au tomated message] The system [employer] generated this result transmitted ref erence range: 150 - 32 8 10*3/?L. The reference range was not used to int erpret this result as normal/abnormal . MPV (test code = Not Measure d 70226-1) RDW-CV (test code = 19.7 % 12.1-15.4 H 788-0) RDW-SD (test code = 55.6 fL 38.5-51.6 H 41138-7) NRBC x10^3 (test code = <0.01 See_Comment [Au tomated message] 9240468635) The system [employer] generated this result transmitted ref erence range: 10*3/?L. The reference range was not used to int erpret this result as normal/abnormal . NRBC/100 WBC (test code See_Comment [Au tomated message] = 8219692991) The system [employer] generated this result transmitted ref erence range: 0.0 - 10 .0 /100 WBCs. The reference range was not used to int erpret this result as normal/abnormal . IPF % (test code = 5.0 % 1.2-10.7 Platelet count 5530548550) measured by fluorescence me thod. Lab Interpretation Abnormal (test code = 27921-8) [facility] PARTIAL THRMPLAS [id number] 11:13:11 Test Item Value Reference Range Interpretation Comments APTT Patient (test code See_Comment H [Au tomated message] = 3173-2) The system [employer] generated this result transmitted ref erence range: 26 - 36 Seconds. The reference range was not used to int erpret this result as normal/abnormal . Lab Interpretation (test Abnormal code = 00997-7) [facility] [id number] 22:11:49 Test Item Value Reference Range Interpretation Comments APTT Patient (test code See_Comment H [Au tomated message] = 3173-2) The system [employer] generated this result transmitted ref erence range: 26 - 36 Seconds. The reference range was not used to int erpret this result as normal/abnormal . Lab Interpretation (test Abnormal code = 11304-8) [facility] METABOLIC PANEL (NA, K, CL, CO2, GLUCOSE, BUN, CREATININE, CA)2021-08-14 10:43:37 Test Item Value Reference Range Interpretation Comments NA (test code = 136 mmol/L 135-145 5021387345) K (test code = 4.6 mmol/L 3.5-5.0 2328880077) CL (test code = 110 mmol/L 98-108 H 1236825043) CO2 TOTAL (test code = 22 mmol/L 23-31 L 0908275563) AGAP (test code = 2-16 2949482725) BUN (test code = 37 mg/dL 7-23 H 7775025533) GLUCOSE (test code = 111 mg/dL 70-110 H 6174276987) CREATININE (test code = 1.19 mg/dL 0.60-1.25 4479391779) CALCIUM (test code = 9.0 mg/dL 8.6-10.6 4557670751) eGFR (test code = mL/min/1.73m2 0181873788) TON (test code = TON) Association of Glomerular Filtration Rate (GFR) and Staging of Kidney Disease* + --+ --+ ------+| GFR (mL/min/1.73 m2) ?| With Kidney Damage ?| ?Without Kidney Damage+ --------+ --------+ +| ?>90 ?| ?Stage one ?| ? Normal ?+ ---+ ---+ -------+| ?60-89 ?| ?Stage two ?| ? Decreased GFR ? + --+ --+ ------+| ?30-59 ?| ?Stage three ?| ? Stage three ? + --+ --+ ------+| ?15-29 ?| ?Stage four ? | ? Stage four ?+ ---+ ---+ -------+| ?<15 (or dialysis) ? ?| ?Stage five ? | ? Stage five ?+ ---+ ---+ -------+ *Each stage assumes the associated GFR level has been in effect for at least three months. ?Stages 1 to 5, with or without kidney disease, indicate chronic kidney disease. Notes: Determination of stages one and two (with eGFR >59mL/min/1.73 m2) requires estimation of kidney damage for at least three months as defined by structural or functional abnormalities of the kidney, manifested by either:Pathological abnormalities or Markers of kidney damage (including abnormalities in the composition of the blood or urine or abnormalities in imaging tests). Lab Interpretation Abnormal (test code = 80155-4) [facility] WITH [id number] 10:28:00 Test Item Value Reference Range Interpretation Comments WBC (test code = See_Comment H [Automated 6690-2) message] The sy stem which generated this result transmitted reference range : 4.20 - 10.70 10*3/?L. The reference range was not used to interpret this result as normal/abnormal . RBC (test code = See_Comment L [Automated 789-8) message] The sy stem which generated this result transmitted reference range : 4.26 - 5.52 10*6/?L. The reference range was not used to interpret this result as normal/abnormal . HGB (test code = 8.4 g/dL 12.2-16.4 L 718-7) HCT (test code = 28.5 % 38.4-49.3 L 4544-3) MCV (test code = 78.5 fL 81.7-95.6 L 787-2) MCH (test code = 23.1 pg 26.1-32.7 L 785-6) MCHC (test code = 29.5 g/dL 31.2-35.0 L 786-4) RDW-SD (test code = 55.2 fL 38.5-51.6 H 03931-5) RDW-CV (test code = 19.6 % 12.1-15.4 H 788-0) PLT (test code = See_Comment L [Automated 777-3) message] The sy stem which generated this result transmitted reference range : 150 - 328 10*3/ ?L. The reference r lucas was not used to interpret this result as normal/abnormal . MPV (test code = 11.6 fL 9.8-13.0 41068-1) IPF % (test code = 3.6 % 1.2-10.7 Platelet count [id number]) measured by fluorescence method. NRBC/100 WBC (test See_Comment [Automat ed code = 3557518233) message] The system which generated this result transmitted reference range : 0.0 - 10.0 /100 WBCs. The refer ence range was not u sed to interpret th is result as normal/abnormal . NRBC x10^3 (test code <0.01 See_Comment [Auto mated = 8525978049) message] The s ystem which generated this result transmitted reference range : 10*3/?L. The reference range was not used to interpret this result as normal/abnormal . GRAN MAT (NEUT) % 57.5 % (test code = 770-8) IMM GRAN % (test code 2.00 % = 4540678595) LYMPH % (test code = 10.4 % 736-9) MONO % (test code = 10.5 % 5905-5) EOS % (test code = 19.2 % 713-8) BASO % (test code = 0.4 % 706-2) GRAN MAT x10^3(ANC) 7.08 10*3/uL 1.99-6.95 H (test code = 9368813413) IMM GRAN x10^3 (test 0.25 10*3/uL 0.00-0.06 H code = 3026391894) LYMPH x10^3 (test code 1.28 10*3/uL 1.09-3.23 = 731-0) MONO x10^3 (test code 1.30 10*3/uL 0.36-1.02 H = 742-7) EOS x10^3 (test code = 2.37 10*3/uL 0.06-0.53 H 711-2) BASO x10^3 (test code 0.05 10*3/uL 0.01-0.09 = 704-7) ELLIPTO/OVAL (test 2+ See_Comment A [Automat ed code = 19916-2) message] The system which generated this result transmitted reference range : (none). The reference range was not used to interpret this result as normal/abnormal . TOXIC CHANGES (test Present A code = 803-7) Lab Interpretation Abnormal (test code = 98781-0) [facility] [id number] 10:03:48 Test Item Value Reference Range Interpretation Comments APTT Patient (test code See_Comment H [Au tomated message] = 3173-2) The system [employer] generated this result transmitted ref erence range: 26 - 36 Seconds. The reference range was not used to int erpret this result as normal/abnormal . Lab Interpretation (test Abnormal code = 61231-6) [facility] (NA, K, CL, CO2, GLUCOSE, BUN, CREATININE, CA)2021-08-13 19:54:53 Test Item Value Reference Range Interpretation Comments NA (test code = 133 mmol/L 135-145 L 7796046068) K (test code = 4.4 mmol/L 3.5-5.0 6644676710) CL (test code = 108 mmol/L 98-108 2608164178) CO2 TOTAL (test code = 23 mmol/L 23-31 1959272490) AGAP (test code = 2-16 5915997727) BUN (test code = 41 mg/dL 7-23 H 8226498460) GLUCOSE (test code = 89 mg/dL 70-110 5386072489) CREATININE (test code = 1.30 mg/dL 0.60-1.25 H 4343055795) CALCIUM (test code = 8.6 mg/dL 8.6-10.6 0504053177) eGFR (test code = mL/min/1.73m2 0601255033) TON (test code = TON) Association of Glomerular Filtration Rate (GFR) and Staging of Kidney Disease* + --+ --+ ------+| GFR (mL/min/1.73 m2) ?| With Kidney Damage ?| ?Without Kidney Damage+ --------+ --------+ +| ?>90 ?| ?Stage one ?| ? Normal ?+ ---+ ---+ -------+| ?60-89 ?| ?Stage two ?| ? Decreased GFR ? + --+ --+ ------+| ?30-59 ?| ?Stage three ?| ? Stage three ? + --+ --+ ------+| ?15-29 ?| ?Stage four ? | ? Stage four ?+ ---+ ---+ -------+| ?<15 (or dialysis) ? ?| ?Stage five ? | ? Stage five ?+ ---+ ---+ -------+ *Each stage assumes the associated GFR level has been in effect for at least three months. ?Stages 1 to 5, with or without kidney disease, indicate chronic kidney disease. Notes: Determination of stages one and two (with eGFR >59mL/min/1.73 m2) requires estimation of kidney damage for at least three months as defined by structural or functional abnormalities of the kidney, manifested by either:Pathological abnormalities or Markers of kidney damage (including abnormalities in the composition of the blood or urine or abnormalities in imaging tests). Lab Interpretation Abnormal (test code = 97998-7) [facility] 19[facility]54:53 Test Item Value Reference Range Interpretation Comments MAGNESIUM (test code = 2150471919) 2.2 mg/dL 1.7-2.4 Lab Interpretation (test code = Normal 20106-6) [facility] WITH [id number] 12:37:59 Test Item Value Reference Range Interpretation Comments WBC (test code = See_Comment [Automated 6690-2) message] The sy stem which generated this result transmitted reference range : 4.20 - 10.70 10*3/?L. The reference range was not used to interpret this result as normal/abnormal . RBC (test code = See_Comment L [Automated 789-8) message] The sy stem which generated this result transmitted reference range : 4.26 - 5.52 10*6/?L. The reference range was not used to interpret this result as normal/abnormal . HGB (test code = 8.2 g/dL 12.2-16.4 L 718-7) HCT (test code = 28.5 % 38.4-49.3 L 4544-3) MCV (test code = 79.8 fL 81.7-95.6 L 787-2) MCH (test code = 23.0 pg 26.1-32.7 L 785-6) MCHC (test code = 28.8 g/dL 31.2-35.0 L 786-4) RDW-SD (test code = 57.2 fL 38.5-51.6 H 03896-6) RDW-CV (test code = 19.5 % 12.1-15.4 H 788-0) PLT (test code = See_Comment L [Automated 777-3) message] The sy stem which generated this result transmitted reference range : 150 - 328 10*3/ ?L. The reference r lucas was not used to interpret this result as normal/abnormal . MPV (test code = Not Measure d 49742-3) IPF % (test code = 4.9 % 1.2-10.7 Platelet count 7946876499) measured by fluorescence method. NRBC/100 WBC (test See_Comment [Automat ed code = 8907746493) message] The system which generated this result transmitted reference range : 0.0 - 10.0 /100 WBCs. The refer ence range was not u sed to interpret th is result as normal/abnormal . NRBC x10^3 (test code <0.01 See_Comment [Auto mated = 8265330699) message] The s ystem which generated this result transmitted reference range : 10*3/?L. The reference range was not used to interpret this result as normal/abnormal . GRAN MAT (NEUT) % 56.3 % (test code = 770-8) IMM GRAN % (test code 2.30 % = 4153508303) LYMPH % (test code = 13.1 % 736-9) MONO % (test code = 7.8 % 5905-5) EOS % (test code = 19.9 % 713-8) BASO % (test code = 0.6 % 706-2) GRAN MAT x10^3(ANC) 5.37 10*3/uL 1.99-6.95 (test code = 8652816467) IMM GRAN x10^3 (test 0.22 10*3/uL 0.00-0.06 H code = 5780458559) LYMPH x10^3 (test code 1.25 10*3/uL 1.09-3.23 = 731-0) MONO x10^3 (test code 0.74 10*3/uL 0.36-1.02 = 742-7) EOS x10^3 (test code = 1.90 10*3/uL 0.06-0.53 H 711-2) BASO x10^3 (test code 0.06 10*3/uL 0.01-0.09 = 704-7) ELLIPTO/OVAL (test 2+ See_Comment A [Automat ed code = 39019-7) message] The system which generated this result transmitted reference range : (none). The reference range was not used to interpret this result as normal/abnormal . TOXIC CHANGES (test Present A code = 803-7) Lab Interpretation Abnormal (test code = 13683-8) [facility] METABOLIC PANEL (NA, K, CL, CO2, GLUCOSE, BUN, CREATININE, CA)2021-08-13 12:26:13 Test Item Value Reference Range Interpretation Comments NA (test code = 136 mmol/L 135-145 7760491469) K (test code = 3.9 mmol/L 3.5-5.0 1299726921) CL (test code = 109 mmol/L 98-108 H 1498880370) CO2 TOTAL (test code = 21 mmol/L 23-31 L 6198832582) AGAP (test code = 2-16 4256809068) BUN (test code = 40 mg/dL 7-23 H 3151680371) GLUCOSE (test code = 86 mg/dL 70-110 5407042048) CREATININE (test code = 1.34 mg/dL 0.60-1.25 H 8679758797) CALCIUM (test code = 8.1 mg/dL 8.6-10.6 L 2922180450) eGFR (test code = mL/min/1.73m2 2553713029) TON (test code = TON) Association of Glomerular Filtration Rate (GFR) and Staging of Kidney Disease* + --+ --+ ------+| GFR (mL/min/1.73 m2) ?| With Kidney Damage ?| ?Without Kidney Damage+ --------+ --------+ +| ?>90 ?| ?Stage one ?| ? Normal ?+ ---+ ---+ -------+| ?60-89 ?| ?Stage two ?| ? Decreased GFR ? + --+ --+ ------+| ?30-59 ?| ?Stage three ?| ? Stage three ? + --+ --+ ------+| ?15-29 ?| ?Stage four ? | ? Stage four ?+ ---+ ---+ -------+| ?<15 (or dialysis) ? ?| ?Stage five ? | ? Stage five ?+ ---+ ---+ -------+ *Each stage assumes the associated GFR level has been in effect for at least three months. ?Stages 1 to 5, with or without kidney disease, indicate chronic kidney disease. Notes: Determination of stages one and two (with eGFR >59mL/min/1.73 m2) requires estimation of kidney damage for at least three months as defined by structural or functional abnormalities of the kidney, manifested by either:Pathological abnormalities or Markers of kidney damage (including abnormalities in the composition of the blood or urine or abnormalities in imaging tests). Lab Interpretation Abnormal (test code = 87599-5) [facility] 12[facility]26:13 Test Item Value Reference Range Interpretation Comments MAGNESIUM (test code = 6800047736) 1.9 mg/dL 1.7-2.4 Lab Interpretation (test code = Normal 58482-2) [facility]2021-08-13 02:37:37 Test Item Value Reference Range Interpretation Comments APTT Patient (test code See_Comment H [Au tomated message] = 3173-2) The system [employer] generated this result transmitted ref erence range: 26 - 36 Seconds. The reference range was not used to int erpret this result as normal/abnormal . Lab Interpretation (test Abnormal code = 73839-5) [facility] (NA, K, CL, CO2, GLUCOSE, BUN, CREATININE, CA)2021-08-13 00:00:47 Test Item Value Reference Range Interpretation Comments NA (test code = 135 mmol/L 135-145 7935883769) K (test code = 4.3 mmol/L 3.5-5.0 3006827448) CL (test code = 107 mmol/L 98-108 2579539430) CO2 TOTAL (test code = 25 mmol/L 23-31 1809943413) AGAP (test code = 2-16 5462572849) BUN (test code = 39 mg/dL 7-23 H 7054308969) GLUCOSE (test code = 99 mg/dL 70-110 6656469484) CREATININE (test code = 1.52 mg/dL 0.60-1.25 H 6120770180) CALCIUM (test code = 8.5 mg/dL 8.6-10.6 L 7511691609) eGFR (test code = mL/min/1.73m2 7408387064) TON (test code = TON) Association of Glomerular Filtration Rate (GFR) and Staging of Kidney Disease* + --+ --+ ------+| GFR (mL/min/1.73 m2) ?| With Kidney Damage ?| ?Without Kidney Damage+ --------+ --------+ +| ?>90 ?| ?Stage one ?| ? Normal ?+ ---+ ---+ -------+| ?60-89 ?| ?Stage two ?| ? Decreased GFR ? + --+ --+ ------+| ?30-59 ?| ?Stage three ?| ? Stage three ? + --+ --+ ------+| ?15-29 ?| ?Stage four ? | ? Stage four ?+ ---+ ---+ -------+| ?<15 (or dialysis) ? ?| ?Stage five ? | ? Stage five ?+ ---+ ---+ -------+ *Each stage assumes the associated GFR level has been in effect for at least three months. ?Stages 1 to 5, with or without kidney disease, indicate chronic kidney disease. Notes: Determination of stages one and two (with eGFR >59mL/min/1.73 m2) requires estimation of kidney damage for at least three months as defined by structural or functional abnormalities of the kidney, manifested by either:Pathological abnormalities or Markers of kidney damage (including abnormalities in the composition of the blood or urine or abnormalities in imaging tests). Lab Interpretation Abnormal (test code = 35521-4) [facility] (for use with Heparin Infusion)2021-08-12 19:14:35 Test Item Value Reference Range Interpretation Comments APTT Patient (test code See_Comment H [Au tomated message] = 3173-2) The system [employer] generated this result transmitted ref erence range: 26 - 36 Seconds. The reference range was not used to int erpret this result as normal/abnormal . Lab Interpretation (test Abnormal code = 21449-8) [facility] (for use with Heparin Infusion)2021-08-12 12:43:37 Test Item Value Reference Range Interpretation Comments APTT Patient (test code See_Comment H [Au tomated message] = 3173-2) The system [employer] generated this result transmitted ref erence range: 26 - 36 Seconds. The reference range was not used to int erpret this result as normal/abnormal . Lab Interpretation (test Abnormal code = 77793-4) [facility] WITH [id number] 12:29:19 Test Item Value Reference Range Interpretation Comments WBC (test code = See_Comment H [Automated 6690-2) message] The sy stem which generated this result transmitted reference range : 4.20 - 10.70 10*3/?L. The reference range was not used to interpret this result as normal/abnormal . RBC (test code = See_Comment L [Automated 789-8) message] The sy stem which generated this result transmitted reference range : 4.26 - 5.52 10*6/?L. The reference range was not used to interpret this result as normal/abnormal . HGB (test code = 8.3 g/dL 12.2-16.4 L 718-7) HCT (test code = 28.7 % 38.4-49.3 L 4544-3) MCV (test code = 80.8 fL 81.7-95.6 L 787-2) MCH (test code = 23.4 pg 26.1-32.7 L 785-6) MCHC (test code = 28.9 g/dL 31.2-35.0 L 786-4) RDW-SD (test code = 57.5 fL 38.5-51.6 H 82467-9) RDW-CV (test code = 19.7 % 12.1-15.4 H 788-0) PLT (test code = See_Comment L [Automated 777-3) message] The sy stem which generated this result transmitted reference range : 150 - 328 10*3/ ?L. The reference r lucas was not used to interpret this result as normal/abnormal . MPV (test code = 12.0 fL 9.8-13.0 72252-6) IPF % (test code = 4.7 % 1.2-10.7 Platelet count 9467673052) measured by fluorescence method. NRBC/100 WBC (test See_Comment [Automat ed code = 5420929866) message] The system which generated this result transmitted reference range : 0.0 - 10.0 /100 WBCs. The refer ence range was not u sed to interpret th is result as normal/abnormal . NRBC x10^3 (test code <0.01 See_Comment [Auto mated = 2038731176) message] The s ystem which generated this result transmitted reference range : 10*3/?L. The reference range was not used to interpret this result as normal/abnormal . SEG % (test code = 69 % 33-76 32590-8) BAND % (test code = 3 % 0-1 H 06949-8) LYMPH % (test code = 4 % 14-54 L 09210-1) REACT LYMPH % (test 1 % code = 3287521737) MONO % (test code = 9 % 0-4 H 76709-7) EOS % (test code = 12 % 0-3 H 55906-4) BASO % (test code = 2 % 0-1 H 65537-9) ANC (test code = 7.86 10*3/uL 1.99-6.95 H 753-4) ELLIPTO/OVAL (test 2+ See_Comment A [Automat ed code = 54264-5) message] The system which generated this result transmitted reference range : (none). The reference range was not used to interpret this result as normal/abnormal . TOXIC CHANGES (test Present A code = 803-7) Lab Interpretation Abnormal (test code = 52558-5) [facility] METABOLIC PANEL (NA, K, CL, CO2, GLUCOSE, BUN, CREATININE, CA)2021-08-12 12:12:38 Test Item Value Reference Range Interpretation Comments NA (test code = 132 mmol/L 135-145 L 1988198208) K (test code = 4.1 mmol/L 3.5-5.0 1707667323) CL (test code = 106 mmol/L 98-108 3514169569) CO2 TOTAL (test code = 23 mmol/L 23-31 1844417260) AGAP (test code = 2-16 7026865529) BUN (test code = 37 mg/dL 7-23 H 0162820759) GLUCOSE (test code = 101 mg/dL 70-110 5117429286) CREATININE (test code = 1.52 mg/dL 0.60-1.25 H 7610431627) CALCIUM (test code = 8.4 mg/dL 8.6-10.6 L 2183956742) eGFR (test code = mL/min/1.73m2 2085046360) TON (test code = TON) Association of Glomerular Filtration Rate (GFR) and Staging of Kidney Disease* + --+ --+ ------+| GFR (mL/min/1.73 m2) ?| With Kidney Damage ?| ?Without Kidney Damage+ --------+ --------+ +| ?>90 ?| ?Stage one ?| ? Normal ?+ ---+ ---+ -------+| ?60-89 ?| ?Stage two ?| ? Decreased GFR ? + --+ --+ ------+| ?30-59 ?| ?Stage three ?| ? Stage three ? + --+ --+ ------+| ?15-29 ?| ?Stage four ? | ? Stage four ?+ ---+ ---+ -------+| ?<15 (or dialysis) ? ?| ?Stage five ? | ? Stage five ?+ ---+ ---+ -------+ *Each stage assumes the associated GFR level has been in effect for at least three months. ?Stages 1 to 5, with or without kidney disease, indicate chronic kidney disease. Notes: Determination of stages one and two (with eGFR >59mL/min/1.73 m2) requires estimation of kidney damage for at least three months as defined by structural or functional abnormalities of the kidney, manifested by either:Pathological abnormalities or Markers of kidney damage (including abnormalities in the composition of the blood or urine or abnormalities in imaging tests). Lab Interpretation Abnormal (test code = 82481-0) [facility]CT[facility] [id number] 12:12:38 Test Item Value Reference Range Interpretation Comments LDH (test code = 5795397107) 528 U/L 300-600 Lab Interpretation (test code = Normal 75848-3) [facility] CenterPROTHROMBIN [facility] / [id number] 12:02:38 Test Item Value Reference Range Interpretation Comments PROTIME PATIENT (test See_Comment H [Auto mated message] code = 5964-2) The system [employer] generated this result transmitted ref erence range: 10.1 - 1 2.6 Seconds. The reference range was not used to int erpret this result as normal/abnormal . INR (test code = 6301-6) Nor mal INR <1.1; Warfarin Therap eutic range 2.0 to 3. 0 or 2.5 to 3.5, dep ending upon the indica tions. Lab Interpretation (test Abnormal code = 99278-2) [facility] CenterLactic Acid Whole [id number] 11:43:02 Test Item Value Reference Range Interpretation Comments LACTIC ACID (test code = 1.42 mmol/L 0.50-2.20 4545289341) Lab Interpretation (test code = Normal 64013-3) [facility]2021-08-12 06:31:52 Test Item Value Reference Range Interpretation Comments APTT Patient (test code See_Comment H [Au tomated message] = 3173-2) The system [employer] generated this result transmitted ref erence range: 26 - 36 Seconds. The reference range was not used to int erpret this result as normal/abnormal . Lab Interpretation (test Abnormal code = 88046-1) [facility] [id number] 05:01:43 Test Item Value Reference Range Interpretation Comments Blood Culture-Aerobic No organisms No growth Previo us (test code = 88746-2) isolated prelim inary verified result was Culture In Progress on 08/07/2021 at 0201 CSTPreviou s preliminary verified result was No growth a t 24 hours on 08/07/2021 at 2301 CSTPreviou s preliminary verified result was No growth a t 48 hours on 08/08/2021 at 2301 CSTPreviou s preliminary verified result was No growth a t 72 hours on 08/09/2021 at 2301 [employer] Blood No organisms No growth Previous Culture-Anaerobic isolated preliminar y (test code = 40323-6) verifi ed result was Culture In Progress on 08/07/2021 at 0201 CSTPreviou s preliminary verified result was No growth a t 24 hours on 08/07/2021 at 2301 CSTPreviou s preliminary verified result was No growth a t 48 hours on 08/08/2021 at 2301 CSTPreviou s preliminary verified result was No growth a t 72 hours on 08/09/2021 at 2301 ROLL [employer] Lab Interpretation Normal (test code = 12689-4) [facility] [id number] 05:01:43 Test Item Value Reference Range Interpretation Comments Blood Culture-Aerobic No organisms No growth Previo us (test code = 81578-6) isolated prelim inary verified result was Culture In Progress on 08/07/2021 at 0201 CSTPreviou s preliminary verified result was No growth a t 24 hours on 08/07/2021 at 2301 CSTPreviou s preliminary verified result was No growth a t 48 hours on 08/08/2021 at 2301 CSTPreviou s preliminary verified result was No growth a t 72 hours on 08/09/2021 at 2301 [employer] Blood No organisms No growth Previous Culture-Anaerobic isolated preliminar y (test code = 84111-7) verifi ed result was Culture In Progress on 08/07/2021 at 0201 CSTPreviou s preliminary verified result was No growth a t 24 hours on 08/07/2021 at 2301 CSTPreviou s preliminary verified result was No growth a t 48 hours on 08/08/2021 at 2301 CSTPreviou s preliminary verified result was No growth a t 72 hours on 08/09/2021 at 2301 [employer] Lab Interpretation Normal (test code = 72753-7) [facility] CenterSP[facility]UM [id number] 23:19:55 Test Item Value Reference Range Interpretation Comments SPUTUM CULTURE 2+ Respiratory elva: (test code = 622-1) Commensal upper respiratory microorganisms only. Gram stain (test Few Epithelial cells code = 664-3) TON (test code = Bacterial pathogens TON) associated with lower respiratory infections were not identified, which include Pseudomonas aeruginosa and Staphylococcus aureus (MRSA or MSSA). [facility] CenterD-[id number] 21:45:50 Test Item Value Reference Interpretation Comments Range D-DIMER (test code = See_Comment H [Autom ated 0101409880) message] The system which generated this result transmitted reference range : <0.50 ?g/mL (FEU). The reference range was not used to interpret this result as normal/abnormal . TON (test code = This test may be TON) used in conjunction with a clinical pretest probability (PTP) assessment model to exclude venous thromboembolism (VTE) in patients suspected of deep venous thrombosis (DVT) and pulmonary embolism (PE) A D-Dimer value less than 0.50 ?g/ml (FEU) has a negative predicative value of 96 to 100% (95% CI)and 97 to 100% (95% CI) as an aid in the diagnosis of deep vein thrombosis (DVT) and pulmonary embolism when there is low or moderate pretest probability of PE or DVT. D-Dimer values are expressed in initial fibrinogen equivalent units (FEU)" The assay results should be used with other information, including the clinical context, in forming a diagnosis. Lab Interpretation Abnormal (test code = 14008-8) [id number] 21:40:23 Test Item Value Reference Range Interpretation Comments NT-proBNP (test code 9790 pg/mL See_Comment H [Autom ated = 7812678522) message] The system which generated this result transmitted reference range : <=450. The reference range was not used to interpret this result as normal/abnormal . TON (test code = TON) Biotin has been reported to cause a negative bias, interpret results relative to patient's use of biotin. Lab Interpretation Abnormal (test code = 87718-7) [facility] (NA, K, CL, CO2, GLUCOSE, BUN, CREATININE, CA)2021-08-11 21:30:04 Test Item Value Reference Range Interpretation Comments NA (test code = 136 mmol/L 135-145 5322718010) K (test code = 4.9 mmol/L 3.5-5.0 Slight 4342996653) hemolysis CL (test code = 105 mmol/L 98-108 4785173821) CO2 TOTAL (test code 24 mmol/L 23-31 = 5607805783) AGAP (test code = 2-16 6262236582) BUN (test code = 30 mg/dL 7-23 H Slight 3302761660) hemolysis GLUCOSE (test code = 95 mg/dL 70-110 6435708337) CREATININE (test code 1.41 mg/dL 0.60-1.25 H = 4044613312) CALCIUM (test code = 8.7 mg/dL 8.6-10.6 8094096562) eGFR (test code = mL/min/1.73m2 8983794829) TON (test code = TON) Association of Glomerular Filtration Rate (GFR) and Staging of Kidney Disease* + -----+ --------+ +| GFR (mL/min/1.73 m2) ?| With Kidney Damage ?| ?Without Kidney Damage+ +------- +---- --+| ?>90 ?| ?Stage one ?| ? Normal ?+ ------+ ---------+--------- +| ?60-89 ?| ?Stage two ?| ? Decreased GFR ? + -----+ --------+ +| ?30-59 ?| ?Stage three ?| ? Stage three ? + -----+ --------+ +| ?15-29 ?| ?Stage four ? | ? Stage four ?+ ------+ ---------+--------- +| ?<15 (or dialysis) ? ?| ?Stage five ? | ? Stage five ?+ ------+ ---------+--------- + *Each stage assumes the associated GFR level has been in effect for at least three months. ?Stages 1 to 5, with or without kidney disease, indicate chronic kidney disease. Notes: Determination of stages one and two (with eGFR >59mL/min/1.73 m2) requires estimation of kidney damage for at least three months as defined by structural or functional abnormalities of the kidney, manifested by either:Pathological abnormalities or Markers of kidney damage (including abnormalities in the composition of the blood or urine or abnormalities in imaging tests). Lab Interpretation Abnormal (test code = 02681-1) [facility] 21:30:04 Test Item Value Reference Range Interpretation Comments MAGNESIUM (test code = 3252041308) 2.1 mg/dL 1.7-2.4 Lab Interpretation (test code = Normal 22114-2) [facility] CenterHAPTOGLOBIN, [id number] 19:25:17 Test Item Value Reference Range Interpretation Comments HAPTOGLOB (test code = 1778890798) 53 mg/dL 16-200 Lab Interpretation (test code = Normal 75448-9) [facility]2021-08-11 18:46:09 Test Item Value Reference Range Interpretation Comments APTT Patient (test code See_Comment H [Au tomated message] = 3173-2) The system whic h generated this result transmitted ref erence range: 26 - 36 Seconds. The reference range was not used to int erpret this result as normal/abnormal . Lab Interpretation (test Abnormal code = 98018-0) [facility] CenterRETICULOCYTES [id number] 17:23:04 Test Item Value Reference Range Interpretation Comments RETIC Count Automated 1.79 % 0.59-2.24 (test code = 4569314412) RETIC Absolute Count See_Comment [Autom ated message] (test code = 2228208909) The system which generated this result transmitted ref erence range: 0.0260 - 0.1170 10*6/?L. The reference range was not used to int erpret this result as normal/abnormal . IRF % (test code = 25.90 % 2.00-19.10 H 2222535217) RETIC-HE (test code = 24.2 pg 27.3-36.4 L 2061770445) Lab Interpretation (test Abnormal code = 41055-5) [facility] (NA, K, CL, CO2, GLUCOSE, BUN, CREATININE, CA)2021-08-11 12:57:55 Test Item Value Reference Range Interpretation Comments NA (test code = 133 mmol/L 135-145 L 2385737085) K (test code = 4.2 mmol/L 3.5-5.0 4418166813) CL (test code = 106 mmol/L 98-108 4727412504) CO2 TOTAL (test code = 25 mmol/L 23-31 7642748783) AGAP (test code = 2-16 8686364473) BUN (test code = 28 mg/dL 7-23 H 3683842568) GLUCOSE (test code = 86 mg/dL 70-110 1671551515) CREATININE (test code = 1.36 mg/dL 0.60-1.25 H 4056567638) CALCIUM (test code = 8.8 mg/dL 8.6-10.6 2333764203) eGFR (test code = mL/min/1.73m2 1521716795) TON (test code = TON) Association of Glomerular Filtration Rate (GFR) and Staging of Kidney Disease* + --+ --+ ------+| GFR (mL/min/1.73 m2) ?| With Kidney Damage ?| ?Without Kidney Damage+ --------+ --------+ +| ?>90 ?| ?Stage one ?| ? Normal ?+ ---+ ---+ -------+| ?60-89 ?| ?Stage two ?| ? Decreased GFR ? + --+ --+ ------+| ?30-59 ?| ?Stage three ?| ? Stage three ? + --+ --+ ------+| ?15-29 ?| ?Stage four ? | ? Stage four ?+ ---+ ---+ -------+| ?<15 (or dialysis) ? ?| ?Stage five ? | ? Stage five ?+ ---+ ---+ -------+ *Each stage assumes the associated GFR level has been in effect for at least three months. ?Stages 1 to 5, with or without kidney disease, indicate chronic kidney disease. Notes: Determination of stages one and two (with eGFR >59mL/min/1.73 m2) requires estimation of kidney damage for at least three months as defined by structural or functional abnormalities of the kidney, manifested by either:Pathological abnormalities or Markers of kidney damage (including abnormalities in the composition of the blood or urine or abnormalities in imaging tests). Lab Interpretation Abnormal (test code = 82573-5) [facility]HEPAT[facility] PAN[facility]93980[facility] (ALB,T.PRO,BILI T,BU/BC,ALT,AST,ALK PHOS)2021-08-11 12:57:55 Test Item Value Reference Range Interpretation Comments TOTAL BILI (test code = 1439169846) 2.7 mg/dL 0.1-1.1 H BILI UNCON (test code = 4814415539) 2.4 mg/dL 0.1-1.1 H BILI CONJ (test code = 3129894914) 0.0 mg/dL 0.0-0.3 T PROTEIN (test code = 1578885486) 5.8 g/dL 6.3-8.2 L ALBUMIN (test code = 9309705062) 2.5 g/dL 3.5-5.0 L ALK PHOS (test code = 7884203857) 84 U/L 34-122 ALTv (test code = 1742-6) 12 U/L 5-50 AST(SGOT) (test code = 6833241094) 17 U/L 13-40 Lab Interpretation (test code = Abnormal 15090-7) [facility] WITH [id number] 12:57:19 Test Item Value Reference Range Interpretation Comments WBC (test code = See_Comment H [Automated 6690-2) message] The sy stem which generated this result transmitted reference range : 4.20 - 10.70 10*3/?L. The reference range was not used to interpret this result as normal/abnormal . RBC (test code = See_Comment L [Automated 789-8) message] The sy stem which generated this result transmitted reference range : 4.26 - 5.52 10*6/?L. The reference range was not used to interpret this result as normal/abnormal . HGB (test code = 8.8 g/dL 12.2-16.4 L 718-7) HCT (test code = 30.1 % 38.4-49.3 L 4544-3) MCV (test code = 79.0 fL 81.7-95.6 L 787-2) MCH (test code = 23.1 pg 26.1-32.7 L 785-6) MCHC (test code = 29.2 g/dL 31.2-35.0 L 786-4) RDW-SD (test code = 55.7 fL 38.5-51.6 H 93269-3) RDW-CV (test code = 19.9 % 12.1-15.4 H 788-0) PLT (test code = See_Comment [Automated 777-3) message] The sy stem which generated this result transmitted reference range : 150 - 328 10*3/ ?L. The reference r lucas was not used to interpret this result as normal/abnormal . MPV (test code = 12.0 fL 9.8-13.0 30124-5) NRBC/100 WBC (test See_Comment [Automat ed code = 7554750238) message] The system which generated this result transmitted reference range : 0.0 - 10.0 /100 WBCs. The refer ence range was not u sed to interpret th is result as normal/abnormal . NRBC x10^3 (test code <0.01 See_Comment [Auto mated = 8961360657) message] The s ystem which generated this result transmitted reference range : 10*3/?L. The reference range was not used to interpret this result as normal/abnormal . GRAN MAT (NEUT) % 60.3 % (test code = 770-8) IMM GRAN % (test code 5.70 % = 5315683453) LYMPH % (test code = 12.1 % 736-9) MONO % (test code = 7.2 % 5905-5) EOS % (test code = 14.0 % 713-8) BASO % (test code = 0.7 % 706-2) GRAN MAT x10^3(ANC) 7.32 10*3/uL 1.99-6.95 H (test code = 1561917454) IMM GRAN x10^3 (test 0.69 10*3/uL 0.00-0.06 H code = 2191172817) LYMPH x10^3 (test code 1.47 10*3/uL 1.09-3.23 = 731-0) MONO x10^3 (test code 0.88 10*3/uL 0.36-1.02 = 742-7) EOS x10^3 (test code = 1.70 10*3/uL 0.06-0.53 H 711-2) BASO x10^3 (test code 0.09 10*3/uL 0.01-0.09 = 704-7) ELLIPTO/OVAL (test 2+ See_Comment A [Automat ed code = 58144-7) message] The system which generated this result transmitted reference range : (none). The reference range was not used to interpret this result as normal/abnormal . SCHISTOCYTES (test 1+ A code = 800-3) REACT LYMPHS (test Rare code = 9846201075) Lab Interpretation Abnormal (test code = 58949-4) [facility]2021-08-11 12:34:11 Test Item Value Reference Range Interpretation Comments APTT Patient (test code See_Comment H [Au tomated message] = 3173-2) The system [employer] generated this result transmitted ref erence range: 26 - 36 Seconds. The reference range was not used to int erpret this result as normal/abnormal . Lab Interpretation (test Abnormal code = 63060-4) [facility]2021-08-11 00:41:29 Test Item Value Reference Range Interpretation Comments APTT Patient (test code See_Comment H [Au tomated message] = 6103-2) The system [employer] h generated this result transmitted ref erence range: 26 - 36 Seconds. The reference range was not used to int erpret this result as normal/abnormal . Lab Interpretation (test Abnormal code = 04535-3) [facility] WITH [id number] 12:36:17 Test Item Value Reference Range Interpretation Comments WBC (test code = See_Comment H [Automated 6690-2) message] The sy stem which generated this result transmitted reference range : 4.20 - 10.70 10*3/?L. The reference range was not used to interpret this result as normal/abnormal . RBC (test code = See_Comment L [Automated 789-8) message] The sy stem which generated this result transmitted reference range : 4.26 - 5.52 10*6/?L. The reference range was not used to interpret this result as normal/abnormal . HGB (test code = 9.2 g/dL 12.2-16.4 L 718-7) HCT (test code = 30.6 % 38.4-49.3 L 4544-3) MCV (test code = 77.9 fL 81.7-95.6 L 787-2) MCH (test code = 23.4 pg 26.1-32.7 L 785-6) MCHC (test code = 30.1 g/dL 31.2-35.0 L 786-4) RDW-SD (test code = 55.0 fL 38.5-51.6 H 36899-8) RDW-CV (test code = 19.9 % 12.1-15.4 H 788-0) PLT (test code = See_Comment [Automated 777-3) message] The sy stem which generated this result transmitted reference range : 150 - 328 10*3/ ?L. The reference r lucas was not used to interpret this result as normal/abnormal . MPV (test code = 10.5 fL 9.8-13.0 78980-7) NRBC/100 WBC (test See_Comment [Automat ed code = 2426345859) message] The system which generated this result transmitted reference range : 0.0 - 10.0 /100 WBCs. The refer ence range was not u sed to interpret th is result as normal/abnormal . NRBC x10^3 (test code <0.01 See_Comment [Auto mated = 0780014614) message] The s ystem which generated this result transmitted reference range : 10*3/?L. The reference range was not used to interpret this result as normal/abnormal . GRAN MAT (NEUT) % 50.2 % (test code = 770-8) IMM GRAN % (test code 5.40 % = 7224942886) LYMPH % (test code = 12.7 % 736-9) MONO % (test code = 9.4 % 5905-5) EOS % (test code = 21.6 % 713-8) BASO % (test code = 0.7 % 706-2) GRAN MAT x10^3(ANC) 8.32 10*3/uL 1.99-6.95 H (test code = 0825578819) IMM GRAN x10^3 (test 0.89 10*3/uL 0.00-0.06 H code = 0111605538) LYMPH x10^3 (test code 2.10 10*3/uL 1.09-3.23 = 731-0) MONO x10^3 (test code 1.56 10*3/uL 0.36-1.02 H = 742-7) EOS x10^3 (test code = 3.57 10*3/uL 0.06-0.53 H 711-2) BASO x10^3 (test code 0.12 10*3/uL 0.01-0.09 H = 704-7) TOXIC CHANGES (test Present A code = 803-7) Lab Interpretation Abnormal (test code = 81580-3) [facility] 12[facility]19:07 Test Item Value Reference Range Interpretation Comments MAGNESIUM (test code = 8635642057) 2.4 mg/dL 1.7-2.4 Lab Interpretation (test code = Normal 95167-4) [facility] 12:19:07 Test Item Value Reference Range Interpretation Comments PHOSPHORUS (test code = 3463302759) 3.6 mg/dL 2.5-5.0 Lab Interpretation (test code = Normal 17346-2) [facility] METABOLIC PANEL (54363)2021-08-10 12:19:07 Test Item Value Reference Range Interpretation Comments NA (test code = 134 mmol/L 135-145 L 0966647922) K (test code = 4.0 mmol/L 3.5-5.0 3155760356) CL (test code = 107 mmol/L 98-108 1404908160) CO2 TOTAL (test code = 26 mmol/L 23-31 7291801953) AGAP (test code = 2-16 L 9237981479) BUN (test code = 23 mg/dL 7-23 4467524313) GLUCOSE (test code = 77 mg/dL 70-110 1911106958) CREATININE (test code = 1.11 mg/dL 0.60-1.25 3826422467) TOTAL BILI (test code = 2.0 mg/dL 0.1-1.1 H 6141915399) CALCIUM (test code = 8.7 mg/dL 8.6-10.6 1155761107) T PROTEIN (test code = 5.8 g/dL 6.3-8.2 L 3776784107) ALBUMIN (test code = 2.7 g/dL 3.5-5.0 L 8146488827) ALK PHOS (test code = 86 U/L 34-122 9198725727) ALTv (test code = 13 U/L 5-50 1742-6) AST(SGOT) (test code = 15 U/L 13-40 9319243369) eGFR (test code = mL/min/1.73m2 8405766335) TON (test code = TON) Association of Glomerular Filtration Rate (GFR) and Staging of Kidney Disease* + --+ --+ ------+| GFR (mL/min/1.73 m2) ?| With Kidney Damage ?| ?Without Kidney Damage+ --------+ --------+ +| ?>90 ?| ?Stage one ?| ? Normal ?+ ---+ ---+ -------+| ?60-89 ?| ?Stage two ?| ? Decreased GFR ? + --+ --+ ------+| ?30-59 ?| ?Stage three ?| ? Stage three ? + --+ --+ ------+| ?15-29 ?| ?Stage four ? | ? Stage four ?+ ---+ ---+ -------+| ?<15 (or dialysis) ? ?| ?Stage five ? | ? Stage five ?+ ---+ ---+ -------+ *Each stage assumes the associated GFR level has been in effect for at least three months. ?Stages 1 to 5, with or without kidney disease, indicate chronic kidney disease. Notes: Determination of stages one and two (with eGFR >59mL/min/1.73 m2) requires estimation of kidney damage for at least three months as defined by structural or functional abnormalities of the kidney, manifested by either:Pathological abnormalities or Markers of kidney damage (including abnormalities in the composition of the blood or urine or abnormalities in imaging tests). Lab Interpretation Abnormal (test code = 31179-7) [facility] (for use with Heparin Infusion)2021-08-10 12:13:24 Test Item Value Reference Range Interpretation Comments APTT Patient (test code See_Comment H [Au tomated message] = 3173-2) The system [employer] generated this result transmitted ref erence range: 26 - 36 Seconds. The reference range was not used to int erpret this result as normal/abnormal . Lab Interpretation (test Abnormal code = 75313-0) [facility] (for use with Heparin Infusion)2021-08-10 01:06:01 Test Item Value Reference Range Interpretation Comments APTT Patient (test code See_Comment H [Au tomated message] = 3173-2) The system [employer] generated this result transmitted ref erence range: 26 - 36 Seconds. The reference range was not used to int erpret this result as normal/abnormal . Lab Interpretation (test Abnormal code = 87294-4) [facility] Center[facility] Pleural [id number] 23:08:52 Test Item Value Reference Range Interpretation Comments Case Report (test code Non-Gynecologic = 7292463805) Cytology ?Case: [id number] ?Authorizing Provider: ?Bj Patton MD Collected: ? 08/07/2021 1545 ?Ordering Location: ? ? [facility] Received: ?08/07/2021 1724 ? (SARAH 11D) ?Pathologist: ? Cale, ? MD Rogelio ?Specimen: ? ?PLEURAL, RIGHT, EFFUSION ? Final Diagnosis (test d4zppYQrYAOli3umFZHrcKD code = 1199644744) uZzEwMzNcZnRuYmpcdWMxIH tccnRmMVxlcGljOTYwMVxhb yCgEVFhdCJvX6FsbojbYZhb BX9pHU4pvPanmJYbkPTrYHQ oDhOko8mnc989gPZyt3fsQG BDuuzznDo8dLxqA66vm1K2H rhmK96zhXOdSEV2MGSwXOKt gFDjFVMgFXK5PIAmbQGyO8b bMCUqKU7iheceACdrRUgeTC OeeEH5SACkfEItN9HcSPGkE YrfGMIgysq8MvPbGr5caIBd eTcyMFxwYXJkXHBsYWluXGJ cViVaJVnfHVMlCZ0cLDbOBP JBLCBSSUdIVDsgVEhPUkFDR V3XWGSEBjPLRHZTIEYEFbYv O1ZZGVOIJY1IEnilgVIfEUO gICAgLSBNSVhFRCBJTkZMQU 1KMMNHU83wbFQzYCEcHAQrB IPTJBxSJBbKJTEOK6ZgUJXG OAmYXV1NNVXGUHuNUYyEYHF eZ84RQCNYAEvzyFWzRCEiFT Vlyf82WMV2EgXdh7Y3KCNeV fTpXCLgGE6cyFtnXMIzVX0j UJHhF9etrY5oofv5DmAhMXP tTlC2CRUmxrD0Bbf3NQMkWO dkz1dka0RmP7MlfHShrOz1c 3clNDTrIlH1iFKiHAblX5nv ybUzgMGwYIYfTXt5cOfoUqX gKTPme9onwvQzHcChVEYuCL McWUVqoRwgseu5dW62NEQgq D1ntFQqSXivyeJnYaU9YTkk QEAnIpH9QLLnbLKqIMHvW0v yZWQwXGdyZWVuMFxibHVlMC E7eGwaf6T7fJKbvVYjvJmzF xXrSzBjRUWTm9RaAZv9pZeh L4UuVXRhMyT0yIEnJMLuWPm nNZJtNDWlisV9dG19KHutee B2aYHle3Nuo37au208mI5bn OKbXAL1EEBrZYImgLEsBXUq IYQ7BFGwfYSbI5ogIEGkJV0 exatiDLvcQPjpCNJpcHT3AQ VvgJRmF6BkHGMlSVpzOIDnw us5SaVrQo5cyMHieDyfBBqq l0jkx7jxsBCoBfl4GVJiOaK zIbtxGLqwp1Odg3lqPXDmzr 7tNOK3wUJypHwqa1U2fHQhO JIddOQioaGmXWFsQsB3WTfe MO6xwf72OYOfDMC8na7ikLB hxPhotaJogHZkNSlcJ0KsBL Kfn272ISOvO3AxQHSez3M3j tImIpGcVTGbmAG3joX3HNAs NGt3aUUopwO3xwJcwKYbF3z mfT7qRXQlEP0esfnoc9giRU smNEnjHOBmfPN0caX6KISba IIgI1DmbM4hVICeJYixTZOs ptm8QpTxHr4nhUEwwAusKNf zYmtwYWdlXHBnbmNvbnRccG duZGVjXHBsYWluXHBsYWluX SSoDONfUdVpgRieuDrfdF6h WrNfUbFmZHrtUC0aQZKgD1v vzBHrNYIjVSMjN3tpThXukH 9jaFxmMVxjZjJcZnMyMFxwY XIgSSBoYXZlIHBlcnNvbmFs eWfuqiD9fLH7ZEZfRQcgPQR cBIRyfFPfps8ceLvaWCPyDA 5kIGFncmVlIHdpdGggYWxsI WZ4GXRdmIUhsPRnvAQgDYLs eSByZXNpZGVudHMsIGZlbGx nh2Moi5WedUO7hE9ns9tid3 GdDMFoqRK8PH41nhU6qE5cJ XEcOH7uTPEaTK9svZIkrIOz VAHbm12eaWwtdqUfIATqauU uXHBsYWluXGYyXGZzMjhcbG FuZzEwMzNcaGljaFxmMlxkY rTtVYJkVRbhE7msKmIvWuGk SGymHYJ7fD== Final Diagnosis t4mdeHRrXNBcpAL9GoEnSSS Comment (test code = df6sos5WaiHDtqJJhHXzghG 1628744309) SsvyUmyb34kUG7eG36NG2sL BMiWyN2OQHokjT7Jkd1ZNMr HBLcoTUzX724e5qyl6egqxE hkKP0eBowARBjuhktMeF0FR vbPNFnrrvwNVw4LHcqHGYwh DY7HSXscDIuX2FtVZTsMM3y kvw8ZLF7UQxzFAYwQqA2BBF ziJHwSBUtsPqwOMyxn254WL A6CuLdJQNjqtChcUfsjX6jY jIrZHVBsMHzd3LaopCbFR6i EGDorAzaNnyhV7rzo3csioB fCjEpZLTpjYNnuqRwDA3bRN Oni76gz9w8rAVrzEH1kQ6jn LOoqnctaSthdVawH0m2QTYf KPVuGDJhURM7rx2ocYhhos5 zCCXNFLReLSDXQPHan2ExpX 2zHNpgurMpuRKmIs7qjPLtH N3sPKHus4KrRFMqINGzXKR8 TWPdWP9uT2G1uRHeNQEfdeP haWQgZmFzdCBiYWNpbGxpIG FpGZOjhF0eJPizj4ZiMX9lt 05oZKSvf2RpD3FvmoHnsN6r Mn1zwCKaoOxqSN29DSLzjZf dPSqzMN90kCBoCDIjYUufDT JccGFyfQ== Clinical Information Clinical Hx: 85 M (test code = admitted for sepsis 09/11 [id number]) CAP. Right thoracentesis completed for pleural effusion. Gross Description c9dbrVZmLBKcbIR1SmYnBVP (test code = qh8dzm7BzgTGlgSZaWImywL 1834207547) WmjcWjgn97zTN4cB23FD2mS PSgTqF8ESAdbyV9Num0XNKd LXPbjKHtK524s9toj0dkkgH fiHY8HBYxNXWvV2EtDK8iPK UayMSxB60eqWYoOPY1GDFkA QBrrVHoLMTjWBH7VRJjoRNm E6oqEQSwWK6dqsnxYAmrXWp nNSWkiOS6FIFinCNhY0ClJK LfIVtuFOPjyse1EdLpVx1xb LNvcKnqWExfJYOmo8gcDEXo lXMkVZX1SXqxfSPuTCShAWT cBUl9QMCuMQollXCoSQ2miC lcSjklgHopu5PoiXTkWAvfM LPvAPLfKOlgGBHnP4YVDTEw XbDnJVwnAcGjRDc2QAl2MR1 MYiQmJUQsAbN3RhE2BJKuPX l7HJtbOR6ASUL4EPHzXTV6J AzoXXB3QiTxSLl6WLScAQtp bCBcXGYgQXJpYWwgXFxmcyA rELLnWQ6nkJfmgDNvabdycd IwXHBhclxmczIyXHBhciBBM E4tYIGASWBIXUmzLnkUBXB3 ZQKWR8XCE5UHQYQTBTGyIsw DPJLsnEQgUWWyL9JgirRvWD RiGOOfOSnvNYFmIQVvS0Rzl yBvZiBhbWJlciBmbHVpZCBc kELeVLUkEFDdzzEoBCHol4s pZGVzICgxIFBhcGFuaWNvbG TvhARshJEji8PvsxbuXTYIc 39pkr09w5f1ZGT4cB8wtBxm MPSrWTPrYUEdtS0grwKeRTE yZSIyqsR8gX0tAVidNAZayQ ZiYLTgLmAnT1UuJZBjPfAxY DIhXfPjL5LhWJEGJHJXSSoa AvaLKPF6OUKIG5FNP3JZGLJ TSVMgRkxVSURcZnMyMFxjZj FlReOKZIaNAARXH7VQMXEsq iBSZXNpZHVhbCBmbHVpZCBz ZWRpbWVudCBwbGFjZWQgaW4 yDj3jdDIyvV5dg34sHNThv4 JdT8G5CNAwMVnuc8eoNDXkC Odbh5MdNEhEFGYFNN1GZP0e gLG8YFdKT3UUF3hUfSHwITW xJXYmQLB6EIoACLsgfPo8ZS m6jWblSfcuskNcsEShDlIyt W7bEp1rJQ5mIFOgr7huwJFs UWicMzfpjUSpklJ5ANvWPYB CKMoSZhPvMO8pWVhQUxnFMc N5HtI0NZMnPAIwHJnqzKTFy ER0uXeqpAk3g9vecWWnc2h9 MJpeSBZ8vTdxoWAbwidvqbM kLLFsSOAsISMrNjKko7Uiys sxCS5xMSYjITXobB1vJRnps G2nXSpmpJa8FFPoNQp1GPoe BO7iWBE6Uv3zkLMsENRpd5S oJ2BioSQqbH7lg0vpHCFqPY JlcGFyZWQgNCBzbGlkZXMgK DIgSCZFLCBBRkIsIEdNUylc tQLxQZKrvkETg5KjaBA4ANa yt5wdNGJtABJiJfQiU4XsCM D8KRBamBAfFRB7ED9hbSlzP BKqK5FmO0HapfC2CGRmsw1= Disclaimer (test code m9wycQZxJGVlv5ezCGSrlXN = [id number]) uZzEwMzNcZnRuYmpcdWMxIH eknyAqCSfjg6HdZ6GtPwNgI FxhbnNpXGRlZmxhbmcxMDMz AAP7wdVlJBOqNYlkVWTrQQk vDo5rpPCdnUetUnBgPLZzu3 fugfBHMYyaCtXbJ641UZCdF Rweu4tik6WeRPAszAWvk4H7 IGQJgtrolOl7mWwbD85wb2V 9AizsU1rtDKSkRIZdQ9BlNL 0zKUIaRqj3IYS9ECI5MOYwF SEfB9FrEG7oAQPcpWEtJRb7 q5unaSmdDVUpWOA0x0pqGDy zflVzVM8eok1qkAe9m6jsjo FvXWMzEWDfoFIMBKXnX5Coq QxxRn5lmLe3oPakHdobVKM9 Njo1CO9tex58tvi7rMswJFB qizfmQfW8HAhaZCRsdobwHD k2NEcvAQHufZN1RVNjjKAyU 7EaNIRiAO1yinb9IBD9KDor VENjCiK6OYLddDUiGCSjoRu hBQgre632JLU0GlCvFL9qD5 Ecm0Q9cC6ypDGuWUBhbEAhI oQtEKYxpr1kfCXaIAdap2Vv XUM1hrT7gUCvsDGgQURdYI1 7Gueov4ApAbljz8HsU62tfC A3VYdya9hrNR1xTaD8xyHeY Cswr0iwkK5kYzU8MUibUA8n UB8jPHJpnR2hkrvpHXPhIhL zfowbJCCqkSthfeIyFq5uuA fsRUW7WTwvR7mgpX3gUkZ6Z KhpM9gqgC9pAOi1NAwqvRB0 YYFprT2qBF1wiwgqq5snUVn eENapLHAlkiJ5utW6VELfiT AsI5OrvU0wXYGzZW5emqysu 1poRBK1KIzaUYRkARW9NeTd OJRnd8Ahepz3YxOys3IvgYP pNQrpY74sx093CNFvvqLoK6 xwbGFpblxwbGFpblxmMFxmc vW9NYEmqaPtn7DgOFUuHOE1 LNnfZQokhAYxMEPybIzlb3n iA0OumTAnNABbJOikHJBnLC ZzMjBcbGFuZzEwMzNcaGlja LicXLmmFeBwALMbVZmvO6tp InXoA4NdKCVzZkRgyWAnZ0m dQEzobkXbPTNruoInhON3TK jlX5v4HGGpckJvmVb2stTyL yPnCGGgKOD8JTdwdZSdZMMg n2XmzqilpNOnPr3lvMItPGM loP0dPLSyDSMoROlkKS0hyY p1UCUOpPGuuYPdIhUMAVXbK R35zwFuNKHSicerf3E4VCmd JALhz8JnbNEbR3nhm8LxFIU hv24gUO5bd3T5n3xdTJH8PT 2aw2XfGMQveKRvxLGuLSBij 7Qfhaujg6QbTPTrwlPwy3Fg ZCBhbmQgaXRzIHBlcmZvcm1 qgoApPUUzSWSqJ5ZasmnjeL gykmTsKAGotv4rhdHnMQZ6I IOYCFZnJLLjd4QsmI4ucYEY ZKB4xKNnle3xpaUGdAXuXXF epz27QLBeDY1eD7awIKHyIF LuvsSzmQUlu4ShTEPcvLR5t XAsQB5BYqHZr55eNHGhNEGD ukIqKYKvnHufsYS5ftF5xP2 uIChGREEpLlx+IFRoZSBGRE LoKU6nlaUmj4BhqgMmrUjxM TYmmVIta8FuwYHhu0RjxQtw p2QdhAZxnYRyUJ2jNZNrmsg wEZGnCKVBTeZWVQFnlnA6p3 DhMAWyEBCpDBN3cAxifru9R CQxqT1rSRXnO3qjhmxoTErc POKil2EtyI5rvETJsUUty9Z abYGgvLVFxZLlQB0jhdIwVR bPMZaEODU3jcTbZJOrn5QdN TcnE6dkC57yxKyvvRw1wLU5 GCJ9jE5vPce+IFxwYXJccGF yIEFwcHJvcHJpYXRlbHkgcm TgY9YiwsZvzI2diHWxjjMaV K3sGI1lX1M5aGObBTOplwBn e4xtDZmxjbTmBuCiyjEuYJO qWOhkMBRkv5LcCPowAWP4VB lucyBpbmNsdWRpbmcgSCZFL WXWhLSoiOQoOOD1TVxhebPx biThDO7fuQ9lkRciyU5gfWW raWA7sskoQQGkFPBkkSeeIS XnDQ0zhIMaGIMjqtONpPtfl HGktJ0pY4SxLJYvZIZskm5k QCVwvZ9uHYthl3KdzazjWYV wSYUkIPJdxoWdlz4aJVQarW EGVS2CCJwacQKcl1LmkuWnX 8sXGIJ3FKLbQvCgFdnpZSDo tBLwjMOeVBPfmp98WTIkgS9 uiQhsOYUugZ9xpT6piVysyN 8kGhSkBpHtSLosOA2hUNYzD 5dbdTEjOZRcBXSlN3lmNzVi fM7nsGgqTQthIfWmFbEyAPx nDZD8wY== Embedded Images (test code = 0449393544) [id number] 13:11:23 Test Item Value Reference Range Interpretation Comments NT-proBNP (test code 7340 pg/mL See_Comment H [Autom ated = [id number]) message] The system which generated this result transmitted reference range : <=450. The reference range was not used to interpret this result as normal/abnormal . TON (test code = TON) Biotin has been reported to cause a negative bias, interpret results relative to patient's use of biotin. Lab Interpretation Abnormal (test code = 09280-1) [facility] METABOLIC PANEL (NA, K, CL, CO2, GLUCOSE, BUN, CREATININE, CA)2021-08-09 13:00:23 Test Item Value Reference Range Interpretation Comments NA (test code = 135 mmol/L 135-145 [id number]) K (test code = 3.6 mmol/L 3.5-5.0 3013304474) CL (test code = 107 mmol/L 98-108 5205153612) CO2 TOTAL (test code 25 mmol/L 23-31 = 3124099497) AGAP (test code = 2-16 4085882006) BUN (test code = 23 mg/dL 7-23 1684320559) GLUCOSE (test code = 78 mg/dL 70-110 3178108693) CREATININE (test code 1.13 mg/dL 0.60-1.25 = 3609161895) CALCIUM (test code = 8.7 mg/dL 8.6-10.6 4638819546) eGFR (test code = mL/min/1.73m2 6534503458) TON (test code = TON) Association of Glomerular Filtration Rate (GFR) and Staging of Kidney Disease* + + +- +| GFR (mL/min/1.73 m2) ?| With Kidney Damage ?| ?Without Kidney Damage+ ------+ ----+ ------+| ?>90 ?| ?Stage one ?| ? Normal ?+ -+ + -+| ?60-89 ?| ?Stage two ?| ? Decreased GFR ? + + +- +| ?30-59 ?| ?Stage three ?| ? Stage three ? + + +- +| ?15-29 ?| ?Stage four ? | ? Stage four ?+ -+ + -+| ?<15 (or dialysis) ? ?| ?Stage five ? | ? Stage five ?+ -+ + -+ *Each stage assumes the associated GFR level has been in effect for at least three months. ?Stages 1 to 5, with or without kidney disease, indicate chronic kidney disease. Notes: Determination of stages one and two (with eGFR >59mL/min/1.73 m2) requires estimation of kidney damage for at least three months as defined by structural or functional abnormalities of the kidney, manifested by either:Pathological abnormalities or Markers of kidney damage (including abnormalities in the composition of the blood or urine or abnormalities in imaging tests). [facility] 13[facility]00:23 Test Item Value Reference Range Interpretation Comments MAGNESIUM (test code = 6243290574) 1.8 mg/dL 1.7-2.4 Lab Interpretation (test code = Normal 37956-6) [facility] WITH [id number] 12:59:47 Test Item Value Reference Range Interpretation Comments WBC (test code = See_Comment H [Automated 6690-2) message] The sy stem which generated this result transmitted reference range : 4.20 - 10.70 10*3/?L. The reference range was not used to interpret this result as normal/abnormal . RBC (test code = See_Comment L [Automated 789-8) message] The sy stem which generated this result transmitted reference range : 4.26 - 5.52 10*6/?L. The reference range was not used to interpret this result as normal/abnormal . HGB (test code = 9.1 g/dL 12.2-16.4 L 718-7) HCT (test code = 31.4 % 38.4-49.3 L 4544-3) MCV (test code = 79.1 fL 81.7-95.6 L 787-2) MCH (test code = 22.9 pg 26.1-32.7 L 785-6) MCHC (test code = 29.0 g/dL 31.2-35.0 L 786-4) RDW-SD (test code = 55.5 fL 38.5-51.6 H 21867-2) RDW-CV (test code = 19.7 % 12.1-15.4 H 788-0) PLT (test code = See_Comment [Automated 777-3) message] The sy stem which generated this result transmitted reference range : 150 - 328 10*3/ ?L. The reference r lucas was not used to interpret this result as normal/abnormal . MPV (test code = 10.6 fL 9.8-13.0 96244-9) NRBC/100 WBC (test See_Comment [Automat ed code = 0811406421) message] The system which generated this result transmitted reference range : 0.0 - 10.0 /100 WBCs. The refer ence range was not u sed to interpret th is result as normal/abnormal . NRBC x10^3 (test code <0.01 See_Comment [Auto mated = 0548140548) message] The s ystem which generated this result transmitted reference range : 10*3/?L. The reference range was not used to interpret this result as normal/abnormal . GRAN MAT (NEUT) % 50.0 % (test code = 770-8) IMM GRAN % (test code 4.60 % = 2285279930) LYMPH % (test code = 13.2 % 736-9) MONO % (test code = 9.1 % 5905-5) EOS % (test code = 22.2 % 713-8) BASO % (test code = 0.9 % 706-2) GRAN MAT x10^3(ANC) 8.45 10*3/uL 1.99-6.95 H (test code = 4676391476) IMM GRAN x10^3 (test 0.78 10*3/uL 0.00-0.06 H code = 9724545319) LYMPH x10^3 (test code 2.22 10*3/uL 1.09-3.23 = 731-0) MONO x10^3 (test code 1.53 10*3/uL 0.36-1.02 H = 742-7) EOS x10^3 (test code = 3.75 10*3/uL 0.06-0.53 H 711-2) BASO x10^3 (test code 0.15 10*3/uL 0.01-0.09 H = 704-7) POLYCHROMASIA (test 2+ See_Comment [Automa florencio code = 88208-5) message] The system which generated this result transmitted reference range : 2+. The referen ce range was not u sed to interpret th is result as normal/abnormal . TOXIC CHANGES (test Present A code = 803-7) Lab Interpretation Abnormal (test code = 83359-1) [facility] (for use with Heparin Infusion)2021-08-09 12:52:09 Test Item Value Reference Range Interpretation Comments APTT Patient (test code See_Comment HH [Au tomated message] = 3173-2) The system whic h generated this result transmitted ref erence range: 26 - 36 Seconds. The reference range was not used to int erpret this result as normal/abnormal . Lab Interpretation (test Abnormal code = 22824-4) [facility]21[facility]09 07:37:26 Test Item Value Reference Range Interpretation Comments APTT Patient (test code See_Comment H [Au tomated message] = 3173-2) The system [employer] generated this result transmitted ref erence range: 26 - 36 Seconds. The reference range was not used to int erpret this result as normal/abnormal . Lab Interpretation (test Abnormal code = 37556-6) [facility] CenterLACTATE [id number] 19:43:24 Test Item Value Reference Range Interpretation Comments LDH (test code = 6275086118) 379 U/L 300-600 Lab Interpretation (test code = Normal 67453-3) [facility] # 19:02:24 Test Item Value Reference Range Interpretation Comments Blood Culture-Aerobic No organisms No growth Previo us (test code = 94595-9) isolated prelim inary verified result was Culture In Progress on 08/03/2021 at 1602 CSTPreviou s preliminary verified result was No growth a t 24 hours on 08/04/2021 at 1301 CSTPreviou s preliminary verified result was No growth a t 48 hours on 08/05/2021 at 1301 CSTPreviou s preliminary verified result was No growth a t 72 hours on 08/06/2021 at 1301 [employer] Blood No organisms No growth Previous Culture-Anaerobic isolated preliminar y (test code = 07848-1) verifi ed result was Culture In Progress on 08/03/2021 at 1602 CSTPreviou s preliminary verified result was No growth a t 24 hours on 08/04/2021 at 1301 CSTPreviou s preliminary verified result was No growth a t 48 hours on 08/05/2021 at 1301 CSTPreviou s preliminary verified result was No growth a t 72 hours on 08/06/2021 at 1301 [employer] Lab Interpretation Normal (test code = 60144-5) [facility]2021-08-08 18:49:06 Test Item Value Reference Range Interpretation Comments APTT Patient (test code See_Comment H [Au tomated message] = 3173-2) The system [employer] generated this result transmitted ref erence range: 26 - 36 Seconds. The reference range was not used to int erpret this result as normal/abnormal . Lab Interpretation (test Abnormal code = 81080-0) [facility] 13:11:48 Test Item Value Reference Range Interpretation Comments MAGNESIUM (test code = 3981812056) 2.0 mg/dL 1.7-2.4 Lab Interpretation (test code = Normal 23122-0) [facility] (NA, K, CL, CO2, GLUCOSE, BUN, CREATININE, CA)2021-08-08 13:11:47 Test Item Value Reference Range Interpretation Comments NA (test code = 135 mmol/L 135-145 8990893043) K (test code = 4.2 mmol/L 3.5-5.0 5273568093) CL (test code = 110 mmol/L 98-108 H 0596400088) CO2 TOTAL (test code = 22 mmol/L 23-31 L 7750522729) AGAP (test code = 2-16 8282565643) BUN (test code = 23 mg/dL 7-23 4674107575) GLUCOSE (test code = 74 mg/dL 70-110 5321015473) CREATININE (test code = 1.14 mg/dL 0.60-1.25 9649771485) CALCIUM (test code = 9.1 mg/dL 8.6-10.6 7567350273) eGFR (test code = mL/min/1.73m2 8486810345) TON (test code = TON) Association of Glomerular Filtration Rate (GFR) and Staging of Kidney Disease* + --+ --+ ------+| GFR (mL/min/1.73 m2) ?| With Kidney Damage ?| ?Without Kidney Damage+ --------+ --------+ +| ?>90 ?| ?Stage one ?| ? Normal ?+ ---+ ---+ -------+| ?60-89 ?| ?Stage two ?| ? Decreased GFR ? + --+ --+ ------+| ?30-59 ?| ?Stage three ?| ? Stage three ? + --+ --+ ------+| ?15-29 ?| ?Stage four ? | ? Stage four ?+ ---+ ---+ -------+| ?<15 (or dialysis) ? ?| ?Stage five ? | ? Stage five ?+ ---+ ---+ -------+ *Each stage assumes the associated GFR level has been in effect for at least three months. ?Stages 1 to 5, with or without kidney disease, indicate chronic kidney disease. Notes: Determination of stages one and two (with eGFR >59mL/min/1.73 m2) requires estimation of kidney damage for at least three months as defined by structural or functional abnormalities of the kidney, manifested by either:Pathological abnormalities or Markers of kidney damage (including abnormalities in the composition of the blood or urine or abnormalities in imaging tests). Lab Interpretation Abnormal (test code = 45751-5) [facility]45363[facility] (ALB,T.PRO,BILI T,BU/BC,ALT,AST,ALK PHOS)2021-08-08 13:11:47 Test Item Value Reference Range Interpretation Comments TOTAL BILI (test code = 5603322121) 2.0 mg/dL 0.1-1.1 H BILI UNCON (test code = 0943167131) 1.6 mg/dL 0.1-1.1 H BILI CONJ (test code = 9041074949) 0.0 mg/dL 0.0-0.3 T PROTEIN (test code = 4119978263) 5.9 g/dL 6.3-8.2 L ALBUMIN (test code = 5190514094) 2.6 g/dL 3.5-5.0 L ALK PHOS (test code = 1498058842) 86 U/L 34-122 ALTv (test code = 1742-6) 16 U/L 5-50 AST(SGOT) (test code = 1217085406) 18 U/L 13-40 Lab Interpretation (test code = Abnormal 71203-0) [facility] CenterCB WITH [id number] 13:06:01 Test Item Value Reference Range Interpretation Comments WBC (test code = See_Comment H [Automated 8190-2) message] The sy stem which generated this result transmitted reference range : 4.20 - 10.70 10*3/?L. The reference range was not used to interpret this result as normal/abnormal . RBC (test code = See_Comment L [Automated 789-8) message] The sy stem which generated this result transmitted reference range : 4.26 - 5.52 10*6/?L. The reference range was not used to interpret this result as normal/abnormal . HGB (test code = 9.4 g/dL 12.2-16.4 L 718-7) HCT (test code = 33.1 % 38.4-49.3 L 4544-3) MCV (test code = 80.5 fL 81.7-95.6 L 787-2) MCH (test code = 22.9 pg 26.1-32.7 L 785-6) MCHC (test code = 28.4 g/dL 31.2-35.0 L 786-4) RDW-SD (test code = 56.8 fL 38.5-51.6 H 81598-3) RDW-CV (test code = 19.9 % 12.1-15.4 H 788-0) PLT (test code = See_Comment [Automated 777-3) message] The sy stem which generated this result transmitted reference range : 150 - 328 10*3/ ?L. The reference r lucas was not used to interpret this result as normal/abnormal . MPV (test code = 10.6 fL 9.8-13.0 85539-4) IPF % (test code = 4.0 % 1.2-10.7 Platelet count 4217985881) measured by fluorescence method. NRBC/100 WBC (test See_Comment [Automat ed code = 3076445870) message] The system which generated this result transmitted reference range : 0.0 - 10.0 /100 WBCs. The refer ence range was not u sed to interpret th is result as normal/abnormal . NRBC x10^3 (test code <0.01 See_Comment [Auto mated = 1473827009) message] The s ystem which generated this result transmitted reference range : 10*3/?L. The reference range was not used to interpret this result as normal/abnormal . GRAN MAT (NEUT) % 52.1 % (test code = 770-8) IMM GRAN % (test code 4.40 % = 0280400552) LYMPH % (test code = 12.5 % 736-9) MONO % (test code = 9.3 % 5905-5) EOS % (test code = 20.8 % 713-8) BASO % (test code = 0.9 % 706-2) GRAN MAT x10^3(ANC) 7.88 10*3/uL 1.99-6.95 H (test code = 8763305194) IMM GRAN x10^3 (test 0.66 10*3/uL 0.00-0.06 H code = 6540941764) LYMPH x10^3 (test code 1.89 10*3/uL 1.09-3.23 = 731-0) MONO x10^3 (test code 1.41 10*3/uL 0.36-1.02 H = 742-7) EOS x10^3 (test code = 3.14 10*3/uL 0.06-0.53 H 711-2) BASO x10^3 (test code 0.14 10*3/uL 0.01-0.09 H = 704-7) TOXIC CHANGES (test Present A code = 803-7) Lab Interpretation Abnormal (test code = 20059-1) [facility]2021-08-08 05:47:17 Test Item Value Reference Range Interpretation Comments APTT Patient (test code See_Comment H [Au tomated message] = 3173-2) The system [employer] generated this result transmitted ref erence range: 26 - 36 Seconds. The reference range was not used to int erpret this result as normal/abnormal . Lab Interpretation (test Abnormal code = 98949-1) [facility] CenterTotal Protein Body [id number] 03:24:19 Test Item Value Reference Range Interpretation Comments T.PROT BF (test 2286.0 mg/dL code = 9185510968) UNSPUN BODY FLUID Yellow COLOR (test code = 9844006045) UNSPUN BODY FLUID Slightly Cloudy CLARITY (test code = 9008334255) SPUN BODY FLUID Yellow COLOR (test code = 4825460564) SPUN BODY FLUID Clear CLARITY (test code = 3023911987) Sediment (test code The sediment volume is = 4305027340) <0.1 mLs of the total fluid volume of 3mLs and its color is red. TON (test code = Test developed and TON) characteristics determined by [facility]. [facility] CenterLDH TOTAL BODY [id number] 01:40:10 Test Item Value Reference Range Interpretation Comments LDH BF (test code = 182 U/L 0692041189) UNSPUN BODY FLUID Yellow COLOR (test code = 3545886683) UNSPUN BODY FLUID Slightly Cloudy CLARITY (test code = 6734802717) SPUN BODY FLUID Yellow COLOR (test code = 3138832026) SPUN BODY FLUID Clear CLARITY (test code = 8672900210) Sediment (test code The sediment volume is = 3791212464) <0.1 mLs of the total fluid volume of 3mLs and its color is red. TON (test code = Test developed and TON) characteristics determined by [facility]. [facility] CenterGlucose Body [id number] 01:06:09 Test Item Value Reference Range Interpretation Comments GLUCOSE BF (test 82 mg/dL code = 9545108781) UNSPUN BODY FLUID Yellow COLOR (test code = 7290057318) UNSPUN BODY FLUID Slightly Cloudy CLARITY (test code = 4552556054) SPUN BODY FLUID Yellow COLOR (test code = 0788565191) SPUN BODY FLUID Clear CLARITY (test code = 8240112391) Sediment (test code The sediment volume is = 3921205893) <0.1 mLs of the total fluid volume of 3mLs and its color is red. TON (test code = Test developed and TON) characteristics determined by [facility]. [facility] CenterAmylase Body [id number] 01:06:04 Test Item Value Reference Range Interpretation Comments AMYLASE BF (test <30 U/L code = 9927206816) UNSPUN BODY FLUID Yellow COLOR (test code = 6835501333) UNSPUN BODY FLUID Slightly Cloudy CLARITY (test code = 1422044095) SPUN BODY FLUID Yellow COLOR (test code = 8693286744) SPUN BODY FLUID Clear CLARITY (test code = 9958521615) Sediment (test code The sediment volume is = 2245584210) <0.1 mLs of the total fluid volume of 3mLs and its color is red. TON (test code = Test developed and TON) characteristics determined by [facility]. [facility] CenterBODY FLUID MANUAL [id number] 00:18:02 Test Item Value Reference Range Interpretation Comments BF SEGS% (test code 19 % = 62380-8) BF LYMPHS% (test 23 % code = 44346-2) BF MACROPHAGE% 58 % Rare Erythrop hages and (test code = Leukophages 32206-7) BF #CELLS CNTD (test cells/uL code = 1420657386) [facility] CenterBODY FLUID DIRECT [id number] 00:16:08 Test Item Value Reference Range Interpretation Comments BF COLOR Light Yellow (test code = 3901240498) BF WBC Count See_Comment [Automated (test code = message] The sy stem 7366386920) which generated this result transmitted reference range : /?L. The refere nce range was not u sed to interpret th is result as normal/abnormal . BF RBC Count <3000 See_Comment [Automated (test code = message] The sy stem 5564498983) which generated this result transmitted reference range : /?L. The refere nce range was not u sed to interpret th is result as normal/abnormal . TON (test The reference range code = TON) and other method performance specifications have not been established for this body fluid. ?The test results must be integrated into the clinical context for interpretation. [facility]2021-08-07 21:40:45 Test Item Value Reference Range Interpretation Comments APTT Patient (test code See_Comment H [Au tomated message] = 3173-2) The system [employer] [facility] generated this result transmitted ref erence range: 26 - 36 Seconds. The reference range was not used to int erpret this result as normal/abnormal . Lab Interpretation (test Abnormal code = 01566-6) [facility] CenterHEPATIC FUNCTION PANEL (24981) (ALB,T.PRO,BILI T,BU/BC,ALT,AST,ALK PHOS)2021-08-07 21:33:24 Test Item Value Reference Range Interpretation Comments TOTAL BILI (test code = 6855678480) 1.9 mg/dL 0.1-1.1 H BILI UNCON (test code = 9693378752) 1.4 mg/dL 0.1-1.1 H BILI CONJ (test code = 2668978942) 0.0 mg/dL 0.0-0.3 T PROTEIN (test code = 5214575615) 6.3 g/dL 6.3-8.2 ALBUMIN (test code = 4164104388) 2.9 g/dL 3.5-5.0 L ALK PHOS (test code = 3515023689) 95 U/L 34-122 ALTv (test code = 1742-6) 19 U/L 5-50 AST(SGOT) (test code = 1693098619) 20 U/L 13-40 Lab Interpretation (test code = Abnormal 58440-4) [facility] CenterC-REACTIVE [id number] 17:37:08 Test Item Value Reference Range Interpretation Comments CRP (test code = 0575220294) 1.4 mg/dL <0.8 H Lab Interpretation (test code = Abnormal 74395-8) [facility] CenterRHEUMATOID [id number] 17:37:08 Test Item Value Reference Range Interpretation Comments RF (test code = See_Comment H [Automated 1941694602) message] The system which generated this result transmitted reference range : <20 IU/mL. The reference range was not used to interpret this result as normal/abnormal . TON (test code = TON) Values greater than 36 IU/mL are considered significant. Lab Interpretation Abnormal (test code = 68632-2) [facility] CenterN-TERMINAL [id number] 17:37:03 Test Item Value Reference Range Interpretation Comments NT-proBNP (test code 9010 pg/mL See_Comment H [Autom ated = 7905366239) message] The system which generated this result transmitted reference range : <=450. The reference range was not used to interpret this result as normal/abnormal . TON (test code = TON) Biotin has been reported to cause a negative bias, interpret results relative to patient's use of biotin. Lab Interpretation Abnormal (test code = 75142-6) [facility] CenterMAGN[facility]UM2021-12-29 09:58:59 Test Item Value Reference Range Interpretation Comments MAGNESIUM (test code = 1967759553) 2.2 mg/dL 1.7-2.4 Lab Interpretation (test code = Normal 55216-9) [facility] METABOLIC PANEL (NA, K, CL, CO2, GLUCOSE, BUN, CREATININE, CA)2021-08-07 09:15:11 Test Item Value Reference Range Interpretation Comments NA (test code = 138 mmol/L 135-145 3243295426) K (test code = 4.7 mmol/L 3.5-5.0 2631233317) CL (test code = 111 mmol/L 98-108 H 0651096961) CO2 TOTAL (test code = 24 mmol/L 23-31 3230106485) AGAP (test code = 2-16 8802559227) BUN (test code = 23 mg/dL 7-23 9948080798) GLUCOSE (test code = 81 mg/dL 70-110 4777674705) CREATININE (test code = 1.12 mg/dL 0.60-1.25 8708228116) CALCIUM (test code = 9.0 mg/dL 8.6-10.6 9660644613) eGFR (test code = mL/min/1.73m2 5488454457) TON (test code = TON) Association of Glomerular Filtration Rate (GFR) and Staging of Kidney Disease* + --+ --+ ------+| GFR (mL/min/1.73 m2) ?| With Kidney Damage ?| ?Without Kidney Damage+ --------+ --------+ +| ?>90 ?| ?Stage one ?| ? Normal ?+ ---+ ---+ -------+| ?60-89 ?| ?Stage two ?| ? Decreased GFR ? + --+ --+ ------+| ?30-59 ?| ?Stage three ?| ? Stage three ? + --+ --+ ------+| ?15-29 ?| ?Stage four ? | ? Stage four ?+ ---+ ---+ -------+| ?<15 (or dialysis) ? ?| ?Stage five ? | ? Stage five ?+ ---+ ---+ -------+ *Each stage assumes the associated GFR level has been in effect for at least three months. ?Stages 1 to 5, with or without kidney disease, indicate chronic kidney disease. Notes: Determination of stages one and two (with eGFR >59mL/min/1.73 m2) requires estimation of kidney damage for at least three months as defined by structural or functional abnormalities of the kidney, manifested by either:Pathological abnormalities or Markers of kidney damage (including abnormalities in the composition of the blood or urine or abnormalities in imaging tests). Lab Interpretation Abnormal (test code = 56669-9) [facility] WITH [id number] 08:48:10 Test Item Value Reference Range Interpretation Comments WBC (test code = See_Comment H [Automated 6690-2) message] The sy stem which generated this result transmitted reference range : 4.20 - 10.70 10*3/?L. The reference range was not used to interpret this result as normal/abnormal . RBC (test code = See_Comment L [Automated 789-8) message] The sy stem which generated this result transmitted reference range : 4.26 - 5.52 10*6/?L. The reference range was not used to interpret this result as normal/abnormal . HGB (test code = 9.2 g/dL 12.2-16.4 L 718-7) HCT (test code = 32.0 % 38.4-49.3 L 4544-3) MCV (test code = 82.1 fL 81.7-95.6 787-2) MCH (test code = 23.6 pg 26.1-32.7 L 785-6) MCHC (test code = 28.8 g/dL 31.2-35.0 L 786-4) RDW-SD (test code = 57.8 fL 38.5-51.6 H 33182-7) RDW-CV (test code = 19.6 % 12.1-15.4 H 788-0) PLT (test code = See_Comment [Automated 777-3) message] The sy stem which generated this result transmitted reference range : 150 - 328 10*3/ ?L. The reference r lucas was not used to interpret this result as normal/abnormal . MPV (test code = 11.3 fL 9.8-13.0 24177-6) NRBC/100 WBC (test See_Comment [Automat ed code = 9653822749) message] The system which generated this result transmitted reference range : 0.0 - 10.0 /100 WBCs. The refer ence range was not u sed to interpret th is result as normal/abnormal . NRBC x10^3 (test code See_Comment [Auto mated = 3256119438) message] The s ystem which generated this result transmitted reference range : 10*3/?L. The reference range was not used to interpret this result as normal/abnormal . GRAN MAT (NEUT) % 54.3 % (test code = 770-8) IMM GRAN % (test code 3.40 % = 2591409373) LYMPH % (test code = 12.0 % 736-9) MONO % (test code = 10.1 % 5905-5) EOS % (test code = 19.5 % 713-8) BASO % (test code = 0.7 % 706-2) GRAN MAT x10^3(ANC) 7.81 10*3/uL 1.99-6.95 H (test code = 0476729919) IMM GRAN x10^3 (test 0.49 10*3/uL 0.00-0.06 H code = 7749471650) LYMPH x10^3 (test code 1.72 10*3/uL 1.09-3.23 = 731-0) MONO x10^3 (test code 1.46 10*3/uL 0.36-1.02 H = 742-7) EOS x10^3 (test code = 2.81 10*3/uL 0.06-0.53 H 711-2) BASO x10^3 (test code 0.10 10*3/uL 0.01-0.09 H = 704-7) TOXIC CHANGES (test Present A code = 803-7) Lab Interpretation Abnormal (test code = 65052-5) [facility]2021-08-07 08:24:46 Test Item Value Reference Range Interpretation Comments APTT Patient (test code See_Comment H [Au tomated message] = 3173-2) The system [employer] generated this result transmitted ref erence range: 26 - 36 Seconds. The reference range was not used to int erpret this result as normal/abnormal . Lab Interpretation (test Abnormal code = 51874-7) [facility] CenterPOT[facility] GLU[facility])2021-08-07 03:47:23 Test Item Value Reference Range Interpretation Comments POCT GLU (test code = 1465654189) 119 mg/dL 70-110 H Lab Interpretation (test code = Abnormal 85292-0) [facility] CenterSEDIMENTATION [id number] 02:52:23 Test Item Value Reference Range Interpretation Comments ESR (test code = See_Comment [Automated message] 6478590697) The system [employer] generated this result transmitted ref erence range: 0 - 10 m m/HR. The reference r lucas was not used to interpret this result as normal/abnor mal. Lab Interpretation (test Normal code = 29615-9) [facility] CenterHAPTOGLOBIN, [id number] 20:29:53 Test Item Value Reference Range Interpretation Comments HAPTOGLOB (test code = 0070642391) 54 mg/dL 16-200 Lab Interpretation (test code = Normal 40228-8) [facility]2021-08-06 19:57:54 Test Item Value Reference Range Interpretation Comments APTT Patient (test code See_Comment H [Au tomated message] = 3173-2) The system [employer] generated this result transmitted ref erence range: 26 - 36 Seconds. The reference range was not used to int erpret this result as normal/abnormal . Lab Interpretation (test Abnormal code = 12422-5) [facility] CenterGLYCOSYLATED HEMOGLOBIN (A1C)2021-08-06 16:47:58 Test Item Value Reference Range Interpretation Comments HGB A1C (test code = 4.9 % 4.0-5.7 4548-4) TON (test code = TON) Reference RangesNormal: <5.7%Prediabetes: 5.7 - 6.4%Diabetes: > 6.5% Lab Interpretation (test Normal code = 33012-7) [facility] [id number] 16:39:16 Test Item Value Reference Range Interpretation Comments WBC (test code = See_Comment H [Automated 7190-2) message] The sy stem which generated this result transmitted reference range : 4.20 - 10.70 10*3/?L. The reference range was not used to interpret this result as normal/abnormal . RBC (test code = See_Comment L [Automated 789-8) message] The sy stem which generated this result transmitted reference range : 4.26 - 5.52 10*6/?L. The reference range was not used to interpret this result as normal/abnormal . HGB (test code = 9.7 g/dL 12.2-16.4 L 718-7) HCT (test code = 34.6 % 38.4-49.3 L 4544-3) MCV (test code = 82.0 fL 81.7-95.6 787-2) MCH (test code = 23.0 pg 26.1-32.7 L 785-6) MCHC (test code = 28.0 g/dL 31.2-35.0 L 786-4) RDW-SD (test code = 57.8 fL 38.5-51.6 H 81754-4) RDW-CV (test code = 19.9 % 12.1-15.4 H 788-0) PLT (test code = See_Comment [Automated 777-3) message] The sy stem which generated this result transmitted reference range : 150 - 328 10*3/ ?L. The reference r lucas was not used to interpret this result as normal/abnormal . MPV (test code = 12.0 fL 9.8-13.0 88262-8) NRBC/100 WBC (test See_Comment [Automat ed code = 9045315601) message] The system which generated this result transmitted reference range : 0.0 - 10.0 /100 WBCs. The refer ence range was not u sed to interpret th is result as normal/abnormal . NRBC x10^3 (test code See_Comment [Auto mated = 4558187894) message] The s ystem which generated this result transmitted reference range : 10*3/?L. The reference range was not used to interpret this result as normal/abnormal . GRAN MAT (NEUT) % 52.6 % (test code = 770-8) IMM GRAN % (test code 2.70 % = 1584684072) LYMPH % (test code = 11.1 % 736-9) MONO % (test code = 11.7 % 5905-5) EOS % (test code = 21.1 % 713-8) BASO % (test code = 0.8 % 706-2) GRAN MAT x10^3(ANC) 9.10 10*3/uL 1.99-6.95 H (test code = 0030009674) IMM GRAN x10^3 (test 0.47 10*3/uL 0.00-0.06 H code = 4600199276) LYMPH x10^3 (test code 1.93 10*3/uL 1.09-3.23 = 731-0) MONO x10^3 (test code 2.02 10*3/uL 0.36-1.02 H = 742-7) EOS x10^3 (test code = 3.65 10*3/uL 0.06-0.53 H 711-2) BASO x10^3 (test code 0.14 10*3/uL 0.01-0.09 H = 704-7) ELLIPTO/OVAL (test 2+ See_Comment A [Automat ed code = 21284-4) message] The system which generated this result transmitted reference range : (none). The reference range was not used to interpret this result as normal/abnormal . POLYCHROMASIA (test 2+ See_Comment [Automa florencio code = 99199-0) message] The system which generated this result transmitted reference range : 2+. The referen ce range was not u sed to interpret th is result as normal/abnormal . SCHISTOCYTES (test 1+ A code = 800-3) BANDS (test code = Increased A 6462727729) TOXIC CHANGES (test Present A code = 803-7) Lab Interpretation Abnormal (test code = 89621-2) [facility] # 15:40:53 Test Item Value Reference Range Interpretation Comments Blood Culture-Aerobic Culture positive. No growth AA P revious (test code = 94469-0) See Blood prelim inary Culture Workup verified resu lt for additional was Culture I n information. Progress on 08/03/2021 at 1602 [employer] Blood Culture positive. No growth AA Previous Culture-Anaerobic See Blood preliminar y (test code = 86921-6) Culture Workup veri fied result for additional was Culture I n information. Progress on 08/03/2021 at 1602 [employer] Lab Interpretation Abnormal (test code = 29653-3) [facility]AT[facility] PAN[facility] (48306[facility] (ALB,T.PRO,BILI T,BU/BC,ALT,AST,ALK PHOS)2021-08-06 14:42:08 Test Item Value Reference Range Interpretation Comments TOTAL BILI (test code = 1271070872) 1.5 mg/dL 0.1-1.1 H BILI UNCON (test code = 0119228594) 1.0 mg/dL 0.1-1.1 BILI CONJ (test code = 3649440155) 0.0 mg/dL 0.0-0.3 T PROTEIN (test code = 1746947925) 5.7 g/dL 6.3-8.2 L ALBUMIN (test code = 4427798946) 2.6 g/dL 3.5-5.0 L ALK PHOS (test code = 5987272450) 96 U/L 34-122 ALTv (test code = 1742-6) 22 U/L 5-50 AST(SGOT) (test code = 6447780839) 26 U/L 13-40 Lab Interpretation (test code = Abnormal 50973-4) [facility] CenterPROTHROMBIN TIME / [id number] 14:35:36 Test Item Value Reference Range Interpretation Comments PROTIME PATIENT (test See_Comment H [Auto mated message] code = 5964-2) The system [employer] generated this result transmitted ref erence range: 10.1 - 1 2.6 Seconds. The reference range was not used to int erpret this result as normal/abnormal . INR (test code = 6301-6) Nor mal INR <1.1; Warfarin Therap eutic range 2.0 to 3. 0 or 2.5 to 3.5, dep ending upon the indica tions. Lab Interpretation (test Abnormal code = 97923-8) [facility]OL[facility] PAN[facility] (NA, K, CL, CO2, GLUCOSE, BUN, CREATININE, CA)2021-08-06 13:35:51 Test Item Value Reference Range Interpretation Comments NA (test code = 139 mmol/L 135-145 4461692378) K (test code = 4.2 mmol/L 3.5-5.0 8187412983) CL (test code = 113 mmol/L 98-108 H 2471990944) CO2 TOTAL (test code = 25 mmol/L 23-31 2027416581) AGAP (test code = 2-16 L 4859952760) BUN (test code = 23 mg/dL 7-23 7272833288) GLUCOSE (test code = 76 mg/dL 70-110 6853902482) CREATININE (test code = 0.99 mg/dL 0.60-1.25 1705626085) CALCIUM (test code = 9.0 mg/dL 8.6-10.6 5153304716) eGFR (test code = mL/min/1.73m2 6960425266) TON (test code = TON) Association of Glomerular Filtration Rate (GFR) and Staging of Kidney Disease* + --+ --+ ------+| GFR (mL/min/1.73 m2) ?| With Kidney Damage ?| ?Without Kidney Damage+ --------+ --------+ +| ?>90 ?| ?Stage one ?| ? Normal ?+ ---+ ---+ -------+| ?60-89 ?| ?Stage two ?| ? Decreased GFR ? + --+ --+ ------+| ?30-59 ?| ?Stage three ?| ? Stage three ? + --+ --+ ------+| ?15-29 ?| ?Stage four ? | ? Stage four ?+ ---+ ---+ -------+| ?<15 (or dialysis) ? ?| ?Stage five ? | ? Stage five ?+ ---+ ---+ -------+ *Each stage assumes the associated GFR level has been in effect for at least three months. ?Stages 1 to 5, with or without kidney disease, indicate chronic kidney disease. Notes: Determination of stages one and two (with eGFR >59mL/min/1.73 m2) requires estimation of kidney damage for at least three months as defined by structural or functional abnormalities of the kidney, manifested by either:Pathological abnormalities or Markers of kidney damage (including abnormalities in the composition of the blood or urine or abnormalities in imaging tests). Lab Interpretation Abnormal (test code = 53756-4) [facility] CenterMAGN[facility]IUM2021-[facility]-28 13:35:51 Test Item Value Reference Range Interpretation Comments MAGNESIUM (test code = 1046060592) 2.1 mg/dL 1.7-2.4 Lab Interpretation (test code = Normal 06679-0) [facility]2021-08-06 12:54:50 Test Item Value Reference Range Interpretation Comments APTT Patient (test code See_Comment H [Au tomated message] = 3173-2) The system [employer] generated this result transmitted ref erence range: 26 - 36 Seconds. The reference range was not used to int erpret this result as normal/abnormal . Lab Interpretation (test Abnormal code = 67978-7) [facility] CenterFERRITIN [id number] 12:10:22 Test Item Value Reference Range Interpretation Comments FERRITIN (test code = 25.5 ng/mL 18.0-464.0 6351479609) TON (test code = TON) Biotin has been reported to cause a negative bias, interpret results relative to patient's use of biotin. Lab Interpretation (test Normal code = 20549-7) [facility] CenterIRON [id number] 11:28:41 Test Item Value Reference Range Interpretation Comments IRON (test code = 4396099632) 18 ug/dL 50-160 L TIBC (test code = 7511226173) 272 ug/dL 250-410 % FE SAT (test code = 8818714559) 7 % 20-50 L Lab Interpretation (test code = Abnormal 16158-9) [facility]2021-08-06 06:34:41 Test Item Value Reference Range Interpretation Comments APTT Patient (test code See_Comment H [Au tomated message] = 3173-2) The system [employer] generated this result transmitted ref erence range: 26 - 36 Seconds. The reference range was not used to int erpret this result as normal/abnormal . Lab Interpretation (test Abnormal code = 69613-0) [facility] (for use with Heparin Infusion)2021-08-05 23:10:37 Test Item Value Reference Range Interpretation Comments APTT Patient (test code See_Comment H [Au tomated message] = 3173-2) The system [employer] generated this result transmitted ref erence range: 26 - 36 Seconds. The reference range was not used to int erpret this result as normal/abnormal . Lab Interpretation (test Abnormal code = 53232-7) [facility] CenterSputum [id number] 16:27:35 Test Item Value Reference Range Interpretation Comments SPUTUM CULTURE 2+ Respiratory elva: (test code = 622-1) Commensal upper respiratory microorganisms only. Gram stain (test Few Epithelial cells code = 664-3) TON (test code = Bacterial pathogens TON) associated with lower respiratory infections were not identified, which include Pseudomonas aeruginosa and Staphylococcus aureus (MRSA or MSSA). [facility]2021-08-05 15:59:46 Test Item Value Reference Range Interpretation Comments APTT Patient (test code = See_Comment [ Automated message] 3173-2) The system [employer] generated this result transmitted ref erence range: 26 - 36 Seconds. The re ference range was not u sed to interpret this result as normal/abnor mal. Lab Interpretation (test Normal code = 88153-7) [facility]UM2021-[facility]-27 15:30:50 Test Item Value Reference Range Interpretation Comments MAGNESIUM (test code = 0104365175) 2.4 mg/dL 1.7-2.4 Lab Interpretation (test code = Normal 58551-8) [facility]CBC WITH [id number] 10:50:38 Test Item Value Reference Range Interpretation Comments WBC (test code = See_Comment H [Automated 6690-2) message] The sy stem which generated this result transmitted reference range : 4.20 - 10.70 10*3/?L. The reference range was not used to interpret this result as normal/abnormal . RBC (test code = See_Comment L [Automated 789-8) message] The sy stem which generated this result transmitted reference range : 4.26 - 5.52 10*6/?L. The reference range was not used to interpret this result as normal/abnormal . HGB (test code = 8.8 g/dL 12.2-16.4 L 718-7) HCT (test code = 31.1 % 38.4-49.3 L 4544-3) MCV (test code = 82.1 fL 81.7-95.6 787-2) MCH (test code = 23.2 pg 26.1-32.7 L 785-6) MCHC (test code = 28.3 g/dL 31.2-35.0 L 786-4) RDW-SD (test code = 57.5 fL 38.5-51.6 H 12094-4) RDW-CV (test code = 19.5 % 12.1-15.4 H 788-0) PLT (test code = See_Comment L [Automated 777-3) message] The sy stem which generated this result transmitted reference range : 150 - 328 10*3/ ?L. The reference r lucas was not used to interpret this result as normal/abnormal . MPV (test code = 10.6 fL 9.8-13.0 57101-9) IPF % (test code = 4.2 % 1.2-10.7 Platelet count 8922269118) measured by fluorescence method. NRBC/100 WBC (test See_Comment [Automat ed code = 2852614920) message] The system which generated this result transmitted reference range : 0.0 - 10.0 /100 WBCs. The refer ence range was not u sed to interpret th is result as normal/abnormal . NRBC x10^3 (test code See_Comment [Auto mated = 9304817135) message] The s ystem which generated this result transmitted reference range : 10*3/?L. The reference range was not used to interpret this result as normal/abnormal . GRAN MAT (NEUT) % 57.0 % (test code = 770-8) IMM GRAN % (test code 2.60 % = 0335708977) LYMPH % (test code = 12.5 % 736-9) MONO % (test code = 11.9 % 5905-5) EOS % (test code = 15.6 % 713-8) BASO % (test code = 0.4 % 706-2) GRAN MAT x10^3(ANC) 6.40 10*3/uL 1.99-6.95 (test code = 1544031673) IMM GRAN x10^3 (test 0.29 10*3/uL 0.00-0.06 H code = 6119157237) LYMPH x10^3 (test code 1.41 10*3/uL 1.09-3.23 = 731-0) MONO x10^3 (test code 1.34 10*3/uL 0.36-1.02 H = 742-7) EOS x10^3 (test code = 1.75 10*3/uL 0.06-0.53 H 711-2) BASO x10^3 (test code 0.05 10*3/uL 0.01-0.09 = 704-7) ELLIPTO/OVAL (test 2+ See_Comment A [Automat ed code = 88622-2) message] The system which generated this result transmitted reference range : (none). The reference range was not used to interpret this result as normal/abnormal . Lab Interpretation Abnormal (test code = 55928-9) [facility] METABOLIC PANEL (NA, K, CL, CO2, GLUCOSE, BUN, CREATININE, CA)2021-08-05 10:50:08 Test Item Value Reference Range Interpretation Comments NA (test code = 139 mmol/L 135-145 9675981802) K (test code = 4.3 mmol/L 3.5-5.0 2745151709) CL (test code = 112 mmol/L 98-108 H 7485489211) CO2 TOTAL (test code = 24 mmol/L 23-31 6400018212) AGAP (test code = 2-16 3887598020) BUN (test code = 34 mg/dL 7-23 H 4919173363) GLUCOSE (test code = 82 mg/dL 70-110 7534804963) CREATININE (test code = 1.21 mg/dL 0.60-1.25 6987395547) CALCIUM (test code = 8.6 mg/dL 8.6-10.6 7917643807) eGFR (test code = mL/min/1.73m2 7117718589) TON (test code = TON) Association of Glomerular Filtration Rate (GFR) and Staging of Kidney Disease* + --+ --+ ------+| GFR (mL/min/1.73 m2) ?| With Kidney Damage ?| ?Without Kidney Damage+ --------+ --------+ +| ?>90 ?| ?Stage one ?| ? Normal ?+ ---+ ---+ -------+| ?60-89 ?| ?Stage two ?| ? Decreased GFR ? + --+ --+ ------+| ?30-59 ?| ?Stage three ?| ? Stage three ? + --+ --+ ------+| ?15-29 ?| ?Stage four ? | ? Stage four ?+ ---+ ---+ -------+| ?<15 (or dialysis) ? ?| ?Stage five ? | ? Stage five ?+ ---+ ---+ -------+ *Each stage assumes the associated GFR level has been in effect for at least three months. ?Stages 1 to 5, with or without kidney disease, indicate chronic kidney disease. Notes: Determination of stages one and two (with eGFR >59mL/min/1.73 m2) requires estimation of kidney damage for at least three months as defined by structural or functional abnormalities of the kidney, manifested by either:Pathological abnormalities or Markers of kidney damage (including abnormalities in the composition of the blood or urine or abnormalities in imaging tests). Lab Interpretation Abnormal (test code = 26861-1) [facility] (for use with Heparin Infusion)2021-08-05 10:20:42 Test Item Value Reference Range Interpretation Comments APTT Patient (test code See_Comment H [Au tomated message] = 3173-2) The system [employer] generated this result transmitted ref erence range: 26 - 36 Seconds. The reference range was not used to int erpret this result as normal/abnormal . Lab Interpretation (test Abnormal code = 33431-2) [facility] (for use with Heparin Infusion)2021-08-04 22:21:46 Test Item Value Reference Range Interpretation Comments APTT Patient (test code See_Comment H [Au tomated message] = 3173-2) The system [employer] generated this result transmitted ref erence range: 26 - 36 Seconds. The reference range was not used to int erpret this result as normal/abnormal . Lab Interpretation (test Abnormal code = 85730-1) [facility] NEGATIVE BLOOD PATHOGENS DNA [id number] 21:49:58 Test Item Value Reference Range Interpretation Comments Blood Pathogens by No organisms included in DNA Comment (test the Blood DNA Probe test code = 13942-7) panel were detected. Further identification workup to be performed by culture testing methods. TON (test code = See blood culture result TON) for additional information. ?Testing included eight identification and six resistance marker targets. [facility] (for use with Heparin Infusion)2021-08-04 16:26:47 Test Item Value Reference Range Interpretation Comments APTT Patient (test code See_Comment H [Au tomated message] = 3173-2) The system [employer] generated this result transmitted ref erence range: 26 - 36 Seconds. The reference range was not used to int erpret this result as normal/abnormal . Lab Interpretation (test Abnormal code = 51139-1) [facility] CenterTROP[facility]IN [id number] 08:54:39 Test Item Value Reference Interpretation Comments Range TROPONIN I (test 3.820 ng/mL See_Comment H [Automated code = 6209299788) message] The system which generated this result transmitted reference range : <=0.034. The reference range was not used to interpret this result as normal/abnormal . TON (test code = Reference (Normal) TON) Range (defined by the 99th percentile reference limit): <= 0.034 ng/mL Note: Cardiac troponin begins to rise 3-4 hours after the onset of ischemia. Repeat in 4-6 hours if the sample was drawn within 3-4 hours of the onset of the symptom and found normal. Diagnosis of myocardial injury is made with acute changes in cTn concentrations with at least one serial sample above the 99th percentile upper reference limit (URL), taken together with the patient's clinical presentation. Biotin has been reported to cause a negative bias, interpret results relative to patient's use of biotin. Lab Interpretation Abnormal (test code = 81763-7) [facility] WITH [id number] 08:45:48 Test Item Value Reference Range Interpretation Comments WBC (test code = See_Comment H [Automated 9401-2) message] The sy stem which generated this result transmitted reference range : 4.20 - 10.70 10*3/?L. The reference range was not used to interpret this result as normal/abnormal . RBC (test code = See_Comment L [Automated 307-8) message] The sy stem which generated this result transmitted reference range : 4.26 - 5.52 10*6/?L. The reference range was not used to interpret this result as normal/abnormal . HGB (test code = 8.6 g/dL 12.2-16.4 L 718-7) HCT (test code = 30.6 % 38.4-49.3 L 4544-3) MCV (test code = 83.2 fL 81.7-95.6 787-2) MCH (test code = 23.4 pg 26.1-32.7 L 785-6) MCHC (test code = 28.1 g/dL 31.2-35.0 L 786-4) RDW-SD (test code = 58.0 fL 38.5-51.6 H 48913-2) RDW-CV (test code = 19.6 % 12.1-15.4 H 788-0) PLT (test code = See_Comment L [Automated 777-3) message] The sy stem which generated this result transmitted reference range : 150 - 328 10*3/ ?L. The reference r lucas was not used to interpret this result as normal/abnormal . MPV (test code = 10.2 fL 9.8-13.0 60167-9) NRBC/100 WBC (test See_Comment [Automat ed code = 4967055341) message] The system which generated this result transmitted reference range : 0.0 - 10.0 /100 WBCs. The refer ence range was not u sed to interpret th is result as normal/abnormal . NRBC x10^3 (test code <0.01 See_Comment [Auto mated = 2549412963) message] The s ystem which generated this result transmitted reference range : 10*3/?L. The reference range was not used to interpret this result as normal/abnormal . GRAN MAT (NEUT) % 56.2 % (test code = 770-8) IMM GRAN % (test code 1.60 % = 5284274727) LYMPH % (test code = 13.4 % 736-9) MONO % (test code = 12.2 % 5905-5) EOS % (test code = 15.9 % 713-8) BASO % (test code = 0.7 % 706-2) GRAN MAT x10^3(ANC) 7.78 10*3/uL 1.99-6.95 H (test code = 1317967430) IMM GRAN x10^3 (test 0.22 10*3/uL 0.00-0.06 H code = 2460147682) LYMPH x10^3 (test code 1.85 10*3/uL 1.09-3.23 = 731-0) MONO x10^3 (test code 1.69 10*3/uL 0.36-1.02 H = 742-7) EOS x10^3 (test code = 2.20 10*3/uL 0.06-0.53 H 711-2) BASO x10^3 (test code 0.09 10*3/uL 0.01-0.09 = 704-7) ELLIPTO/OVAL (test 2+ See_Comment A [Automat ed code = 49728-1) message] The system which generated this result transmitted reference range : (none). The reference range was not used to interpret this result as normal/abnormal . TOXIC CHANGES (test Present A code = 803-7) Lab Interpretation Abnormal (test code = 66762-6) [facility] METABOLIC PANEL (NA, K, CL, CO2, GLUCOSE, BUN, CREATININE, CA)2021-08-04 08:37:36 Test Item Value Reference Range Interpretation Comments NA (test code = 138 mmol/L 135-145 5865916780) K (test code = 4.3 mmol/L 3.5-5.0 0047702730) CL (test code = 110 mmol/L 98-108 H 3886272599) CO2 TOTAL (test code = 24 mmol/L 23-31 0130856146) AGAP (test code = 2-16 8981594872) BUN (test code = 33 mg/dL 7-23 H 8993790727) GLUCOSE (test code = 83 mg/dL 70-110 5407925236) CREATININE (test code = 1.52 mg/dL 0.60-1.25 H 3469557100) CALCIUM (test code = 8.5 mg/dL 8.6-10.6 L 0217725505) eGFR (test code = mL/min/1.73m2 8152150942) TON (test code = TON) Association of Glomerular Filtration Rate (GFR) and Staging of Kidney Disease* + --+ --+ ------+| GFR (mL/min/1.73 m2) ?| With Kidney Damage ?| ?Without Kidney Damage+ --------+ --------+ +| ?>90 ?| ?Stage one ?| ? Normal ?+ ---+ ---+ -------+| ?60-89 ?| ?Stage two ?| ? Decreased GFR ? + --+ --+ ------+| ?30-59 ?| ?Stage three ?| ? Stage three ? + --+ --+ ------+| ?15-29 ?| ?Stage four ? | ? Stage four ?+ ---+ ---+ -------+| ?<15 (or dialysis) ? ?| ?Stage five ? | ? Stage five ?+ ---+ ---+ -------+ *Each stage assumes the associated GFR level has been in effect for at least three months. ?Stages 1 to 5, with or without kidney disease, indicate chronic kidney disease. Notes: Determination of stages one and two (with eGFR >59mL/min/1.73 m2) requires estimation of kidney damage for at least three months as defined by structural or functional abnormalities of the kidney, manifested by either:Pathological abnormalities or Markers of kidney damage (including abnormalities in the composition of the blood or urine or abnormalities in imaging tests). Lab Interpretation Abnormal (test code = 26190-3) [facility] 08:37:36 Test Item Value Reference Range Interpretation Comments MAGNESIUM (test code = 3501329914) 2.2 mg/dL 1.7-2.4 Lab Interpretation (test code = Normal 79268-9) [facility]2021-08-04 08:36:11 Test Item Value Reference Range Interpretation Comments APTT Patient (test code See_Comment H [Au tomated message] = 3173-2) The system [employer] generated this result transmitted ref erence range: 26 - 36 Seconds. The reference range was not used to int erpret this result as normal/abnormal . Lab Interpretation (test Abnormal code = 76445-4) [facility]TR[facility] [id number] 02:51:41 Test Item Value Reference Interpretation Comments Range TROPONIN I (test 4.110 ng/mL See_Comment H [Automated code = 8859098603) message] The system which generated this result transmitted reference range : <=0.034. The reference range was not used to interpret this result as normal/abnormal . TON (test code = Reference (Normal) TON) Range (defined by the 99th percentile reference limit): <= 0.034 ng/mL Note: Cardiac troponin begins to rise 3-4 hours after the onset of ischemia. Repeat in 4-6 hours if the sample was drawn within 3-4 hours of the onset of the symptom and found normal. Diagnosis of myocardial injury is made with acute changes in cTn concentrations with at least one serial sample above the 99th percentile upper reference limit (URL), taken together with the patient's clinical presentation. Biotin has been reported to cause a negative bias, interpret results relative to patient's use of biotin. Lab Interpretation Abnormal (test code = 18784-1) [facility] 02:11:01 Test Item Value Reference Range Interpretation Comments APTT Patient (test code See_Comment H [Au tomated message] = 3173-2) The system [employer] generated this result transmitted ref erence range: 26 - 36 Seconds. The reference range was not used to int erpret this result as normal/abnormal . Lab Interpretation (test Abnormal code = 21576-1) [facility] Unfractionated Heparin 2021-08-04 02:11:01 Test Item Value Reference Range Interpretation Comments Anti-Xa UFH (test code = See_Comment H [A utomated message] 3274-8) The system [employer] generated this result transmitted ref erence range: 0.30 - 0 .70 IU/mL. The refe rence range was not u sed to interpret this result as normal/abnor mal. Lab Interpretation (test Abnormal code = 35844-9) [facility] CenterPROCALCITONIN2021-[facility]-26 01:26:53 Test Item Value Reference Range Interpretation Comments Procalcitonin (test 47.90 ng/mL <0.07 H code = 8717262685) TON (test code = TON) INTERPRETATION OF PROCALCITONIN RESULTS IN ADULTS >= 18 YEARS OF AGE Initiation and discontinuation of antibiotics on patients with suspected or confirmed Lower Respiratory Tract Infection in Adults >= 18 years of age. + +-------- --------+ + -----+|Procalcitonin |Interpretation ?|Antibiotic ? ? |Considerations ? |ng/mL ? | ?|recommendation | ? + +-------- --------+ + -----+| <0.1 ? | Bacterial ? ? ?| Strongly ? ? ?| ? | ?| infection very | discouraged ? | Overruling: ? | ?| unlikely ? ? ? | ? | ? Clinically unstable ? ? ? + +-------- --------+ + ? High risk for adverse ? ? | <0.25 ?| Bacterial ? ? ?| Discouraged ? | ? outcome ? | ?| infection ? ? ?| ? | ? SEE IMPORTANT NOTE ?| ?| unlikely ? ? ? | ? | ? + +-------- --------+ + -----+| >=0.25 ? ? ? | Bacterial ? ? ?| Encouraged ? ?| ? | ?| infection ? ? ?| ? | ? | ?| likely ? | ? | Consider treatment failure ?+ +------- ---------+ -+ if levels does not decrease | >0.5 ? | Bacterial ? ? ?| Strongly ? ? ?| appropriately ? | ?| infection very | encouraged ? ?| ? | ?| likely ? | ? | ? + +-------- --------+ + -----+ Discontinuation of antibiotics in high-acuity patients with suspected or confirmed sepsis in Adults >= 18 years of age. + +-------- --------+ + -----+|Procalcitonin |Interpretation ?|Antibiotic ? ? |Considerations ? |ng/mL ? | ?|recommendation | ? + +-------- --------+ + -----+| <0.25 ?| Bacterial ? ? ?| Strongly ? ? ?| ? | ?| infection very | discouraged ? | Overruling: ? | ?| unlikely ? ? ? | ? | ? Clinically unstable ? ? ? + +-------- --------+ + ? High risk for adverse ? ? | <0.5 or drop | Bacterial ? ? ?| Discouraged ? | ? outcome ? | >80% from ? ?| infection ? ? ?| ? | ? SEE IMPORTANT NOTE ?| highest PCT ?| unlikely ? ? ? | ? | ? | level ?| ?| ? | ? + +-------- --------+ + -----+| >=0.5 ?| Bacterial ? ? ?| Encouraged ? ?| ? | ?| infection ? ? ?| ? | ? | ?| likely ? | ? | Consider treatment failure ?+ +------- ---------+ -+ if levels does not decrease | >1.0 ? | Bacterial ? ? ?| Strongly ? ? ?| appropriately ? | ?| infection very | encouraged ? ?| ? | ?| likely ? | ? | ? + +-------- --------+ + -----+ Percentage of drop of Procalcitonin calculation for Discontinuation of antibiotics in high-acuity patients with suspected or confirmed sepsis in Adults >= 18 years of age. ? Procalcitonin highest{}-Procalcitonin current{}Delta Procalcitonin = x100% ? Procalcitonin current {} IMPORTANT NOTE: Procalcitonin may be elevated without bacterial infection by physiologic stress related to trauma, campbell, chronic dialysis, metastatic cancer, surgery in the past seven days, malaria, some fungal infections, and some forms of vasculitis. The interpretation algorithm may not apply to patients with immunosuppression (equivalent of >10 mg of prednisone daily), HIV with CD4 cell count < 350 cells/mm3, active malignancy on systemic chemotherapy, solid organ transplant or hematopoietic stem cell transplantation, or hospital acquired pneumonia. Additionally, some clinical trials of procalcitonin have excluded patients with shock requiring vasopressor use, acute respiratory failure requiring mechanical ventilation, or those with known lung abscess/empyema. For further information please refer to:[email or web address] Lab Interpretation Abnormal (test code = 15541-8) [facility] [id number] 00:58:59 Test Item Value Reference Interpretation Comments Range TROPONIN I (test 3.480 ng/mL See_Comment H [Automated code = 5619909310) message] The system which generated this result transmitted reference range : <=0.034. The reference range was not used to interpret this result as normal/abnormal . TON (test code = Reference (Normal) TON) Range (defined by the 99th percentile reference limit): <= 0.034 ng/mL Note: Cardiac troponin begins to rise 3-4 hours after the onset of ischemia. Repeat in 4-6 hours if the sample was drawn within 3-4 hours of the onset of the symptom and found normal. Diagnosis of myocardial injury is made with acute changes in cTn concentrations with at least one serial sample above the 99th percentile upper reference limit (URL), taken together with the patient's clinical presentation. Biotin has been reported to cause a negative bias, interpret results relative to patient's use of biotin. Lab Interpretation Abnormal (test code = 46954-5) [facility] WITH [id number] 19:23:50 Test Item Value Reference Range Interpretation Comments WBC (test code = See_Comment H [Automated 7540-2) message] The sy stem which generated this result transmitted reference range : 4.20 - 10.70 10*3/?L. The reference range was not used to interpret this result as normal/abnormal . RBC (test code = See_Comment [Automated 958-8) message] The sy stem which generated this result transmitted reference range : 4.26 - 5.52 10*6/?L. The reference range was not used to interpret this result as normal/abnormal . HGB (test code = 10.3 g/dL 12.2-16.4 L 718-7) HCT (test code = 36.0 % 38.4-49.3 L 4544-3) MCV (test code = 81.8 fL 81.7-95.6 787-2) MCH (test code = 23.4 pg 26.1-32.7 L 785-6) MCHC (test code = 28.6 g/dL 31.2-35.0 L 786-4) RDW-SD (test code = 57.9 fL 38.5-51.6 H 20653-8) RDW-CV (test code = 19.9 % 12.1-15.4 H 788-0) PLT (test code = See_Comment L [Automated 777-3) message] The sy stem which generated this result transmitted reference range : 150 - 328 10*3/ ?L. The reference r lucas was not used to interpret this result as normal/abnormal . MPV (test code = 11.8 fL 9.8-13.0 14132-1) IPF % (test code = 3.6 % 1.2-10.7 Platelet count [id number]) measured by fluorescence method. NRBC/100 WBC (test See_Comment [Automat ed code = 3073330416) message] The system which generated this result transmitted reference range : 0.0 - 10.0 /100 WBCs. The refer ence range was not u sed to interpret th is result as normal/abnormal . NRBC x10^3 (test code See_Comment [Auto mated = 9673183293) message] The s ystem which generated this result transmitted reference range : 10*3/?L. The reference range was not used to interpret this result as normal/abnormal . SEG % (test code = 67 % 33-76 73583-4) BAND % (test code = 6 % 0-1 H 11599-6) LYMPH % (test code = 5 % 14-54 L 48251-9) MONO % (test code = 9 % 0-4 H 92750-2) EOS % (test code = 12 % 0-3 H 58327-6) BASO % (test code = 1 % 0-1 27360-3) ANC (test code = 10.96 10*3/uL 1.99-6.95 H 753-4) ELLIPTO/OVAL (test 2+ See_Comment A [Automat ed code = 25644-6) message] The system which generated this result transmitted reference range : (none). The reference range was not used to interpret this result as normal/abnormal . POLYCHROMASIA (test 2+ See_Comment [Automa florencio code = 54191-6) message] The system which generated this result transmitted reference range : 2+. The referen ce range was not u sed to interpret th is result as normal/abnormal . TOXIC CHANGES (test Present A code = 803-7) Lab Interpretation Abnormal (test code = 60827-5) [facility] [id number] 18:35:41 Test Item Value Reference Interpretation Comments Range TROPONIN I (test 0.255 ng/mL See_Comment H [Automated code = 9822625455) message] The system which generated this result transmitted reference range : <=0.034. The reference range was not used to interpret this result as normal/abnormal . TON (test code = Reference (Normal) TON) Range (defined by the 99th percentile reference limit): <= 0.034 ng/mL Note: Cardiac troponin begins to rise 3-4 hours after the onset of ischemia. Repeat in 4-6 hours if the sample was drawn within 3-4 hours of the onset of the symptom and found normal. Diagnosis of myocardial injury is made with acute changes in cTn concentrations with at least one serial sample above the 99th percentile upper reference limit (URL), taken together with the patient's clinical presentation. Biotin has been reported to cause a negative bias, interpret results relative to patient's use of biotin. Lab Interpretation Abnormal (test code = 08479-2) [facility] CenterN-TERMINAL [id number] 18:31:59 Test Item Value Reference Range Interpretation Comments NT-proBNP (test code 5650 pg/mL See_Comment H [Autom ated = 8689225057) message] The system which generated this result transmitted reference range : <=450. The reference range was not used to interpret this result as normal/abnormal . TON (test code = TON) Biotin has been reported to cause a negative bias, interpret results relative to patient's use of biotin. Lab Interpretation Abnormal (test code = 18784-2) [facility] CenterCOMP. METABOLIC PANEL (03336)2021-08-03 18:23:20 Test Item Value Reference Range Interpretation Comments NA (test code = 139 mmol/L 135-145 0906937449) K (test code = 3.9 mmol/L 3.5-5.0 1949383483) CL (test code = 105 mmol/L 98-108 0300948852) CO2 TOTAL (test code = 26 mmol/L 23-31 0554843333) AGAP (test code = 2-16 9001917879) BUN (test code = 27 mg/dL 7-23 H 5592690949) GLUCOSE (test code = 71 mg/dL 70-110 0307676131) CREATININE (test code = 1.33 mg/dL 0.60-1.25 H 5379563163) TOTAL BILI (test code = 3.8 mg/dL 0.1-1.1 H 2113590579) CALCIUM (test code = 8.7 mg/dL 8.6-10.6 1537297835) T PROTEIN (test code = 6.7 g/dL 6.3-8.2 8605516867) ALBUMIN (test code = 3.3 g/dL 3.5-5.0 L 2461413580) ALK PHOS (test code = 123 U/L 34-122 H 8091170612) ALTv (test code = 20 U/L 5-50 1742-6) AST(SGOT) (test code = 26 U/L 13-40 7831685403) eGFR (test code = mL/min/1.73m2 7426421089) TON (test code = TON) Association of Glomerular Filtration Rate (GFR) and Staging of Kidney Disease* + --+ --+ ------+| GFR (mL/min/1.73 m2) ?| With Kidney Damage ?| ?Without Kidney Damage+ --------+ --------+ +| ?>90 ?| ?Stage one ?| ? Normal ?+ ---+ ---+ -------+| ?60-89 ?| ?Stage two ?| ? Decreased GFR ? + --+ --+ ------+| ?30-59 ?| ?Stage three ?| ? Stage three ? + --+ --+ ------+| ?15-29 ?| ?Stage four ? | ? Stage four ?+ ---+ ---+ -------+| ?<15 (or dialysis) ? ?| ?Stage five ? | ? Stage five ?+ ---+ ---+ -------+ *Each stage assumes the associated GFR level has been in effect for at least three months. ?Stages 1 to 5, with or without kidney disease, indicate chronic kidney disease. Notes: Determination of stages one and two (with eGFR >59mL/min/1.73 m2) requires estimation of kidney damage for at least three months as defined by structural or functional abnormalities of the kidney, manifested by either:Pathological abnormalities or Markers of kidney damage (including abnormalities in the composition of the blood or urine or abnormalities in imaging tests). Lab Interpretation Abnormal (test code = 65448-0) [facility]MAGN[facility]IUM2021-[facility] 18:23:20 Test Item Value Reference Range Interpretation Comments MAGNESIUM (test code = 7819279367) 2.1 mg/dL 1.7-2.4 Lab Interpretation (test code = Normal 49648-3) [facility] CenterLIPASE2021-12-25 18:23:00 Test Item Value Reference Range Interpretation Comments LIPASE (test code = 6873999355) 72 U/L 0-220 Lab Interpretation (test code = Normal 90817-3) [facility] CenterFIBRINOGEN2021-12-25 18:19:58 Test Item Value Reference Range Interpretation Comments Fibrinogen (test code = 7669430133) 249 mg/dL 214-470 Lab Interpretation (test code = Normal 01889-0) [facility] CenterACTIVATED PARTIAL THRMPLAS [id number] 18:19:18 Test Item Value Reference Range Interpretation Comments APTT Patient (test See_Comment H [Automat ed code = 3173-2) message] The system which generated this result transmitted reference range : 23 - 38 Seconds . The reference range was not used to interpr et this result as normal/abnormal . TON (test code = TON) The [facility] patient population mean normal value for aPTT is 30 seconds. Lab Interpretation Abnormal (test code = 41599-6) [facility] CenterPROTHROMBIN TIME / [id number] 18:17:22 Test Item Value Reference Range Interpretation Comments PROTIME PATIENT (test See_Comment H [Auto mated message] code = 5964-2) The system wh ich generated this result transmitted ref erence range: 12.0 - 1 4.7 Seconds. The reference range was not used to int erpret this result as normal/abnormal . INR (test code = 6301-6) Nor mal INR <1.1; Warfarin Therap eutic range 2.0 to 3. 0 or 2.5 to 3.5, dep ending upon the indica tions. Lab Interpretation (test Abnormal code = 64317-5) [facility] CenterAFB CULTURE + SMEAR (NON-SPUTUM)2020-08-28 07:22:00 Test Item Value Reference Range Interpretation Comments CULTURE (BEAKER) (test No acid-fast bacilli code = 1095) isolated in 42 days AFB SMEAR (BEAKER) No acid fast bacilli (test code = 994) seen FUNGUS CULTURE + [id number] 23:54:00 Test Item Value Reference Range Interpretation Comments CULTURE (BEAKER) (test No fungus isolated in code = 1095) 28 days FUNGUS SMEAR (BEAKER) No fungal elements seen (test code = 1406) ANAEROBIC [id number] 19:09:00 Test Item Value Reference Range Interpretation Comments CULTURE (BEAKER) (test No anaerobes isolated code = 1095) TISSUE [id number] 16:29:00Surgical Pathology Report Case: [id number] Authorizing Provider: Barrera Birmingham MD Collected: 07/13/2020 06:47 PM Ordering Location: [facility] PERI[facility]IVE Received: 07/16/2020 09:59 AM SERVICES Pathologist: Aletha Funez MD Specimen: Gallbladder A. GALLBLADDER, CHOLECYSTECTOMY: - ACUTE AND CHRONIC CHOLECYSTITIS WITH SEROSITIS AND CHOLELITHIASIS. SigningPathologist Direct Phone Line: [phone] signed by Aletha Funez MD on 07/17/2020 at 4:29 [id number] cholecystitis GallbladderReceived in formalin labeled with the [...] trabeculated. The wall measures 0.4 cm thick. Charge Account Authorizer sections are submitted in A1-A2, with the inked cystic duct margin in A1.DARI Najera, HT (ASCP)Performed.[facility], Department of Pathology, [address] [place] [address], [facility] [address], [facility], Department of Pathology, [address] [place] [address], [facility]npHar[facility], Department of Pathology, [address] [place] [address], DRZ W/PLT COUNT & AUTO [id number] 06:28:00 Test Item Value Reference Range Interpretation [...] (BEAKER) (test code = 413) (CELLAVISION MANUAL DIFF)2020-07-17 06:28:00 Test Item Value Reference [...] CONCENTRATION Adequate (CELLAVISION)(BEAKER) (test code = 3438) Mini Shifter ID - Jaida comments: Slide comments:BASIC METABOLIC [id number] 05:39:00 Test Item Value Reference Range Interpretation [...] S NOT APPLICABLE FOR DIALYSIS PATIEN TS. Mini Shifter ID - HOLGER [id number] 05:39:00 Test Item Value Reference Range Interpretation Comments MAGNESIUM (BEAKER) (test code = 2.0 mg/dL 1.6-2.6 627) Mini Shifter ID - HOLGER [id number] 05:39:00 Test Item Value Reference Range Interpretation Comments PHOSPHORUS (BEAKER) (test code = 3.0 mg/dL 2.3-4.7 604) Mini Shifter ID - HOLGER LHEPATIC FUNCTION [id number] 05:39:00 Test Item Value Reference Range Interpretation [...] code = 83 U/L 6-55 H 347) Mini Shifter ID - HOLGER LSURGICALLY OBTAINED CULTURE + GRAM [id number] 11:33:00 Test Item Value Reference Range Interpretation Comments CULTURE (BEAKER) (test code No growth = 1095) GRAM STAIN RESULT (BEAKER) 1+ WBCs (test code = 1123) GRAM STAIN RESULT (BEAKER) No organisms seen (test code = 476848) SARS-COV2/RT-PCR ([facility])2020-07-16 09:52:00 Test Item Value Reference Range Interpretation Comments SARS-COV2/RT-PCR (test Negative Not Detected, Negative, code = 4512813) See external report for linked test SARS-COV-2 PERFORMING LAB [facility] ASAEL (test code = 3213864) Negative result for this test determines that [...] 564(g) of the Act.Fact Sheet for Healthcare Providers:https://www.quidel.com/sites/default/files/product/documents/Fact_Shenaheed andujarr_JX_Ejwmpphnj_Oypw_JFIX-VjL-7.pdfFact Sheet for Healthcare Patients:https://www.[employer]/sites/default/files/product/ documents/Uicg_Easer_Ntflurvk_Ilyi_JWKX-VxH-8.pdfPerforming Laboratory:[address] [place], [place] [address]VOI W/PLT COUNT & AUTO [id number] 06:22:00 Test Item Value Reference Range Interpretation [...] (BEAKER) (test code = 2801) BASIC METABOLIC [id number] 06:20:00 Test Item Value Reference Range Interpretation [...] S NOT APPLICABLE FOR DIALYSIS PATIEN TS. Mini Shifter ID - HOLGER [id number] 06:20:00 Test Item Value Reference Range Interpretation Comments MAGNESIUM (BEAKER) (test code = 1.9 mg/dL 1.6-2.6 627) Mini Shifter ID - HOLGER [id number] 06:20:00 Test Item Value Reference Range Interpretation Comments PHOSPHORUS (BEAKER) (test code = 2.4 mg/dL 2.3-4.7 604) Mini Shifter ID - HOLGER LHEPATIC FUNCTION [id number] 06:20:00 Test Item Value Reference Range Interpretation [...] code = 113 U/L 6-55 H 347) Mini Shifter ID - HOLGER [id number] 07:13:00 Test Item Value Reference Range Interpretation Comments MAGNESIUM (BEAKER) (test code = 1.8 mg/dL 1.6-2.6 627) Mini Shifter ID - HOLGER [id number] 07:13:00 Test Item Value Reference Range Interpretation Comments PHOSPHORUS (BEAKER) (test code = 2.2 mg/dL 2.3-4.7 L 604) Mini Shifter ID - HOLGER LBASIC METABOLIC [id number] 07:13:00 Test Item Value Reference Range Interpretation [...] S NOT APPLICABLE FOR DIALYSIS PATIEN TS. Mini Shifter ID - PIAYA LSpecimen slightly ictericHEPATIC FUNCTION [id number] 07:13:00 Test Item Value Reference Range Interpretation [...] code = 168 U/L 6-55 H 347) Mini Shifter ID - PIAYA LSpecimen slightly ictericCBC W/PLT COUNT & AUTO [id number] 06:48:00 Test Item Value Reference Range Interpretation [...] PERCENT (BEAKER) (test code = 2801) SPIN/CONCENTRATION [id number] 12:45:00 Test Item Value Reference Range Interpretation Comments CONCENTRATION CHARGED (BEAKER) (test Done code = 2657) CBC W/PLT COUNT & AUTO [id number] 10:02:00 Test Item Value Reference Range Interpretation [...] CONCENTRATION Adequate (CELLAVISION)(BEAKER) (test code = 3438) Mini Shifter ID - Leticia Holland comments: Slide comments:[id number] 05:43:00 Test Item Value Reference Range Interpretation Comments MAGNESIUM (BEAKER) (test code = 2.0 mg/dL 1.6-2.6 627) Mini Shifter ID - [id number] 05:43:00 Test Item Value Reference Range Interpretation Comments PHOSPHORUS (BEAKER) (test code = 3.4 mg/dL 2.3-4.7 604) Mini Shifter ID - EDBLANEBASIC METABOLIC [id number] 05:43:00 Test Item Value Reference Range Interpretation [...] S NOT APPLICABLE FOR DIALYSIS PATIEN TS. Mini Shifter ID - EDASISpecimen slightly ictericHEPATIC FUNCTION [id number] 05:43:00 Test Item Value Reference Range Interpretation [...] code = 281 U/L 6-55 H 347) Mini Shifter ID - EDASISpecimen slightly ictericCOMPREHENSIVE METABOLIC PANEL 2020-07-13 06:16:00 Test Item Value Reference Range [...] S NOT APPLICABLE FOR DIALYSIS PATIEN TS. Mini Shifter ID - ADMINSpecimen slightly ictericCBC W/PLT COUNT & AUTO [id number] 05:29:00 Test Item Value Reference Range Interpretation [...] H PERCENT (BEAKER) (test code = 2801) POCT-GLUCOSE [id number] 23:10:00 Test Item Value Reference Range Interpretation Comments POC-GLUCOSE METER 93 mg/dL 70-110 : TESTED A T [facility] 6720 (BEAKER) (test code = AMBIKA Jimenez [facility], 1538) [address]: Mini Shifter/Techni cecille ID = [id number] for WALK ELVIA, ROSELIA HEPATOBILIARY [id number] 15:57:00Unlisted Reason for Exam - Click Yes and Enter Reason Below->No [facility] : 1935 Sex: MFINAL REPORT PROCEDURE: [...] MDReport Verified Date/Time: 07/12/2020 15:57:58 Reading Location: [address] Reading Room CBC W/PLT COUNT & AUTO [id number] 05:55:00 Test Item Value Reference Range Interpretation [...] H PERCENT (BEAKER) (test code = 2801) [id number] 09:54:00 Test Item Value Reference Range Interpretation Comments LIPASE (BEAKER) (test code = 749) 37 U/L 8-78 Mini Shifter ID - AAHAMIDSpecimen slightly ictericCBC W/PLT COUNT & AUTO [id number] 09:28:00 Test Item Value Reference Range Interpretation [...] CONCENTRATION Adequate (CELLAVISION)(BEAKER) (test code = 3438) Mini Shifter ID - Vivien OverholtUser comments: Slide comments:COMPREHENSIVE METABOLIC [id number] 07:00:00 Test Item Value Reference Range Interpretation [...] S NOT APPLICABLE FOR DIALYSIS PATIEN TS. Mini Shifter ID - JAD MSpecimen slightly ictericBILIRUBIN, [id number] 07:00:00 Test Item Value Reference Range Interpretation Comments BILIRUBIN DIRECT (BEAKER) (test 0.9 mg/dL 0.1-0.5 H code = 706) Mini Shifter ID - JAD MPT/[id number] 06:37:00 Test Item Value Reference Range Interpretation Comments PROTIME (BEAKER) (test code = 15.9 seconds 11.9-14.2 H 759) INR (BEAKER) (test code = 370) 1.32 <=5.90 PARTIAL THROMBOPLASTIN TIME 38.4 seconds 22.5-36.0 H (BEAKER) (test code = 760) Effective 01/05/2019: PT Reference Range ChangeNew: 11.9-14.2 Previous: 11.7- 14.7RECOMMENDED COUMADIN/WARFARIN INR THERAPY RANGESSTANDARD DOSE: 2.0-3.0 Includes: PROPHYLAXIS for venous thrombosis, systemic embolization; TREATMENT for venous thrombosis and/or pulmonary embolus.HIGH RISK: Target INR is2.5-3.5 for patients wiht mechanical heart valves.[place], [id number] 21:07:00Reason for exam:->Hyperbilirubinemia, abnormal imaging [facility] RUTHIEGINA VERDE NATALY : 1935 Sex: MFINAL REPORT Examination: ERCP 4 fluoroscopic spot views were obtain ed during the procedure by the ordering service. Images are nondiagnostic as no radiologist was present at the time of imaging. Fluoroscopic time was 50.9 seconds. Please see the procedure report for details. 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 : 1935 Sex: MFluoroscopic unit utilized for a procedure performed in the OR. No interpretation was requested. Refer to the operative report for findings. Refer to PACS for patient radiation dose information.[facility], MULTI, PHARM, [id number] 17:08:00Unlisted Reason for Exam - Click Yes and Enter Reason Below->YesUnlisted Reason for Exam->[facility]-op eval [facility] : 1935 Sex: MFINAL REPORT PROCEDURE: MYOCARDIAL PERFUSION SPECT IMAGING (Rest/Stre ss)CPT CODE: 63996 INDICATION: Preoperative evaluation for cholecystectomy, known CAD [...] Verified Date/Time: 07/10/2020 17:08:00 Reading Location: [address] Reading Room (CELLAVISION MANUAL DIFF)2020-07-10 15:46:00 Test Item Value Reference [...] CONCENTRATION Adequate (CELLAVISION)(BEAKER) (test code = 3438) Mini Shifter ID - Christos comments: Slide comments:CBC W/PLT COUNT & AUTO [id number] 15:13:00 Test Item Value Reference Range Interpretation [...] 0-1 H PERCENT (BEAKER) (test code = 8151) COMPREHENSIVE METABOLIC [id number] 06:40:00 Test Item Value Reference Range Interpretation [...] S NOT APPLICABLE FOR DIALYSIS PATIEN TS. Mini Shifter ID - EDASISpecimen slightly ictericPT/[id number] 06:18:00 Test Item Value Reference Range Interpretation [...] for patients wiht mechanical heart valves.U/S, ABDOMINAL, [id number] 16:21:00Reason for exam:->cholecystitis for percutaneous cholecystectomy tube placementREBECCA [facility]ITALName: [facility] : 1935 Sex: MFINAL REPORT Right [...] Benign-appearing right renal cysts. Signed: Oscar García Verified Date/Time: 07/09/2020 16:21:05 Reading Location: [address] Body Reading Room BILIRUBIN, [id number] 08:02:00 Test Item Value Reference Range Interpretation Comments BILIRUBIN DIRECT (BEAKER) (test 0.8 mg/dL 0.1-0.5 H code = 706) Mini Shifter ID - AFTAB MCOMPREHENSIVE METABOLIC [id number] 05:30:00 Test Item Value Reference Range Interpretation [...] S NOT APPLICABLE FOR DIALYSIS PATIEN TS. Mini Shifter ID - EDASISpecimen slightly ictericCBC W/PLT COUNT & AUTO [id number] 05:12:00 Test Item Value Reference Range Interpretation [...] H PERCENT (BEAKER) (test code = 2801) [id number] 05:00:00 Test Item Value Reference Range Interpretation Comments PROTIME (BEAKER) (test code = 18.5 seconds 11.9-14.2 H 759) INR (BEAKER) (test code = 370) 1.59 <=5.90 PARTIAL THROMBOPLASTIN TIME 42.8 seconds 22.5-36.0 H (GENOVEVA) (test code = 760) Effective 01/05/2019: PT Reference Range ChangeNew: 11.9-14.2 Previous: 11.7- 14.7RECOMMENDED COUMADIN/WARFARIN INR THERAPY RANGESSTANDARD DOSE: 2.0-3.0 Includes: PROPHYLAXIS for venous thrombosis, systemic embolization; TREATMENT for venous thrombosis and/or pulmonary embolus.HIGH RISK: Target INR is2.5-3.5 for patients wiht mechanical heart valves.SARS-COV2/RT-PCR ([facility]) 2020-07-08 18:39:00 Test Item Value Reference Range Interpretation Comments SARS-COV2/RT-PCR (test Negative Not Detected, Negative, code = 6417940) See external report for linked test SARS-COV-2 PERFORMING LAB [facility] (test code = 2187501) Negative result for this test determines that [...] 564(g) of the Act.Fact Sheet for Healthcare Providers:https://www.[employer]/sites/default/files/product/documents/Fact_Shee d_LI_Gpszhrixd_Tqld_SQTU-DwC-2.pdfFact Sheet for Healthcare Patients:https://www.[employer]/sites/default/files/product/ documents/Rkzx_Mwyxa_Tlujiksb_Bbta_NJZJ-OzA-1.pdfPerforming Laboratory:[facility], [place] [address]TK, ABDOMEN, MRCP 2020-07-08 16:21:00Unlisted Reason for Exam - Click Yes and Enter Reason Below->NoST. JOHN'S HOSPITAL CAMARILLOName: GINA TAPIA : 1935 Sex: MFINAL REPORT MR, [...] year follow-up MRCP.6.Moderate splenomegaly Signed: Cullen Arzola Verified Date/Time: 07/08/2020 16:21:50 Reading Location: [address] Body Reading Room CBC W/PLT COUNT & AUTO [id number] 08:17:00 Test Item Value Reference Range Interpretation [...] CONCENTRATION Adequate (CELLAVISION)(BEAKER) (test code = 3438) Mini Shifter ID - Vivien OverholtUser comments: Slide comments:B-TYPE NATRIURETIC FACTOR (BNP)2020-07-08 06:26:00 Test Item Value Reference Range Interpretation Comments B-TYPE NATRIURETIC PEPTIDE (BEAKER) 278 pg/mL 0-100 H (test code = 700) Mini Shifter ID - JAD [id number] 06:14:00 Test Item Value Reference Range Interpretation Comments MAGNESIUM (BEAKER) (test code = 2.2 mg/dL 1.6-2.6 627) Mini Shifter ID - [id number] 06:14:00 Test Item Value Reference Range Interpretation Comments PHOSPHORUS (BEAKER) (test code = 3.2 mg/dL 2.3-4.7 604) Mini Shifter ID - EDASIBASIC METABOLIC [id number] 06:14:00 Test Item Value Reference Range Interpretation Comments SODIUM (BEAKER) 142 meq/L 136-145 (test code = 381) POTASSIUM (BEAKER) 4.1 meq/L 3.5-5.1 (test code = 379) CHLORIDE (BEAKER) 111 meq/L 98-107 H (test code = 382) CO2 (BEAKER) (test 23 meq/L 22-29 code = 355) BLOOD UREA NITROGEN 23 [...] S NOT APPLICABLE FOR DIALYSIS PATIEN TS. Mini Shifter ID - EDASISpecimen slightly ictericHEPATIC FUNCTION [id number] 06:14:00 Test Item Value Reference Range Interpretation [...] (test code = 21 U/L 6-55 347) Mini Shifter ID - EDASISpecimen slightly ictericPT/[id number] 05:43:00 Test Item Value Reference Range Interpretation [...] patients wiht mechanical heart valves.XR CHEST 2 [id number] 11:11:17PA and lateral chest, 2 viewsLocation code: [id number] HISTORY: Cough, Hypertensive disorderCOMPARISON: 07/26/2013COMMENTS: The lungs are clear and well inflated. The costophrenic angles aresharp. The cardiomediastinal silhouette is stable. The bones are intact.IMPRESSION: Stable chest with no acute abnormality ERYTHROCYTE SED [id number] 15:36:00 Test Item Value Reference Range Interpretation Comments SED RATE (test code = SEDR) 1 mm/hr 0-15 THYROID PANEL/SCREEN (TSH)2017-03-19 15:14:00 Test Item Value Reference Range Interpretation Comments TSH (test code = A57) 1.640 uIU/mL 0.358-3.740 B12 [id number] 15:10:00 Test Item Value Reference Range Interpretation Comments VIT B12 (test code = A60) 807.0 pg/mL 180.0-914.0 [id number] 15:10:00 Test Item Value Reference Range Interpretation [...]
[2021-11-16] MEDS ORDERED: NA CHLORIDE 0.9% 2,000 ML ONE (10:46)
[2021-11-16] MEDS ORDERED: PIPERACIL/TAZO 3.375 GM VIAL IV ONE (10:46)
[2021-11-16] MEDS ORDERED: NA CHLORIDE 0.9% 100 ML IV ONE (10:46)
[2021-11-16] MEDS ORDERED: ACETAMINOPHEN 650MG/RECT SUPP PR ONE (10:46)
[2021-11-16] MEDS ORDERED: ONDANSETRON 4 MG/2 ML VIAL ONE (10:47)
[2021-11-16 11:04] LABS: Absolute Lymphocytes (CBC) 0.9 K/uL (0.7-4.9); Hematocrit 38.3 % (39.6-49.0); Lymphocytes % 5.9 % (15.3-44.8); MPV 8.4 fL (7.6-11.3); RBC Red Blood Cell Count 4.55 M/uL (4.33-5.43)
[2021-11-16 11:07] LABS: Protime INR 3.06
--- NOTE | 2021-11-16 11:14 | ER ---
Nurse's Notes [facility] Name: John Henriquez Age: 85 yrs Sex: Male : 1935 Arrival Date: 11/16/2021 Time: 10:22 Bed 8 Private MD: Diagnosis: Pneumonia, unspecified organism;Weakness;Fever, unspecified;Hypoxemia;Altered mental status, unspecified;Chronic atrial fibrillation;Pleural effusion, not elsewhere classified;Hypokalemia;Elevated white blood cell count;Splenomegaly, not elsewhere classified;Hypercalcemia Presentation: 11/16 10:23 Chief complaint: EMS states: EMS called for a fall, pt fell while walking to restroom and was unable to get him up. Pt denies pain r/t fall, skin tear to L arm, does take blood thinners, reports fever, N/V, dx w/ UTI 11/14, started taking nitrofurantoin and Augmentin yesterday. 4 mg Zofran given [employer]. Coronavirus screen: At this time, the client does not indicate any symptoms associated with coronavirus-19. Ebola Screen: No symptoms or risks identified at this time. Initial Sepsis Screen: Does the patient meet any 2 criteria? Mean Arterial Pressure (MAP) < 65. HR > 90 bpm. Yes Does the patient have a suspected source of infection? Yes: Dysuria/Frequency/Urgency/UTI If YES to both, name of provider notified: Mert Rinaldi MD. Risk Assessment: Do you want to hurt yourself or someone else? Patient reports no desire to harm self or others. Onset of symptoms was November 16, 2021. 10:23 Method Of Arrival: EMS: [facility] 10:23 Acuity: DILIP 2 ph Triage Assessment: 10:34 General: Appears in no apparent distress. uncomfortable, Behavior is appropriate for ph age, drowsy. Pain: Denies pain. Neuro: Level of Consciousness is awake, alert, obeys commands, Oriented to person, place, situation. Cardiovascular: Capillary refill is sluggish Patient's skin is warm and dry. Rhythm is atrial fibrillation. Respiratory: Airway is patent Respiratory effort is even, unlabored. GI: Reports nausea, vomiting. : Reports urinary frequency, recently dx w/ UTI. Derm: Skin is fragile, is thin, has skin tears on skin tears in various stages of healing to bilateral legs and arms, dark purple bruising also noted to bilateral legs and arms. Historical: - Allergies: 10:29 Cipro; ph - Home Meds: 10: Xarelto 15 mg oral tab 1 tab once daily [Active]; furosemide 40 mg Oral tab 1 tab once ph daily [Active]; methylprednisolone 4 mg Oral tab 1 tab once daily [Active]; pravastatin 40 mg Oral tab 1 tab once daily [Active]; aspirin 81 mg Oral TbEC 1 tab once daily [Active]; tamsulosin 0.4 mg oral cap 1 cap once daily [Active]; metoprolol tartrate 25 mg Oral tab 1 tab 2 times per day [Active]; magnesium oxide 1000 mg oral tab nightly [Active]; melatonin 5 mg Oral tab nightly [Active]; trazodone 50 mg Oral tab 1 tab nightly [Active]; - PMHx: 10:29 Atrial Fib; CHF; CVA; Gout; Hyperlipidemia; Hypertension; Systemic mastocytosis blood ph disorder; - Immunization history:: Adult Immunizations unknown. - Social history:: Smoking status: unknown. - Family history:: not pertinent. Screenin:28 Abuse screen: Denies threats or abuse. Denies injuries from another. Nutritional ph screening: No deficits noted. Tuberculosis screening: No symptoms or risk factors identified. Fall Risk Fall in past 12 months (25 points). No secondary diagnosis (0 pts). IV access (20 points). Ambulatory Aid- None/Bed Rest/Nurse Assist (0 pts). Gait- Weak (10 pts.). Mental Status- Oriented to own ability (0 pts). Total Hoffman Fall Scale indicates High Risk Score (45 or more points). Fall prevention measures have been instituted. Side Rails Up X 2 Placed Close to Nursing Station Frequent Obs/Assessments Occuring As available patient and family educated on Fall Prevention Program and Strategies. Assessment: 12:27 Reassessment: Patient appears in no apparent distress at this time. Patient and/or ph family updated on plan of care and expected duration. Pain level reassessed. Pt reports that nausea has improved, fluid bolus currently infusing, at bedside, will continue to monitor. 13:30 Reassessment: Patient appears in no apparent distress at this time. Patient and/or ph family updated on plan of care and expected duration. Pain level reassessed. Pt drowsy but awakens easily, at bedside. 15:09 Reassessment: Patient appears in no apparent distress at this time. Patient and/or ph family updated on plan of care and expected duration. Pain level reassessed. Report called to MINI on second floor. Vital Signs: 10:23 BP 109 / 64; Pulse 99; Resp 20; Temp 100.9; Pulse Ox 93% on R/A; ph 11:03 BP 105 / 43; Pulse 90; Resp 18; Temp 99.7(O); Pulse Ox 100% on 3 lpm NC; ph 12:00 BP 102 / 39; Pulse 80; Resp 16; Pulse Ox 97% 3 lpm ; ph 13:00 BP 100 / 44; Pulse 77; Resp 16; Pulse Ox 97% on 3 lpm NC; ph 14:38 BP 103 / 51; Pulse 73; Resp 18; Pulse Ox 98% on 3 lpm NC; ph 14:54 Temp 98.2; ph 15:37 BP 122 / 43; Pulse 74; Resp 16; Pulse Ox 100% on 3 lpm NC; ph 15:39 Weight 74.84 kg; ph ED Course: 10:22 Patient arrived in ED. eb 10:23 Mert Rinaldi MD is Attending Physician. sridevi 10:23 Tess Dunbar, DENNY is Primary Nurse. ph 10:28 Triage completed. 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 10:34 Patient has correct armband on for positive identification. Placed in gown. Bed in low ph position. Call light in reach. Side rails up X2. loss control technician on. Pulse ox on. NIBP on. Door closed. Noise minimized. 10:35 EKG done, by ED staff, reviewed by Mert Rinaldi MD. dh3 10:49 XRAY Chest (1 view) In Process Unspecified. EDMS 10:50 Initial lab(s) drawn, by mn, sent to lab. Inserted saline lock: 22 gauge in right dh3 forearm, using aseptic technique. Blood collected. 10:50 First set of blood cultures drawn by me. dh3 10:55 Second set of blood cultures drawn by me. dh3 11:12 Eric Lea MD is Hospitalizing Provider. sridevi 11:21 Head Brain Wo Cont In Process Unspecified. EDMS 11:21 C Spine Wo Con In Process Unspecified. EDMS 11:21 Thorax Wo Con In Process Unspecified. EDMS 11:21 Abdomen In Process Unspecified. EDMS 13:00 Wound care: skin tear to left calf cleaned with chlorhexidine and normal saline, dh3 dressed with steri strips and Kerlix. 15:38 No provider procedures requiring assistance completed. Patient admitted, IV remains in ph place. Administered Medications: 10:50 Drug: NS 0.9% 1000 ml Route: IV; Rate: 1 bolus; Site: left antecubital; ph 12:00 Follow up: Response: No adverse reaction; IV Status: Completed infusion; IV Intake: ph 1000ml 11:03 Drug: NS 0.9% 1000 ml Route: IV; Rate: 125 ml/hr; Site: right forearm; ph 13:00 Follow up: Response: No adverse reaction; IV Status: Infusion continued upon admission ph 11:03 Drug: Zosyn (piperacillin-tazobactam) 3.375 grams Route: IVPB; Infused Over: 60 mins; ph Site: right forearm; 12:10 Follow up: Response: No adverse reaction; IV Status: Completed infusion; IV Intake: ph 100ml 12:15 Follow up: Response: No adverse reaction; IV Status: Completed infusion ph 14:54 Not Given (Other Intervention Used): Tylenol Suppository 650 mg IL once ph Intake: 12:00 IV: 1000ml; Total: 1000ml. ph 12:10 IV: 100ml; Total: 1100ml. ph Outcome: 11:14 Decision to Hospitalize by Provider. sridevi 15:43 Patient left the ED. ph 15:43 Admitted to Med/surg accompanied by tech, via stretcher, with oxygen, with chart. ph 15:43 Condition: good Signatures: Dispatcher [employer] Mert Ashton MD MD cha Hall, Patricia, RN RN Kateryna Vee [facility] Malathi Reveles Corrections: (The following items were deleted from the chart) 10:38 10:23 Initial Sepsis Screen: Does the patient meet any 2 criteria? HR > 90 bpm. Does ph the patient have a suspected source of infection? Yes: Dysuria/Frequency/Urgency/UTI ph 11:03 11:03 NS 0.9% 1000 ml IV at 125 ml/hr in right antecubital ph ph 14:59 10:34 Neuro: Level of Consciousness is awake, alert, obeys commands, Oriented to ph person, place, time, situation, ph
--- NOTE | 2021-11-16 11:15 | EDPHYS ---
Physician Documentation [facility] Name: John Henriquez Age: 85 yrs Sex: Male : 1935 Arrival Date: 11/16/2021 Time: 10:22 Bed 8 Private MD: ED Physician Mert Rinaldi HPI: 11/16 11:04 This 85 yrs old Unknown Male presents to ER via EMS with complaints of fall, cough , sridevi ams and weakness. 11:04 weak, treated for uti, fever, altered. The patient presents with confusion, decreased sridevi mental status. Onset: The symptoms/episode began/occurred 2 day(s) ago. Possible causes: sepsis, the patient has had a history of a fever, the patient has a known UTI history. The patient or guardian reports difficulty breathing, flu symptoms. Associated signs and symptoms: Pertinent positives: dizziness, lightheadedness. Severity of symptoms: At their worst the symptoms were mild, in the emergency department the symptoms are unchanged. Current symptoms: In the emergency department the patient's symptoms are unchanged from the initial presentation, despite home interventions. Modifying factors: The symptoms are alleviated by nothing, the symptoms are aggravated by nothing. Historical: - Allergies: 10:29 Cipro; ph - Home Meds: 10:29 Xarelto 15 mg oral tab 1 tab once daily [Active]; furosemide 40 mg Oral tab 1 tab once ph daily [Active]; methylprednisolone 4 mg Oral tab 1 tab once daily [Active]; pravastatin 40 mg Oral tab 1 tab once daily [Active]; aspirin 81 mg Oral TbEC 1 tab once daily [Active]; tamsulosin 0.4 mg oral cap 1 cap once daily [Active]; metoprolol tartrate 25 mg Oral tab 1 tab 2 times per day [Active]; magnesium oxide 1000 mg oral tab nightly [Active]; melatonin 5 mg Oral tab nightly [Active]; trazodone 50 mg Oral tab 1 tab nightly [Active]; - PMHx: 10:29 Atrial Fib; CHF; CVA; Gout; Hyperlipidemia; Hypertension; Systemic mastocytosis blood ph disorder; - Immunization history:: Adult Immunizations unknown. - Social history:: Smoking status: unknown. - Family history:: not pertinent. ROS: 11:04 Constitutional: Negative for fever, chills, and weight loss, Eyes: Negative for injury, sridevi pain, redness, and discharge, ENT: Negative for injury, pain, and discharge, Neck: Negative for injury, pain, and swelling, Cardiovascular: Negative for chest pain, palpitations, and edema, Abdomen/GI: Negative for abdominal pain, nausea, vomiting, diarrhea, and constipation, Back: Negative for injury and pain, : Negative for injury, bleeding, discharge, and swelling, MS/Extremity: Negative for injury and deformity, Skin: Negative for injury, rash, and discoloration, Psych: Negative for depression, anxiety, suicide ideation, homicidal ideation, and hallucinations, Allergy/Immunology: Negative for hives, rash, and allergies, Endocrine: Negative for neck swelling, polydipsia, polyuria, polyphagia, and marked weight changes, Hematologic/Lymphatic: Negative for swollen nodes, abnormal bleeding, and unusual bruising. 11:04 Respiratory: Positive for cough, shortness of breath, wheezing, expiratory. 11:04 Neuro: Positive for altered mental status, weakness. Exam: 11:04 Constitutional: This is a well developed, well nourished patient who is awake, alert, sridevi and in no acute distress. Head/Face: Normocephalic, atraumatic. Eyes: Pupils equal round and reactive to light, extra-ocular motions intact. Lids and lashes normal. Conjunctiva and sclera are non-icteric and not injected. Cornea within normal limits. Periorbital areas with no swelling, redness, or edema. ENT: Nares patent. No nasal discharge, no septal abnormalities noted. Tympanic membranes are normal and external auditory canals are clear. Oropharynx with no redness, swelling, or masses, exudates, or evidence of obstruction, uvula midline. Mucous membranes moist. Neck: Trachea midline, no thyromegaly or masses palpated, and no cervical lymphadenopathy. Supple, full range of motion without nuchal rigidity, or vertebral point tenderness. No Meningismus. Chest/axilla: Normal chest wall appearance and motion. Nontender with no deformity. No lesions are appreciated. Cardiovascular: Regular rate and rhythm with a normal S1 and S2. No gallops, murmurs, or rubs. Normal PMI, no JVD. No pulse deficits. Abdomen/GI: Soft, non-tender, with normal bowel sounds. No distension or tympany. No guarding or rebound. No evidence of tenderness throughout. Back: No spinal tenderness. No costovertebral tenderness. Full range of motion. Skin: Warm, dry with normal turgor. Normal color with no rashes, no lesions, and no evidence of cellulitis. Neuro: Awake and alert, GCS 15, oriented to person, place, time, and situation. Cranial nerves II-XII grossly intact. Motor strength 5/5 in all extremities. Sensory grossly intact. Cerebellar exam normal. Normal gait. Psych: Awake, alert, with orientation to person, place and time. Behavior, mood, and affect are within normal limits. 11:04 Respiratory: mild respiratory distress is noted, Respirations: labored breathing, that is mild, Breath sounds: decreased breath sounds, that are mild, are scattered, rhonchi, that are moderate, stridor, is not appreciated, + upper airway congestion. Respiratory rate: 20 11:17 ECG was reviewed by the Attending Physician. [facility] Vital Signs: 10:23 BP 109 / 64; Pulse 99; Resp 20; Temp 100.9; Pulse Ox 93% on R/A; ph 11:03 BP 105 / 43; Pulse 90; Resp 18; Temp 99.7(O); Pulse Ox 100% on 3 lpm NC; ph 12:00 BP 102 / 39; Pulse 80; Resp 16; Pulse Ox 97% 3 lpm ; ph 13:00 BP 100 / 44; Pulse 77; Resp 16; Pulse Ox 97% on 3 lpm NC; ph 14:38 BP 103 / 51; Pulse 73; Resp 18; Pulse Ox 98% on 3 lpm NC; ph 14:54 Temp 98.2; ph 15:37 BP 122 / 43; Pulse 74; Resp 16; Pulse Ox 100% on 3 lpm NC; ph 15:39 Weight 74.84 kg; ph MDM: 10:23 Patient medically screened. [facility] 11:11 Differential diagnosis: bacterial infection, URI, bronchitis, pneumonia UTI. [facility] Differential Diagnosis sepsis, flu, Bronchitis Influenza Upper Respiratory Infection Sinusitis Pharyngitis Otitis Media Viral Syndrome Pneumonia. Differential Diagnosis: CVA, electrolyte abnormality, pneumonia, sepsis, UTI, volume depletion. Data reviewed: vital signs, nurses notes, lab test result(s), EKG, radiologic studies, CT scan, plain films. Data interpreted: Pulse oximetry: on. Test interpretation: by ED physician or midlevel provider: ECG, plain radiologic studies. Counseling: I had a detailed discussion with the patient and/or guardian regarding: the historical points, exam findings, and any diagnostic results supporting the discharge/admit diagnosis, lab results, radiology results, the need for further work-up and treatment in the hospital. 11/16 10:33 Order name: Basic Metabolic Panel; Complete Time: 12:03 [facility] 11/16 10:33 Order name: CBC with Diff; Complete Time: 12:03 [facility] 11/16 10:33 Order name: LFT's; Complete Time: 12:03 [facility] 11/16 10:33 Order name: Magnesium; Complete Time: 12:03 [facility] 11/16 10:33 Order name: NT PRO-BNP; Complete Time: 12:03 [facility] 11/16 10:33 Order name: PT-INR; Complete Time: 12:03 [facility] 11/16 10:33 Order name: Troponin HS; Complete Time: 12:03 [facility] 11/16 10:33 Order name: Blood Culture Adult (2) [facility] 11/16 10:33 Order name: Lactate; Complete Time: 12:03 [facility] 11/16 10:33 Order name: Procalcitonin; Complete Time: 13:09 [facility] 11/16 10:33 Order name: Urine Culture [facility] 11/16 10:33 Order name: COVID-19/FLU A+B (Document "Date of Onset" if Symptomatic); Complete Time: sridevi 15:30 11/16 11:20 Order name: Manual Differential; Complete Time: 12:03 [facility] 11/16 13:23 Order name: CBC with Automated Diff [facility] 11/16 10:33 Order name: XRAY Chest (1 view); Complete Time: 12:03 [facility] 11/16 10:33 Order name: EKG; Complete Time: 10:34 [facility] 11/16 11:00 Order name: CT Traumagram (Head C Spine CAP wo con) [facility] 11/16 11:03 Order name: Head Brain Wo Cont; Complete Time: 12:03 [facility] 11/16 11:04 Order name: C Spine Wo Con; Complete Time: 12:03 [facility] 11/16 11:04 Order name: Thorax Wo Con; Complete Time: 12:03 [facility] 11/16 11:04 Order name: Abdomen ; Complete Time: 12:03 [facility] 11/16 13:23 Order name: Heart Healthy [facility] 11/16 13:23 Order name: CBC with Automated Diff [facility] 11/16 13:23 Order name: Comprehensive Metabolic Panel [facility] 11/16 13:23 Order name: Comprehensive Metabolic Panel [facility] 11/16 14:28 Order name: Lactate Sepsis 2 HR Follow-up; Complete Time: 15:30 [facility] 11/16 10:33 Order name: Cardiac monitoring; Complete Time: 10:36 [facility] 11/16 10:33 Order name: EKG - Nurse/Tech; Complete Time: 10:35 [facility] 11/16 10:33 Order name: IV Saline Lock; Complete Time: 10:59 [facility] 11/16 10:33 Order name: Labs collected and sent; Complete Time: 10:59 [facility] 11/16 10:33 Order name: O2 Per Protocol; Complete Time: 10:39 [facility] 11/16 10:33 Order name: O2 Sat Monitoring; Complete Time: 10:38 [facility] EC:17 Rate is 100 beats/min. Rhythm is regular. QRS Treadwell is Normal. NC interval is normal. [facility] QRS interval is normal. QT interval is normal. No Q waves. T waves are Normal. No ST changes noted. Clinical impression: Atrial Fibrillation and No evidence of ischemia. Interpreted by me. Reviewed by me. Administered Medications: 10:50 Drug: NS 0.9% 1000 ml Route: IV; Rate: 1 bolus; Site: left antecubital; ph 12:00 Follow up: Response: No adverse reaction; IV Status: Completed infusion; IV Intake: ph 1000ml 11:03 Drug: NS 0.9% 1000 ml Route: IV; Rate: 125 ml/hr; Site: right forearm; ph 13:00 Follow up: Response: No adverse reaction; IV Status: Infusion continued upon admission ph 11:03 Drug: Zosyn (piperacillin-tazobactam) 3.375 grams Route: IVPB; Infused Over: 60 mins; ph Site: right forearm; 12:10 Follow up: Response: No adverse reaction; IV Status: Completed infusion; IV Intake: ph 100ml 12:15 Follow up: Response: No adverse reaction; IV Status: Completed infusion ph 14:54 Not Given (Other Intervention Used): Tylenol Suppository 650 mg NC once ph Disposition Summary: 11/16/21 11:14 Hospitalization Ordered Hospitalization Status: Inpatient Admission sridevi Provider: Eric Lea cha Location: Telemetry/MedSurg (Inpatient) sridevi Condition: Fair sridevi Problem: new sridevi Symptoms: have improved sridevi Bed/Room Type: Standard [facility] Room Assignment: 215(11/16/21 14:19) eb Diagnosis - Pneumonia, unspecified organism sridevi - Weakness sridevi - Fever, unspecified sridevi - Hypoxemia sridevi - Altered mental status, unspecified sridevi - Chronic atrial fibrillation sridevi - Pleural effusion, not elsewhere classified sridevi - Hypokalemia sridevi - Elevated white blood cell count sridevi - Splenomegaly, not elsewhere classified sridevi - Hypercalcemia sridevi Forms: - Medication Reconciliation Form sridevi - SBAR form sridevi Signatures: Dispatcher [employer] EDMert Hopkins MD MD cha Hall, Patricia RN RN ph Malathi Reveles Corrections: (The following items were deleted from the chart) 14:19 11:14 sridevi sergio
[2021-11-16 11:28] LABS: Bilirubin Direct 0.9 mg/dL (0-0.2); Bilirubin Total 2.3 mg/dL (0.2-1.0); Magnesium 2.4 mg/dL (1.8-2.4); Potassium 3.3 mmol/L (3.5-5.1); Protein, Total 7.2 g/dL (6.4-8.2); Troponin High Sensitivity 20.6 pg/mL (<58.9)
--- NOTE | 2021-11-16 11:32 | RAD REPORT ---
EXAM DESCRIPTION: CT - Head Brain Wo Cont - 11/16/2021 11:19 am CLINICAL HISTORY: Alteration of awareness/confusion COMPARISON: None TECHNIQUE: Computed axial tomography of the head was obtained. IV contrast was not requested. All CT scans are performed using dose optimization technique as appropriate and may include automated exposure control or mA/KV adjustment according to patient size. FINDINGS: An intracranial bleed is not seen . The ventricles are normal in caliber. No extra-axial fluid collection is noted. No significant hypodensities within the brain. Carotid and vertebral calcifications. Fluid within the sinuses/ mastoids is not seen. IMPRESSION: No acute intracranial abnormality is seen. If patient's symptoms persist MRI of the bra in would be recommended.
--- NOTE | 2021-11-16 11:37 | RAD REPORT ---
EXAM DESCRIPTION: CT - C Spine Wo Con - 11/16/2021 11:19 am CLINICAL HISTORY: Neck pain status post fall COMPARISON: None. TECHNIQUE: Computed axial tomography of the cervical spine were obtained with sagittal and coronal r econstruction images generated and reviewed. All CT scans are performed using dose optimization technique as appropriate and may include automated exposure control or mA/KV adjustment according to patient size. FINDINGS: A cervical fracture is not seen. No dislocation Loss of the normal lordosis of the cervical spine may be secondary to muscle spasm. Slight posterior subluxation C4 on C5. Moderate spondylosis involves mid and distal cervical spine. Dental caries is present IMPRESSION: A cervical fracture is not seen. If the patient continues have symptoms to suggest spinal cord/spinal canal pathology then MRI would b e recommended.
[2021-11-16 11:40] LABS: Blood Morphology Comment NOTED (NOT SEEN); Platelet Estimate ADEQ
--- NOTE | 2021-11-16 11:42 | RAD REPORT ---
EXAM DESCRIPTION: CT - Thorax Wo Con - 11/16/2021 11:20 am CLINICAL HISTORY: Chest pain status post fall COMPARISON: 2019 TECHNIQUE: Computed axial tomography of the chest was obtained. Contrast was not requested. All CT scans are performed using dose optimization technique as appropriate and may include automated exposure control or mA/KV adjustment according to patient size. FINDINGS: The evaluation of mediastinum, harry and vessels is limited secondary to lack of IV contras t administration. A mediastinal hematoma is not seen. A pulmonary contusion is not noted Small to moderate right pleural effusion with right basilar atelectasis. A pericardial effusion is not seen. Cardiomegaly IMPRESSION: Small to moderate right pleural effusion with right basilar atelectasis
[2021-11-16 11:45] LABS: Anisocytosis 1+; Polychromasia SLIGHT
[2021-11-16 11:46] LABS: Ovalocytes 1+
--- NOTE | 2021-11-16 11:52 | RAD REPORT ---
EXAM DESCRIPTION: CT - Abdomen Pelvis Wo Contrast - 11/16/2021 11:20 am CLINICAL HISTORY: Abdominal pain COMPARISON: 2020 TECHNIQUE: Computed axial tomography of the abdomen and pelvis was obtained. IV and oral contrast we re not requested. All CT scans are performed using dose optimization technique as appropriate and may include automated exposure control or mA/KV adjustment according to patient size. FINDINGS: The evaluation of solid organs, vessels and bowel is limited secondary to the lack of con trast administration. Liver, pancreas, adrenals appear grossly normal. Small bilateral renal cysts Spleen measures 17 centimeters. Cholecystectomy Prostate is moderately enlarged. Bladder wall thickening. Atherosclerotic disease. The appendix is normal. Diverticula stem from the colon without evidence of diverticulitis. The rectum is mildly distended with stool IMPRESSION: Moderate splenomegaly
--- NOTE | 2021-11-16 11:56 | RAD REPORT ---
EXAM DESCRIPTION: Nick Single View11/16/2021 10:47 am CLINICAL HISTORY: Chest pain COMPARISON: 2020 FINDINGS: Small to moderate right pleural effusion with right basilar atelectasis. Left lung appears clear of acute infiltrate. The heart is mildly to moderately enlarged. Postsurgical changes involve chest
[2021-11-16] MEDS ORDERED: ONDANSETRON 4 MG/2 ML VIAL IV PRN (13:20)
[2021-11-16 13:24] LABS: SARS-COV-2 RT PCR NEGATIVE (NEGATIVE)
[2021-11-16] MEDS: NA CHLORIDE 0.9% 1,000 ML IV SCH ×2 (14:00→16:56)
[2021-11-16] MEDS ORDERED: ALBUTEROL 2.5 MG/3 ML NEB SOL NEB PRN (14:03)
--- NOTE | 2021-11-16 15:27 | P.HP ---
Certification for Inpatient Patient admitted to: Inpatient With expected LOS: >2 Midnights Patient will require the following post-hospital care: None Practitioner: I am a practitioner with admitting privileges, knowledge of patient current condition, hospital course, and medical plan of care. Services: Services provided to patient in accordance with Admission requirements found in Title 42 Section 412.3 of the Code of Federal Regulations Patient History Date of Service: 11/16/21 Reason for admission: Acute kidney injury; intractable nausea and vomiting: Sepsis History of Present Illness: Patient is an 85-year-old gentleman who came to the hospital with intractable nausea and vomiting. Patient has been feeling poorly and has not been in good health. Patient presented with vomiting and had generalized weakness. Patient's was not able to move him. Decision was made to bring him into the hospital for further evaluation. Patient had CT imaging which revealed pleural effusion. No significant abnormalities. UA has not been performed. We will do a UA with microscopy but most likely UTI with sepsis. Patient has blood cultures pending. Patient also with broad-spectrum antibiotic. Repeat procalcitonin level. Patient was recently in the hospital for pneumonia with septic shock. Patient be admitted to the hospital for further evaluation. Allergies No Known Drug Allergies Allergy (Verified 11/23/20 23:22) Unknown Home Medications: Furosemide 40 mg PO DAILY 07/06/20 Pravastatin Sodium 40 mg PO DAILY 07/06/20 Rivaroxaban [Xarelto] 15 mg PO DAILY 07/06/20 methylPREDNISolone [Methylprednisolone] 4 mg PO DAILY 07/06/20 Aspirin [Aspirin EC 81 MG] 81 mg PO DAILY 11/23/20 Melatonin/Pyridoxine [Melatonin 5 mg Tablet] 5 mg PO BEDTIME 11/23/20 Tamsulosin [Flomax*] 0.4 mg PO BEDTIME #30 cap 11/30/20 Metoprolol Tartrate [Lopressor*] 25 mg PO BID 11/16/21 Trazodone [Desyrel] 50 mg PO DAILY 11/16/21 - Past Medical/Surgical History Diabetic: No -: Atrial fibrillation -: CVA -: HTN -: systemic mystocytosis -: hyperlipidemia -: Gout -: Coronary artery stents -: CABG -: Cataract Sx - Family History Father Family History: Reviewed- Non-Contributory Notes: old age - Social History Smoking Status: Never smoker Alcohol use: No CD- Drugs: No Caffeine use: Yes Review of Systems 10-point ROS is otherwise unremarkable Physical Examination - Vital Signs Temperature: 98 F Blood Pressure: 140/80 Pulse: 100 Respirations: 18 Pulse Ox (%): 95 - Physical Exam General: Alert, In no apparent distress HEENT: Atraumatic, PERRLA, Mucous membr. moist/pink, EOMI, Sclerae nonicteric Neck: Supple, 2+ carotid pulse no bruit, No LAD, Without JVD or thyroid abnormality Respiratory: Clear to auscultation bilaterally, Normal air movement Cardiovascular: Regular rate/rhythm, Normal S1 S2 Gastrointestinal: Normal bowel sounds, No tenderness Musculoskeletal: No tenderness Integumentary: No rashes Neurological: Normal gait, Normal speech, Normal strength at 5/5 x4 extr, Normal tone, Normal affect Lymphatics: No axilla or inguinal lymphadenopathy - Studies Laboratory Data (last 24 hrs) 11/16/21 10:50: PT 34.4 H, INR 3.06 11/16/21 10:50: WBC 15.0 H, Hgb 11.7 L, Hct 38.3 L, Plt Count 165 11/16/21 10:50: Sodium 142, Potassium 3.3 L, BUN 45 H, Creatinine 1.90 H, Glucose 94, Magnesium 2.4, Total Bilirubin 2.3 H, AST 15, ALT 22, Alkaline Phosphatase 112 Assessment & Plan - Problems (Diagnosis) (1) Intractable nausea and vomiting Current Visit: Yes Status: Acute (2) CHF exacerbation Current Visit: No Status: Acute (3) HTN (hypertension) Current Visit: No Status: Acute (4) Mast cell disorder Current Visit: Yes Status: Acute (5) UTI (urinary tract infection) Current Visit: Yes Status: Acute (6) Sepsis Current Visit: Yes Status: Acute (7) Atrial fibrillation Current Visit: Yes Status: Acute - Plan Plan: 1. Continue with antibiotic therapy 2. Continue with IV fluids 3. Monitor labs closely 4. UA with microscopy pending 5. Blood cultures pending 6. Repeat procalcitonin level 7. Repeat chest x-ray to monitor pleural effusion 8. Out of bed and ambulate with physical therapy over the next 48 to 72 hours 9. Continue with cardiac meds 10. GI and DVT prophylaxis Discharge Plan: Home Plan to discharge in: Greater than 2 days - Advance Directives Does patient have a Living Will: No Does patient have a Durable POA for Healthcare: No - Code Status/Comfort Care Code Status Assessed: Yes Code Status: Full Code Critical Care: No Time Spent Managing PTS Care (In Minutes): 45
[2021-11-16] MEDS ORDERED: POTASSIUM 25 MEQ EFFERV TAB PO ONE (17:00)
[2021-11-16 17:06] VITALS: BMI 24.7
[2021-11-16] MEDS: CEFTRIAXONE 1,000 MG in NA CHLORIDE 0.9% 50 ML IVPB SCH (20:05)
[2021-11-17 04:45] LABS: Absolute Lymphocytes (CBC) 0.9 K/uL (0.7-4.9); Hematocrit 33.6 % (39.6-49.0); Lymphocytes % 7.8 % (15.3-44.8); MPV 8.7 fL (7.6-11.3); RBC Red Blood Cell Count 3.97 M/uL (4.33-5.43)
[2021-11-17 04:50] LABS: Protime INR 2.75
[2021-11-17 05:06] LABS: ALT/SGPT 18 U/L (12-78); AST/SGOT 12 U/L (15-37); Albumin 2.4 g/dL (3.4-5.0); Alkaline Phosphatase 88 U/L (45-117); BUN Blood Urea Nitrogen 47 mg/dL (7-18); Bicarbonate 30 mmol/L (21-32); Glucose Level 83 mg/dL (74-106); HDL Cholesterol 18 mg/dL (40-60); NT PRO-BNP 14255 pg/mL (<450); Potassium 3.8 mmol/L (3.5-5.1); Sodium Level 142 mmol/L (136-145)
[2021-11-17 05:16] LABS: LDL Cholesterol, Calculated 20 mg/dL (<130)
[2021-11-17] MEDS ORDERED: POTASSIUM CL SA 10 MEQ TAB PO ONE (08:00)
[2021-11-17] MEDS ORDERED: ENOXAPARIN 40 MG/0.4 ML SQ SCH (09:00)
[2021-11-17] MEDS: CEFTRIAXONE 1,000 MG in NA CHLORIDE 0.9% 50 ML IVPB SCH ×2 (09:20→21:07)
[2021-11-17] MEDS: NA CHLORIDE 0.9% 1,000 ML IV SCH ×2 (09:20→16:40)
[2021-11-17] MEDS ORDERED: HYDROCORTISONE SUC 100 MG INJ IV ONE (12:37)
[2021-11-17] MEDS ORDERED: Levofloxacin500mg IV 500 MG/100 ML BAG IV SCH (13:00)
[2021-11-17] MEDS ORDERED: VANCOMYCIN 1.25 GM in NA CHLORIDE 0.9% 250 ML IVPB SCH (13:00)
[2021-11-17 17:54] LABS: Urine Appearance TURBID (Clear); Urine Bilirubin NEGATIVE (Negative); Urine Blood 2+ (Negative); Urine Color YELLOW (Yellow); Urine Glucose NEGATIVE (Negative); Urine Protein TRACE (Negative); Urine Specific Gravity 1.015 (1.005-1.030); Urine Urobilinogen 0.2 mg/dL (0.2-1.0); Urine pH 5.5 (5.0-7.0)
[2021-11-17 18:09] LABS: Urine Bacteria 20-50 /HPF (NONE SEEN); Urine RBC <5 /HPF (NONE SEEN); Urine Yeast MANY (NONE SEEN); Urine Yeast with Hyphae PRESENT
[2021-11-17] MEDS: HYDROCORTISONE SUC 100 MG INJ IV SCH (21:02)
[2021-11-18] MEDS: ACETAMINOPHEN 500 MG TAB PO PRN ×2 (02:16→22:51)
[2021-11-18] MEDS: NA CHLORIDE 0.9% 1,000 ML IV SCH ×2 (02:56→06:00)
[2021-11-18] MEDS ORDERED: DIAZEPAM 10 MG/2 ML INJ SYRINGE IV ONE (03:05)
--- NOTE | 2021-11-18 04:11 | P.PN ---
Subjective Date of Service: 11/17/21 Patient still not feeling too well. Cultures are still pending. Patient still feeling weak and will get physical therapy in the morning. Overall, clinical symptoms are improving. Review of Systems 10-point ROS is otherwise unremarkable Physical Examination - Vital Signs Temperature: 98 F Blood Pressure: 140/80 Pulse: 100 Respirations: 18 Pulse Ox (%): 95 - Physical Exam General: Alert, In no apparent distress, Oriented x2, Confused HEENT: Atraumatic, PERRLA, EOMI Neck: Supple, JVD not distended Respiratory: Diminished, Crackles/rales Cardiovascular: Regular rate/rhythm, Normal S1 S2, Systolic murmur Gastrointestinal: Normal bowel sounds, Soft and benign, Non-distended, No tenderness, No rebound, No guarding Musculoskeletal: No clubbing, No swelling, No tenderness Integumentary: No rashes Neurological: Normal tone, Sensation intact, Cranial nerves 3-12 intact - Studies Medications List Reviewed: Yes Assessment & Plan - Problems (Diagnosis) (1) Intractable nausea and vomiting Current Visit: Yes Status: Acute (2) CHF exacerbation Current Visit: No Status: Acute (3) HTN (hypertension) Current Visit: No Status: Acute (4) Mast cell disorder Current Visit: Yes Status: Acute (5) UTI (urinary tract infection) Current Visit: Yes Status: Acute (6) Sepsis Current Visit: Yes Status: Acute (7) Atrial fibrillation Current Visit: Yes Status: Acute - Plan Plan: 1. Continue with antibiotic therapy; continue with Vanc and Rocephin. 2. Continue with gentle hydration 3. Monitor labs closely 4. UA with microscopy still pending 5. Blood cultures pending 6. Repeat procalcitonin level 7. Repeat chest x-ray to monitor pleural effusion 8. Out of bed and ambulate with physical therapy over the next 48 to 72 hours 9. Continue with cardiac meds 10. GI and DVT prophylaxis Discharge Plan: Home Plan to discharge in: Greater than 2 days - Advance Directives Does patient have a Living Will: No Does patient have a Durable POA for Healthcare: No - Code Status/Comfort Care Code Status: Full Code Critical Care: No Time Spent Managing PTS Care (In Minutes): 35
[2021-11-18 06:03] LABS: Albumin 2.2 g/dL (3.4-5.0); Bilirubin Total 1.2 mg/dL (0.2-1.0); Magnesium 2.4 mg/dL (1.8-2.4); Potassium 4.3 mmol/L (3.5-5.1)
--- NOTE | 2021-11-18 09:27 | P.PN ---
Subjective Date of Service: 11/18/21 Chief Complaint: Acute kidney injury; intractable nausea and vomiting: Sepsis Subjective: No new changes, Improving Physical Examination - Vital Signs Temperature: 96.9 F Blood Pressure: 134/63 Pulse: 79 Respirations: 12 Pulse Ox (%): 100 - Physical Exam General: Alert, Oriented x3 HEENT: Atraumatic, Normocephalic Respiratory: Normal air movement Cardiovascular: Regular rate/rhythm, Normal S1 S2 Gastrointestinal: Soft and benign Neurological: Normal speech, Normal strength at 5/5 x4 extr, Sensation intact - Studies Medications List Reviewed: Yes Assessment And Plan - Plan CHF UTI Sepsis A fib Hyperlipidemia Physical Deconditioning Plan: 1. Continue with antibiotic therapy 2. Continue with IV fluids 3. Monitor labs closely 4. UA with microscopy pending 5. Blood cultures pending 6. Repeat procalcitonin level 7. Repeat chest x-ray to monitor pleural effusion 8. Out of bed and ambulate with physical therapy over the next 48 to 72 hours 9. Continue with cardiac meds.
[2021-11-18] MEDS: HYDROCORTISONE SUC 100 MG INJ IV SCH ×2 (09:30→22:02)
[2021-11-18] MEDS: CEFTRIAXONE 1,000 MG in NA CHLORIDE 0.9% 50 ML IVPB SCH ×2 (09:30→22:00)
[2021-11-18] MEDS: ENOXAPARIN 30 MG/0.3 ML SQ SCH (09:30)
--- NOTE | 2021-11-18 09:42 | EKG ---
Test Date: 2021-11-16 Test Time: 10:22:41 Cipher Expert: ELMO MEASUREMENT RESULTS: Intervals: Rate: 100 MT: QRSD: 106 QT: 348 QTc: 448 [place]: P: MT: QRS: 123 T: 260 INTERPRETIVE STATEMENTS: Atrial fibrillation Right axis deviation Marked ST abnormality, possible inferior subendocardial injury Abnormal ECG Compared to ECG 11/23/2020 13:27:41 Right-axis deviation now present ST (T wave) deviation now present Myocardial infarct finding no longer present Electronically Signed On 11-18-21 09:36:09 CDT by Sarthak Armstrong
--- NOTE | 2021-11-18 11:47 | P.CNS ---
Date of Consult: 11/18/21 Reason for Consult: CARMEN/ CKD with hypercalcemia Requesting Physician: Eric Lea Chief Complaint: Acute kidney injury; intractable nausea and vomiting: Sepsis History of Present Illness: Patient is an 85-year-old gentleman who came to the hospital with intractable nausea and vomiting. Patient has been feeling poorly and has not been in good health. Patient presented with vomiting and had generalized weakness. Patient's was not able to move him. Decision was made to bring him into the hospital for further evaluation. Patient had CT imaging which revealed pleural effusion. No significant abnormalities. UA has not been performed. We will do a UA with microscopy but most likely UTI with sepsis. Patient has blood cultures pending. Patient also with broad-spectrum antibiotic. Repeat procalcitonin level. Patient was recently in the hospital for pneumonia with septic shock. Patient be admitted to the hospital for further evaluation. 11:04 This 85 yrs old Unknown Male presents to ER via EMS with complaints of fall, cough , sridevi ams and weakness. 11:04 weak, treated for uti, fever, altered. The patient presents with confusion, decreased sridevi mental status. Onset: The symptoms/episode began/occurred 2 day(s) ago. Possible causes: sepsis, the patient has had a history of a fever, the patient has a known UTI history. The patient or guardian reports difficulty breathing, flu symptoms. Associated signs and symptoms: Pertinent positives: dizziness, lightheadedness. Severity of symptoms: At their worst the symptoms were mild, in the emergency department the symptoms are unchanged. Current symptoms: In the emergency department the patient's symptoms are unchanged from the initial presentation, despite home interventions. Modifying factors: The symptoms are alleviated by nothing, the symptoms are aggravated by nothing. Allergies No Known Drug Allergies Allergy (Verified 11/23/20 23:22) Unknown Home medications list reviewed: Yes Home Medications: Furosemide 40 mg PO DAILY 07/06/20 Pravastatin Sodium 40 mg PO DAILY 07/06/20 Rivaroxaban [Xarelto] 15 mg PO DAILY 07/06/20 methylPREDNISolone [Methylprednisolone] 4 mg PO DAILY 07/06/20 Aspirin [Aspirin EC 81 MG] 81 mg PO DAILY 11/23/20 Melatonin/Pyridoxine [Melatonin 5 mg Tablet] 5 mg PO BEDTIME 11/23/20 Tamsulosin [Flomax*] 0.4 mg PO BEDTIME #30 cap 11/30/20 Metoprolol Tartrate [Lopressor*] 25 mg PO BID 11/16/21 Trazodone [Desyrel] 50 mg PO DAILY 11/16/21 - Past Medical/Surgical History Diabetic: No -: Atrial fibrillation -: CVA -: HTN -: systemic mystocytosis -: hyperlipidemia -: Gout -: Coronary artery stents -: CABG -: Cataract Sx - Family History Father Family History: Reviewed- Non-Contributory Notes: old age - Social History Smoking Status: Unknown if ever smoked Alcohol use: No CD- Drugs: No Caffeine use: Yes Review of Systems 10-point ROS is otherwise unremarkable General: Weakness, Malaise Respiratory: SOB with Excertion Cardiovascular: Edema Neurological: Weakness Physical Examination Temp Pulse Resp BP Pulse Ox 96.9 F 79 12 134/63 100 11/18/21 09:26 11/18/21 09:26 11/18/21 09:26 11/18/21 09:26 11/18/21 09:26 General: In no apparent distress, Oriented x3, Cooperative HEENT: Atraumatic Neck: Supple Respiratory: Clear to auscultation bilaterally Cardiovascular: Regular rate/rhythm, Edema Gastrointestinal: Non-distended, No guarding Musculoskeletal: No clubbing, No contractures Integumentary: No rashes, No cyanosis Neurological: Normal speech Blood work reviewed in the chart. Imagings Data: EXAM DESCRIPTION: RAD - Chest Single View - 11/18/2021 7:01 am CLINICAL HISTORY: SOB COMPARISON: Portable 05/10/2021 TECHNIQUE: AP portable chest image was obtained 11/18/2021 7:01 am . FINDINGS: Dense consolidation is present in the inferolateral right upper lobe abutting the minor fissure. This is most likely acute pneumonia. No cavitation component. Lung volumes are low accentuating baseline interstitial pattern. No other area of dense consolidation is seen though there is airspace opacification in the lower left lung field. Additional site of pneumonia is possible in this can be monitored on follow-up imaging. Heart and vasculature are normal. No measurable pleural effusion and no pneumothorax. No acute bony abnormality seen. No acute aortic findings suspected. IMPRESSION: Consolidated pneumonia in the right upper lobe. Airspace opacification in the lower left lung field without dense consolidation. This could be additional site of pneumonia or accentuation of the patient's baseline lung parenchymal pattern due to portable technique and low lung volume. This can be monitored along with the right upper lobe finding. Heart size is stable. A small component of failure or volume overload superimposed on the above findings cannot be excluded. EXAM DESCRIPTION: Nick Single View11/16/2021 10:47 am CLINICAL HISTORY: Chest pain FINDINGS: Small to moderate right pleural effusion with right basilar atelectasis. Left lung appears clear of acute infiltrate. The heart is mildly to moderately enlarged. Postsurgical changes involve chest Conclusions/Impression: CARMEN likely due to hypovolemia CKD III with proteinuria -Change IVF 1/2NS Hypokalemia -Replete potassium prn Hypercalcemia -Continue IVF Diastolic CHF, chronic -Daily weight Hyperglycemia -No sugar diet Moderate malnutrition -Start Nepro Anemia in chronic illness -Monitor H&H Acute cystitis Sepsis BPH with LUTS -Continue Levaquin -Monitor Vanco level -Restart Flomax Thank you kindly for the consultation.
[2021-11-18] MEDS ORDERED: Levofloxacin 250mg IV 250 MG/50 ML BAG IV SCH (13:00)
[2021-11-18] MEDS: NACHLORIDE 0.45% 1,000 ML IV SCH (13:26)
[2021-11-18] MEDS ORDERED: NEPRO SHAKE 237 ML CAN PO SCH (14:00)
[2021-11-18] MEDS ORDERED: CEFTRIAXONE 1000 MG/VIAL ONE (20:12)
[2021-11-18] MEDS: ENSURE ENLIVE 237 ML CAN PO SCH (22:02)
[2021-11-18] MEDS ORDERED: NA CHLORIDE 0.9% 50 ML ONE (22:04)
[2021-11-18] MEDS: MELATONIN 5 MG TABLET PO PRN (22:45)
[2021-11-18] MEDS: TAMSULOSIN 0.4 MG SR CAP PO SCH (22:46)
[2021-11-19] MEDS: NACHLORIDE 0.45% 1,000 ML IV SCH ×3 (01:20→14:40)
[2021-11-19] MEDS: CEFTRIAXONE 1,000 MG in NA CHLORIDE 0.9% 50 ML IVPB SCH (09:52)
[2021-11-19] MEDS: TAMSULOSIN 0.4 MG SR CAP PO SCH ×2 (09:53→21:24)
[2021-11-19] MEDS: ENSURE ENLIVE 237 ML CAN PO SCH ×2 (09:53→21:24)
[2021-11-19] MEDS: ENOXAPARIN 30 MG/0.3 ML SQ SCH (09:53)
--- NOTE | 2021-11-19 13:38 | P.PN ---
Subjective Date of Service: 11/19/21 Chief Complaint: Acute kidney injury; intractable nausea and vomiting: Sepsis Subjective: No new changes, Improving Physical Examination - Vital Signs Temperature: 96.8 F Blood Pressure: 133/55 Pulse: 65 Respirations: 14 Pulse Ox (%): 100 - Physical Exam General: Alert, Oriented x3 HEENT: Atraumatic, Normocephalic Neck: Supple Respiratory: Normal air movement Cardiovascular: Regular rate/rhythm, Normal S1 S2 Gastrointestinal: Soft and benign Musculoskeletal: No swelling Neurological: Normal speech, Normal strength at 5/5 x4 extr - Studies Microbiology Data (last 24 hrs): 11/16/21 10:50 Blood - Blood Blood Culture Gram Stain - Final 11/16/21 10:50 Blood - Blood Gram Stain - Final Medications List Reviewed: Yes Assessment And Plan - Plan CHF UTI Sepsis A fib Hyperlipidemia Physical Deconditioning Plan: 1. Continue with antibiotic therapy 2. Continue with IV fluids 3. Monitor labs closely 4. UA with microscopy pending 5. Blood cultures pending 6. Out of bed and ambulate with physical therapy. 7. Continue with cardiac meds. 8. Pending replacement in Rehab facility.
[2021-11-19] MEDS: levoFLOXacin 750 MG TAB PO SCH (14:16)
--- NOTE | 2021-11-19 19:42 | P.PN ---
Date of Service: 11/19/21 Vital Signs Temp Pulse Resp BP Pulse Ox 97.0 F 70 18 121/59 L 100 11/19/21 16:00 11/19/21 16:00 11/19/21 16:00 11/19/21 16:00 11/19/21 16:00 Medications Acetaminophen (Acetaminophen 500 Mg Tab) 500 mg PO Q6H PRN PRN Reason: Pain/fever Last Admin: 11/18/21 22:51 Dose: 500 mg Documented by: Albuterol Sulfate (Albuterol 2.5 Mg/3 Ml Neb Cherry) 2.5 mg NEB Q6HP PRN PRN Reason: SHORTNESS OF BREATH Enoxaparin Sodium (Enoxaparin 40 Mg/0.4 Ml) 40 mg SQ DAILY [facility] Sodium Chloride (Sodium Chloride 0.45%) 1,000 mls @ 50 mls/hr IV .Q20H [facility] Levofloxacin (Levofloxacin 750 Mg Tab) 750 mg PO Q48H [facility] Stop: 11/23/21 13:01 Last Admin: 11/19/21 14:16 Dose: 750 mg Documented by: Melatonin (Melatonin 5 Mg Tablet) 5 mg PO BEDTIME PRN PRN PRN Reason: INSOMNIA Last Admin: 11/18/21 22:45 Dose: 5 mg Documented by: Morphine Sulfate (Morphine 2 Mg/Ml Syr) 2 mg IV Q4H PRN PRN Reason: Pain scale 5-7 (Moderate) Nutritional Formula (Ensure Enlive 237 Ml Can) 237 ml PO BID [facility] Last Admin: 11/19/21 09:53 Dose: 237 ml Documented by: Ondansetron HCl (Ondansetron 4 Mg/2 Ml Vial) 4 mg IV Q4H PRN PRN Reason: NAUSEA / VOMITING Sodium Chloride (Flush Normal Saline 10 Ml) 10 ml IV BID [facility] Last Admin: 11/18/21 22:02 Dose: 10 ml Documented by: Sodium Chloride (Flush Normal Saline 10 Ml) 10 ml IV BID [facility] Last Admin: 11/19/21 09:00 Dose: Not Given Documented by: Tamsulosin HCl (Tamsulosin 0.4 Mg Sr Cap) 0.4 mg PO BID [facility] Last Admin: 11/19/21 09:53 Dose: 0.4 mg Documented by: Microbiology Results 11/16/21 10:50 Blood - Blood Aerobic Blood Culture - Preliminary Klebsiella Pneumoniae 11/16/21 10:50 Blood - Blood Blood Culture Gram Stain - Final 11/16/21 10:50 Blood - Blood Anaerobic Blood Culture - Preliminary Klebsiella Pneumoniae 11/16/21 10:50 Blood - Blood Gram Stain - Final 11/16/21 10:55 Blood - Blood Aerobic Blood Culture - Preliminary No growth in 24 hours. 11/16/21 10:55 Blood - Blood Anaerobic Blood Culture - Preliminary No growth in 24 hours. Assessment/ Plan: Nephrology No dyspnea No chest pain Persistent malaise, fatigue and weakness No acute events overnight Vitals, medications, blood work and imaging reviewed in the chart. General: In no apparent distress, Oriented x3, Cooperative HEENT: Atraumatic Neck: Supple Respiratory: Clear to auscultation bilaterally Cardiovascular: Regular rate/rhythm, Edema Gastrointestinal: Non-distended, No guarding Musculoskeletal: No clubbing, No contractures Integumentary: No rashes, No cyanosis Neurological: Normal speech Blood work reviewed in the chart. Imagings Data: EXAM DESCRIPTION: RAD - Chest Single View - 11/18/2021 7:01 am CLINICAL HISTORY: SOB COMPARISON: Portable 05/10/2021 TECHNIQUE: AP portable chest image was obtained 11/18/2021 7:01 am . FINDINGS: Dense consolidation is present in the inferolateral right upper lobe abutting the minor fissure. This is most likely acute pneumonia. No cavitation component. Lung volumes are low accentuating baseline interstitial pattern. No other area of dense consolidation is seen though there is airspace opacification in the lower left lung field. Additional site of pneumonia is possible in this can be monitored on follow-up imaging. Heart and vasculature are normal. No measurable pleural effusion and no pneumothorax. No acute bony abnormality seen. No acute aortic findings suspected. IMPRESSION: Consolidated pneumonia in the right upper lobe. Airspace opacification in the lower left lung field without dense consolidation. This could be additional site of pneumonia or accentuation of the patient's baseline lung parenchymal pattern due to portable technique and low lung volume. This can be monitored along with the right upper lobe finding. Heart size is stable. A small component of failure or volume overload superimposed on the above findings cannot be excluded. EXAM DESCRIPTION: RADChest Single View11/16/2021 10:47 am CLINICAL HISTORY: Chest pain FINDINGS: Small to moderate right pleural effusion with right basilar atelectasis. Left lung appears clear of acute infiltrate. The heart is mildly to moderately enlarged. Postsurgical changes involve chest Conclusions/Impression: CARMEN likely due to hypovolemia CKD III with proteinuria -Reduce IVF 1/2NS Hypokalemia -Replete potassium prn Hypercalcemia -Continue IVF Diastolic CHF, chronic -Daily weight Hyperglycemia -No sugar diet Moderate malnutrition -Continue supplementation Anemia in chronic illness -Monitor H&H Acute cystitis Sepsis BPH with LUTS -Continue Levaquin -Monitor Vanco level -Continue Flomax
[2021-11-19] MEDS ORDERED: NACHLORIDE 0.45% 1,000 ML IV SCH (20:00)
[2021-11-19] MEDS: MELATONIN 5 MG TABLET PO PRN (21:24)
[2021-11-20 06:15] LABS: Albumin 2.2 g/dL (3.4-5.0); Magnesium 2.2 mg/dL (1.8-2.4); Phosphorus 1.6 mg/dL (2.5-4.9); Potassium 3.9 mmol/L (3.5-5.1); Protein, Total 6.1 g/dL (6.4-8.2); Uric Acid 11.6 mg/dL (3.5-7.2)
[2021-11-20 06:17] LABS: Absolute Lymphocytes (CBC) 1.4 K/uL (0.7-4.9); Hematocrit 35.1 % (39.6-49.0); Lymphocytes % 10.4 % (15.3-44.8); RBC Red Blood Cell Count 4.18 M/uL (4.33-5.43)
[2021-11-20] MEDS: TAMSULOSIN 0.4 MG SR CAP PO SCH ×2 (08:25→20:17)
[2021-11-20] MEDS: ENOXAPARIN 40 MG/0.4 ML SQ SCH (08:25)
[2021-11-20] MEDS: POTASS/SODIUM PHOSPHATE 1 PKT POWD.PACK PO SCH ×3 (08:25→10:40)
[2021-11-20] MEDS: ENSURE ENLIVE 237 ML CAN PO SCH ×2 (08:26→20:17)
[2021-11-20 08:47] LABS: Anisocytosis 1+; Blood Morphology Comment NOTED (NOT SEEN); Platelet Estimate ADEQ
[2021-11-20 08:48] LABS: Ovalocytes 1+
[2021-11-20 08:49] LABS: Polychromasia SLIGHT
[2021-11-20] MEDS ORDERED: levoFLOXacin 750 MG TAB PO SCH (09:00)
[2021-11-20] MEDS ORDERED: POTASSIUM CL SA 10 MEQ TAB PO ONE (09:00)
[2021-11-20] MEDS ORDERED: POLYETHYL GLY 3350 17 GM/DOSE PO ONE (11:30)
--- NOTE | 2021-11-20 12:13 | P.PN ---
Subjective Date of Service: 11/20/21 Chief Complaint: Acute kidney injury; intractable nausea and vomiting: Sepsis Subjective: Improving (c/o of constipation since 4 days ago.) Physical Examination - Vital Signs Temperature: 97.6 F Blood Pressure: 139/55 Pulse: 97 Respirations: 2 Pulse Ox (%): 97 - Physical Exam General: Alert, Oriented x3 HEENT: Atraumatic, Normocephalic Neck: Supple Respiratory: Normal air movement Cardiovascular: Regular rate/rhythm, Normal S1 S2 Gastrointestinal: Soft and benign Neurological: Normal speech, Cranial nerves 3-12 intact - Studies Microbiology Data (last 24 hrs): 11/16/21 10:50 Blood - Blood Aerobic Blood Culture - Final Klebsiella Pneumoniae 11/16/21 10:50 Blood - Blood Blood Culture Gram Stain - Final 11/16/21 10:50 Blood - Blood Anaerobic Blood Culture - Final Klebsiella Pneumoniae 11/16/21 10:50 Blood - Blood Gram Stain - Final Medications List Reviewed: Yes Assessment And Plan - Plan CHF UTI Sepsis A fib Hyperlipidemia Physical Deconditioning Constipation. Plan: 1. Continue with antibiotic therapy 2. Continue with IV fluids 3. Monitor labs closely 4. UA with microscopy pending 5. Blood cultures to be repeated today. 6. Out of bed and ambulate with physical therapy. 7. Continue with cardiac meds. 8. Pending replacement in Rehab facility. 9. We will start colace and miralax for constipation
[2021-11-20] MEDS ORDERED: FUROSEMIDE 20 MG/ 2ML VIAL IV ONE (18:00)
[2021-11-20] MEDS: DOCUSATE NA 100 MG CAP PO SCH (20:17)
[2021-11-20] MEDS ORDERED: PAMIDRONATE DISOD 30 MG VIAL IV ONE ×2 (21:35→23:56)
--- NOTE | 2021-11-20 21:40 | P.PN ---
Date of Service: 11/20/21 Vital Signs Temp Pulse Resp BP Pulse Ox 97 F 98 H 20 118/57 L 98 11/20/21 16:00 11/20/21 16:00 11/20/21 16:00 11/20/21 16:00 11/20/21 16:00 Medications Acetaminophen (Acetaminophen 500 Mg Tab) 500 mg PO Q6H PRN PRN Reason: Pain/fever Last Admin: 11/18/21 22:51 Dose: 500 mg Documented by: Albuterol Sulfate (Albuterol 2.5 Mg/3 Ml Neb Cherry) 2.5 mg NEB Q6HP PRN PRN Reason: SHORTNESS OF BREATH Docusate Sodium (Docusate Na 100 Mg Cap) 100 mg PO BID [facility] Last Admin: 11/20/21 20:17 Dose: 100 mg Documented by: Enoxaparin Sodium (Enoxaparin 40 Mg/0.4 Ml) 40 mg SQ DAILY [facility] Last Admin: 11/20/21 08:25 Dose: 40 mg Documented by: Levofloxacin (Levofloxacin 750 Mg Tab) 750 mg PO Q48H [facility] Stop: 11/23/21 13:01 Last Admin: 11/19/21 14:16 Dose: 750 mg Documented by: Melatonin (Melatonin 5 Mg Tablet) 5 mg PO BEDTIME PRN PRN PRN Reason: INSOMNIA Last Admin: 11/19/21 21:24 Dose: 5 mg Documented by: Morphine Sulfate (Morphine 2 Mg/Ml Syr) 2 mg IV Q4H PRN PRN Reason: Pain scale 5-7 (Moderate) Nutritional Formula (Ensure Enlive 237 Ml Can) 237 ml PO BID [facility] Last Admin: 11/20/21 20:17 Dose: 237 ml Documented by: Ondansetron HCl (Ondansetron 4 Mg/2 Ml Vial) 4 mg IV Q4H PRN PRN Reason: NAUSEA / VOMITING Pamidronate Disodium (Pamidronate Disod 30 Mg Vial) 90 mg IV ONCE ONE Stop: 11/20/21 21:36 Sodium Chloride (Flush Normal Saline 10 Ml) 10 ml IV BID [facility] Last Admin: 11/20/21 20:17 Dose: 10 ml Documented by: Sodium Chloride (Flush Normal Saline 10 Ml) 10 ml IV BID [facility] Last Admin: 11/20/21 20:18 Dose: Not Given Documented by: Tamsulosin HCl (Tamsulosin 0.4 Mg Sr Cap) 0.4 mg PO BID [facility] Last Admin: 11/20/21 20:17 Dose: 0.4 mg Documented by: Microbiology Results 11/16/21 10:50 Blood - Blood Aerobic Blood Culture - Final Klebsiella Pneumoniae 11/16/21 10:50 Blood - Blood Blood Culture Gram Stain - Final 11/16/21 10:50 Blood - Blood Anaerobic Blood Culture - Final Klebsiella Pneumoniae 11/16/21 10:50 Blood - Blood Gram Stain - Final 11/16/21 10:55 Blood - Blood Aerobic Blood Culture - Preliminary No growth in 24 hours. 11/16/21 10:55 Blood - Blood Anaerobic Blood Culture - Preliminary No growth in 24 hours. Assessment/ Plan: Nephrology No dyspnea No chest pain Persistent malaise, fatigue and weakness No acute events overnight Vitals, medications, blood work and imaging reviewed in the chart. General: In no apparent distress, Oriented x3, Cooperative HEENT: Atraumatic Neck: Supple Respiratory: Clear to auscultation bilaterally Cardiovascular: Regular rate/rhythm, Hip & LE Edema Gastrointestinal: Non-distended, No guarding Musculoskeletal: No clubbing, No contractures Integumentary: No rashes, No cyanosis Neurological: Normal speech Blood work reviewed in the chart. Imagings Data: EXAM DESCRIPTION: RAD - Chest Single View - 11/18/2021 7:01 am CLINICAL HISTORY: SOB COMPARISON: Portable 05/10/2021 TECHNIQUE: AP portable chest image was obtained 11/18/2021 7:01 am . FINDINGS: Dense consolidation is present in the inferolateral right upper lobe abutting the minor fissure. This is most likely acute pneumonia. No cavitation component. Lung volumes are low accentuating baseline interstitial pattern. No other area of dense consolidation is seen though there is airspace opacification in the lower left lung field. Additional site of pneumonia is possible in this can be monitored on follow-up imaging. Heart and vasculature are normal. No measurable pleural effusion and no pneumothorax. No acute bony abnormality seen. No acute aortic findings suspected. IMPRESSION: Consolidated pneumonia in the right upper lobe. Airspace opacification in the lower left lung field without dense consolidation. This could be additional site of pneumonia or accentuation of the patient's baseline lung parenchymal pattern due to portable technique and low lung volume. This can be monitored along with the right upper lobe finding. Heart size is stable. A small component of failure or volume overload superimposed on the above findings cannot be excluded. EXAM DESCRIPTION: Nick Single View11/16/2021 10:47 am CLINICAL HISTORY: Chest pain FINDINGS: Small to moderate right pleural effusion with right basilar atelectasis. Left lung appears clear of acute infiltrate. The heart is mildly to moderately enlarged. Postsurgical changes involve chest Conclusions/Impression: CARMEN likely due to hypovolemia CKD III with proteinuria -Discontinue IVF Hypokalemia -Replete potassium Hypercalcemia of unclear etiology -Pamidronate IV X1 dose -PTH-RP pending HypoPO4 -Encourage nutrition Diastolic CHF, chronic -Daily weight -Lasix prn Hyperglycemia -No sugar diet Moderate malnutrition -Continue supplementation Anemia in chronic illness -Monitor H&H Acute cystitis Sepsis BPH with LUTS -Continue Levaquin -Monitor Vanco level -Continue Flomax
[2021-11-20] MEDS: MORPHINE 2 MG/ML SYR IV PRN (22:10)
[2021-11-20] MEDS ORDERED: NA CHLORIDE 0.9% IV ONE (23:00)
[2021-11-20] MEDS ORDERED: PAMIDRONATE IV ONE (23:00)
[2021-11-21] MEDS ORDERED: NA CHLORIDE 0.9% 1,000 ML ONE (00:04)
[2021-11-21] MEDS: MELATONIN 5 MG TABLET PO PRN ×2 (03:13→21:56)
[2021-11-21] MEDS: MORPHINE 2 MG/ML SYR IV PRN ×5 (03:13→21:56)
[2021-11-21 04:10] LABS: Phosphorus 1.8 mg/dL (2.5-4.9); Potassium 4.4 mmol/L (3.5-5.1); Uric Acid 11.2 mg/dL (3.5-7.2)
[2021-11-21] MEDS: POTASS/SODIUM PHOSPHATE 1 PKT POWD.PACK PO SCH ×3 (08:00→10:00)
--- NOTE | 2021-11-21 08:32 | CON ---
Date of Consultation: 11/21/2021 Reason For Consultation: Ventricular tachycardia. History Of Present Illness: Mr. Henriquez is 85, came in with nausea and vomiting, urinary tract infec tion and sepsis. He has had a history of chronic atrial fibrillation. History of CVA, CHF, hyperten radha, and dyslipidemia. He was noted on telemetry to have runs of ventricular tachycardia, although I think this is atrial fibrillation with aberrancy. No hemodynamic compromise. No cardiac symptoms. Past Medical History: As stated above. Allergies: HE IS ALLERGIC TO CIPROFLOXACIN. Review of Systems: Negative. Social History: Negative. Family History: Negative. Medications: Include metoprolol, Xarelto, Pravachol, Aredia, Lasix. He is also now on antibiotics; Flomax and Lovenox. Physical Examination: Vital Signs: Stable. Atrial fibrillation, rate controlled. Afebrile. HEENT: Negative. Neck: Supple no bruit. Chest: Clear. Cardiac: Revealed atrial fibrillation. No murmurs, gallops, or rubs. Abdomen: Benign. Extremities: Revealed no clubbing, cyanosis, or edema. Diagnostic Data: EKG showed atrial fibrillation, rate of 92, calcium 11.9, white count of 13,000. B [employer] is [id number]. Impression And Plan: Atrial fibrillation with aberrancy runs. I do not think this is ventricular ta chycardia. We need to continue the beta-tonya and Xarelto. We will obtain a 2D echocardiogram. H is last echocardiogram a year ago was normal. No change in medical therapy at this point. His other problems include history of cerebrovascular accident, congestive heart failure, hypertensio n, dyslipidemia, and present sepsis. Continue present regimen. I will continue to follow as needed. GILDARDO/SABRINA Voice ID: [id number] Report ID: [id number]
[2021-11-21] MEDS: DOCUSATE NA 100 MG CAP PO SCH ×2 (08:34→20:24)
[2021-11-21] MEDS: TAMSULOSIN 0.4 MG SR CAP PO SCH ×2 (08:40→20:24)
[2021-11-21] MEDS: ENOXAPARIN 40 MG/0.4 ML SQ SCH (08:41)
[2021-11-21] MEDS: ENSURE ENLIVE 237 ML CAN PO SCH ×2 (08:41→20:24)
[2021-11-21] MEDS: levoFLOXacin 750 MG TAB PO SCH (13:16)
[2021-11-21 13:33] LABS: Urine Appearance TURBID (Clear); Urine Bilirubin NEGATIVE (Negative); Urine Blood 3+ (Negative); Urine Color YELLOW (Yellow); Urine Glucose NEGATIVE (Negative); Urine Protein 2+ (Negative); Urine Urobilinogen 0.2 mg/dL (0.2-1.0)
[2021-11-21 13:34] LABS: Urine Microscopic Reflex ORDER UMIC
[2021-11-21 14:32] LABS: Urine Bacteria >50 /HPF (NONE SEEN); Urine Yeast MANY (NONE SEEN); Urine Yeast with Hyphae PRESENT
[2021-11-21] MEDS: FUROSEMIDE 20 MG/ 2ML VIAL IV SCH (14:40)
--- NOTE | 2021-11-21 21:35 | P.PN ---
Date of Service: 11/21/21 Vital Signs Temp Pulse Resp BP Pulse Ox 97.9 F 93 H 20 122/54 L 99 11/21/21 20:00 11/21/21 20:00 11/21/21 20:00 11/21/21 20:00 11/21/21 20:00 Medications Acetaminophen (Acetaminophen 500 Mg Tab) 500 mg PO Q6H PRN PRN Reason: Pain/fever Last Admin: 11/18/21 22:51 Dose: 500 mg Documented by: Albuterol Sulfate (Albuterol 2.5 Mg/3 Ml Neb Cherry) 2.5 mg NEB Q6HP PRN PRN Reason: SHORTNESS OF BREATH Docusate Sodium (Docusate Na 100 Mg Cap) 100 mg PO BID [facility] Last Admin: 11/21/21 20:24 Dose: 100 mg Documented by: Enoxaparin Sodium (Enoxaparin 40 Mg/0.4 Ml) 40 mg SQ DAILY [facility] Last Admin: 11/21/21 08:41 Dose: 40 mg Documented by: Furosemide (Furosemide 20 Mg/ 2ml Vial) 20 mg IV DAILY [facility] Last Admin: 11/21/21 14:40 Dose: 20 mg Documented by: Levofloxacin (Levofloxacin 750 Mg Tab) 750 mg PO Q48H [facility] Stop: 11/23/21 13:01 Last Admin: 11/21/21 13:16 Dose: 750 mg Documented by: Melatonin (Melatonin 5 Mg Tablet) 5 mg PO BEDTIME PRN PRN PRN Reason: INSOMNIA Last Admin: 11/21/21 03:13 Dose: 5 mg Documented by: Morphine Sulfate (Morphine 2 Mg/Ml Syr) 2 mg IV Q4H PRN PRN Reason: Pain scale 5-7 (Moderate) Last Admin: 11/21/21 18:16 Dose: 2 mg Documented by: Nutritional Formula (Ensure Enlive 237 Ml Can) 237 ml PO BID [facility] Last Admin: 11/21/21 20:24 Dose: 237 ml Documented by: Ondansetron HCl (Ondansetron 4 Mg/2 Ml Vial) 4 mg IV Q4H PRN PRN Reason: NAUSEA / VOMITING Sodium Chloride (Flush Normal Saline 10 Ml) 10 ml IV BID [facility] Last Admin: 11/21/21 20:24 Dose: 10 ml Documented by: Sodium Chloride (Flush Normal Saline 10 Ml) 10 ml IV BID [facility] Last Admin: 11/21/21 20:25 Dose: Not Given Documented by: Tamsulosin HCl (Tamsulosin 0.4 Mg Sr Cap) 0.4 mg PO BID [facility] Last Admin: 11/21/21 20:24 Dose: 0.4 mg Documented by: Microbiology Results 11/16/21 10:55 Blood - Blood Aerobic Blood Culture - Final No growth in 5 days. 11/16/21 10:55 Blood - Blood Anaerobic Blood Culture - Final No growth in 5 days. 11/16/21 10:50 Blood - Blood Aerobic Blood Culture - Final Klebsiella Pneumoniae 11/16/21 10:50 Blood - Blood Blood Culture Gram Stain - Final 11/16/21 10:50 Blood - Blood Anaerobic Blood Culture - Final Klebsiella Pneumoniae 11/16/21 10:50 Blood - Blood Gram Stain - Final Assessment/ Plan: Nephrology No dyspnea No chest pain Reports intermittent urinary retention Persistent malaise, fatigue and weakness No acute events overnight Vitals, medications, blood work and imaging reviewed in the chart. General: In no apparent distress, Oriented x3, Cooperative HEENT: Atraumatic Neck: Supple Respiratory: Right rales Cardiovascular: Regular rate/rhythm, Hip & LE Edema Gastrointestinal: Non-distended, No guarding Musculoskeletal: No clubbing, No contractures Integumentary: No rashes, No cyanosis Neurological: Normal speech Blood work reviewed in the chart. Imagings Data: EXAM DESCRIPTION: RAD - Chest Single View - 11/18/2021 7:01 am CLINICAL HISTORY: SOB COMPARISON: Portable 05/10/2021 TECHNIQUE: AP portable chest image was obtained 11/18/2021 7:01 am . FINDINGS: Dense consolidation is present in the inferolateral right upper lobe abutting the minor fissure. This is most likely acute pneumonia. No cavitation component. Lung volumes are low accentuating baseline interstitial pattern. No other area of dense consolidation is seen though there is airspace opacification in the lower left lung field. Additional site of pneumonia is possible in this can be monitored on follow-up imaging. Heart and vasculature are normal. No measurable pleural effusion and no pneumothorax. No acute bony abnormality seen. No acute aortic findings suspected. IMPRESSION: Consolidated pneumonia in the right upper lobe. Airspace opacification in the lower left lung field without dense consolidation. This could be additional site of pneumonia or accentuation of the patient's baseline lung parenchymal pattern due to portable technique and low lung volume. This can be monitored along with the right upper lobe finding. Heart size is stable. A small component of failure or volume overload superimposed on the above findings cannot be excluded. EXAM DESCRIPTION: Nick Single View11/16/2021 10:47 am CLINICAL HISTORY: Chest pain FINDINGS: Small to moderate right pleural effusion with right basilar atelectasis. Left lung appears clear of acute infiltrate. The heart is mildly to moderately enlarged. Postsurgical changes involve chest Conclusions/Impression: CARMEN likely due to hypovolemia CKD III with proteinuria -No NSAIDs Hypokalemia -Replete potassium prn Hypercalcemia of unclear etiology -Pamidronate IV X1 dose given -PTH-RP pending HypoPO4 -Encourage nutrition Diastolic CHF, chronic -Daily weight -Lasix prn Hyperglycemia -No sugar diet Moderate malnutrition -Continue supplementation Anemia in chronic illness -Monitor H&H Acute cystitis Sepsis BPH with LUTS -Continue Levaquin -Monitor Vanco level -Continue Flomax Case reviewed with Dr. Friend
[2021-11-22] MEDS: MORPHINE 2 MG/ML SYR IV PRN ×6 (01:58→22:10)
[2021-11-22 04:51] LABS: Albumin 2.1 g/dL (3.4-5.0); Bilirubin Total 1.4 mg/dL (0.2-1.0); Phosphorus 2.5 mg/dL (2.5-4.9); Potassium 4.4 mmol/L (3.5-5.1); Uric Acid 11.2 mg/dL (3.5-7.2)
--- NOTE | 2021-11-22 06:53 | ECHO ---
HEIGHT: 5 ft 9 in WEIGHT: 165 lb 0 oz DATE OF STUDY: 11/21/[address]: Sarthak Armstrong MD 2-DIMENSIONAL: YES M.MODE: YES DOPPLER: YES COLOR FLOW: YES TDS: NO PORTABLE: NO DEFINITY: NO BUBBLE STUDY: NO DIAGNOSIS: VENTRICULAR TACHYCARDIA CARDIAC HISTORY: CATHERIZATION: SURGERY: PROSTHETIC VALVE: PACEMAKER: MEASUREMENTS (cm) DIASTOLIC (NORMALS) SYSTOLIC (NORMALS) IVSd 1.1 (0.6-1.2) LA Diam 5.6 (1.9-4.0) LVEF 58% LVIDd 4.6 (3.5-5.7) LVIDs 3.2 (2.0-3.5) %FS 31% LVPWd 1.3 (0.6-1.2) Ao Diam 3.2 (2.0-3.7) 2 DIMENSIONAL ASSESSMENT: RIGHT ATRIUM: NORMAL LEFT ATRIUM: ENLARGED RIGHT VENTRICLE: NORMAL LEFT VENTRICLE: NORMAL TRICUSPID VALVE: MILD TRICUSPID REGURGITATION MITRAL VALVE: 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 DOPPLER/COLOR FLOW: MILD PULMONIC INSUFFICIENCY, MILD TRICUSPID REGURGITATION, MODERATE MITRAL REGURGITATION. COMMENTS: NORMAL LEFT VENTRICULAR EJECTION FRACTION 55-60%. NORMAL WALL MOTION. MILD PULMONIC INSUFFICIENCY, MILD TRICUSPID REGURGITATION. MILD TO MODERATE MITRAL REGURGITATION. LEFT ATRIAL ENLARGEMENT. TECHNOLOGIST: YUNG ARROYO
[2021-11-22] MEDS: ENSURE ENLIVE 237 ML CAN PO SCH ×2 (09:00→21:39)
[2021-11-22] MEDS: CALCITONIN NASAL SPRAY 200 IU/DOSE NAS SCH ×2 (09:17→22:15)
--- NOTE | 2021-11-22 09:20 | P.PN ---
Subjective Date of Service: 11/21/21 Chief Complaint: Acute kidney injury; intractable nausea and vomiting: Sepsis Subjective: No new changes Physical Examination - Vital Signs Temperature: 97.6 F Blood Pressure: 132/68 Pulse: 95 Respirations: 19 Pulse Ox (%): 98 - Physical Exam General: Alert, Oriented x3 HEENT: Atraumatic, Normocephalic Neck: Supple Respiratory: Normal air movement Cardiovascular: Regular rate/rhythm Gastrointestinal: Soft and benign Neurological: Normal speech - Studies Microbiology Data (last 24 hrs): 11/16/21 10:55 Blood - Blood Aerobic Blood Culture - Final No growth in 5 days. 11/16/21 10:55 Blood - Blood Anaerobic Blood Culture - Final No growth in 5 days. Medications List Reviewed: Yes Assessment And Plan - Plan CHF UTI Sepsis A fib Hyperlipidemia Physical Deconditioning Constipation. Hypercalcemia Plan: 1. Continue with antibiotic therapy 2. Continue with IV fluids 3. Monitor labs closely 4. UA with microscopy pending 5. Blood cultures to be repeated today. 6. Out of bed and ambulate with physical therapy. 7. Continue with cardiac meds. 8. Pending replacement in Rehab facility. 9. We will start colace and miralax for constipation 10.Hypercalcemia noted and worsening, we will follow nephrology recommendations.
--- NOTE | 2021-11-22 09:23 | P.PN ---
Subjective Date of Service: 11/22/21 Chief Complaint: Acute kidney injury; intractable nausea and vomiting: Sepsis Subjective: No new changes, Improving Physical Examination - Vital Signs Temperature: 97.6 F Blood Pressure: 132/68 Pulse: 95 Respirations: 19 Pulse Ox (%): 98 - Physical Exam General: Alert, Oriented x3 HEENT: Atraumatic, Normocephalic Neck: Supple Respiratory: Normal air movement Cardiovascular: Regular rate/rhythm, Normal S1 S2 Gastrointestinal: Soft and benign Musculoskeletal: No swelling Neurological: Normal speech - Studies Microbiology Data (last 24 hrs): 11/16/21 10:55 Blood - Blood Aerobic Blood Culture - Final No growth in 5 days. 11/16/21 10:55 Blood - Blood Anaerobic Blood Culture - Final No growth in 5 days. Medications List Reviewed: Yes Assessment And Plan - Plan CHF UTI Sepsis A fib Hyperlipidemia Physical Deconditioning Constipation. Hypercalcemia Plan: 1. Continue with antibiotic therapy 2. Continue with IV fluids 3. Monitor labs closely 4. UA with microscopy pending 5. Blood cultures to be repeated today. 6. Out of bed and ambulate with physical therapy. 7. Continue with cardiac meds. 8. Pending replacement in Rehab facility. 9. We will start colace and miralax for constipation 10. Hypercalcemia noted and worsening to 12.0 today, Intranasal calcitonin started. we will follow nephrology recommendations.
[2021-11-22] MEDS: FUROSEMIDE 20 MG/ 2ML VIAL IV SCH (09:30)
[2021-11-22] MEDS: DOCUSATE NA 100 MG CAP PO SCH ×2 (09:30→21:39)
[2021-11-22] MEDS: ENOXAPARIN 40 MG/0.4 ML SQ SCH (09:31)
[2021-11-22] MEDS: TAMSULOSIN 0.4 MG SR CAP PO SCH ×2 (09:31→21:39)
[2021-11-22] MEDS: MELATONIN 5 MG TABLET PO PRN (23:05)
[2021-11-22] MEDS: ACETAMINOPHEN 500 MG TAB PO PRN (23:05)
[2021-11-22] MEDS ORDERED: TRAZODONE 50 MG TABLET PO ONE (23:41)
[2021-11-23] MEDS: MORPHINE 2 MG/ML SYR IV PRN ×4 (03:24→21:13)
--- NOTE | 2021-11-23 06:16 | P.PN ---
Date of Service: 11/23/21 Vital Signs Temp Pulse Resp BP Pulse Ox 98.2 F 99 H 20 120/56 L 93 11/23/21 04:00 11/23/21 04:00 11/23/21 04:00 11/23/21 04:00 11/23/21 04:00 Medications Acetaminophen (Acetaminophen 500 Mg Tab) 500 mg PO Q6H PRN PRN Reason: Pain/fever Last Admin: 11/22/21 23:05 Dose: 500 mg Documented by: Albuterol Sulfate (Albuterol 2.5 Mg/3 Ml Neb Cherry) 2.5 mg NEB Q6HP PRN PRN Reason: SHORTNESS OF BREATH Calcitonin [place] (Calcitonin Nasal [place] 200 Iu/Dose) 1 sprays DARIEL BID [facility] Stop: 11/23/21 21:01 Last Admin: 11/22/21 22:15 Dose: 1 sprays Documented by: Docusate Sodium (Docusate Na 100 Mg Cap) 100 mg PO BID [facility] Last Admin: 11/22/21 21:39 Dose: 100 mg Documented by: Enoxaparin Sodium (Enoxaparin 40 Mg/0.4 Ml) 40 mg SQ DAILY [facility] Last Admin: 11/22/21 09:31 Dose: 40 mg Documented by: Furosemide (Furosemide 20 Mg/ 2ml Vial) 20 mg IV DAILY [facility] Last Admin: 11/22/21 09:30 Dose: 20 mg Documented by: Levofloxacin (Levofloxacin 750 Mg Tab) 750 mg PO Q48H [facility] Stop: 11/23/21 13:01 Last Admin: 11/21/21 13:16 Dose: 750 mg Documented by: Melatonin (Melatonin 5 Mg Tablet) 5 mg PO BEDTIME PRN PRN PRN Reason: INSOMNIA Last Admin: 11/22/21 23:05 Dose: 5 mg Documented by: Morphine Sulfate (Morphine 2 Mg/Ml Syr) 2 mg IV Q4H PRN PRN Reason: Pain scale 5-7 (Moderate) Last Admin: 11/23/21 03:24 Dose: 2 mg Documented by: Nutritional Formula (Ensure Enlive 237 Ml Can) 237 ml PO BID [facility] Last Admin: 11/22/21 21:39 Dose: 237 ml Documented by: Ondansetron HCl (Ondansetron 4 Mg/2 Ml Vial) 4 mg IV Q4H PRN PRN Reason: NAUSEA / VOMITING Last Admin: 11/22/21 14:34 Dose: 4 mg Documented by: Sodium Chloride (Flush Normal Saline 10 Ml) 10 ml IV BID [facility] Last Admin: 11/22/21 22:00 Dose: 10 ml Documented by: Sodium Chloride (Flush Normal Saline 10 Ml) 10 ml IV BID [facility] Last Admin: 11/22/21 21:00 Dose: Not Given Documented by: Tamsulosin HCl (Tamsulosin 0.4 Mg Sr Cap) 0.4 mg PO BID [facility] Last Admin: 11/22/21 21:39 Dose: 0.4 mg Documented by: Microbiology Results 11/16/21 10:55 Blood - Blood Aerobic Blood Culture - Final No growth in 5 days. 11/16/21 10:55 Blood - Blood Anaerobic Blood Culture - Final No growth in 5 days. 11/16/21 10:50 Blood - Blood Aerobic Blood Culture - Final Klebsiella Pneumoniae 11/16/21 10:50 Blood - Blood Blood Culture Gram Stain - Final 11/16/21 10:50 Blood - Blood Anaerobic Blood Culture - Final Klebsiella Pneumoniae 11/16/21 10:50 Blood - Blood Gram Stain - Final Assessment/ Plan: Nephrology No dyspnea No chest pain Reports intermittent urinary pain Persistent malaise, fatigue and weakness No acute events overnight Vitals, medications, blood work and imaging reviewed in the chart. General: In no apparent distress, Oriented x3, Cooperative HEENT: Atraumatic Neck: Supple Respiratory: Right rales Cardiovascular: Regular rate/rhythm, Hip & LE Edema Gastrointestinal: Non-distended, No guarding Musculoskeletal: No clubbing, No contractures Integumentary: No rashes, No cyanosis Neurological: Normal speech Blood work reviewed in the chart. Imagings Data: EXAM DESCRIPTION: RAD - Chest Single View - 11/18/2021 7:01 am CLINICAL HISTORY: SOB COMPARISON: Portable 05/10/2021 TECHNIQUE: AP portable chest image was obtained 11/18/2021 7:01 am . FINDINGS: Dense consolidation is present in the inferolateral right upper lobe abutting the minor fissure. This is most likely acute pneumonia. No cavitation component. Lung volumes are low accentuating baseline interstitial pattern. No other area of dense consolidation is seen though there is airspace opacification in the lower left lung field. Additional site of pneumonia is possible in this can be monitored on follow-up imaging. Heart and vasculature are normal. No measurable pleural effusion and no pneumothorax. No acute bony abnormality seen. No acute aortic findings suspe cted. IMPRESSION: Consolidated pneumonia in the right upper lobe. Airspace opacification in the lower left lung field without dense consolidation. This could be additional site of pneumonia or accentuation of the patient's baseline lung parenchymal pattern due to portable technique and low lung volume. This can be monitored along with the right upper lobe finding. Heart size is stable. A small component of failure or volume overload superimposed on the above findings cannot be excluded. [facility] am CLINICAL HISTORY: Chest pain FINDINGS: Small to moderate right pleural effusion with right basilar atelectasis. Left lung appears clear of acute infiltrate. The heart is mildly to moderately enlarged. Post-surgical changes involve chest Conclusions/Impression: CARMEN likely due to hypovolemia CKD III with proteinuria -No NSAIDs Hypokalemia -Replete potassium prn Hypercalcemia of unclear etiology -S/P Pamidronate IV X1 dose -PTH-RP pending HypoPO4 -Encourage nutrition Diastolic CHF, chronic -Daily weight -Lasix prn Hyperglycemia -No sugar diet Moderate malnutrition -Continue supplementation Anemia in chronic illness -Monitor H&H Acute cystitis Sepsis BPH with LUTS -Continue Levaquin -Monitor Vanco level -Continue Flomax
--- NOTE | 2021-11-23 07:36 | P.PN ---
Subjective Date of Service: 11/23/21 Chief Complaint: Acute kidney injury; intractable nausea and vomiting: Sepsis Subjective: No new changes (family still has significant concerns.) Physical Examination - Vital Signs Temperature: 98.2 F Blood Pressure: 120/56 Pulse: 99 Respirations: 20 Pulse Ox (%): 93 - Physical Exam General: Alert, Oriented x3 HEENT: Atraumatic, Normocephalic Respiratory: Normal air movement Cardiovascular: Regular rate/rhythm, Normal S1 S2 Gastrointestinal: Soft and benign Musculoskeletal: Swelling Neurological: Normal speech - Studies Medications List Reviewed: Yes Assessment And Plan - Plan CHF UTI-yeast Sepsis A fib Hyperlipidemia Physical Deconditioning Constipation. Hypercalcemia-persistent. Plan: 1. Continue with antibiotic therapy 2. Continue with IV fluids 3. Monitor labs closely 4. Urine culture now grew yeast, we will dose fluconazole 200mg x1. 6. Out of bed and ambulate with physical therapy. 7. Continue with cardiac meds. 8. Pending replacement in Rehab facility. 9. We will continue colace and miralax for constipation 10. Hypercalcemia noted and still elevated at 11.9 today, Intranasal calcitonin started. we will follow nephrology recommendations.
[2021-11-23] MEDS: ENOXAPARIN 40 MG/0.4 ML SQ SCH (08:07)
[2021-11-23] MEDS: TAMSULOSIN 0.4 MG SR CAP PO SCH ×2 (08:08→21:02)
[2021-11-23] MEDS: CALCITONIN NASAL SPRAY 200 IU/DOSE NAS SCH ×2 (08:08→21:02)
[2021-11-23] MEDS: FUROSEMIDE 20 MG/ 2ML VIAL IV SCH (08:08)
[2021-11-23] MEDS: DOCUSATE NA 100 MG CAP PO SCH ×2 (08:08→21:02)
[2021-11-23] MEDS: ENSURE ENLIVE 237 ML CAN PO SCH ×2 (08:09→21:27)
[2021-11-23 09:18] LABS: Potassium 4.4 mmol/L (3.5-5.1)
[2021-11-23] MEDS ORDERED: FLUCONAZOLE 200mg IVPB 200 MG/100 ML BAG IV ONE (10:30)
[2021-11-23] MEDS: levoFLOXacin 750 MG TAB PO SCH (12:04)
[2021-11-23] MEDS: PHENAZOPYRIDINE 100MG TAB PO SCH ×2 (13:42→21:02)
[2021-11-23] MEDS: ACETAMINOPHEN 500 MG TAB PO PRN (13:42)
[2021-11-23] MEDS ORDERED: CEFEPIME 1 GM in NA CHLORIDE 0.9% 100 ML IV ONE (15:30)
[2021-11-23] MEDS ORDERED: SENOSIDES 8.6 MG TAB PO ONE (15:32)
--- NOTE | 2021-11-23 18:50 | RAD REPORT ---
EXAM DESCRIPTION: CT - Thorax Wo Con - 11/23/2021 6:39 pm CLINICAL HISTORY: hypercalcemia,abd pain,r/o maglinancy COMPARISON: Thorax Wo Con dated 11/16/2021; Chest For Pe Angio dated 04/09/2019; Abdomen Pelvis Wo Co ntrast dated 11/23/2021 FINDINGS: Chest Wall: No suspicious thyroid nodules or pathologic lymphadenopathy. Lungs: Passive atelectasis as a result of the pleural effusions. No other acute process identified. Pleura: Moderate right pleural effusion. Small left effusion. Both have increased in size. Mediastinum/harry: No pathologic lymphadenopathy. Pulmonary arteries/Aorta: Limited evaluation without contrast. No aortic aneurysm. Heart: No significant pericardial effusion. Four-chamber cardiomegaly. Multi-vessel coronary artery d isease. Aortic valve calcifications. Sternotomy. Upper abdomen: Splenomegaly. Pneumobilia which is unchanged. Cholecystectomy. Bones: No acute abnormality. All CT scans are performed using dose optimization technique as appropriate and may include automated exposure control or mA/KV adjustment according to patient size. IMPRESSION: Enlarging moderate right and new small left pleural effusion with underlying atelectasis . The source of the effusions may be secondary to heart failure. No other acute findings identified. No discrete lung mass is appreciated.
--- NOTE | 2021-11-23 19:01 | RAD REPORT ---
EXAM DESCRIPTION: CTAbdomen Pelvis Wo Contrast - 11/23/2021 6:39 pm CLINICAL HISTORY: hypercalcemia, abd pain, r/o malignancy COMPARISON: Abdomen Pelvis Wo Contrast dated 11/16/2021; Abdomen Pelvis Wo Contrast dated 1; Abdomen Pelvis W Contrast dated 11/23/2020; Abdomen Pelvis W Contrast dated 07/06/2020 TECHNIQUE: CT of the abdomen and pelvis was performed. All CT scans are performed using dose optimization technique as appropriate and may include automated exposure control or mA/KV adjustment according to patient size. FINDINGS: Lower chest: See same-day chest CT. Mild thickening of the distal esophagus. Liver: Pneumobilia which is a chronic finding. No suspicious liver lesions. Biliary: Cholecystectomy Stomach: No significant focal abnormality. Duodenum: No significant focal abnormality. Pancreas: No significant abnormality. Spleen: Splenomegaly. The spleen measures nearly 15 cm in CC dimension. Adrenal: No suspicious lesions. Kidney/ureter: No hydronephrosis. No renal calculi. Right lower pole renal sinus cyst. Other renal co rtical cyst noted. Retroperitoneum: No retroperitoneal adenopathy. Vascular: Atherosclerosis. Bowel: Moderate rectal stool burden. Diverticulosis. No evidence of acute diverticulitis. No bowel ob struction normal appendix.. Peritoneum: No ascites or free air. Bladder: Nonspecific bladder wall thickening which is likely related to chronic bladder outlet obstru ction. Reproductive: Prostatomegaly. Bones: No acute fracture. Other: 15 mm enlarged left inguinal lymph node. Other enlarged left inguinal lymph nodes noted. Lower extremity edema. IMPRESSION: 1. Moderate colonic and rectal stool burden. Suspect constipation and/or fecal impaction but no bowel obstruction. 2. Pathologically enlarged left inguinal lymph nodes. This could be reactive to an underlying process in the left lower extremity which is most frequently the case. Particularly given concern for malign robbin, neoplastic involvement is not entirely excluded. 3. Anasarca.
[2021-11-23] MEDS: MELATONIN 5 MG TABLET PO PRN (21:02)
--- NOTE | 2021-11-23 21:34 | PN ---
Date of Progress Note: 11/23/2021 Subjective: The patient is an 85-year-old male, who presented with abdominal discomfort, who is pres enting with some breathing difficulty. Currently, the patient is lying comfortably in bed, but does have some discomfort on abdominal examination, which is diffuse. Does not have any guarding or rebou nd. is by the bedside. She is very concerned that the patient keeps on complaining about his b robyn and he has gotten some morphine for those, but despite that the morphine does not last too long. He has been having some difficult time passing his urine also, has had straight caths done. i s also concerned why the Eaton was not being inserted. The patient did have blood cultures positive for klebsiella. The urine cultures come back with greater than 100,000 CFU of bacteria, but the sens itivities are pending. The patient did have blood cultures that were from November 16 that showed Kleb siella pneumoniae. Repeat blood cultures are ordered and they are pending. The patient is alert, op ens his eyes, but is not able to give much answers. He says he is uncomfortable. He does have swell ing in his arms and legs, but his albumin is also low in the 2 range. His creatinine is reasonably s table, but has bumped up slightly from a low 1 range to 1.25 today. Sodium and potassium are otherwi se okay. His WBC is slightly elevated at 13.7. He does not have a fever, but has had diverticulitis in the past. He has had an abdomen and pelvis CT done when he came to the hospital on around November 16. It showed moderate splenomegaly. Appendix is normal. Diverticula stem from the colon without evidence of diverticulitis at that point. The patient is also not having proper bowel movements, but has had some small movements including one last night and has had a small bowel movement this mornin g, but still seems slightly distended and has not had a proper bowel movement. also states that the patient had about 10 IV doses of iron in the past few days prior to coming to the hospital and h as not been having good bowel movements, perhaps struggling with some constipation. Objective: Vital Signs: Relatively stable, but blood pressure is on the lower side with SBP 107/49, pulse around 90, respirations around 14-18, and comfortable, O2 sats are 93% to 96%, and he is on ab out 1-2 L of oxygen currently. Lungs: Clear to auscultation anteriorly. Abdomen: Soft with diffuse tenderness on mild palpation, but does not have any guarding or rebound. Extremities: Reveal bilateral edema upper and lower extremities. Laboratory Data: Reviewed. WBC count is 13.7, hemoglobin 10.7, hematocrit is 35.1, platelet count i s 141. Chemistry shows sodium 142, potassium 4.4, chloride 109, bicarb is 31, BUN is 31, creatinine is 1.25, calcium level is elevated to 11.9, still BNP level is at 10,177, this is a proBNP, it was 86 75 yesterday. Assessment And Plan: The patient with acute kidney injury, question chronic kidney disease, presents with some abdominal discomfort that is ongoing, constipation, hypercalcemia. He is just overall loo hector unwell today. is concerned that she is not quite sure about what is causing his abdominal discomfort. The patient has had history of diverticulitis in the past. He does have urine sensitivi ties pending. He has Levaquin going p.o., but he has not been able to have a proper bowel movement a nd question if he has good absorption from the bowels currently. He is afebrile, however, with WBC s lightly elevated. I would recommend getting a CT scan of his abdomen and perhaps also getting imagin g of his lungs to evaluate for volume status. Agree with holding off on the IV fluids for now and co ntinuing the low-dose Lasix that he has been on for 2 or 3 days now. Blood pressure is on the lower side. Continue to monitor. If blood pressure goes below 100, may have to stop the Lasix and give hi m some fluids. His volume status is not that much far from his estimated dry weight currently as socrates e of the swelling may be from his low albumin and third-spacing and not actually because he is volume overloaded. I gave him 1 dose of cefepime IM at [address] results are pending as Levaquin absorp tion may be not as good and his WBCs are still elevated, and while we look for a source of infection, he does have some positive bacteria in the urine. Sensitivities are pending. In summary, CT scan, cefepime 1 dose, Senokot 1 dose, Colace to continue, IV fluids may be needed, an d stopping Lasix if x-ray is clean and the patient has further drop in his blood pressure. Further a djustment to his medications based on CT results or finding of infection beyond what we know right no w. Does have klebsiella in the blood and repeat blood cultures are being done to see if that is bein g cleaned up. Does have bacteria in the urine and cultures are pending. Sensitivities are pending t o evaluate if antibiotics would need to be further changed. Discussed in detail with Dr. Christian, harpreet xiong is the [facility] hospitalist. He has ordered the CT scans and we will follow up with a plan based on the res ults. /SABRINA Voice ID: [id number] Report ID: [id number]
[2021-11-24] MEDS: ACETAMINOPHEN 500 MG TAB PO PRN ×3 (00:09→23:54)
[2021-11-24] MEDS: MORPHINE 2 MG/ML SYR IV PRN ×4 (01:12→21:52)
[2021-11-24] MEDS ORDERED: LACTULOSE 20 GM/30 ML UCUP PO ONE (03:20)
[2021-11-24] MEDS: ENSURE ENLIVE 237 ML CAN PO SCH ×2 (09:00→21:52)
[2021-11-24] MEDS: FUROSEMIDE 20 MG/ 2ML VIAL IV SCH ×2 (09:17→18:06)
[2021-11-24] MEDS: DOCUSATE NA 100 MG CAP PO SCH ×2 (09:17→21:29)
[2021-11-24] MEDS: ENOXAPARIN 40 MG/0.4 ML SQ SCH (09:17)
[2021-11-24] MEDS: PHENAZOPYRIDINE 100MG TAB PO SCH ×3 (09:17→21:28)
[2021-11-24] MEDS: TAMSULOSIN 0.4 MG SR CAP PO SCH ×2 (09:17→21:28)
[2021-11-24 10:31] LABS: Potassium 4.2 mmol/L (3.5-5.1)
[2021-11-24 14:54] LABS: Urine Appearance CLEAR (Clear); Urine Bilirubin NEGATIVE (Negative); Urine Blood NEGATIVE (Negative); Urine Color DK YELLOW (Yellow); Urine Glucose NEGATIVE (Negative); Urine Protein NEGATIVE (Negative); Urine Urobilinogen 0.2 mg/dL (0.2-1.0)
[2021-11-24 15:29] LABS: Urine Bacteria <20 /HPF (NONE SEEN); Urine RBC <5 /HPF (NONE SEEN)
[2021-11-24] MEDS: CEFEPIME 1 GM in NA CHLORIDE 0.9% 100 ML IV SCH ×2 (16:05→21:27)
[2021-11-24] MEDS: VANCOMYCIN 1.25 GM in NA CHLORIDE 0.9% 250 ML IVPB SCH (16:06)
[2021-11-24] MEDS: FLUCONAZOLE 100mg IVPB 100 MG/50 ML BAG IV SCH (16:06)
--- NOTE | 2021-11-24 16:28 | PN ---
Subjective: The patient is seen in room 215 at [facility] in [place]. The patient's , Lola, is in the room with him. The patient is alert, looks somewhat better. Has had his Fol ey catheter placed, had about 400 cc of urine in the bladder that now has improved and he is feeling somewhat more comfortable. Pain has improved. The patient has been on morphine for this abdominal d iscomfort. Had CAT scan done yesterday with abdominal CAT scan showing some concern for inguinal lym ph node that is looking pathological and significantly enlarged. The patient has quite a bit of stoo l, but no obstruction seen on CAT scan, but the stool is voluminous quite a bit and the patient has n ot had any bowel movements for several days now and also not since yesterday. He does have some slig ht bit of bleeding more pronounced after he was given a Fleet enema earlier which the patient respond ed to just a little bit, but has not had much bowel movement. When the nurse was giving a Fleet enem a, she could feel some resistance and states that there may be some blockage. Question if the patien t is impacted a little bit higher up as the nurses did try to disimpact him, but were not able to com pletely get that accomplished. The patient has had only minimal stool output. He has some rectal bl eeding. He is mildly uncomfortable, but improved after getting his Eaton catheter in. Objective: Vital Signs: His blood pressure is a better yesterday came up to about 120 systolic, thi s morning about 151/58. His pulse is about 90-100. His respirations are around 16-17. Lungs: Decreased breath sounds at the bases. Abdomen: Soft. Extremities: Reveal edema bilaterally and also on his arms. Laboratory Data: His labs are reviewed. His CT scan is reviewed that shows the inguinal lymph node. CT scan of the lungs shows some fluid overload with some pleural effusions bilaterally. His vital signs are stable. Lab data reviewed. Labs show slight worsening of his creatinine to 1.5 range. His sodium is 141, po tassium 4.2, chloride 108, bicarb is 32, BUN is 32, creatinine is 1.53. Calcium has improved from 11 .9 to 11.3. His urine does show some bacteria. The culture is pending. His blood cultures had show n Klebsiella and repeat cultures are pending. Hematology shows WBC count slightly elevated compared to yesterday at 13.7, hemoglobin is stable at 10.7 from 10.1 yesterday, and his platelet count is 141 . Assessment And Plan: Mr. Henriquez has a pretty complicated picture. Currently, he has multiple issue s going on. He is slightly volume overloaded. He has urinary tract infection bacteremia. He has ye ast in the urine. He is severely constipated, possibly impacted. CAT scan also showed some patholog ical inguinal lymph node. He has had a Fleet enema earlier. He is on Colace. He has had a Senokot yesterday, but has not had much bowel movement. Eaton catheter has now been placed and left in. The patient was on morphine, which has now been the discontinued. He has been placed on small dose of U ltram. Plan: I had a long discussion with the , went over all these concerns and medications and answer ed questions. Plan at this time is to increase Lasix to b.i.d., change antibiotics from p.o. Levaqui n which the patient may not be absorbing well in every 48 hours to cefepime IM 1 g daily and vancomyc in 1 dose now and then adjust further after the blood culture results are finalized. Fluconazole 100 mg daily for 5 days to clean of the urine. May need repeat cultures in the near future. Consult GI for evaluation of this lymph node concern for colon cancer and also the fact that he may be impacted , question of there was a mass there, question if he is just impacted. This could also explain the p atient's calcium elevation and if the patient does have a mass, may need further workup depending on what the family wants and what the GI Service thinks necessary. Dr. Baeza has been consulted. Cons tipation; again GI Service has been consulted. The patient has had a Fleet enema earlier with not mu ch response. He is on Colace 3 times a day. Has had lactulose as well and has had Senokot yesterday . I do not want to give him further Senokot and get GI evaluation given the fact that he has possibi lity of impaction and this may need to be cleaned up if the patient is unable to have a bowel movemen t soon. Also, we will discontinue morphine which could also be making his blood pressures stay low a nd also may worsen his constipation. We will try low-dose Ultram. The patient has no history of sei zures, and the risks and benefits discussed with who is agreeable to Ultram. Orders are all placed. Discussed also with the francesco ent's nurse and the charge nurse. /SABRINA Voice ID: [id number] Report ID: [id number]
--- NOTE | 2021-11-24 17:18 | P.PN ---
Subjective Date of Service: 11/24/21 Chief Complaint: Acute kidney injury; intractable nausea and vomiting: Sepsis Subjective: No new changes (still having pain in lower abd.) Physical Examination - Vital Signs Temperature: 98.3 F Blood Pressure: 151/58 Pulse: 109 Respirations: 20 Pulse Ox (%): 91 - Physical Exam General: Alert, Moderate distress HEENT: Atraumatic, Normocephalic Neck: Supple Respiratory: Normal air movement Cardiovascular: Regular rate/rhythm, Normal S1 S2 Gastrointestinal: Tenderness Musculoskeletal: Swelling Neurological: Normal speech - Studies Medications List Reviewed: Yes Assessment And Plan - Plan CHF UTI-yeast Sepsis A fib Hyperlipidemia Physical Deconditioning Constipation. Hypercalcemia-persistent. Plan: He needs to have pain in lower abdomen despite significant adjustments to laxative medication. Presently a dose of lactulose was given for constipation management and he had soapsuds enema x1. Patient continues to have significant stool burden as depicted in CT of the abdomen/pelvis. Continue bowel regimen. We will continue pain control with morphine. Hypercalcemia is much improved with value of 11.3 today. We will restart calcitonin therapy in a.m. if calcium is still more than 10.5. We will follow symptomatology closely. Family at bedside discussed with she is insistent on having patient transferred or another physician in case. Would follow patient's family wishes.
[2021-11-24] MEDS ORDERED: MINERAL OIL 30 ML UCUP PO ONE (18:11)
[2021-11-24] MEDS: GOLYTELY 4000 ML PO SCH (18:35)
[2021-11-24] MEDS ORDERED: MINERAL OIL ENEMA 135 ML BTL PR SCH (19:00)
[2021-11-24] MEDS: TRAMADOL 37.5mg/APAP 325mg PER TAB PO SCH (19:32)
[2021-11-24] MEDS: MELATONIN 5 MG TABLET PO PRN (21:29)
[2021-11-25] MEDS: MORPHINE 2 MG/ML SYR IV PRN ×3 (02:12→13:34)
[2021-11-25] MEDS ORDERED: TRAZODONE 50 MG TABLET PO ONE (02:56)
[2021-11-25 06:30] LABS: Potassium 3.9 mmol/L (3.5-5.1)
[2021-11-25] MEDS: TRAMADOL 37.5mg/APAP 325mg PER TAB PO SCH ×2 (07:04→21:34)
[2021-11-25] MEDS: ENSURE ENLIVE 237 ML CAN PO SCH ×2 (09:00→21:35)
[2021-11-25] MEDS ORDERED: POTASSIUM 25 MEQ EFFERV TAB PO ONE (09:00)
[2021-11-25] MEDS: PHENAZOPYRIDINE 100MG TAB PO SCH ×2 (10:23→13:34)
[2021-11-25] MEDS: FUROSEMIDE 20 MG/ 2ML VIAL IV SCH (10:23)
[2021-11-25] MEDS: TAMSULOSIN 0.4 MG SR CAP PO SCH ×2 (10:23→21:35)
[2021-11-25] MEDS: ENOXAPARIN 40 MG/0.4 ML SQ SCH (10:23)
[2021-11-25] MEDS: DOCUSATE NA 100 MG CAP PO SCH ×3 (10:23→21:34)
[2021-11-25] MEDS: CEFEPIME 1 GM in NA CHLORIDE 0.9% 100 ML IV SCH ×2 (10:24→21:33)
--- NOTE | 2021-11-25 12:31 | RAD REPORT ---
EXAM DESCRIPTION: RAD - Colon-Ba Enema-Therapeutic - 11/25/2021 10:39 am CLINICAL HISTORY: Fecal impaction FINDINGS: Die Repair film demonstrates a large amount stool present throughout the colon. Therapeutic Gastrografin enema performed. Contrast flowed into the proximal rectum. Contrast did not enter the sigmoid colon and refluxed out of the rectum despite multiple attempts. Fluoroscopy time 2 minutes. Two fluoroscopic spot images obtained IMPRESSION: Limited therapeutic Gastrografin enema
[2021-11-25] MEDS ORDERED: MINERAL OIL 30 ML UCUP PO ONE (14:06)
[2021-11-25] MEDS ORDERED: METHYLPREDNISOLONE 125 MG INJ IV ONE (14:21)
[2021-11-25] MEDS: METOCLOPRAMIDE 10 MG/2mL INJ IV SCH (14:59)
[2021-11-25] MEDS ORDERED: MAGNESIUM CITRATE 300 ML BOT PO SCH (15:00)
[2021-11-25] MEDS: FENTANYL CITR 100 MCG/2 ML IV PRN (16:11)
[2021-11-25] MEDS: FLUCONAZOLE 100mg IVPB 100 MG/50 ML BAG IV SCH (16:11)
[2021-11-25] MEDS: GOLYTELY 4000 ML PO SCH (16:51)
--- NOTE | 2021-11-25 20:01 | P.PN ---
Date of Service: 11/25/21 Vital Signs Temp Pulse Resp BP Pulse Ox 98.1 F 101 H 18 137/60 97 11/25/21 16:00 11/25/21 16:00 11/25/21 16:00 11/25/21 16:00 11/25/21 16:00 Medications Acetaminophen (Acetaminophen 500 Mg Tab) 500 mg PO Q6H PRN PRN Reason: Pain/fever Last Admin: 11/24/21 23:54 Dose: 500 mg Documented by: Albuterol Sulfate (Albuterol 2.5 Mg/3 Ml Neb Cherry) 2.5 mg NEB [id number] PRN PRN Reason: SHORTNESS OF BREATH Docusate Sodium (Docusate Na 100 Mg Cap) 100 mg PO TID MAY Last Admin: 11/25/21 13:34 Dose: Not Given Documented by: Enoxaparin Sodium (Enoxaparin 40 Mg/0.4 Ml) 40 mg SQ DAILY MAY Last Admin: 11/25/21 10:23 Dose: 40 mg Documented by: Fentanyl Citrate (Fentanyl Citr 100 Mcg/2 Ml) 25 mcg IV Q4H PRN PRN Reason: Pain scale 8-10 (Severe) Last Admin: 11/25/21 16:11 Dose: 25 mcg Documented by: Cefepime HCl 1 gm/ Sodium (Chloride) 100 mls @ 200 mls/hr IV Q12HR MAY; Protocol Last Admin: 11/25/21 10:24 Dose: 100 mls Documented by: Vancomycin HCl 1.25 gm/ Sodium (Chloride) 250 mls @ 166.667 mls/hr IVPB Q36H MAY; Protocol Last Admin: 11/24/21 16:06 Dose: 250 mls Documented by: Fluconazole (Diflucan 100 Mg/50 Ml Ivpb (Premix)) 100 mg in 50 mls @ 50 mls/hr IV Q24H MAY; Protocol Stop: 11/28/21 16:31 Last Admin: 11/25/21 16:11 Dose: 50 mls Documented by: Melatonin (Melatonin 5 Mg Tablet) 5 mg PO BEDTIME PRN PRN PRN Reason: INSOMNIA Last Admin: 11/24/21 21:29 Dose: 5 mg Documented by: Metoclopramide HCl (Metoclopramide 10 Mg/2ml Inj) 10 mg IV Q8H MAY Last Admin: 11/25/21 14:59 Dose: 10 mg Documented by: Mineral Oil (Mineral Oil Enema 135 Ml Btl) 133 ml [place] 1X [facility] Stop: 11/25/21 21:01 Nutritional Formula (Ensure Enlive 237 Ml Can) 237 ml PO BID [facility] Last Admin: 11/25/21 09:00 Dose: Not Given Documented by: Ondansetron HCl (Ondansetron 4 Mg/2 Ml Vial) 4 mg IV Q4H PRN PRN Reason: NAUSEA / VOMITING Last Admin: 11/22/21 14:34 Dose: 4 mg Documented by: Polyethylene Glycol/Electrolytes (Golytely 4000 Ml) 4,000 ml PO 1X [facility] Last Admin: 11/25/21 16:51 Dose: 4,000 ml Documented by: Sodium Chloride (Flush Normal Saline 10 Ml) 10 ml IV BID [facility] Last Admin: 11/25/21 09:00 Dose: 10 ml Documented by: Sodium Chloride (Flush Normal Saline 10 Ml) 10 ml IV BID [facility] Last Admin: 11/25/21 09:00 Dose: Not Given Documented by: Tamsulosin HCl (Tamsulosin 0.4 Mg Sr Cap) 0.4 mg PO BID [facility] Last Admin: 11/25/21 10:23 Dose: 0.4 mg Documented by: Tramadol/Acetaminophen (Tramadol 37.5mg/Apap 325mg Per Tab) 1 tab PO BID [facility] Last Admin: 11/25/21 07:04 Dose: 1 tab Documented by: Microbiology Results 11/16/21 10:55 Blood - Blood Aerobic Blood Culture - Final No growth in 5 days. 11/16/21 10:55 Blood - Blood Anaerobic Blood Culture - Final No growth in 5 days. 11/16/21 10:50 Blood - Blood Aerobic Blood Culture - Final Klebsiella Pneumoniae 11/16/21 10:50 Blood - Blood Blood Culture Gram Stain - Final 11/16/21 10:50 Blood - Blood Anaerobic Blood Culture - Final Klebsiella Pneumoniae 11/16/21 10:50 Blood - Blood Gram Stain - Final Assessment/ Plan: Nephrology No dyspnea No chest pain Persistent abdominal pain Persistent malaise, fatigue and weakness No acute events overnight Vitals, medications, blood work and imaging reviewed in the chart. General: In no apparent distress, Oriented x3, Cooperative HEENT: Atraumatic Neck: Supple Respiratory: Normal resp effort Cardiovascular: Regular rate/rhythm, Hip & LE Edema Gastrointestinal: Tender abd Musculoskeletal: No clubbing, No contractures Integumentary: No rashes, No cyanosis Neurological: Normal speech Blood work reviewed in the chart. Imagings Data: EXAM DESCRIPTION: RAD - Chest Single View - 11/18/2021 7:01 am CLINICAL HISTORY: SOB COMPARISON: Portable 05/10/2021 TECHNIQUE: AP portable chest image was obtained 11/18/2021 7:01 am . FINDINGS: Dense consolidation is present in the inferolateral right upper lobe abutting the minor fissure. This is most likely acute pneumonia. No cavitation component. Lung volumes are low accentuating baseline interstitial pattern. No other area of dense consolidation is seen though there is airspace opacification in the lower left lung field. Additional site of pneumonia is possible in this can be monitored on follow-up imaging. Heart and vasculature are normal. No measurable pleural effusion and no pneumothorax. No acute bony abnormality seen. No acute aortic findings suspected. IMPRESSION: Consolidated pneumonia in the right upper lobe. Airspace opacification in the lower left lung field without dense consolidation. This could be additional site of pneumonia or accentuation of the patient's baseline lung parenchymal pattern due to portable technique and low lung volume. This can be monitored along with the right upper lobe finding. Heart size is stable. A small component of failure or volume overload superimposed on the above findings cannot be excluded. EXAM DESCRIPTION: RADChest Single View11/16/2021 10:47 am CLINICAL HISTORY: Chest pain FINDINGS: Small to moderate right pleural effusion with right basilar atelectasis. Left lung appears clear of acute infiltrate. The heart is mildly to moderately enlarged. Post-surgical changes involve chest Conclusions/Impression: CARMEN likely due to hypovolemia CKD III with proteinuria -No NSAIDs Hypokalemia -Replete potassium Hypercalcemia of unclear etiology -S/P Pamidronate IV X1 dose -PTH-RP pending HypoPO4 -Encourage nutrition -Replete prn Diastolic CHF, chronic -Daily weight -Lasix prn Hyperglycemia -No sugar diet Moderate malnutrition -NPO due to severe constipation Slow transit constipation -Laxative regimen as ordered -Plan for a colonoscopy in the AM with Dr. Baeza Anemia in chronic illness -Monitor H&H Acute cystitis Sepsis BPH with LUTS -Continue Flomax
[2021-11-25] MEDS ORDERED: Ringers Lactate 1,000 ML IV ONE (20:31)
[2021-11-25] MEDS ORDERED: MINERAL OIL ENEMA 135 ML BTL PR SCH (21:00)
--- NOTE | 2021-11-25 21:05 | ENDO RPT ---
[address], [address] FLEXIBLE SIGMOIDOSCOPY PROCEDURE REPORT EXAM DATE: 11/25/2021 PATIENT NAME: John Henriquez MR #: [id number] BIRTHDATE: 1935 ATTENDING: Bryan Baeza Dr STATUS: inpatient - [facility] REGISTERED DIET TECHNICIAN: Rosalva LINARES INDICATIONS: The patient is a 85 yr old Male here for a colonoscopy due to abdominal pain and constipation PROCEDURE PERFORMED: Sigmoidoscopy with foreign body removal MEDICATIONS: Per Anesthesia. ESTIMATED BLOOD LOSS: None CONSENT: The patient understands the risks and benefits of the procedure and understands that these risks include, but are not limited to: sedation, allergic reaction, infection, perforation and/or bleeding. Alternative means of evaluation and treatment include, among others: physical exam, x-rays, and/or surgical intervention. The patient elects to proceed with this endoscopic procedure. DESCRIPTION OF PROCEDURE: During intra-op preparation period all mechanical medical equipment was checked for proper function. Hand hygiene and appropriate measures for infection prevention was taken. After the risks, benefits and alternatives of the procedure were thoroughly explained, Informed consent was verified, confirmed and timeout was successfully executed by the treatment team. A digital rectal exam was performed and revealed revealed no abnormalities of the rectum. The EC-[id number] ([id number]) endoscope was introduced through the anus and advanced to the sigmoid colon. The prep was The quality of the prep was poor.. The instrument was then slowly withdrawn as the colon was fully examined. disimpaction of over a pound of solid stool from the rectum. Then colonoscope inserted into rectum with intubation to proximal sigmoid colon at 40-50 cm with 2 liters of water infused into colon / rectum. Large amount of solid stool in the sigmoid colon. Diverticulosis was found in the sigmoid colon. Internal hemorrhoids were found not performed. The scope was then completely withdrawn from the patient and the procedure terminated. ADVERSE EVENTS: There were no complications. Manual disimpaction of over a pound of solid stool from the rectum 2. Diverticulosis in the sigmoid colon 3. Internal hemorrhoids RECOMMENDATIONS: 1. fiber rich diet 2. Metamucil, Colace, Miralax RECALL: Return in 1 week(s) for Colonoscopy. Bryan Baeza Dr eSigned: Bryan Baeza Dr 11/25/2021 9:04 PM cc: Eirc Lea M.D. CPT CODES: ICD9 CODES: PATIENT NAME: John HenriquezElizabet MR#: [id number]
[2021-11-25] MEDS: MELATONIN 5 MG TABLET PO PRN (21:35)
[2021-11-26] MEDS: METOCLOPRAMIDE 10 MG/2mL INJ IV SCH ×3 (01:50→16:10)
[2021-11-26] MEDS: FENTANYL CITR 100 MCG/2 ML IV PRN (01:52)
[2021-11-26 02:33] LABS: Potassium 4.1 mmol/L (3.5-5.1)
[2021-11-26] MEDS: VANCOMYCIN 1.25 GM in NA CHLORIDE 0.9% 250 ML IVPB SCH (04:37)
[2021-11-26] MEDS ORDERED: MINERAL OIL ENEMA 135 ML BTL PR SCH (06:00)
[2021-11-26] MEDS: CEFEPIME 1 GM in NA CHLORIDE 0.9% 100 ML IV SCH ×2 (08:44→20:20)
[2021-11-26] MEDS: ENOXAPARIN 40 MG/0.4 ML SQ SCH (08:44)
[2021-11-26] MEDS: ENSURE ENLIVE 237 ML CAN PO SCH ×2 (09:00→20:21)
--- NOTE | 2021-11-26 11:53 | CON ---
Date of Consultation: 11/25/2021 Reason For Consultation: Fecal impaction in the rectum with obstipation. History Of Present Illness: The patient is an 85-year-old white male with history of hypertension, h yperlipidemia, coronary artery disease status post CABG, gout, systemic mastocytosis, stroke, and atr ial fibrillation. The patient presented to hospital with acute kidney injury, intractable nausea, vo miting, and sepsis. The patient's kidney injury has been treated, sepsis has been treated; however, the patient continued to have some nausea, though not intractable now, but he has marked lower abdomi nal pain from his fecal impaction. The patient has had increasing constipation recently. think s it may have been recent iron, but this iron was IV infusion and not p.o. Imaging has re vealed an increased stool in the colon and the rectum. The patient had a Gastrografin enema today af ter consulting with our service, Gastroenterology. Gastrografin was only able to be infused into the distal sigmoid colon and then seemed to be refluxed out onto the bed according to the Radiology staf f. Other enemas such as tap water, Fleet enemas have been tried. The patient has taken some mineral oil today as well. The patient has no relief. The CT scan also revealed some adenopathy in the per irectal area, unclear if this is due to just inflammation of stercoral ulcer, breakdown of skin, or f rom a neoplastic process. Past Medical History: Significant for hypertension, coronary artery disease, status post CABG, strok e, atrial fibrillation, systemic mastocytosis, hyperlipidemia, gout, and cataract surgery. Family History: Father of old age . Social History: No tobacco, no alcohol. Review of Systems: The patient has obstipation, rectal pain, generalized abdominal pain, some mild distention. Nurses r eported occasionally seen some bright red blood, hematochezia, but no melena, hematemesis, coffee-brenda unds emesis, hematuria, dysuria, polyuria, polydipsia, chest pain, shortness of breath, seizure, sync ope, lower extremity edema, muscle aches, joint aches. He does have belly pain and belly aches. Physical Examination: Vital Signs: The patient is 5 feet 9, 165 pounds, BMI 24.4 kg/sq L. Temperature 98.1 degrees Fahren heit, pulse 101, respirations 18, blood pressure 137/60, O2 saturation 97%. HEENT: Normocephalic, atraumatic. Anicteric. Pupils equal, round, and reactive to light. Anicteri c. Oropharynx clear. Neck: Supple. No masses. Respirations: Clear to auscultation bilaterally. Cardiac: Regular rate and rhythm. No gallops or rubs. Abdomen: Positive bowel sounds. Soft. Mild to moderate distention with tympany. Pain in the lower abdomen . No peritoneal or Arroyo sign. The patient did have guarding. Extremities: No clubbing, cyanosis, or edema. 1 to 2+ pulses. Neuro: Alert and oriented to person but not to place . Laboratory Data: The patient has white count of 13.7, up from 11.6 on the 10th. White count 15.09, hemoglobin of 10.7, hematocrit of 35.1, MCV of 84, platelet count of 141, polys of 53%, lymphocytes 1 0%, monocytes 10%, and eosinophils 26%, PT of 30.9, INR of 2.75. Sodium 141, potassium 3.9, chloride 108, bicarb 31, BUN of 32, creatinine of 1.42, glucose 82, calcium 10.8, phosphorus 2.5, total bilir ubin 1.4, AST of 10, ALT of 14, alkaline phosphatase 99. B-type natriuretic peptide of 10,177, total protein 6.0, albumin 2.1, procalcitonin high at 5.75, normal is less than 0.05. Urine; positive nit rite on the . On the , he had 2+ blood, 3+ leukocyte esterase, greater than 50 white blood c ells, less than 5 squamous cells, 20 to 50 bacteria, many yeast, trace protein. Serology: COVID-19 test is negative. Influenza A and B is negative. CT abdomen and pelvis on the revealed moderat e colonic and rectal stool burden. Suspect constipation or fecal impaction. No bowel obstruction no florencio. Pathology: Enlarged left inguinal lymph nodes, which could be reactive, underlying proces s in the left lower extremity that is most frequently the case, especially given concern for malignan t neoplastic involves nocturnally to exclude anasarca. The patient does have a history of cellulitis as per primary care doctor left lower foot. He has been on Ceftin and other antibiotics as an outpatient. Impression: 1.Fecal impaction with obstipation, generalized abdominal pain. Has increased stool in the colon an d rectum. On CT scan, there is some lymphadenopathy in the left inguinal area, probably related to h is left lower extremity cellulitis that he has been having treated with antibiotics as an outpatient over the past few weeks. Gastrografin enema today was unsuccessful with enema fluid only instilled i nto the rectum and distal sigmoid colon and on the bed. Digital disimpaction attempted by RNs could not be accomplished because the stool was out of reach of the finger of the nurses. We wi ll need to proceed with flex sig and evaluate if there is a mass or the stool can be further broken d own since the patient is in significant discomfort and pain due to this fecal impaction, obstipation, with generalized abdominal pain. Check a KUB to ensure he is not having dilatation of the colon at this point. 2.Left lower extremity cellulitis of the foot over the past few weeks. We will need to continue IV antibiotics and have a Wound Care and the patient's primary care doctor see the patient as well as. 3.Ongoing constipation. The patient will need long-term constipation therapy. Recommendation: 1. consent for flex sig, Dr. Varinder Lea and myself have both spoken to and she is agr eeable now and wants to have proceed with procedure. We will proceed with flex sig colonoscopy on th is patient tonight for urgent colonoscopy to assess whether the patient has a mass or exce ssive fecal burden that can be broken out with procedure. 2.Continue intermittent laxatives. 3.Check KUB. 4.Continue IV fluids, IV antibiotics. WS/YAIRL Voice ID: [id number] Report ID: [id number]
[2021-11-26] MEDS: TRAMADOL 37.5mg/APAP 325mg PER TAB PO SCH ×2 (12:56→20:20)
[2021-11-26] MEDS: TAMSULOSIN 0.4 MG SR CAP PO SCH ×2 (12:57→20:20)
[2021-11-26] MEDS: DOCUSATE NA 100 MG CAP PO SCH ×3 (12:57→20:21)
--- NOTE | 2021-11-26 13:01 | RAD REPORT ---
EXAM DESCRIPTION: RAD - Colon Barium Enema - 11/26/2021 12:52 pm CLINICAL HISTORY: post disimpaction Abdominal pain COMPARISON: Colon-Ba Enema-Therapeutic dated 11/25/2021 FINDINGS: The patient's colon was filled with Gastrografin contrast. The entire colon was filled. Diverticulosis coli involving the sigmoid colon is noted. Mild luminal narrowing is present in the si gmoid colon region. No annular constricting lesion is present. No polypoid intraluminal defect eviden t. Total fluoro time: 1.2 minutes Number of images acquired: 17 IMPRESSION: No annular constricting lesion or clear polypoid defect evident. There is prominent sigm oid diverticulosis noted with luminal narrowing evident.
[2021-11-26] MEDS: FLUCONAZOLE 100mg IVPB 100 MG/50 ML BAG IV SCH (16:10)
--- NOTE | 2021-11-26 18:02 | P.PN ---
Subjective Date of Service: 11/26/21 Chief Complaint: Fecal stool impaction, acute kidney injury; intractable N/V, sepsis Subjective: Improving (Feels much better after manual disimpaction and flex-sig flush with 2 liters of water last night and G-enema this morning. No cancer lesions seen on procedures.) Review of Systems 10-point ROS is otherwise unremarkable General: Weakness, Malaise (Improved) Physical Examination - Vital Signs Temperature: 97.0 F Blood Pressure: 106/54 Pulse: 90 Respirations: 18 Pulse Ox (%): 94 - Physical Exam General: Alert, Oriented x1 HEENT: Atraumatic, Normocephalic, EOMI Neck: Supple Respiratory: Normal air movement Cardiovascular: Normal pulses Gastrointestinal: Soft and benign, No tenderness, No rebound, No guarding - Studies Medications List Reviewed: Yes Assessment And Plan - Current Problems (Diagnosis) (1) Fecal impaction in rectum Current Visit: Yes Status: Acute Comment: Improved s/p procedures. (2) Obstipation Current Visit: Yes Status: Acute (3) Constipation Current Visit: Yes Status: Acute (4) Diverticulosis of sigmoid colon Current Visit: Yes Status: Acute (5) Intractable nausea and vomiting Current Visit: Yes Status: Acute Comment: Resolved with fecal impaction / constipation therapy (6) Generalized abdominal pain Current Visit: Yes Status: Acute Comment: Resolved with fecal impaction / constipation therapy - Plan REC: 1) Miralax qid. 2) fiber supplements and Colace bid. 3) po diet
[2021-11-26] MEDS ORDERED: POLYETHYL GLY 3350 17 GM/DOSE PO PRN (18:23)
[2021-11-27] MEDS: METOCLOPRAMIDE 10 MG/2mL INJ IV SCH ×4 (00:23→22:10)
[2021-11-27] MEDS: MELATONIN 5 MG TABLET PO PRN ×2 (00:34→21:26)
[2021-11-27] MEDS ORDERED: VANCOMYCIN 1.25 GM in NA CHLORIDE 0.9% 250 ML IVPB SCH (04:00)
[2021-11-27] MEDS ORDERED: VANCOMYCIN 1 GM/VIAL ONE (05:38)
[2021-11-27] MEDS: TAMSULOSIN 0.4 MG SR CAP PO SCH ×2 (09:00→21:00)
[2021-11-27] MEDS: TRAMADOL 37.5mg/APAP 325mg PER TAB PO SCH ×2 (09:14→21:27)
[2021-11-27] MEDS: DOCUSATE NA 100 MG CAP PO SCH ×3 (09:15→21:27)
[2021-11-27] MEDS: CEFEPIME 1 GM in NA CHLORIDE 0.9% 100 ML IV SCH ×2 (09:15→21:28)
[2021-11-27] MEDS: ENOXAPARIN 40 MG/0.4 ML SQ SCH (09:15)
[2021-11-27] MEDS: ENSURE ENLIVE 237 ML CAN PO SCH ×2 (09:16→21:28)
--- NOTE | 2021-11-27 09:41 | P.PN ---
Date of Service: 11/25/21 Subjective Subjective: Patient having a lot of abdominal pain. Has spoken to on the phone multiple times. She is concerned about his abdominal pain. Spoke with GI and they plan on doing a flexible rectosigmoidoscopy. Physical Examination - Vital Signs Reviewed - Physical Exam General: Alert, Moderate distress Respiratory: Normal air movement Cardiovascular: Regular rate/rhythm, Normal S1 S2 Gastrointestinal: Tenderness Musculoskeletal: Swelling Neurological: Normal speech Assessment And Plan - Plan 1. CHF 2. UTI-yeast 3. Sepsis 4. A. fib 5. Hyperlipidemia 6. Physical Deconditioning 7. Constipation. 8. Hypercalcemia-persistent. Plan: -GI consultation appreciated; flexible sigmoidoscopy pending -Try to establish better pain control -Barium enema pending -Monitor calcium level; restarted calcitonin -Physical therapy
--- NOTE | 2021-11-27 09:42 | P.PN ---
Date of Service: 11/27/21 Subjective Subjective: Patient is doing well. Clinical symptoms continue to improve. Physical Examination - Vital Signs Reviewed - Physical Exam General: Alert, Moderate distress Respiratory: Normal air movement Cardiovascular: Regular rate/rhythm, Normal S1 S2 Gastrointestinal: Tenderness Musculoskeletal: Swelling Neurological: Normal speech Assessment And Plan - Plan 1. CHF 2. UTI-yeast 3. Sepsis 4. A. fib 5. Hyperlipidemia 6. Physical Deconditioning 7. Constipation. 8. Hypercalcemia-persistent. Plan: -GI consultation appreciated; flexible sigmoidoscopy completed; a large amount of stool removed. Patient also had barium enema and had 4 large bowel movements afterwards. Abdominal pain significantly improved. -Decrease pain medication; bowel regimen to prevent constipation -Barium enema with no obstructive lesion except for a large amount of stool which has been cleared -Calcium level is stable -Plan to start physical therapy; if physical therapy does well then plan to go to [facility]. Otherwise patient may proceed with hospice care after talking with .
--- NOTE | 2021-11-27 09:42 | P.PN ---
Date of Service: 11/26/21 Subjective Subjective: Patient had a large amount of stool removed. Barium enema completed and a large amount of stool. Anticipate discharge over the next 48 hours if patient continues to improve Physical Examination - Vital Signs Reviewed - Physical Exam General: Alert, Moderate distress Respiratory: Normal air movement Cardiovascular: Regular rate/rhythm, Normal S1 S2 Gastrointestinal: Tenderness Musculoskeletal: Swelling Neurological: Normal speech Assessment And Plan - Plan 1. CHF 2. UTI-yeast 3. Sepsis 4. A. fib 5. Hyperlipidemia 6. Physical Deconditioning 7. Constipation. 8. Hypercalcemia-persistent. Plan: -GI consultation appreciated; flexible sigmoidoscopy completed; a large amount of stool removed. Patient also had barium enema and had 4 large bowel movements afterwards. Abdominal pain significantly improved. -Decrease pain medication; bowel regimen to prevent constipation -Barium enema with no obstructive lesion except for a large amount of stool which has been cleared -Monitor calcium level; restarted calcitonin -Physical therapy; if patient does well can anticipate discharge over the next 48 hours
[2021-11-27 11:02] LABS: Absolute Lymphocytes (CBC) 0.8 K/uL (0.7-4.9); Hematocrit 32.1 % (39.6-49.0); Lymphocytes % 5.7 % (15.3-44.8); MPV 8.1 fL (7.6-11.3); RBC Red Blood Cell Count 3.85 M/uL (4.33-5.43)
[2021-11-27 11:15] LABS: Bilirubin Total 0.8 mg/dL (0.2-1.0); Potassium 3.7 mmol/L (3.5-5.1); Protein, Total 6.1 g/dL (6.4-8.2)
[2021-11-27 12:15] LABS: Anisocytosis 1+; Blood Morphology Comment NOTED (NOT SEEN); Elliptocytes 1+; Platelet Estimate ADEQ; Toxic Granulation PRESENT
[2021-11-27] MEDS: ALBUMIN HUMAN 25% 12.5 GM, FUROSEMIDE 100 MG in NA CHLORIDE 0.9% 40 ML IV SCH ×2 (14:39→19:36)
[2021-11-27] MEDS: FLUCONAZOLE 100mg IVPB 100 MG/50 ML BAG IV SCH (16:02)
--- NOTE | 2021-11-27 22:37 | P.PN ---
Date of Service: 11/26/21 Vital Signs Temp Pulse Resp BP Pulse Ox 97.4 F 107 H 18 112/53 L 90 L 11/27/21 20:00 11/27/21 20:00 11/27/21 21:27 11/27/21 20:00 11/27/21 21:27 Medications Acetaminophen (Acetaminophen 500 Mg Tab) 500 mg PO Q6H PRN PRN Reason: TEMP > 100' F OR MILD PAIN Last Admin: 11/24/21 23:54 Dose: 500 mg Documented by: Albuterol Sulfate (Albuterol 2.5 Mg/3 Ml Neb Cherry) 2.5 mg NEB [id number] PRN PRN Reason: SHORTNESS OF BREATH Docusate Sodium (Docusate Na 100 Mg Cap) 100 mg PO TID [facility] Last Admin: 11/27/21 21:27 Dose: 100 mg Documented by: Enoxaparin Sodium (Enoxaparin 40 Mg/0.4 Ml) 40 mg SQ DAILY [facility] Last Admin: 11/27/21 09:15 Dose: 40 mg Documented by: Fentanyl Citrate (Fentanyl Citr 100 Mcg/2 Ml) 25 mcg IV Q4H PRN PRN Reason: Pain scale 8-10 (Severe) Last Admin: 11/26/21 01:52 Dose: 25 mcg Documented by: Cefepime HCl 1 gm/ Sodium (Chloride) 100 mls @ 200 mls/hr IV Q12HR MAY; Protocol Last Admin: 11/27/21 21:28 Dose: 100 mls Documented by: Fluconazole (Diflucan 100 Mg/50 Ml Ivpb (Premix)) 100 mg in 50 mls @ 50 mls/hr IV Q24H MAY; Protocol Stop: 11/28/21 16:31 Last Admin: 11/27/21 16:02 Dose: 50 mls Documented by: Albumin Human 12.5 gm/Furosemide 100 mg/ Sodium Chloride 100 mls @ 20 mls/hr IV Q5H MAY Last Admin: 11/27/21 19:36 Dose: 100 mls Documented by: Melatonin (Melatonin 5 Mg Tablet) 5 mg PO BEDTIME PRN PRN PRN Reason: INSOMNIA Last Admin: 11/27/21 21:26 Dose: 5 mg Documented by: Metoclopramide HCl (Metoclopramide 10 Mg/2ml Inj) 10 mg IV Q8H MAY Last Admin: 11/27/21 22:10 Dose: 10 mg Documented by: Nutritional Formula (Ensure Enlive 237 Ml Can) 237 ml PO BID [facility] Last Admin: 11/27/21 21:28 Dose: 237 ml Documented by: Ondansetron HCl (Ondansetron 4 Mg/2 Ml Vial) 4 mg IV Q4H PRN PRN Reason: NAUSEA / VOMITING Last Admin: 11/22/21 14:34 Dose: 4 mg Documented by: Polyethylene Glycol (Polyethyl Gly 3350 17 Gm/Dose) 17 gm PO DAILY PRN PRN Reason: CONSTIPATION Sodium Chloride (Flush Normal Saline 10 Ml) 10 ml IV BID [facility] Last Admin: 11/27/21 21:28 Dose: 10 ml Documented by: Tamsulosin HCl (Tamsulosin 0.4 Mg Sr Cap) 0.4 mg PO BID [facility] Last Admin: 11/27/21 21:00 Dose: 0.4 mg Documented by: Tramadol/Acetaminophen (Tramadol 37.5mg/Apap 325mg Per Tab) 1 tab PO BID [facility] Last Admin: 11/27/21 21:27 Dose: 1 tab Documented by: Microbiology Results 11/16/21 10:55 Blood - Blood Aerobic Blood Culture - Final No growth in 5 days. 11/16/21 10:55 Blood - Blood Anaerobic Blood Culture - Final No growth in 5 days. 11/16/21 10:50 Blood - Blood Aerobic Blood Culture - Final Klebsiella Pneumoniae 11/16/21 10:50 Blood - Blood Blood Culture Gram Stain - Final 11/16/21 10:50 Blood - Blood Anaerobic Blood Culture - Final Klebsiella Pneumoniae 11/16/21 10:50 Blood - Blood Gram Stain - Final Assessment/ Plan: Nephrology No dyspnea No chest pain Improving abdominal pain Persistent malaise, fatigue and weakness No acute events overnight Vitals, medications, blood work and imaging reviewed in the chart. General: In no apparent distress, Oriented x3, Cooperative HEENT: Atraumatic Neck: Supple Respiratory: Normal resp effort Cardiovascular: Regular rate/rhythm, Hip & LE Edema Gastrointestinal: Tender abd Musculoskeletal: No clubbing, No contractures Integumentary: No rashes, No cyanosis Neurological: Normal speech Blood work reviewed in the chart. Imagings Data: EXAM DESCRIPTION: RAD - Chest Single View - 11/18/2021 7:01 am CLINICAL HISTORY: SOB COMPARISON: Portable 05/10/2021 TECHNIQUE: AP portable chest image was obtained 11/18/2021 7:01 am . FINDINGS: Dense consolidation is present in the inferolateral right upper lobe abutting the minor fissure. This is most likely acute pneumonia. No cavitation component. Lung volumes are low accentuating baseline interstitial pattern. No other area of dense consolidation is seen though there is airspace opacification in the lower left lung field. Additional site of pneumonia is possible in this can be monitored on follow-up imaging. Heart and vasculature are normal. No measurable pleural effusion and no pneumothorax. No acute bony abnormality seen. No acute aortic findings suspected. IMPRESSION: Consolidated pneumonia in the right upper lobe. Airspace opacification in the lower left lung field without dense consolidation. This could be additional site of pneumonia or accentuation of the patient's baseline lung parenchymal pattern due to portable technique and low lung volume. This can be monitored along with the right upper lobe finding. Heart size is stable. A small component of failure or volume overload superimposed on the above findings cannot be excluded. EXAM DESCRIPTION: RADChest Single View11/16/2021 10:47 am CLINICAL HISTORY: Chest pain FINDINGS: Small to moderate right pleural effusion with right basilar atelectasis. Left lung appears clear of acute infiltrate. The heart is mildly to moderately enlarged. Post-surgical changes involve chest Conclusions/Impression: CARMEN likely due to hypovolemia CKD III with proteinuria -No NSAIDs Hypokalemia -Replete potassium Hypercalcemia of unclear etiology -S/P Pamidronate IV X1 dose -PTH-RP pending HypoPO4 -Encourage nutrition -Replete prn Diastolic CHF, chronic -Daily weight -Lasix prn Hyperglycemia -No sugar diet Moderate malnutrition -Advance diet as tolerated Slow transit constipation/ Fecal impaction -Laxative regimen as ordered Anemia in chronic illness -Monitor H&H Acute cystitis Sepsis BPH with LUTS -Continue Flomax
--- NOTE | 2021-11-27 22:40 | P.PN ---
Date of Service: 11/27/21 Vital Signs Temp Pulse Resp BP Pulse Ox 97.4 F 107 H 18 112/53 L 90 L 11/27/21 20:00 11/27/21 20:00 11/27/21 21:27 11/27/21 20:00 11/27/21 21:27 Medications Acetaminophen (Acetaminophen 500 Mg Tab) 500 mg PO Q6H PRN PRN Reason: TEMP > 100' F OR MILD PAIN Last Admin: 11/24/21 23:54 Dose: 500 mg Documented by: Albuterol Sulfate (Albuterol 2.5 Mg/3 Ml Neb Cherry) 2.5 mg NEB [id number] PRN PRN Reason: SHORTNESS OF BREATH Docusate Sodium (Docusate Na 100 Mg Cap) 100 mg PO TID [facility] Last Admin: 11/27/21 21:27 Dose: 100 mg Documented by: Enoxaparin Sodium (Enoxaparin 40 Mg/0.4 Ml) 40 mg SQ DAILY [facility] Last Admin: 11/27/21 09:15 Dose: 40 mg Documented by: Fentanyl Citrate (Fentanyl Citr 100 Mcg/2 Ml) 25 mcg IV Q4H PRN PRN Reason: Pain scale 8-10 (Severe) Last Admin: 11/26/21 01:52 Dose: 25 mcg Documented by: Cefepime HCl 1 gm/ Sodium (Chloride) 100 mls @ 200 mls/hr IV Q12HR MAY; Protocol Last Admin: 11/27/21 21:28 Dose: 100 mls Documented by: Fluconazole (Diflucan 100 Mg/50 Ml Ivpb (Premix)) 100 mg in 50 mls @ 50 mls/hr IV Q24H MAY; Protocol Stop: 11/28/21 16:31 Last Admin: 11/27/21 16:02 Dose: 50 mls Documented by: Albumin Human 12.5 gm/Furosemide 100 mg/ Sodium Chloride 100 mls @ 20 mls/hr IV Q5H MAY Last Admin: 11/27/21 19:36 Dose: 100 mls Documented by: Melatonin (Melatonin 5 Mg Tablet) 5 mg PO BEDTIME PRN PRN PRN Reason: INSOMNIA Last Admin: 11/27/21 21:26 Dose: 5 mg Documented by: Metoclopramide HCl (Metoclopramide 10 Mg/2ml Inj) 10 mg IV Q8H MAY Last Admin: 11/27/21 22:10 Dose: 10 mg Documented by: Nutritional Formula (Ensure Enlive 237 Ml Can) 237 ml PO BID [facility] Last Admin: 11/27/21 21:28 Dose: 237 ml Documented by: Ondansetron HCl (Ondansetron 4 Mg/2 Ml Vial) 4 mg IV Q4H PRN PRN Reason: NAUSEA / VOMITING Last Admin: 11/22/21 14:34 Dose: 4 mg Documented by: Polyethylene Glycol (Polyethyl Gly 3350 17 Gm/Dose) 17 gm PO DAILY PRN PRN Reason: CONSTIPATION Sodium Chloride (Flush Normal Saline 10 Ml) 10 ml IV BID [facility] Last Admin: 11/27/21 21:28 Dose: 10 ml Documented by: Tamsulosin HCl (Tamsulosin 0.4 Mg Sr Cap) 0.4 mg PO BID [facility] Last Admin: 11/27/21 21:00 Dose: 0.4 mg Documented by: Tramadol/Acetaminophen (Tramadol 37.5mg/Apap 325mg Per Tab) 1 tab PO BID [facility] Last Admin: 11/27/21 21:27 Dose: 1 tab Documented by: Microbiology Results 11/16/21 10:55 Blood - Blood Aerobic Blood Culture - Final No growth in 5 days. 11/16/21 10:55 Blood - Blood Anaerobic Blood Culture - Final No growth in 5 days. 11/16/21 10:50 Blood - Blood Aerobic Blood Culture - Final Klebsiella Pneumoniae 11/16/21 10:50 Blood - Blood Blood Culture Gram Stain - Final 11/16/21 10:50 Blood - Blood Anaerobic Blood Culture - Final Klebsiella Pneumoniae 11/16/21 10:50 Blood - Blood Gram Stain - Final Assessment/ Plan: Nephrology No dyspnea No chest pain Improving abdominal pain Improving malaise, fatigue and weakness No acute events overnight Vitals, medications, blood work and imaging reviewed in the chart. General: In no apparent distress, Oriented x3, Cooperative HEENT: Atraumatic Neck: Supple Respiratory: Normal resp effort Cardiovascular: Regular rate/rhythm, Hip & LE Edema Gastrointestinal: Tender abd Musculoskeletal: No clubbing, No contractures Integumentary: No rashes, No cyanosis Neurological: Normal speech Blood work reviewed in the chart. Imagings Data: EXAM DESCRIPTION: RAD - Chest Single View - 11/18/2021 7:01 am CLINICAL HISTORY: SOB COMPARISON: Portable 05/10/2021 TECHNIQUE: AP portable chest image was obtained 11/18/2021 7:01 am . FINDINGS: Dense consolidation is present in the inferolateral right upper lobe abutting the minor fissure. This is most likely acute pneumonia. No cavitation component. Lung volumes are low accentuating baseline interstitial pattern. No other area of dense consolidation is seen though there is airspace opacification in the lower left lung field. Additional site of pneumonia is possible in this can be monitored on follow-up imaging. Heart and vasculature are normal. No measurable pleural effusion and no pneumothorax. No acute bony abnormality seen. No acute aortic findings suspected. IMPRESSION: Consolidated pneumonia in the right upper lobe. Airspace opacification in the lower left lung field without dense consolidation. This could be additional site of pneumonia or accentuation of the patient's baseline lung parenchymal pattern due to portable technique and low lung volume. This can be monitored along with the right upper lobe finding. Heart size is stable. A small component of failure or volume overload superimposed on the above findings cannot be excluded. EXAM DESCRIPTION: RADChest Single View11/16/2021 10:47 am CLINICAL HISTORY: Chest pain FINDINGS: Small to moderate right pleural effusion with right basilar atelectasis. Left lung appears clear of acute infiltrate. The heart is mildly to moderately enlarged. Post-surgical changes involve chest Conclusions/Impression: CARMEN likely due to hypovolemia CKD III with proteinuria -No NSAIDs Hypokalemia -Replete potassium prn Hypercalcemia of unclear etiology -S/P Pamidronate IV X1 dose -PTH-RP pending HypoPO4 -Encourage nutrition -Replete prn Diastolic CHF, chronic -Daily weight -Lasix prn Hyperglycemia -No sugar diet Moderate malnutrition -Advance diet as tolerated Slow transit constipation/ Fecal impaction -Laxative regimen as ordered Anemia in chronic illness -Monitor H&H Acute cystitis Sepsis BPH with LUTS -Continue Flomax
[2021-11-28] MEDS: ALBUMIN HUMAN 25% 12.5 GM, FUROSEMIDE 100 MG in NA CHLORIDE 0.9% 40 ML IV SCH ×3 (01:22→10:00)
[2021-11-28] MEDS: METOCLOPRAMIDE 10 MG/2mL INJ IV SCH ×3 (06:35→22:55)
[2021-11-28] MEDS: TAMSULOSIN 0.4 MG SR CAP PO SCH ×2 (09:00→21:00)
[2021-11-28] MEDS: ALBUTEROL 2.5 MG/3 ML NEB SOL NEB PRN (09:58)
[2021-11-28] MEDS: ENOXAPARIN 40 MG/0.4 ML SQ SCH (10:09)
[2021-11-28] MEDS: DOCUSATE NA 100 MG CAP PO SCH ×3 (10:09→21:36)
[2021-11-28] MEDS: TRAMADOL 37.5mg/APAP 325mg PER TAB PO SCH ×2 (10:10→21:36)
[2021-11-28] MEDS: CEFEPIME 1 GM in NA CHLORIDE 0.9% 100 ML IV SCH ×2 (10:11→21:34)
[2021-11-28] MEDS: ENSURE ENLIVE 237 ML CAN PO SCH ×2 (10:12→21:37)
[2021-11-28] MEDS ORDERED: GOLYTELY 4000 ML PO SCH ×2 (14:00→18:00)
[2021-11-28] MEDS: FLUCONAZOLE 100mg IVPB 100 MG/50 ML BAG IV SCH (16:45)
[2021-11-28] MEDS ORDERED: MAGNESIUM CITRATE 300 ML BOT PO SCH (17:00)
[2021-11-28] MEDS ORDERED: METOCLOPRAMIDE 10 MG/2mL INJ IV SCH (17:00)
--- NOTE | 2021-11-28 20:46 | P.PN ---
Date of Service: 11/28/21 Vital Signs Temp Pulse Resp BP Pulse Ox 98.1 F 95 H 18 111/56 L 95 11/28/21 16:00 11/28/21 16:00 11/28/21 16:00 11/28/21 16:00 11/28/21 16:00 Medications Acetaminophen (Acetaminophen 500 Mg Tab) 500 mg PO Q6H PRN PRN Reason: TEMP > 100' F OR MILD PAIN Last Admin: 11/24/21 23:54 Dose: 500 mg Documented by: Albuterol Sulfate (Albuterol 2.5 Mg/3 Ml Neb Cherry) 2.5 mg NEB [id number] PRN PRN Reason: SHORTNESS OF BREATH Last Admin: 11/28/21 09:58 Dose: 2.5 mg Documented by: Docusate Sodium (Docusate Na 100 Mg Cap) 100 mg PO TID [facility] Last Admin: 11/28/21 14:44 Dose: 100 mg Documented by: Enoxaparin Sodium (Enoxaparin 40 Mg/0.4 Ml) 40 mg SQ DAILY [facility] Last Admin: 11/28/21 10:09 Dose: 40 mg Documented by: Fentanyl Citrate (Fentanyl Citr 100 Mcg/2 Ml) 25 mcg IV Q4H PRN PRN Reason: Pain scale 8-10 (Severe) Last Admin: 11/26/21 01:52 Dose: 25 mcg Documented by: Cefepime HCl 1 gm/ Sodium (Chloride) 100 mls @ 200 mls/hr IV Q12HR [facility]; Protocol Last Admin: 11/28/21 10:11 Dose: 100 mls Documented by: Melatonin (Melatonin 5 Mg Tablet) 5 mg PO BEDTIME PRN PRN PRN Reason: INSOMNIA Last Admin: 11/27/21 21:26 Dose: 5 mg Documented by: Metoclopramide HCl (Metoclopramide 10 Mg/2ml Inj) 10 mg IV Q8H [facility] Last Admin: 11/28/21 14:44 Dose: 10 mg Documented by: Nutritional Formula (Ensure Enlive 237 Ml Can) 237 ml PO BID [facility] Last Admin: 11/28/21 10:12 Dose: 237 ml Documented by: Ondansetron HCl (Ondansetron 4 Mg/2 Ml Vial) 4 mg IV Q4H PRN PRN Reason: NAUSEA / VOMITING Last Admin: 11/22/21 14:34 Dose: 4 mg Documented by: Polyethylene Glycol (Polyethyl Gly 3350 17 Gm/Dose) 17 gm PO DAILY PRN PRN Reason: CONSTIPATION Sodium Chloride (Flush Normal Saline 10 Ml) 10 ml IV BID [facility] Last Admin: 11/28/21 10:11 Dose: 10 ml Documented by: Tamsulosin HCl (Tamsulosin 0.4 Mg Sr Cap) 0.4 mg PO BID [facility] Last Admin: 11/28/21 09:00 Dose: 0.4 mg Documented by: Tramadol/Acetaminophen (Tramadol 37.5mg/Apap 325mg Per Tab) 1 tab PO BID [facility] Last Admin: 11/28/21 10:10 Dose: 1 tab Documented by: Microbiology Results 11/16/21 10:55 Blood - Blood Aerobic Blood Culture - Final No growth in 5 days. 11/16/21 10:55 Blood - Blood Anaerobic Blood Culture - Final No growth in 5 days. 11/16/21 10:50 Blood - Blood Aerobic Blood Culture - Final Klebsiella Pneumoniae 11/16/21 10:50 Blood - Blood Blood Culture Gram Stain - Final 11/16/21 10:50 Blood - Blood Anaerobic Blood Culture - Final Klebsiella Pneumoniae 11/16/21 10:50 Blood - Blood Gram Stain - Final Assessment/ Plan: Nephrology No dyspnea No chest pain Fatigue and weakness No acute events overnight Vitals, medications, blood work and imaging reviewed in the chart. General: In no apparent distress, Oriented x3, Cooperative HEENT: Atraumatic Neck: Supple Respiratory: Normal resp effort Cardiovascular: Regular rate/rhythm, Hip & LE Edema Gastrointestinal: Abd soft Musculoskeletal: No clubbing, No contractures Integumentary: No rashes, No cyanosis Neurological: Normal speech Blood work reviewed in the chart. Imagings Data: EXAM DESCRIPTION: RAD - Chest Single View - 11/18/2021 7:01 am CLINICAL HISTORY: SOB COMPARISON: Portable 05/10/2021 TECHNIQUE: AP portable chest image was obtained 11/18/2021 7:01 am . FINDINGS: Dense consolidation is present in the inferolateral right upper lobe abutting the minor fissure. This is most likely acute pneumonia. No cavitation component. Lung volumes are low accentuating baseline interstitial pattern. No other area of dense consolidation is seen though there is airspace opacification in the lower left lung field. Additional site of pneumonia is possible in this can be monitored on follow-up imaging. Heart and vasculature are normal. No measurable pleural effusion and no pneumothorax. No acute bony abnormality seen. No acute aortic findings suspected. IMPRESSION: Consolidated pneumonia in the right upper lobe. Airspace opacification in the lower left lung field without dense consolidation. This could be additional site of pneumonia or accentuation of the patient's baseline lung parenchymal pattern due to portable technique and low lung volume. This can be monitored along with the right upper lobe finding. Heart size is stable. A small component of failure or volume overload superimposed on the above findings cannot be excluded. [facility] CLINICAL HISTORY: Chest pain FINDINGS: Small to moderate right pleural effusion with right basilar atelectasis. Left lung appears clear of acute infiltrate. The heart is mildly to moderately enlarged. Post-surgical changes involve chest Conclusions/Impression: CARMEN likely due to hypovolemia CKD III with proteinuria -No NSAIDs Hypokalemia -Replete potassium prn Hypercalcemia of unclear etiology -S/P Pamidronate IV X1 dose -PTH-RP 11 HypoPO4 -Encourage nutrition -Replete prn Diastolic CHF, chronic -Daily weight -Lasix prn Hyperglycemia -No sugar diet Moderate malnutrition -Advance diet as tolerated Slow transit constipation/ Fecal impaction -Laxative regimen as ordered Anemia in chronic illness -Monitor H&H Acute cystitis Sepsis BPH with LUTS -Continue Flomax
[2021-11-28] MEDS: MELATONIN 5 MG TABLET PO PRN (21:36)
[2021-11-28] MEDS: FENTANYL CITR 100 MCG/2 ML IV PRN (23:32)
[2021-11-29] MEDS: METOCLOPRAMIDE 10 MG/2mL INJ IV SCH ×3 (06:10→22:50)
[2021-11-29] MEDS ORDERED: NA CHLORIDE 0.9% 100 ML ONE (08:03)
[2021-11-29] MEDS: DOCUSATE NA 100 MG CAP PO SCH ×3 (08:28→22:50)
[2021-11-29] MEDS: ENOXAPARIN 40 MG/0.4 ML SQ SCH (08:28)
[2021-11-29] MEDS: TRAMADOL 37.5mg/APAP 325mg PER TAB PO SCH ×2 (08:28→22:50)
[2021-11-29] MEDS: CEFEPIME 1 GM/VIAL ONE ×2 (08:28→08:30)
[2021-11-29] MEDS: TAMSULOSIN 0.4 MG SR CAP PO SCH ×2 (08:29→22:50)
[2021-11-29] MEDS: ENSURE ENLIVE 237 ML CAN PO SCH ×2 (08:33→21:00)
[2021-11-29] MEDS: CEFEPIME 1 GM in NA CHLORIDE 0.9% 100 ML IV SCH ×2 (08:35→22:49)
[2021-11-29] MEDS ORDERED: MINERAL OIL 30 ML UCUP PO ONE (14:10)
[2021-11-30] MEDS ORDERED: CEFEPIME 1 GM/VIAL ONE (07:43)
[2021-11-30] MEDS ORDERED: NA CHLORIDE 0.9% 100 ML ONE (08:33)
[2021-11-30] MEDS: ENSURE ENLIVE 237 ML CAN PO SCH ×2 (09:00→23:58)
[2021-11-30] MEDS: CEFEPIME 1 GM in NA CHLORIDE 0.9% 100 ML IV SCH ×2 (09:00→20:22)
[2021-11-30] MEDS: TRAMADOL 37.5mg/APAP 325mg PER TAB PO SCH ×2 (09:21→20:22)
[2021-11-30] MEDS: TAMSULOSIN 0.4 MG SR CAP PO SCH ×2 (09:22→20:23)
[2021-11-30] MEDS: ENOXAPARIN 40 MG/0.4 ML SQ SCH (09:22)
[2021-11-30] MEDS: METOCLOPRAMIDE 10 MG/2mL INJ IV SCH ×3 (09:22→23:57)
[2021-11-30] MEDS: DOCUSATE NA 100 MG CAP PO SCH ×3 (09:22→20:23)
--- NOTE | 2021-11-30 09:57 | P.PN ---
Date of Service: 11/29/21 Vital Signs Temp Pulse Resp BP Pulse Ox 97.6 F 94 H 18 126/57 L 96 11/30/21 08:00 11/30/21 08:00 11/30/21 08:00 11/30/21 08:00 11/30/21 08:00 Medications Acetaminophen (Acetaminophen 500 Mg Tab) 500 mg PO Q6H PRN PRN Reason: TEMP > 100' F OR MILD PAIN Last Admin: 11/24/21 23:54 Dose: 500 mg Documented by: Albuterol Sulfate (Albuterol 2.5 Mg/3 Ml Neb Cherry) 2.5 mg NEB [id number] PRN PRN Reason: SHORTNESS OF BREATH Last Admin: 11/28/21 09:58 Dose: 2.5 mg Documented by: Docusate Sodium (Docusate Na 100 Mg Cap) 100 mg PO TID [facility] Last Admin: 11/30/21 09:22 Dose: 100 mg Documented by: Enoxaparin Sodium (Enoxaparin 40 Mg/0.4 Ml) 40 mg SQ DAILY [facility] Last Admin: 11/30/21 09:22 Dose: 40 mg Documented by: Fentanyl Citrate (Fentanyl Citr 100 Mcg/2 Ml) 25 mcg IV Q4H PRN PRN Reason: Pain scale 8-10 (Severe) Last Admin: 11/28/21 23:32 Dose: 25 mcg Documented by: Cefepime HCl 1 gm/ Sodium (Chloride) 100 mls @ 200 mls/hr IV Q12HR [facility]; Protocol Last Admin: 11/30/21 09:00 Dose: Not Given Documented by: Melatonin (Melatonin 5 Mg Tablet) 5 mg PO BEDTIME PRN PRN PRN Reason: INSOMNIA Last Admin: 11/28/21 21:36 Dose: 5 mg Documented by: Metoclopramide HCl (Metoclopramide 10 Mg/2ml Inj) 10 mg IV Q8H [facility] Last Admin: 11/30/21 09:22 Dose: 10 mg Documented by: Nutritional Formula (Ensure Enlive 237 Ml Can) 237 ml PO BID [facility] Last Admin: 11/30/21 09:00 Dose: 237 ml Documented by: Ondansetron HCl (Ondansetron 4 Mg/2 Ml Vial) 4 mg IV Q4H PRN PRN Reason: NAUSEA / VOMITING Last Admin: 11/22/21 14:34 Dose: 4 mg Documented by: Polyethylene Glycol (Polyethyl Gly 3350 17 Gm/Dose) 17 gm PO DAILY PRN PRN Reason: CONSTIPATION Sodium Chloride (Flush Normal Saline 10 Ml) 10 ml IV BID [facility] Last Admin: 11/30/21 09:22 Dose: 10 ml Documented by: Tamsulosin HCl (Tamsulosin 0.4 Mg Sr Cap) 0.4 mg PO BID [facility] Last Admin: 11/30/21 09:22 Dose: 0.4 mg Documented by: Tramadol/Acetaminophen (Tramadol 37.5mg/Apap 325mg Per Tab) 1 tab PO BID [facility] Last Admin: 11/30/21 09:21 Dose: 1 tab Documented by: Microbiology Results 11/16/21 10:55 Blood - Blood Aerobic Blood Culture - Final No growth in 5 days. 11/16/21 10:55 Blood - Blood Anaerobic Blood Culture - Final No growth in 5 days. 11/16/21 10:50 Blood - Blood Aerobic Blood Culture - Final Klebsiella Pneumoniae 11/16/21 10:50 Blood - Blood Blood Culture Gram Stain - Final 11/16/21 10:50 Blood - Blood Anaerobic Blood Culture - Final Klebsiella Pneumoniae 11/16/21 10:50 Blood - Blood Gram Stain - Final Assessment/ Plan: Nephrology No dyspnea No chest pain Fatigue and weakness No acute events overnight Vitals, medications, blood work and imaging reviewed in the chart. General: In no apparent distress, Oriented x3, Cooperative HEENT: Atraumatic Neck: Supple Respiratory: Normal resp effort Cardiovascular: Regular rate/rhythm, Hip & LE Edema Gastrointestinal: Abd soft Musculoskeletal: No clubbing, No contractures Integumentary: No rashes, No cyanosis Neurological: Normal speech Blood work reviewed in the chart. Imagings Data: EXAM DESCRIPTION: RAD - Chest Single View - 11/18/2021 7:01 am CLINICAL HISTORY: SOB COMPARISON: Portable 05/10/2021 TECHNIQUE: AP portable chest image was obtained 11/18/2021 7:01 am . FINDINGS: Dense consolidation is present in the inferolateral right upper lobe abutting the minor fissure. This is most likely acute pneumonia. No cavitation component. Lung volumes are low accentuating baseline interstitial pattern. No other area of dense consolidation is seen though there is airspace opacification in the lower left lung field. Additional site of pneumonia is possible in this can be monitored on follow-up imaging. Heart and vasculature are normal. No measurable pleural effusion and no pneumothorax. No acute bony abnormality seen. No acute aortic findings suspected. IMPRESSION: Consolidated pneumonia in the right upper lobe. Airspace opacification in the lower left lung field without dense consolidation. This could be additional site of pneumonia or accentuation of the patient's baseline lung parenchymal pattern due to portable technique and low lung volume. This can be monitored along with the right upper lobe finding. Heart size is stable. A small component of failure or volume overload superimposed on the above findings cannot be excluded. EXAM DESCRIPTION: [facility] Single View11/16/2021 10:47 am CLINICAL HISTORY: Chest pain FINDINGS: Small to moderate right pleural effusion with right basilar atelectasis. Left lung appears clear of acute infiltrate. The heart is mildly to moderately enlarged. Post-surgical changes involve chest Conclusions/Impression: CARMEN likely due to hypovolemia CKD III with proteinuria -No NSAIDs Hypokalemia -Replete potassium prn Hypercalcemia of unclear etiology -S/P Pamidronate IV X1 dose -PTH-RP 11 HypoPO4 -Encourage nutrition -Replete prn Diastolic CHF, chronic -Daily weight -Lasix prn Hyperglycemia -No sugar diet Moderate malnutrition -Advance diet as tolerated Slow transit constipation/ Fecal impaction -Laxative regimen as ordered Anemia in chronic illness -Monitor H&H Acute cystitis Sepsis BPH with LUTS Urinary retention -Continue Flomax -Continue [place]
[2021-11-30] MEDS ORDERED: POTASSIUM CL SA 10 MEQ TAB PO ONE (13:00)
[2021-11-30] MEDS: MELATONIN 5 MG TABLET PO PRN (20:25)
[2021-11-30] MEDS: DIAZEPAM 5 MG TABLET PO PRN (23:50)
[2021-12-01 01:39] LABS: Potassium 3.6 mmol/L (3.5-5.1)
[2021-12-01 01:45] LABS: Magnesium 2.1 mg/dL (1.8-2.4); Phosphorus 1.4 mg/dL (2.5-4.9)
[2021-12-01] MEDS: METOCLOPRAMIDE 10 MG/2mL INJ IV SCH ×3 (06:28→22:05)
[2021-12-01] MEDS ORDERED: POTASSIUM 25 MEQ EFFERV TAB PO ONE (09:00)
[2021-12-01] MEDS: ENSURE ENLIVE 237 ML CAN PO SCH ×2 (09:00→21:51)
[2021-12-01] MEDS: CEFEPIME 1 GM in NA CHLORIDE 0.9% 100 ML IV SCH ×2 (09:20→21:50)
[2021-12-01] MEDS ORDERED: NA CHLORIDE 0.9% 100 ML ONE (09:22)
[2021-12-01] MEDS ORDERED: CEFEPIME 1 GM/VIAL ONE (09:24)
[2021-12-01] MEDS: DOCUSATE NA 100 MG CAP PO SCH ×3 (09:40→21:51)
[2021-12-01] MEDS: ENOXAPARIN 40 MG/0.4 ML SQ SCH (09:40)
[2021-12-01] MEDS: TRAMADOL 37.5mg/APAP 325mg PER TAB PO SCH ×2 (09:40→21:51)
[2021-12-01] MEDS: TAMSULOSIN 0.4 MG SR CAP PO SCH ×2 (09:40→21:51)
[2021-12-01] MEDS: POTASS/SODIUM PHOSPHATE 1 PKT POWD.PACK PO SCH ×3 (12:23→14:00)
--- NOTE | 2021-12-01 15:00 | PN ---
Date of Progress Note: 12/01/2021 Subjective: The patient is seen at bedside. No overnight events reported. The patient states that he continues to feel fatigued. He denies any fevers, chills, chest pain. He does have slight dyspne a. Physical Examination: Vital Signs: Blood pressure is 128/65, pulse 98, afebrile. General: No acute distress. Heart: Regular rate and rhythm. No murmurs, rubs, gallops. Lungs: Crepitations heard at the right base. Abdomen: Soft, nontender, nondistended. Extremities: No significant edema. Laboratory Data: Sodium 138, potassium 3.6, chloride 106, CO2 30, BUN 24, creatinine 1.02, glucose 8 8, phosphorus 1.4, magnesium 2.1. CBC; WBC 14.4, hemoglobin 9.8, hematocrit 32.1, platelet count 181 . Current Medications: Reviewed. Impression: 1.Acute kidney injury, which resolved. 2.Hypercalcemia of unknown etiology. 3.Hypophosphatemia. Plan: The patient has acute kidney injury, which was resolved. The patient does have hypercalcemia, so far the patient's vitamin D 25 level is upper level of normal. His PTH was not appropriately sup pressed and his PTH related peptide was normal. We would recommend checking vitamin D 1, 25 level. Also, we will order SPEP and UPEP, given the patient's history of anemia and hypercalcemia. Consideration should also be given to parat hyroid ultrasound. /SABRINA Voice ID: [id number] Report ID: [id number]
[2021-12-01] MEDS: DIAZEPAM 5 MG TABLET PO PRN (19:19)
--- NOTE | 2021-12-01 21:05 | P.PN ---
Date of Service: 12/01/21 Subjective Subjective: Doing better. Patient starting to participate with physical therapy. Patient is sitting up eating his meals. Trying to get him transferred to long-term facility. Patient needs to keep ambulating. Physical Examination - Vital Signs Reviewed - Physical Exam General: Alert, Moderate distress Respiratory: Normal air movement Cardiovascular: Regular rate/rhythm, Normal S1 S2 Gastrointestinal: Tenderness Musculoskeletal: Swelling Neurological: Normal speech Assessment And Plan - Plan 1. CHF 2. UTI-yeast 3. Sepsis 4. A. fib 5. Hyperlipidemia 6. Physical Deconditioning 7. Constipation. 8. Hypercalcemia-persistent. Plan: - Cardiac status stable. Patient diuresed. - GI consultation appreciated; flexible sigmoidoscopy completed earlier this week. Patient had a large amount of stool removed. Patient also with a barium enema with no lesions. Family does not want colonoscopy. -Decrease pain medication; bowel regimen to prevent constipation -Barium enema with no obstructive lesion except for a large amount of stool which has been cleared; continue with bowel prep -Monitor calcium level; restarted calcitonin -Physical therapy; patient ambulating side to side. Family to proceed with long-term facility. They did contemplate hospice but patient improving. -Continue with medication for atrial fibrillation -Encouraged to ambulate and hopefully will get acceptance to long-term facility this week.
--- NOTE | 2021-12-01 21:06 | P.PN ---
Date of Service: 11/30/21 Subjective Subjective: Not feeling as well today. Clinical symptoms are stable however. Need to continue encourage him to get out of bed. Physical Examination - Vital Signs Reviewed - Physical Exam General: Alert, Moderate distress Respiratory: Normal air movement Cardiovascular: Regular rate/rhythm, Normal S1 S2 Gastrointestinal: Tenderness Musculoskeletal: Swelling; upper extremities Neurological: moves all extremities. Strength improving. Assessment And Plan - Plan 1. CHF 2. UTI-yeast 3. Sepsis 4. A. fib 5. Hyperlipidemia 6. Physical Deconditioning 7. Constipation. 8. Hypercalcemia-persistent. Plan: Continue plan of care as mentioned below: - Cardiac status stable. Patient diuresed. - GI consultation appreciated; flexible sigmoidoscopy completed earlier this week. Patient had a large amount of stool removed. Patient also with a barium enema with no lesions. Family does not want colonoscopy. -Decrease pain medication; bowel regimen to prevent constipation -Barium enema with no obstructive lesion except for a large amount of stool which has been cleared; continue with bowel prep -Monitor calcium level; restarted calcitonin -Physical therapy; patient ambulating side to side. Family to proceed with senior care facility. They did contemplate hospice but patient improving. -Continue with medication for atrial fibrillation -Encouraged to ambulate and hopefully will get acceptance to senior care facility this week.
--- NOTE | 2021-12-01 21:07 | P.PN ---
Date of Service: 11/29/21 Subjective Subjective: Patient got out of bed and walking side to side. Patient started getting little bit stronger with therapy. Physical Examination - Vital Signs Reviewed - Physical Exam General: Alert, Moderate distress Respiratory: Normal air movement Cardiovascular: Regular rate/rhythm, Normal S1 S2 Gastrointestinal: Tenderness Musculoskeletal: Swelling; upper extremities Neurological: moves all extremities. Strength improving. Assessment And Plan - Plan 1. CHF 2. UTI-yeast 3. Sepsis 4. A. fib 5. Hyperlipidemia 6. Physical Deconditioning 7. Constipation. 8. Hypercalcemia-persistent. Plan: Continue plan of care as mentioned below: - Cardiac status stable. Patient diuresed. Patient with a large amount of urine output. - GI consultation appreciated; flexible sigmoidoscopy completed earlier this week. Patient had a large amount of stool removed. Patient also with a barium enema with no lesions. Family does not want colonoscopy. -Decrease pain medication; bowel regimen to prevent constipation -Barium enema with no obstructive lesion except for a large amount of stool which has been cleared; continue with bowel prep -Monitor calcium level; restarted calcitonin -Physical therapy; patient ambulated side to side. Family to proceed with custodial facility. -Continue with medication for atrial fibrillation -Encouraged to ambulate and hopefully will get acceptance to custodial facility this week.
--- NOTE | 2021-12-01 21:09 | P.PN ---
Date of Service: 11/28/21 Subjective Subjective: Patient with a large amount of stool. He is clinically doing better. We will start working with physical therapy. Physical Examination - Vital Signs Reviewed - Physical Exam General: Alert, Moderate distress Respiratory: Normal air movement Cardiovascular: Regular rate/rhythm, Normal S1 S2 Gastrointestinal: Tenderness Musculoskeletal: Swelling; upper extremities Neurological: moves all extremities. Strength improving. Assessment And Plan - Plan 1. CHF 2. UTI-yeast 3. Sepsis 4. A. fib 5. Hyperlipidemia 6. Physical Deconditioning 7. Constipation. 8. Hypercalcemia-persistent. Plan: Continue plan of care as mentioned below: -CHF; heart failure compensated - GI consultation appreciated; flexible sigmoidoscopy completed-Patient had a large amount of stool removed. Patient also with a barium enema to be performed as well. Family does not want colonoscopy. -Decrease pain medication; bowel regimen to prevent constipation -Barium enema with no obstructive lesion except for a large amount of stool which has been cleared; continue with bowel prep -Monitor calcium level; restarted calcitonin -Physical therapy; patient ambulated side to side. Family to proceed with detention facility. -Continue with medication for atrial fibrillation -Encouraged to ambulate and hopefully will get acceptance to detention facility this week.
[2021-12-02 06:03] LABS: Absolute Lymphocytes (CBC) 1.1 K/uL (0.7-4.9); Hematocrit 31.5 % (39.6-49.0); Lymphocytes % 11.7 % (15.3-44.8); MPV 8.1 fL (7.6-11.3); RBC Red Blood Cell Count 3.78 M/uL (4.33-5.43)
[2021-12-02] MEDS: METOCLOPRAMIDE 10 MG/2mL INJ IV SCH ×3 (06:14→22:26)
[2021-12-02 06:20] LABS: Phosphorus 1.6 mg/dL (2.5-4.9); Potassium 4.1 mmol/L (3.5-5.1)
[2021-12-02 07:29] LABS: Anisocytosis 2+; Blood Morphology Comment NOTED (NOT SEEN); Hypochromasia 1+; Ovalocytes 1+; Platelet Estimate ADEQ; Teardrop Cell FEW
[2021-12-02] MEDS ORDERED: ALBUMIN HUMAN 25% 12.5 GM, FUROSEMIDE 100 MG in NA CHLORIDE 0.9% 40 ML IV SCH (08:00)
[2021-12-02] MEDS: CEFEPIME 1 GM in NA CHLORIDE 0.9% 100 ML IV SCH ×2 (08:34→21:35)
[2021-12-02] MEDS: ENSURE ENLIVE 237 ML CAN PO SCH ×2 (08:36→21:35)
[2021-12-02] MEDS: POTASS/SODIUM PHOSPHATE 1 PKT POWD.PACK PO SCH ×3 (08:37→11:09)
[2021-12-02] MEDS: TAMSULOSIN 0.4 MG SR CAP PO SCH ×2 (08:37→21:34)
[2021-12-02] MEDS: DOCUSATE NA 100 MG CAP PO SCH ×3 (08:37→21:34)
[2021-12-02] MEDS: TRAMADOL 37.5mg/APAP 325mg PER TAB PO SCH ×2 (08:38→21:34)
[2021-12-02] MEDS: ENOXAPARIN 40 MG/0.4 ML SQ SCH (08:39)
--- NOTE | 2021-12-02 10:06 | P.PN ---
Date of Service: 12/02/21 Vital Signs Temp Pulse Resp BP Pulse Ox 96.8 F 96 H 18 113/58 L 97 12/02/21 08:00 12/02/21 08:34 12/02/21 08:38 12/02/21 08:34 12/02/21 08:38 Medications Acetaminophen (Acetaminophen 500 Mg Tab) 500 mg PO Q6H PRN PRN Reason: TEMP > 100' F OR MILD PAIN Last Admin: 11/24/21 23:54 Dose: 500 mg Documented by: Albuterol Sulfate (Albuterol 2.5 Mg/3 Ml Neb Cherry) 2.5 mg NEB [id number] PRN PRN Reason: SHORTNESS OF BREATH Last Admin: 11/28/21 09:58 Dose: 2.5 mg Documented by: Diazepam (Diazepam 5 Mg Tablet) 5 mg PO Q6H PRN PRN Reason: ANXIETY Last Admin: 12/01/21 19:19 Dose: 5 mg Documented by: Docusate Sodium (Docusate Na 100 Mg Cap) 100 mg PO TID [facility] Last Admin: 12/02/21 08:37 Dose: 100 mg Documented by: Enoxaparin Sodium (Enoxaparin 40 Mg/0.4 Ml) 40 mg SQ DAILY [facility] Last Admin: 12/02/21 08:39 Dose: 40 mg Documented by: Fentanyl Citrate (Fentanyl Citr 100 Mcg/2 Ml) 25 mcg IV Q4H PRN PRN Reason: Pain scale 8-10 (Severe) Last Admin: 11/28/21 23:32 Dose: 25 mcg Documented by: Cefepime HCl 1 gm/ Sodium (Chloride) 100 mls @ 200 mls/hr IV Q12HR [facility]; Protocol Last Admin: 12/02/21 08:34 Dose: 100 mls Documented by: Albumin Human 12.5 gm/Furosemide 100 mg/ Sodium Chloride 100 mls @ 20 mls/hr IV Q5H [facility] Stop: 12/02/21 12:59 Last Admin: 12/02/21 08:34 Dose: 100 mls Documented by: Melatonin (Melatonin 5 Mg Tablet) 5 mg PO BEDTIME PRN PRN PRN Reason: INSOMNIA Last Admin: 11/30/21 20:25 Dose: 5 mg Documented by: Metoclopramide HCl (Metoclopramide 10 Mg/2ml Inj) 10 mg IV Q8H [facility] Last Admin: 12/02/21 06:14 Dose: 10 mg Documented by: Nutritional Formula (Ensure Enlive 237 Ml Can) 237 ml PO BID [facility] Last Admin: 12/02/21 08:36 Dose: 237 ml Documented by: Ondansetron HCl (Ondansetron 4 Mg/2 Ml Vial) 4 mg IV Q4H PRN PRN Reason: NAUSEA / VOMITING Last Admin: 11/22/21 14:34 Dose: 4 mg Documented by: Polyethylene Glycol (Polyethyl Gly 3350 17 Gm/Dose) 17 gm PO DAILY PRN PRN Reason: CONSTIPATION Potassium Phos/Sodium Phos (Potass/Sodium Phosphate 1 Pkt Powd.Pack) 1 pkt PO Q1H [facility] Stop: 12/02/21 11:01 Last Admin: 12/02/21 08:37 Dose: 1 pkt Documented by: Sodium Chloride (Flush Normal Saline 10 Ml) 10 ml IV BID [facility] Last Admin: 12/02/21 08:39 Dose: 10 ml Documented by: Tamsulosin HCl (Tamsulosin 0.4 Mg Sr Cap) 0.4 mg PO BID [facility] Last Admin: 12/02/21 08:37 Dose: 0.4 mg Documented by: Tramadol/Acetaminophen (Tramadol 37.5mg/Apap 325mg Per Tab) 1 tab PO BID [facility] Last Admin: 12/02/21 08:38 Dose: 1 tab Documented by: Microbiology Results 11/16/21 10:55 Blood - Blood Aerobic Blood Culture - Final No growth in 5 days. 11/16/21 10:55 Blood - Blood Anaerobic Blood Culture - Final No growth in 5 days. 11/16/21 10:50 Blood - Blood Aerobic Blood Culture - Final Klebsiella Pneumoniae 11/16/21 10:50 Blood - Blood Blood Culture Gram Stain - Final 11/16/21 10:50 Blood - Blood Anaerobic Blood Culture - Final Klebsiella Pneumoniae 11/16/21 10:50 Blood - Blood Gram Stain - Final Assessment/ Plan: Nephrology No dyspnea No chest pain Fatigue and weakness No acute events overnight Vitals, medications, blood work and imaging reviewed in the chart. General: In no apparent distress, Oriented x3, Cooperative HEENT: Atraumatic Neck: Supple Respiratory: Normal resp effort Cardiovascular: Regular rate/rhythm, Hip & LE Edema Gastrointestinal: Abd soft Musculoskeletal: No clubbing, No contractures Integumentary: No rashes, No cyanosis Neurological: Normal speech Blood work reviewed in the chart. Imagings Data: EXAM DESCRIPTION: RAD - Chest Single View - 11/18/2021 7:01 am CLINICAL HISTORY: SOB COMPARISON: Portable 05/10/2021 TECHNIQUE: AP portable chest image was obtained 11/18/2021 7:01 am . FINDINGS: Dense consolidation is present in the inferolateral right upper lobe abutting the minor fissure. This is most likely acute pneumonia. No cavitation component. Lung volumes are low accentuating baseline interstitial pattern. No other area of dense consolidation is seen though there is airspace opacification in the lower left lung field. Additional site of pneumonia is possible in this can be monitored on follow-up imaging. Heart and vasculature are normal. No measurable pleural effusion and no pneumothorax. No acute bony abnormality seen. No acute aortic findings suspected. IMPRESSION: Consolidated pneumonia in the right upper lobe. Airspace opacification in the lower left lung field without dense consolidation. This could be additional site of pneumonia or accentuation of the patient's baseline lung parenchymal pattern due to portable technique and low lung volume. This can be monitored along with the right upper lobe finding. Heart size is stable. A small component of failure or volume overload superimposed on the above findings cannot be excluded. EXAM DESCRIPTION: RADChest Single View11/16/2021 10:47 am CLINICAL HISTORY: Chest pain FINDINGS: Small to moderate right pleural effusion with right basilar atelectasis. Left lung appears clear of acute infiltrate. The heart is mildly to moderately enlarged. Post-surgical changes involve chest Conclusions/Impression: CARMEN improving CKD III with proteinuria -No NSAIDs -Continue furosemide Hypokalemia -Replete potassium prn Hypercalcemia of unclear etiology -S/P Pamidronate IV X1 dose -PTH-RP 11 HypoPO4 -Encourage nutrition -Replete as ordered Diastolic CHF, chronic -Daily weight -Continue furosemide Hyperglycemia -No sugar diet Moderate malnutrition -Advance diet as tolerated Slow transit constipation/ Fecal impaction -Laxative regimen as ordered Anemia in chronic illness -Monitor H&H Acute cystitis Sepsis BPH with LUTS Urinary retention -Continue Flomax -Continue [place]
--- NOTE | 2021-12-02 15:53 | P.PN ---
Subjective Date of Service: 12/02/21 Chief Complaint: Fecal stool impaction, acute kidney injury; intractable N/V, sepsis Subjective: No new changes ( at bedside reports shortness of breath Patient still very tired, slowly participating with PT) Physical Examination - Vital Signs Temperature: 97.2 F Blood Pressure: 130/57 Pulse: 89 Respirations: 22 Pulse Ox (%): 100 - Studies Medications List Reviewed: Yes Assessment And Plan Physician Review: Patient Assessed, Agree with Above Assessment and Plan Physician Review Additional Text: - Physical Exam General: Alert, Moderate distress, on 2 L nasal cannula O2 Respiratory: Decreased breath sound bilateral bases, no expiratory wheeze Cardiovascular: Regular rate/rhythm, Normal S1 S2 Gastrointestinal: Full, soft, bowel sounds positive in all 4 quads Musculoskeletal: Generalized anasarca 2+, 2+ pedal edema bilateral Neurological: Normal speech, alert and oriented x3 Assessment And Plan - Plan 1. CHF with fluid overload/moderate right pleural effusion 2. UTI-yeast 3. Sepsis 4. A. fib 5. Hyperlipidemia 6. Physical Deconditioning 7. Constipation. 8. Hypercalcemia-persistent. Plan: -Still mild hypoxia, increase Lasix diuresis Acute kidney failure improving with IV midthoracic, off albumin now Cardiac status stable. Continue volume status controlled Moving bowels well now, status post- GI consultation; flexible sigmoidoscopy completed earlier this week. Patient had a large amount of stool removed. Patient also with a barium enema with no lesions. Family does not want colonoscopy. -Improving serum calcium level, likely due to immobility, restarted calcitonin -Continue physical therapy, follow-up plan for SNF -Continue with medication for atrial fibrillation Follow case management acceptance to detention facility this week. 12/02/21 15:53
[2021-12-02] MEDS ORDERED: FUROSEMIDE 40 MG/4 ML VIAL IV ONE (15:55)
[2021-12-02] MEDS: DIAZEPAM 5 MG TABLET PO PRN (21:35)
[2021-12-02] MEDS: MELATONIN 5 MG TABLET PO PRN (21:35)
[2021-12-02] MEDS: ALBUTEROL 2.5 MG/3 ML NEB SOL NEB PRN (22:50)
[2021-12-03] MEDS: MELATONIN 5 MG TABLET PO PRN (00:09)
[2021-12-03 06:18] LABS: Albumin 2.3 g/dL (3.4-5.0); Bilirubin Total 1.1 mg/dL (0.2-1.0); Potassium 3.9 mmol/L (3.5-5.1); Protein, Total 6.1 g/dL (6.4-8.2)
--- NOTE | 2021-12-03 07:02 | RAD REPORT ---
EXAM DESCRIPTION: RAD - Chest Single View - 12/03/2021 5:55 am CLINICAL HISTORY: pleural effusion, shortness of breath COMPARISON: Portable 11/16/2021 and 11/26/2020 ; CT chest 11/23/2021 TECHNIQUE: AP portable chest image was obtained 12/03/2021 5:55 am . FINDINGS: Right-sided pleural effusion does not appear significantly different from the comparison i maging. There is no right-sided pneumothorax. Small left-sided pleural effusion is also evident and s table. Airspace opacities are scattered in the lung parenchyma in a pattern similar to the November 16 ex amination. Enlarged cardiac silhouette again noted. Central vasculature is slightly more prominent. Trachea is midline. Sternotomy wires are in place. Cardiac leads overlie the chest. No pneumothorax. IMPRESSION: Right greater than left pleural effusions are present not significantly different back t o November 16 imaging. Cardiomegaly is present. Vasculature and lung markings remain prominent.
[2021-12-03] MEDS ORDERED: FUROSEMIDE 40 MG TABLET PO SCH (09:00)
[2021-12-03] MEDS: ENSURE ENLIVE 237 ML CAN PO SCH ×2 (09:00→20:53)
[2021-12-03] MEDS ORDERED: POTASSIUM CL SA 10 MEQ TAB PO ONE (09:00)
--- NOTE | 2021-12-03 09:39 | P.PN ---
Subjective Date of Service: 12/03/21 Chief Complaint: Fecal stool impaction, acute kidney injury; intractable N/V, sepsis Subjective: No new changes, Tolerating diet Physical Examination - Vital Signs Temperature: 99.4 F Blood Pressure: 104/43 Pulse: 96 Respirations: 19 Pulse Ox (%): 95 - Studies Medications List Reviewed: Yes Assessment And Plan Physician Review: Patient Assessed, Agree with Above Assessment and Plan Physician Review Additional Text: Echo LEFT VENTRICULAR WALL MOTION: NORMAL. DOPPLER/COLOR FLOW: MILD PULMONIC INSUFFICIENCY, MILD TRICUSPID REGURGIT ATION, MODERATE MITRAL REGURGITATION. COMMENTS: NORMAL LEFT VENTRICULAR EJECTION FRACTION 55-60%. NORMAL WALL MOTION. MILD PULMONIC INSUFFICIENCY, MILD TRICUSPID REGURGITATION. MILD TO MODERATE MITRAL REGURGITATION. LEFT ATRIAL ENLARGEMENT. TECHNOLOGIST: YUNG MURRAY [facility] CT abdomen/pelvicsextensive fecal impaction Sigmoidoscopy11/25/21removal of greater than 1 pound solid stool in the rectum - Physical Exam General: Alert, Moderate distress, on 2 L nasal cannula O2 Respiratory: Decreased breath sound bilateral bases, no expiratory wheeze Cardiovascular: Regular rate/rhythm, Normal S1 S2 Gastrointestinal: Full, soft, bowel sounds positive in all 4 quads Musculoskeletal: Generalized anasarca 2+, 2+ pedal edema bilateral Neurological: Normal speech, alert and oriented x3 Assessment And Plan - Plan 1. CHF with fluid overload 2 persistent moderate right pleural effusion/small left pleural effusion 2. UTI-yeast 3. Sepsis 4. A. fib 5. Hyperlipidemia 6. Physical Deconditioning 7. Constipation-sigmoidoscopy with greater than 1 pound stool removal 11/25/21, Family does not want colonoscopy. 8. Hypercalcemia-persistent. 9hypophosphatemia 10 Acute kidney injuryimproved Plan: -See persistent O2 dependent with anasarca Continue IV diuretics We discussed with patient and spouse regarding possible right thoracocentesis today Creatinine improving, acute kidney injury resolved s/p recent albuminLasix diuresis -Improving serum calcium level, likely due to immobility, restarted calcitonin -Continue physical therapy, follow-up plan for SNF -Continue with medication for atrial fibrillation We will replete phosphorus level today, start Neutra-Phos twice daily Follow case management acceptance to custodial facility this week. 12/03/21 09:36 Time Spent Managing PTS Care (In Minutes): 36
[2021-12-03] MEDS ORDERED: POTASSIUM PHOS 30 MM in NA CHLORIDE 0.9% 500 ML IV ONE (10:00)
[2021-12-03] MEDS: CEFEPIME 1 GM in NA CHLORIDE 0.9% 100 ML IV SCH ×2 (10:26→20:47)
[2021-12-03] MEDS: ENOXAPARIN 40 MG/0.4 ML SQ SCH (10:26)
[2021-12-03] MEDS: TAMSULOSIN 0.4 MG SR CAP PO SCH ×2 (10:27→20:48)
[2021-12-03] MEDS: METOCLOPRAMIDE 10 MG/2mL INJ IV SCH ×3 (10:27→22:45)
[2021-12-03] MEDS: TRAMADOL 37.5mg/APAP 325mg PER TAB PO SCH ×2 (10:27→20:48)
[2021-12-03] MEDS: DOCUSATE NA 100 MG CAP PO SCH ×3 (10:27→20:52)
[2021-12-03] MEDS: FUROSEMIDE 40 MG TABLET PO SCH (16:56)
[2021-12-03] MEDS: POTASS/SODIUM PHOSPHATE 1 PKT POWD.PACK PO SCH (20:48)
--- NOTE | 2021-12-03 21:26 | P.PN ---
Date of Service: 12/03/21 Vital Signs Temp Pulse Resp BP Pulse Ox 97 F 93 H 18 108/57 L 97 12/03/21 20:00 12/03/21 20:00 12/03/21 20:48 12/03/21 20:00 12/03/21 20:48 Medications Acetaminophen (Acetaminophen 500 Mg Tab) 500 mg PO Q6H PRN PRN Reason: TEMP > 100' F OR MILD PAIN Last Admin: 11/24/21 23:54 Dose: 500 mg Documented by: Albuterol Sulfate (Albuterol 2.5 Mg/3 Ml Neb Cherry) 2.5 mg NEB [id number] PRN PRN Reason: SHORTNESS OF BREATH Last Admin: 12/02/21 22:50 Dose: 2.5 mg Documented by: Diazepam (Diazepam 5 Mg Tablet) 5 mg PO Q6H PRN PRN Reason: ANXIETY Last Admin: 12/02/21 21:35 Dose: 5 mg Documented by: Docusate Sodium (Docusate Na 100 Mg Cap) 100 mg PO TID [facility] Last Admin: 12/03/21 20:52 Dose: Not Given Documented by: Enoxaparin Sodium (Enoxaparin 40 Mg/0.4 Ml) 40 mg SQ DAILY [facility] Last Admin: 12/03/21 10:26 Dose: 40 mg Documented by: Fentanyl Citrate (Fentanyl Citr 100 Mcg/2 Ml) 25 mcg IV Q4H PRN PRN Reason: Pain scale 8-10 (Severe) Last Admin: 11/28/21 23:32 Dose: 25 mcg Documented by: Furosemide (Furosemide 40 Mg Tablet) 40 mg PO BIDL [facility] Last Admin: 12/03/21 16:56 Dose: 40 mg Documented by: Cefepime HCl 1 gm/ Sodium (Chloride) 100 mls @ 200 mls/hr IV Q12HR [facility]; Protocol Last Admin: 12/03/21 20:47 Dose: 100 mls Documented by: Melatonin (Melatonin 5 Mg Tablet) 5 mg PO BEDTIME PRN PRN PRN Reason: INSOMNIA Last Admin: 12/03/21 00:09 Dose: 5 mg Documented by: Metoclopramide HCl (Metoclopramide 10 Mg/2ml Inj) 10 mg IV Q8H [facility] Last Admin: 12/03/21 16:55 Dose: 10 mg Documented by: Midodrine (Midodrine Hcl 5 Mg Tablet) 5 mg PO DAILY [facility] Nutritional Formula (Ensure Enlive 237 Ml Can) 237 ml PO BID [facility] Last Admin: 12/03/21 20:53 Dose: Not Given Documented by: Ondansetron HCl (Ondansetron 4 Mg/2 Ml Vial) 4 mg IV Q4H PRN PRN Reason: NAUSEA / VOMITING Last Admin: 11/22/21 14:34 Dose: 4 mg Documented by: Polyethylene Glycol (Polyethyl Gly 3350 17 Gm/Dose) 17 gm PO DAILY PRN PRN Reason: CONSTIPATION Potassium Phos/Sodium Phos (Potass/Sodium Phosphate 1 Pkt Powd.Pack) 1 pkt PO BID [facility] Last Admin: 12/03/21 20:48 Dose: 1 pkt Documented by: Sodium Chloride (Flush Normal Saline 10 Ml) 10 ml IV BID [facility] Last Admin: 12/03/21 20:48 Dose: 10 ml Documented by: Tamsulosin HCl (Tamsulosin 0.4 Mg Sr Cap) 0.4 mg PO BID [facility] Last Admin: 12/03/21 20:48 Dose: 0.4 mg Documented by: Tramadol/Acetaminophen (Tramadol 37.5mg/Apap 325mg Per Tab) 1 tab PO BID [facility] Last Admin: 12/03/21 20:48 Dose: 1 tab Documented by: Microbiology Results 11/16/21 10:55 Blood - Blood Aerobic Blood Culture - Final No growth in 5 days. 11/16/21 10:55 Blood - Blood Anaerobic Blood Culture - Final No growth in 5 days. 11/16/21 10:50 Blood - Blood Aerobic Blood Culture - Final Klebsiella Pneumoniae 11/16/21 10:50 Blood - Blood Blood Culture Gram Stain - Final 11/16/21 10:50 Blood - Blood Anaerobic Blood Culture - Final Klebsiella Pneumoniae 11/16/21 10:50 Blood - Blood Gram Stain - Final Assessment/ Plan: Nephrology No dyspnea No chest pain Fatigue and weakness No acute events overnight Vitals, medications, blood work and imaging reviewed in the chart. General: In no apparent distress, Oriented x3, Cooperative HEENT: Atraumatic Neck: Supple Respiratory: Normal resp effort Cardiovascular: Regular rate/rhythm, Hip & LE Edema Gastrointestinal: Abd soft Musculoskeletal: No clubbing, No contractures Integumentary: No rashes, No cyanosis Neurological: Normal speech Blood work reviewed in the chart. Imagings Data: EXAM DESCRIPTION: RAD - Chest Single View - 11/18/2021 7:01 am CLINICAL HISTORY: SOB COMPARISON: Portable 05/10/2021 TECHNIQUE: AP portable chest image was obtained 11/18/2021 7:01 am . FINDINGS: Dense consolidation is present in the inferolateral right upper lobe abutting the minor fissure. This is most likely acute pneumonia. No cavitation component. Lung volumes are low accentuating baseline interstitial pattern. No other area of dense consolidation is seen though there is airspace opacification in the lower left lung field. Additional site of pneumonia is possible in this can be monitored on follow-up imaging. Heart and vasculature are normal. No measurable pleural effusion and no pneumothorax. No acute bony abnormality seen. No acute aortic findings suspected. IMPRESSION: Consolidated pneumonia in the right upper lobe. Airspace opacification in the lower left lung field without dense consolidation. This could be additional site of pneumonia or accentuation of the patient's baseline lung parenchymal pattern due to portable technique and low lung volume. This can be monitored along with the right upper lobe finding. Heart size is stable. A small component of failure or volume overload superimposed on the above findings cannot be excluded. EXAM DESCRIPTION: RADChest Single View11/16/2021 10:47 am CLINICAL HISTORY: Chest pain FINDINGS: Small to moderate right pleural effusion with right basilar atelectasis. Left lung appears clear of acute infiltrate. The heart is mildly to moderately enlarged. Post-surgical changes involve chest LEFT VENTRICULAR WALL MOTION: NORMAL. DOPPLER/COLOR FLOW: MILD PULMONIC INSUFFICIENCY, MILD TRICUSPID REG URGITATION, MODERATE MITRAL REGURGITATION. COMMENTS: NORMAL LEFT VENTRICULAR EJECTION FRACTION 55-60%. NORMAL WALL MOTION. MILD PULMONIC INSUFFICIENCY, MILD TRICUSPID REGURGITATION. MILD TO MODERATE MITRAL REGURGITATION. LEFT ATRIAL ENLARGEMENT. Conclusions/Impression: CARMEN improving CKD III with proteinuria -No NSAIDs -Continue furosemide Hypokalemia -Replete potassium prn Hypercalcemia of unclear etiology -S/P Pamidronate IV X1 dose -PTH-RP 11 HypoPO4 -Encourage nutrition -Replete as ordered Diastolic CHF, chronic -Daily weight -Continue furosemide Hyperglycemia -No sugar diet Moderate malnutrition -Advance diet as tolerated Slow transit constipation/ Fecal impaction -Laxative regimen as ordered Anemia in chronic illness -Monitor H&H Acute cystitis Sepsis BPH with LUTS Urinary retention -Continue Flomax -Continue [place]
[2021-12-04 05:58] LABS: AST/SGOT 9 U/L (15-37); Albumin 2.1 g/dL (3.4-5.0); Alkaline Phosphatase 131 U/L (45-117); BUN Blood Urea Nitrogen 28 mg/dL (7-18); Bicarbonate 31 mmol/L (21-32); Bilirubin Total 0.9 mg/dL (0.2-1.0); Glucose Level 84 mg/dL (74-106); Phosphorus 2.5 mg/dL (2.5-4.9); Potassium 4.3 mmol/L (3.5-5.1); Sodium Level 140 mmol/L (136-145)
[2021-12-04 05:59] LABS: ALT/SGPT < 10 U/L (12-78)
[2021-12-04] MEDS: CEFEPIME 1 GM in NA CHLORIDE 0.9% 100 ML IV SCH ×2 (08:36→21:34)
[2021-12-04] MEDS: MIDODRINE HCL 5 MG TABLET PO SCH (08:37)
[2021-12-04] MEDS: FUROSEMIDE 40 MG TABLET PO SCH ×2 (08:37→17:04)
[2021-12-04] MEDS: TRAMADOL 37.5mg/APAP 325mg PER TAB PO SCH ×2 (08:37→21:34)
[2021-12-04] MEDS: TAMSULOSIN 0.4 MG SR CAP PO SCH ×2 (08:37→21:34)
[2021-12-04] MEDS: METOCLOPRAMIDE 10 MG/2mL INJ IV SCH ×3 (08:38→22:24)
[2021-12-04] MEDS: ENSURE ENLIVE 237 ML CAN PO SCH ×3 (08:38→21:50)
[2021-12-04] MEDS: DOCUSATE NA 100 MG CAP PO SCH ×3 (08:38→21:34)
[2021-12-04] MEDS ORDERED: LIDOCAINE 1% MPF 5 ML VIAL ONE (08:57)
[2021-12-04] MEDS: ENOXAPARIN 40 MG/0.4 ML SQ SCH (09:00)
[2021-12-04] MEDS: POTASS/SODIUM PHOSPHATE 1 PKT POWD.PACK PO SCH ×2 (09:44→21:33)
--- NOTE | 2021-12-04 10:04 | P.OP ---
Preoperative diagnosis: RIGHT Pleural Effusion Postoperative diagnosis: RIGHT Pleural Effusion Primary procedure: RIGHT Thoracentesis Anesthesia: 1% Lidocaine Estimated blood loss: <1cc Specimen: 1.7 liters pleural fluid Findings: Straw colored pleural fluid Complications: None Transferred to: Other (Bedside) Condition: Good
--- NOTE | 2021-12-04 10:10 | P.PN ---
Subjective Date of Service: 12/04/21 Chief Complaint: Fecal stool impaction, acute kidney injury; intractable N/V, sepsis Subjective: No new changes, No C/O voiced (Status post 1.7 L thoracocentesis today Still requiring supplemental O2) Physical Examination - Vital Signs Temperature: 97.7 F Blood Pressure: 126/56 Pulse: 111 Respirations: 20 Pulse Ox (%): 96 - Studies Medications List Reviewed: Yes Assessment And Plan Physician Review: Patient Assessed, Agree with Above Assessment and Plan Physician Review Additional Text: Echo LEFT VENTRICULAR WALL MOTION: NORMAL. DOPPLER/COLOR FLOW: MILD PULMONIC INSUFFICIENCY, MILD TRICUSPID REGURGITATION, MODERATE MITRAL REGURGITATION. COMMENTS: NORMAL LEFT VENTRICULAR EJECTION FRACTION 55-60%. NORMAL WALL MOTION. MILD PULMONIC INSUFFICIENCY, MILD TRICUSPID REGURGITATION. MILD TO MODERATE MITRAL REGURGITATION. LEFT ATRIAL ENLARGEMENT. TECHNOLOGIST: YUNG MURRAY [facility] [place] CT abdomen/pelvicsextensive fecal impaction Sigmoidoscopy11/25/21removal of greater than 1 pound solid stool in the rectum Right thoracocentesis/2 / 2-1.7 L fluid removed - Physical Exam General: Alert, Moderate distress, on 2 L nasal cannula O2 Respiratory: Decreased breath sound bilateral bases, no expiratory wheeze Cardiovascular: Regular rate/rhythm, Normal S1 S2 Gastrointestinal: Full, soft, bowel sounds positive in all 4 quads Musculoskeletal: Generalized anasarca 2+, 2+ pedal edema bilateral Neurological: Normal speech, alert and oriented x3 Assessment And Plan - Plan 1. CHF with fluid overload 2 persistent moderate right pleural effusion/small left pleural effusionstatus post right thoracocentesis 2. UTI-yeast 3. Sepsis 4. A. fib 5. Hyperlipidemia 6. Physical Deconditioning 7. Constipation-sigmoidoscopy with greater than 1 pound stool removal 11/25/21, Family does not want colonoscopy. 8. Hypercalcemia-persistent. 9hypophosphatemia 10 Acute kidney injuryimproved Plan: -Wean O2 as tolerated Dose albumin with IV Lasix today post thoracocentesis Continue PT and OT Follow discharge planningplan for SNF s/p recent albuminLasix diuresis -Improving serum calcium level, likely due to immobility, restarted calcitonin -Continue physical therapy, follow-up plan for SNF -Continue with medication for atrial fibrillation Continue Neutra-Phos twice daily Follow case management acceptance to retirement facility this week. 12/04/21 10:09
[2021-12-04] MEDS ORDERED: ALBUMIN HUMAN 25% 100 ML IV ONE (10:11)
[2021-12-04] MEDS ORDERED: FUROSEMIDE 40 MG/4 ML VIAL IV ONE (10:12)
--- NOTE | 2021-12-04 10:57 | RAD REPORT ---
EXAM DESCRIPTION: US - UPPER EXTREMITY VENOUS UNILATE - 12/04/2021 10:49 am CLINICAL HISTORY: rule out blood clot in right arm COMPARISON: Thorax Wo Con dated 11/23/2021 FINDINGS: Color Doppler, grayscale, and spectral analysis was performed. No venous thrombosis identified in the right upper extremity. The right internal jugular vein, subcla vian vein, axillary vein, brachial vein, basilic vein, cephalic vein, radial vein, and ulnar vein wer e all evaluated. Subcutaneous edema is present at the medial aspect of the arm which is nonspecific. IMPRESSION: No venous thrombosis identified in the right upper extremity.
--- NOTE | 2021-12-04 11:30 | RAD REPORT ---
EXAM DESCRIPTION: RAD - Chest Single View - 12/04/2021 11:12 am CLINICAL HISTORY: post thorcentesis COMPARISON: Chest Single View dated 12/03/2021; Chest Single View dated 11/16/2021; Chest Single View d ated 11/26/2020; Chest Single View dated 11/23/2020; UPPER EXTREMITY VENOUS UNILATE dated 12/04/2021 FINDINGS: Interval right-sided thoracentesis without pneumothorax. Decreased right pleural effusion. Left pleural effusion is again noted and unchanged. Re- demonstrated findings suggesting pulmonary e ross. IMPRESSION: Interval right-sided thoracentesis with decreased right pleural effusion. No pneumothora x. Similar left pleural effusion as well as multifocal airspace disease that likely represents pulmon zuleyka edema.
--- NOTE | 2021-12-04 14:33 | CON ---
Date of Consultation: 12/03/2021 Brief History Of Present Illness: The patient is an 85-year-old gentleman, who came to the hospital, was admitted on 11/16/2021 with CARMEN, intractable nausea, vomiting, and possible sepsis. He had been feeling poorly and had not been in good health as of late. He additionally had generalized weakness . As such, he was brought to the hospital by his . He had a significant pleural effusion noted at that time. He had a UA as well as blood cultures and was started on broad-spectrum antibiotics. I am consulted to see him for his significant right pleural effusion. Past Medical History: Significant for atrial fibrillation, CVA, hypertension, COPD, systemic mastocy tosis, hyperlipidemia, gout. Past Surgical History: Includes a CABG, coronary stents, cataract surgery. He has had a thoracentes is before in the past at [facility]. Home Medications: Include Lasix, pravastatin, Xarelto, methylprednisone, aspirin, melatonin, Flomax, metoprolol, and Desyrel. Allergies: NO KNOWN DRUG ALLERGIES. Family History: Noncontributory. Social History: He denies smoking, alcohol, or recreational drug use. Review of Systems: Ten-point review of systems other than HPI, denies. Physical Examination: Vital Signs: At the time of my examination; blood pressure 108/57, heart rate 93, respiratory rate 1 8, temperature was 97.0, O2 sats were 97% on room air. General: He is lethargic, but arousable. His is at the bedside. We have talked and the patien t responds, but very slow mentation. His predominantly answered the majority of questions relat ed to his medical history. HEENT: Otherwise normocephalic. His sclerae were anicteric. His mucous membranes were moist. His oropharynx was clear. Neck: Supple. There was no JVD. Chest: Normal expansion and excursion. Cardiovascular: Irregularly irregular. Abdomen: Soft. Pulmonary: Decreased breath sounds, right greater than left, but good expansion and excursion. Extremities: He has swelling in the right upper extremity and general fluid retention consistent wit h mild anasarca. Laboratory Data: His white blood cell count was 9.4, hemoglobin is 9.8, hematocrit 31.5, platelet co unt was 167. Neutrophils are 50%. Sodium 138, potassium 3.9, chloride 105, carbon dioxide is 31, BU N was 26, creatinine 1.1, glucose was 85. Total bilirubin 1.1, AST 11, ALT 11, alkaline phosphatase 129. He had imaging performed, which included a chest CT on 11/23, which was officially read as larg e, moderate right new small left pleural effusion with underlying atelectasis, the source of effusion may be secondary to heart failure. No acute findings. No discrete lung mass appreciated. He has f oreseeable cardiomegaly as well, multivessel coronary artery disease, aortic valve calcification, pre vious sternotomy noted. Assessment And Plan: This is an 85-year-old male, who comes in with an enlarging right pleural effus ion and shortness of breath. I have been consulted to see the patient for a thoracentesis. 1.Continue medical management per primary team, Nephrology, Cardiology, and Gastroenterology. 2.I have explained the risks, benefits, and alternatives of right-sided thoracentesis including, but not limited to bleeding, infection, damage to surrounding tissue, need for further operation and pro cedures. The patient and his agreed to proceed as indicated. Thank you for this interesting consult. FARHEEN/SABRINA Voice ID: [id number] Report ID: [id number]
[2021-12-04 15:53] LABS: Appearance SLT. TURBID (CLEAR); Body Fluid Source PLEURAL; Color of fluid Yellow (COLORLESS)
[2021-12-04 15:54] LABS: Body Fluid WBC 92 /mm^3
--- NOTE | 2021-12-04 18:46 | RAD REPORT ---
EXAM DESCRIPTION: RAD - Chest Single View - 12/04/2021 6:19 pm CLINICAL HISTORY: FOLLOW UP of pleural tap , asess for pneumothorax COMPARISON: Chest Single View dated 12/04/2021; Chest Single View dated 12/03/2021; Chest Single View dated 11/16/2021; Chest Single View dated 11/26/2020 FINDINGS: Lines: None. Lungs: Hazy bilateral airspace disease. Pleural: Bilateral pleural effusions which are unchanged. No pneumothorax . Cardiac: Cardiomegaly. Sternotomy. Bones: No acute fractures. Other: IMPRESSION: No pneumothorax following right-sided thoracentesis. Pulmonary edema remains.
--- NOTE | 2021-12-04 20:15 | P.PN ---
Date of Service: 12/04/21 Vital Signs Temp Pulse Resp BP Pulse Ox 97.6 F 92 H 19 117/59 L 98 12/04/21 20:00 12/04/21 20:00 12/04/21 20:00 12/04/21 20:00 12/04/21 20:00 Medications Acetaminophen (Acetaminophen 500 Mg Tab) 500 mg PO Q6H PRN PRN Reason: TEMP > 100' F OR MILD PAIN Last Admin: 11/24/21 23:54 Dose: 500 mg Documented by: Albuterol Sulfate (Albuterol 2.5 Mg/3 Ml Neb Cherry) 2.5 mg NEB [id number] PRN PRN Reason: SHORTNESS OF BREATH Last Admin: 12/02/21 22:50 Dose: 2.5 mg Documented by: Diazepam (Diazepam 5 Mg Tablet) 5 mg PO Q6H PRN PRN Reason: ANXIETY Last Admin: 12/02/21 21:35 Dose: 5 mg Documented by: Docusate Sodium (Docusate Na 100 Mg Cap) 100 mg PO TID [facility] Last Admin: 12/04/21 14:00 Dose: Not Given Documented by: Enoxaparin Sodium (Enoxaparin 40 Mg/0.4 Ml) 40 mg SQ DAILY [facility] Last Admin: 12/04/21 09:00 Dose: Not Given Documented by: Fentanyl Citrate (Fentanyl Citr 100 Mcg/2 Ml) 25 mcg IV Q4H PRN PRN Reason: Pain scale 8-10 (Severe) Last Admin: 11/28/21 23:32 Dose: 25 mcg Documented by: Furosemide (Furosemide 40 Mg Tablet) 40 mg PO BIDL [facility] Last Admin: 12/04/21 17:04 Dose: 40 mg Documented by: Cefepime HCl 1 gm/ Sodium (Chloride) 100 mls @ 200 mls/hr IV Q12HR [facility]; Protocol Last Admin: 12/04/21 08:36 Dose: 100 mls Documented by: Melatonin (Melatonin 5 Mg Tablet) 5 mg PO BEDTIME PRN PRN PRN Reason: INSOMNIA Last Admin: 12/03/21 00:09 Dose: 5 mg Documented by: Metoclopramide HCl (Metoclopramide 10 Mg/2ml Inj) 10 mg IV Q8H [facility] Last Admin: 12/04/21 15:13 Dose: 10 mg Documented by: Midodrine (Midodrine Hcl 5 Mg Tablet) 5 mg PO DAILY [facility] Last Admin: 12/04/21 08:37 Dose: 5 mg Documented by: Nutritional Formula (Ensure Enlive 237 Ml Can) 237 ml PO BID [facility] Last Admin: 12/04/21 08:38 Dose: 237 ml Documented by: Ondansetron HCl (Ondansetron 4 Mg/2 Ml Vial) 4 mg IV Q4H PRN PRN Reason: NAUSEA / VOMITING Last Admin: 11/22/21 14:34 Dose: 4 mg Documented by: Polyethylene Glycol (Polyethyl Gly 3350 17 Gm/Dose) 17 gm PO DAILY PRN PRN Reason: CONSTIPATION Potassium Phos/Sodium Phos (Potass/Sodium Phosphate 1 Pkt Powd.Pack) 1 pkt PO BID [facility] Last Admin: 12/04/21 09:44 Dose: 1 pkt Documented by: Sodium Chloride (Flush Normal Saline 10 Ml) 10 ml IV BID [facility] Last Admin: 12/04/21 08:39 Dose: 10 ml Documented by: Tamsulosin HCl (Tamsulosin 0.4 Mg Sr Cap) 0.4 mg PO BID [facility] Last Admin: 12/04/21 08:37 Dose: 0.4 mg Documented by: Tramadol/Acetaminophen (Tramadol 37.5mg/Apap 325mg Per Tab) 1 tab PO BID [facility] Last Admin: 12/04/21 08:37 Dose: 1 tab Documented by: Microbiology Results 11/16/21 10:55 Blood - Blood Aerobic Blood Culture - Final No growth in 5 days. 11/16/21 10:55 Blood - Blood Anaerobic Blood Culture - Final No growth in 5 days. 11/16/21 10:50 Blood - Blood Aerobic Blood Culture - Final Klebsiella Pneumoniae 11/16/21 10:50 Blood - Blood Blood Culture Gram Stain - Final 11/16/21 10:50 Blood - Blood Anaerobic Blood Culture - Final Klebsiella Pneumoniae 11/16/21 10:50 Blood - Blood Gram Stain - Final Assessment/ Plan: Nephrology No dyspnea No chest pain Fatigue and weakness No acute events overnight Vitals, medications, blood work and imaging reviewed in the chart. General: In no apparent distress, Oriented x3, Cooperative HEENT: Atraumatic Neck: Supple Respiratory: Normal resp effort Cardiovascular: Regular rate/rhythm, Hip & LE Edema Gastrointestinal: Abd soft Musculoskeletal: No clubbing, No contractures Integumentary: No rashes, No cyanosis Neurological: Normal speech Blood work reviewed in the chart. Imagings Data: EXAM DESCRIPTION: RAD - Chest Single View - 11/18/2021 7:01 am CLINICAL HISTORY: SOB COMPARISON: Portable 05/10/2021 TECHNIQUE: AP portable chest image was obtained 11/18/2021 7:01 am . FINDINGS: Dense consolidation is present in the inferolateral right upper lobe abutting the minor fissure. This is most likely acute pneumonia. No cavitation component. Lung volumes are low accentuating baseline interstitial pattern. No other area of dense consolidation is seen though there is airspace opacification in the lower left lung field. Additional site of pneumonia is possible in this can be monitored on follow-up imaging. Heart and vasculature are normal. No measurable pleural effusion and no pneumothorax. No acute bony abnormality seen. No acute aortic findings suspected. IMPRESSION: Consolidated pneumonia in the right upper lobe. Airspace opacification in the lower left lung field without dense consolidation. This could be additional site of pneumonia or accentuation of the patient's baseline lung parenchymal pattern due to portable technique and low lung volume. This can be monitored along with the right upper lobe finding. Heart size is stable. A small component of failure or volume overload superimposed on the above findings cannot be excluded. EXAM DESCRIPTION: RADChest Single View11/16/2021 10:47 am CLINICAL HISTORY: Chest pain FINDINGS: Small to moderate right pleural effusion with right basilar atelectasis. Left lung appears clear of acute infiltrate. The heart is mildly to moderately enlarged. Post-surgical changes involve chest LEFT VENTRICULAR WALL MOTION: NORMAL. DOPPLER/COLOR FLOW: MILD PULMONIC INSUFFICIENCY, MILD TRICUSPID REGURGITATION, MODERATE MITRAL REGURGITATION. COMMENTS: NORMAL LEFT VENTRICULAR EJECTION FRACTION 55-60%. NORMAL WALL MOTION. MILD PULMONIC INSUFFICIENCY, MILD TRICUSPID REGURGITATION. MILD TO MODERATE MITRAL REGURGITATION. LEFT ATRIAL ENLARGEMENT. Conclusions/Impression: CARMEN improving CKD III with proteinuria -No NSAIDs -Continue furosemide Hypokalemia -Replete potassium prn Hypercalcemia of unclear etiology -S/P Pamidronate IV X1 dose -PTH-RP 11 HypoPO4 -Encourage nutrition -Replete prn Diastolic CHF, chronic -Daily weight -Continue furosemide Hyperglycemia -No sugar diet Moderate malnutrition -Advance diet as tolerated Slow transit constipation/ Fecal impaction -Laxative regimen as ordered Anemia in chronic illness -Monitor H&H Acute cystitis Sepsis BPH with LUTS Urinary retention -Continue Flomax -Continue [place]
--- NOTE | 2021-12-04 21:30 | OP ---
Date of Procedure: 12/04/2021 Surgeon: Hal Severino MD, Preoperative Diagnosis: Right pleural effusion. Postoperative Diagnosis: Right pleural effusion. Procedure Performed: Right thoracentesis. Anesthesia: 1% lidocaine utilized. Estimated Blood Loss: Less than 1 cc. Specimen: Approximately 1.7 L of pleural fluid removed. The findings were straw colored 1.7 L pleur al fluid removed without any evidence of bleeding. Complications: None. The patient remained at the bedside in the floor bed throughout the procedure and tolerated the proce dure well without evidence of complication in good condition. Procedure In Detail: After informed consent was obtained from the patient and his , the patient was positioned with a slight right-side up, was placed on oxygen. The right chest was prepped and dr aped in the usual sterile fashion after adequate anesthesia was used with 1% lidocaine. I anesthetiz ed the skin overlying the rib and into the right thoracic space at approximately the fifth and sixth intercostal space on the anterior axillary line. After this was performed, I made a small guerline incis ion at the insertion site, and using the Safe-T thoracic drainage settings, I then advanced the jordana ter over the introducer sheath into the thoracic cavity with a pigtail catheter. Pigtail catheter wa s advanced once pleural fluid was advanced and the blunt-tip trocar was removed. At this point, I as sembled the assembly to a drainage bag, which had a 2 L drainage container and removed approximately 1.7 L under manual decompression. At this point, all the fluid I could remove was removed. I then h eld pressure, removed the catheter, and cleansed the area once again with a sterile prep and then mely talib a sterile dressing over top. The patient tolerated the procedure well without evidence of compli cation and remained in room throughout the procedure in good condition. All counts were correct at t he end of the case. TK/MODL Voice ID: [id number] Report ID: [id number]
[2021-12-04] MEDS: MELATONIN 5 MG TABLET PO PRN (22:20)
[2021-12-05] MEDS: DIAZEPAM 5 MG TABLET PO PRN ×2 (00:47→21:24)
[2021-12-05 06:19] LABS: Bilirubin Total 0.9 mg/dL (0.2-1.0); Phosphorus 2.8 mg/dL (2.5-4.9); Potassium 4.2 mmol/L (3.5-5.1)
[2021-12-05] MEDS: TAMSULOSIN 0.4 MG SR CAP PO SCH ×2 (08:31→21:24)
[2021-12-05] MEDS: FUROSEMIDE 40 MG TABLET PO SCH ×2 (08:33→16:35)
[2021-12-05] MEDS: MIDODRINE HCL 5 MG TABLET PO SCH (08:34)
[2021-12-05] MEDS: DOCUSATE NA 100 MG CAP PO SCH ×3 (08:34→21:00)
[2021-12-05] MEDS: CEFEPIME 1 GM in NA CHLORIDE 0.9% 100 ML IV SCH (08:34)
[2021-12-05] MEDS: ENOXAPARIN 40 MG/0.4 ML SQ SCH (08:34)
[2021-12-05] MEDS: METOCLOPRAMIDE 10 MG/2mL INJ IV SCH ×2 (08:34→14:24)
[2021-12-05] MEDS: POTASS/SODIUM PHOSPHATE 1 PKT POWD.PACK PO SCH ×2 (08:34→21:24)
[2021-12-05] MEDS: TRAMADOL 37.5mg/APAP 325mg PER TAB PO SCH ×2 (08:35→21:23)
[2021-12-05] MEDS: ENSURE ENLIVE 237 ML CAN PO SCH ×2 (08:37→21:26)
--- NOTE | 2021-12-05 13:44 | P.PN ---
Subjective Date of Service: 12/05/21 Chief Complaint: Fecal stool impaction, acute kidney injury; intractable N/V, sepsis Subjective: No new changes, No C/O voiced Physical Examination - Vital Signs Temperature: 97.5 F Blood Pressure: 109/56 Pulse: 100 Respirations: 16 Pulse Ox (%): 97 - Studies Medications List Reviewed: Yes Assessment And Plan Physician Review: Patient Assessed, Agree with Above Assessment and Plan Physician Review Additional Text: Echo LEFT VENTRICULAR WALL MOTION: NORMAL. DOPPLER/COLOR FLOW: MILD PULMONIC INSUFFICIENCY, MILD TRICUSPID REGURGITATIO N, MODERATE MITRAL REGURGITATION. COMMENTS: NORMAL LEFT VENTRICULAR EJECTION FRACTION 55-60%. NORMAL WALL MOTION. MILD PULMONIC INSUFFICIENCY, MILD TRICUSPID REGURGITATION. MILD TO MODERATE MITRAL REGURGITATION. LEFT ATRIAL ENLARGEMENT. TECHNOLOGIST: YUNG MURRAY [facility] CT abdomen/pelvicsextensive fecal impaction Sigmoidoscopy11/25/21removal of greater than 1 pound solid stool in the rectum Right thoracocentesis 12/04/21-1.7 L fluid removed - Physical Exam General: Alert, Moderate distress, on 2 L nasal cannula O2 Respiratory: Decreased breath sound bilateral bases, no expiratory wheeze Cardiovascular: Regular rate/rhythm, Normal S1 S2 Gastrointestinal: Full, soft, bowel sounds positive in all 4 quads Musculoskeletal: Generalized anasarca 2+, 2+ pedal edema bilateral Neurological: Normal speech, alert and oriented x3 Assessment And Plan - Plan #CHF with fluid overload #Klebsiella Pneumonia #Klebsiella Bacteremia -resolved #Persistent moderate right pleural effusion/small left pleural effusionstatus post right thoracocentesis 2. UTI-yeast 3. Sepsis 4. A. fib 5. Hyperlipidemia 6. Physical Deconditioning 7. Constipation-sigmoidoscopy with greater than 1 pound stool removal 11/25/21, Family does not want colonoscopy. 8. Hypercalcemia-persistent. 9hypophosphatemia 10 Acute kidney injuryimproved Plan: -As of breath improving, O2 needs weaning down Still markedly weak, continue PT OT a bit hesitant status for SNF, yet to fill paperwork needed Follow-up plan for discharge to rehab Serum calcium improved Improving generalized anasarca, continue low-dose diuretics -Improving serum calcium level, likely due to immobility, improving with Lasix -Continue physical therapy, follow-up plan for SNF -Continue with medication for atrial fibrillation Continue Neutra-Phos twice daily Follow case management acceptance to senior care facility when accepted 12/05/21 13:41 12/05/21 13:44
--- NOTE | 2021-12-05 13:54 | P.DS ---
Admission Date: 11/16/21 Discharge Date: 12/05/21 Disposition: TRANSFER TO SNF - REHAB Discharge Condition: FAIR Reason for Admission: Fecal stool impaction, acute kidney injury; intractable N/V, sepsis Hospital Course: Hospital course Patient with history of hypertension, A. fib on chronic anticoagulation, diastolic CHF with previous echo showing EF of 50% admitted because of abdominal pain shortness of breath and profound weakness. Patient had multiple CT imaging shows no acute intracranial pathology except for significant stool in the colon. Patient was started on aggressive bowel regimen with poor response. He had sigmoidoscopy with evacuation of 1 L solid stool after which patient laxative started to produce good bowel movement. He has significant shortness of breath with bilateral pleural effusions noted on presentation. He was started on diuretics. He had thoracocentesis done because of persistent right pleural effusion. He has trending down anemia requiring hold off the Xarelto which was later restarted. Patient has profound weakness and was recommended to have SNF. His kidney function was mildly depressed but significantly improved. He still has generalized anasarca although slowly improving with gentle diuresis. Patient had asymptomatic hypercalcemia which was felt to be due to immobility but has significantly improved spontaneously now. He can be discharged to SNF to continue with aggressive PT and OT for muscle weakness. Vital Signs/Physical Exam: Temp Pulse Resp BP Pulse Ox 97.5 F 100 H 16 109/56 L 97 12/05/21 13:44 12/05/21 13:44 12/05/21 13:44 12/05/21 13:44 12/05/21 13:44 General: Alert, In no apparent distress, Oriented x3 HEENT: Atraumatic, Normocephalic Neck: 2+ carotid pulse no bruit, JVD not distended Respiratory: Diminished, Crackles/rales Cardiovascular: Regular rate/rhythm, Normal S1 S2, Edema Gastrointestinal: Normal bowel sounds, Soft and benign, Non-distended Neurological: Normal speech, Sensation intact, Normal affect Laboratory Data at Discharge: WBC 9.4 K/uL (4.3-10.9) D 12/02/21 05:27 Hgb 9.8 g/dL (13.6-17.9) L 12/02/21 05:27 Hct 31.5 % (39.6-49.0) L 12/02/21 05:27 Plt Count 167 K/uL (152-406) 12/02/21 05:27 PT 30.9 SECONDS (9.5-12.5) H 11/17/21 04:28 INR 2.75 11/17/21 04:28 Sodium 141 mmol/L (136-145) 12/05/21 05:31 Potassium 4.2 mmol/L (3.5-5.1) 12/05/21 05:31 BUN 32 mg/dL (7-18) H 12/05/21 05:31 Creatinine 1.27 mg/dL (0.55-1.3) 12/05/21 05:31 Glucose 85 mg/dL (74-106) 12/05/21 05:31 Uric Acid 11.2 mg/dL (3.5-7.2) H 11/22/21 03:46 Phosphorus 2.8 mg/dL (2.5-4.9) 12/05/21 05:31 Magnesium 2.1 mg/dL (1.8-2.4) 12/01/21 00:57 Total Bilirubin 0.9 mg/dL (0.2-1.0) 12/05/21 05:31 AST 17 U/L (15-37) 12/05/21 05:31 ALT 11 U/L (12-78) L 12/05/21 05:31 Alkaline Phosphatase 150 U/L (45-117) H 12/05/21 05:31 Triglycerides 60 mg/dL (<150) 11/17/21 04:28 Cholesterol < 50 mg/dL (<200) 11/17/21 04:28 HDL Cholesterol 18 mg/dL (40-60) L 11/17/21 04:28 Cholesterol/HDL Ratio 2.78 11/17/21 04:28 Home Medications: Pravastatin Sodium 40 mg PO DAILY 07/06/20 Rivaroxaban [Xarelto] 15 mg PO DAILY 07/06/20 Aspirin [Aspirin EC 81 MG] 81 mg PO DAILY 11/23/20 Melatonin/Pyridoxine [Melatonin 5 mg Tablet] 5 mg PO BEDTIME 11/23/20 Tamsulosin [Flomax*] 0.4 mg PO BEDTIME #30 cap 11/30/20 Trazodone [Desyrel*] 50 mg PO DAILY 11/16/21 Ensure Enlive 237 ml PO BID can 12/05/21 Furosemide [Lasix*] 40 mg PO BIDL tab 12/05/21 Midodrine HCl [Proamatine*] 5 mg PO DAILY tab 12/05/21 Polyethyl Gly 3350 [Glycolax*] 17 gm PO DAILY PRN udbot 12/05/21 Tamsulosin [Flomax*] 0.4 mg PO BID cap 12/05/21 diazePAM [Valium*] 5 mg PO Q6H PRN tab 12/05/21 Diet: Low sodium Activity: Ad freddie Followup: Unknown,U [Primary Care Provider] - Time spent managing pt's care (in minutes): 35
--- NOTE | 2021-12-05 18:40 | P.PN ---
Subjective Date of Service: 12/05/21 Chief Complaint: Fecal stool impaction, acute kidney injury; intractable N/V, sepsis Subjective: Improving (no acute events, no complaints) Physical Examination - Vital Signs Temperature: 97.5 F Blood Pressure: 116/59 Pulse: 101 Respirations: 16 Pulse Ox (%): 97 - Physical Exam General: Alert, In no apparent distress Respiratory: Clear to auscultation bilaterally - Studies Medications List Reviewed: Yes Assessment And Plan - Current Problems (Diagnosis) (1) Pleural effusion Current Visit: Yes Status: Acute Plan: - Thoracentesis site is clean and dry - Pulmonary function improved - continue medical management per primary team Physician Review: Patient Assessed, Agree with Above Assessment and Plan
--- NOTE | 2021-12-05 20:20 | P.PN ---
Date of Service: 12/05/21 Vital Signs Temp Pulse Resp BP Pulse Ox 97.5 F 101 H 16 116/59 L 97 12/05/21 18:40 12/05/21 18:40 12/05/21 18:40 12/05/21 18:40 12/05/21 18:40 Medications Acetaminophen (Acetaminophen 500 Mg Tab) 500 mg PO Q6H PRN PRN Reason: TEMP > 100' F OR MILD PAIN Last Admin: 11/24/21 23:54 Dose: 500 mg Documented by: Albuterol Sulfate (Albuterol 2.5 Mg/3 Ml Neb Cherry) 2.5 mg NEB [id number] PRN PRN Reason: SHORTNESS OF BREATH Last Admin: 12/02/21 22:50 Dose: 2.5 mg Documented by: Diazepam (Diazepam 5 Mg Tablet) 5 mg PO Q6H PRN PRN Reason: ANXIETY Last Admin: 12/05/21 00:47 Dose: 5 mg Documented by: Docusate Sodium (Docusate Na 100 Mg Cap) 100 mg PO TID [facility] Last Admin: 12/05/21 13:22 Dose: 100 mg Documented by: Enoxaparin Sodium (Enoxaparin 40 Mg/0.4 Ml) 40 mg SQ DAILY [facility] Last Admin: 12/05/21 08:34 Dose: 40 mg Documented by: Fentanyl Citrate (Fentanyl Citr 100 Mcg/2 Ml) 25 mcg IV Q4H PRN PRN Reason: Pain scale 8-10 (Severe) Last Admin: 11/28/21 23:32 Dose: 25 mcg Documented by: Furosemide (Furosemide 40 Mg Tablet) 40 mg PO BIDL [facility] Last Admin: 12/05/21 16:35 Dose: 40 mg Documented by: Melatonin (Melatonin 5 Mg Tablet) 5 mg PO BEDTIME PRN PRN PRN Reason: INSOMNIA Last Admin: 12/04/21 22:20 Dose: 5 mg Documented by: Metoclopramide HCl (Metoclopramide 10 Mg/2ml Inj) 10 mg IV Q8H [facility] Last Admin: 12/05/21 14:24 Dose: 10 mg Documented by: Midodrine (Midodrine Hcl 5 Mg Tablet) 5 mg PO DAILY [facility] Last Admin: 12/05/21 08:34 Dose: 5 mg Documented by: Nutritional Formula (Ensure Enlive 237 Ml Can) 237 ml PO BID [facility] Last Admin: 12/05/21 08:37 Dose: 237 ml Documented by: Ondansetron HCl (Ondansetron 4 Mg/2 Ml Vial) 4 mg IV Q4H PRN PRN Reason: NAUSEA / VOMITING Last Admin: 11/22/21 14:34 Dose: 4 mg Documented by: Polyethylene Glycol (Polyethyl Gly 3350 17 Gm/Dose) 17 gm PO DAILY PRN PRN Reason: CONSTIPATION Potassium Phos/Sodium Phos (Potass/Sodium Phosphate 1 Pkt Powd.Pack) 1 pkt PO BID [facility] Last Admin: 12/05/21 08:34 Dose: 1 pkt Documented by: Sodium Chloride (Flush Normal Saline 10 Ml) 10 ml IV BID [facility] Last Admin: 12/05/21 08:37 Dose: 10 ml Documented by: Tamsulosin HCl (Tamsulosin 0.4 Mg Sr Cap) 0.4 mg PO BID [facility] Last Admin: 12/05/21 08:31 Dose: 0.4 mg Documented by: Tramadol/Acetaminophen (Tramadol 37.5mg/Apap 325mg Per Tab) 1 tab PO BID [facility] Last Admin: 12/05/21 08:35 Dose: 1 tab Documented by: Microbiology Results 11/16/21 10:55 Blood - Blood Aerobic Blood Culture - Final No growth in 5 days. 11/16/21 10:55 Blood - Blood Anaerobic Blood Culture - Final No growth in 5 days. 11/16/21 10:50 Blood - Blood Aerobic Blood Culture - Final Klebsiella Pneumoniae 11/16/21 10:50 Blood - Blood Blood Culture Gram Stain - Final 11/16/21 10:50 Blood - Blood Anaerobic Blood Culture - Final Klebsiella Pneumoniae 11/16/21 10:50 Blood - Blood Gram Stain - Final Assessment/ Plan: Nephrology No dyspnea No chest pain Fatigue and weakness. Anorexia. No acute events overnight Vitals, medications, blood work and imaging reviewed in the chart. General: In no apparent distress, Oriented x3, Cooperative HEENT: Atraumatic Neck: Supple Respiratory: Normal resp effort Cardiovascular: Regular rate/rhythm, Hip & LE Edema Gastrointestinal: Abd soft Musculoskeletal: No clubbing, No contractures Integumentary: No rashes, No cyanosis Neurological: Normal speech Blood work reviewed in the chart. Imagings Data: EXAM DESCRIPTION: RAD - Chest Single View - 11/18/2021 7:01 am CLINICAL HISTORY: SOB COMPARISON: Portable 05/10/2021 TECHNIQUE: AP portable chest image was obtained 11/18/2021 7:01 am . FINDINGS: Dense consolidation is present in the inferolateral right upper lobe abutting the minor fissure. This is most likely acute pneumonia. No cavitation component. Lung volumes are low accentuating baseline interstitial pattern. No other area of dense consolidation is seen though there is airspace opacification in the lower left lung field. Additional site of pneumonia is possible in this can be monitored on follow-up imaging. Heart and vasculature are normal. No measurable pleural effusion and no pneumothorax. No acute bony abnormality seen. No acute aortic findings suspected. IMPRESSION: Consolidated pneumonia in the right upper lobe. Airspace opacification in the lower left lung field without dense consolidation. This could be additional site of pneumonia or accentuation of the patient's baseline lung parenchymal pattern due to portable technique and low lung volume. This can be monitored along with the right upper lobe finding. Heart size is stable. A small component of failure or volume overload superimpo sed on the above findings cannot be excluded. EXAM DESCRIPTION: RADChest Single View11/16/2021 10:47 am CLINICAL HISTORY: Chest pain FINDINGS: Small to moderate right pleural effusion with right basilar atelectasis. Left lung appears clear of acute infiltrate. The heart is mildly to moderately enlarged. Post-surgical changes involve chest LEFT VENTRICULAR WALL MOTION: NORMAL. DOPPLER/COLOR FLOW: MILD PULMONIC INSUFFICIENCY, MILD TRICUSPID REGURGITATION, MODERATE MITRAL REGURGITATION. COMMENTS: NORMAL LEFT VENTRICULAR EJECTION FRACTION 55-60%. NORMAL WALL MOTION. MILD PULMONIC INSUFFICIENCY, MILD TRICUSPID REGURGITATION. MILD TO MODERATE MITRAL REGURGITATION. LEFT ATRIAL ENLARGEMENT. Conclusions/Impression: CARMEN improving CKD III with proteinuria -No NSAIDs -Continue furosemide Hypokalemia -Replete potassium prn Hypercalcemia of unclear etiology -S/P Pamidronate IV X1 dose -PTH-RP 11 HypoPO4 -Encourage nutrition -Replete prn Diastolic CHF, chronic -Daily weight -Continue furosemide Hyperglycemia -No sugar diet Moderate malnutrition -Advance diet as tolerated Slow transit constipation/ Fecal impaction -Laxative regimen as ordered Anemia in chronic illness -Monitor H&H Acute cystitis Sepsis BPH with LUTS Urinary retention -Continue Flomax -Continue [place]
[2021-12-05] MEDS: MELATONIN 5 MG TABLET PO PRN (21:24)
[2021-12-06] MEDS: METOCLOPRAMIDE 10 MG/2mL INJ IV SCH ×2 (00:25→08:17)
[2021-12-06 06:17] LABS: Bilirubin Total 0.9 mg/dL (0.2-1.0); Potassium 4.4 mmol/L (3.5-5.1); Protein, Total 6.1 g/dL (6.4-8.2)
[2021-12-06 07:19] LABS: Urine Appearance Clear (Clear); Urine Bilirubin Negative (Negative); Urine Blood Trace-lysed (Negative); Urine Color Yellow (Yellow); Urine Glucose Negative (Negative); Urine Protein 2+ (Negative); Urine Specific Gravity 1.015 (1.005-1.030); Urine Urobilinogen 0.2 mg/dL (0.2-1.0)
[2021-12-06] MEDS ORDERED: ALBUTEROL 2.5 MG/3 ML NEB SOL NEB PRN (07:24)
[2021-12-06 07:26] LABS: UR PROTEIN 134.1 mg/dL (<11.9); Urine Protein/Creatinine Ratio 1.84 ratio (<0.15)
[2021-12-06 07:28] LABS: Urine Microscopic Reflex ORDER UMIC
[2021-12-06 07:40] LABS: Urine Amorphous Sediment 2+ /HPF (NONE SEEN); Urine Bacteria >50 /HPF (NONE SEEN)
[2021-12-06] MEDS: ENOXAPARIN 40 MG/0.4 ML SQ SCH (08:08)
[2021-12-06] MEDS: POTASS/SODIUM PHOSPHATE 1 PKT POWD.PACK PO SCH (08:08)
[2021-12-06] MEDS: TRAMADOL 37.5mg/APAP 325mg PER TAB PO SCH (08:08)
[2021-12-06] MEDS: DOCUSATE NA 100 MG CAP PO SCH (08:08)
[2021-12-06] MEDS: FUROSEMIDE 40 MG TABLET PO SCH (08:09)
[2021-12-06] MEDS: TAMSULOSIN 0.4 MG SR CAP PO SCH (08:09)
[2021-12-06] MEDS: MIDODRINE HCL 5 MG TABLET PO SCH (08:09)
[2021-12-06 08:17] VITALS: BP 102/59
[2021-12-06] MEDS: ENSURE ENLIVE 237 ML CAN PO SCH (08:17)
[2021-12-06 08:55] VITALS: O2SAT 85
[2021-12-06 09:09] VITALS: TEMP 98.5
--- NOTE | 2021-12-06 12:43 | P.PN ---
Subjective Date of Service: 12/06/21 Chief Complaint: Fecal stool impaction, acute kidney injury; intractable N/V, sepsis Subjective: No new changes, C/O voiced (Complain of generalized body pain Still feels drowsy at bedside worried about patient pain symptoms) Physical Examination - Vital Signs Temperature: 98.5 F Blood Pressure: 102/59 Pulse: 109 Respirations: 18 Pulse Ox (%): 99 - Studies Medications List Reviewed: Yes Assessment And Plan - Code Status/Comfort Care Code Status Assessed: Yes Physician Review: Patient Assessed, Agree with Above Assessment and Plan Physician Review Additional Text: Echo LEFT VENTRICULAR WALL MOTION: NORMAL. DOPPLER/COLOR FLOW: MILD PULMONIC INSUFFICIENCY, MILD TRICUSPID REGU RGITATION, MODERATE MITRAL REGURGITATION. COMMENTS: NORMAL LEFT VENTRICULAR EJECTION FRACTION 55-60%. NORMAL WALL MOTION. MILD PULMONIC INSUFFICIENCY, MILD TRICUSPID REGURGITATION. MILD TO MODERATE MITRAL REGURGITATION. LEFT ATRIAL ENLARGEMENT. TECHNOLOGIST: YUNG MURRAY [facility] abdomen/pelvicsextensive fecal impaction Sigmoidoscopy11/25/21removal of greater than 1 pound solid stool in the rectum Right thoracocentesis 12/04/21-1.7 L fluid removed - Physical Exam General: Alert, Moderate distress, on 2 L nasal cannula O2 Respiratory: Decreased breath sound bilateral bases, no expiratory wheeze Cardiovascular: Regular rate/rhythm, Normal S1 S2 Gastrointestinal: Full, soft, bowel sounds positive in all 4 quads Musculoskeletal: Generalized anasarca 2+, 2+ pedal edema bilateral Neurological: Normal speech, alert and oriented x3 Assessment And Plan #CHF with fluid overload #Klebsiella Pneumonia #Klebsiella Bacteremia -resolved #Persistent moderate right pleural effusion/small left pleural effusionstatus post right thoracocentesis 2. UTI-yeast 3. Sepsis 4. A. fib 5. Hyperlipidemia 6. Physical Deconditioning 7. Constipation-sigmoidoscopy with greater than 1 pound stool removal 11/25/21, Family does not want colonoscopy. 8. Hypercalcemia-persistent. 9hypophosphatemia 10 Acute kidney injuryimproved Plan: -Continue pain regimen Continue PT and OT Follow case management plan for SNF/acute rehab, undecided yet Pleural fluid cultures negative a bit hesitant status for SNF, yet to fill paperwork needed Follow-up plan for discharge to rehab Serum calcium improved Improving generalized anasarca, continue low-dose diuretics -Improving serum calcium level, likely due to immobility, improving with Lasix -Continue physical therapy, follow-up plan for SNF -Continue with medication for atrial fibrillation Continue Neutra-Phos twice daily Follow case management acceptance to long-term facility when accepted 12/05/21 13:41 12/05/21 13:44 12/06/21 12:42
--- NOTE | 2021-12-06 17:58 | P.PN ---
Date of Service: 12/06/21 Vital Signs Temp Pulse Resp BP Pulse Ox 98.5 F 109 H 18 102/59 L 99 12/06/21 12:43 12/06/21 12:43 12/06/21 12:43 12/06/21 12:43 12/06/21 12:43 Microbiology Results 11/16/21 10:55 Blood - Blood Aerobic Blood Culture - Final No growth in 5 days. 11/16/21 10:55 Blood - Blood Anaerobic Blood Culture - Final No growth in 5 days. 11/16/21 10:50 Blood - Blood Aerobic Blood Culture - Final Klebsiella Pneumoniae 11/16/21 10:50 Blood - Blood Blood Culture Gram Stain - Final 11/16/21 10:50 Blood - Blood Anaerobic Blood Culture - Final Klebsiella Pneumoniae 11/16/21 10:50 Blood - Blood Gram Stain - Final Assessment/ Plan: Nephrology No dyspnea No chest pain Fatigue and weakness. Anorexia. No acute events overnight Vitals, medications, blood work and imaging reviewed in the chart. General: In no apparent distress, Oriented x3, Cooperative HEENT: Atraumatic Neck: Supple Respiratory: Normal resp effort Cardiovascular: Regular rate/rhythm, Hip & LE Edema Gastrointestinal: Abd soft Musculoskeletal: No clubbing, No contractures Integumentary: No rashes, No cyanosis Neurological: Normal speech Blood work reviewed in the chart. Imagings Data: EXAM DESCRIPTION: RAD - Chest Single View - 11/18/2021 7:01 am CLINICAL HISTORY: SOB COMPARISON: Portable 05/10/2021 TECHNIQUE: AP portable chest image was obtained 11/18/2021 7:01 am . FINDINGS: Dense consolidation is present in the inferolateral right upper lobe abutting the minor fissure. This is most likely acute pneumonia. No cavitation component. Lung volumes are low accentuating baseline interstitial pattern. No other area of dense consolidation is seen though there is airspace opacification in the lower left lung field. Additional site of pneumonia is possible in this can be monitored on follow-up imaging. Heart and vasculature are normal. No measurable pleural effusion and no pn eumothorax. No acute bony abnormality seen. No acute aortic findings suspected. IMPRESSION: Consolidated pneumonia in the right upper lobe. Airspace opacification in the lower left lung field without dense consolidation. This could be additional site of pneumonia or accentuation of the patient's baseline lung parenchymal pattern due to portable technique and low lung volume. This can be monitored along with the right upper lobe finding. Heart size is stable. A small component of failure or volume overload superimposed on the above findings cannot be excluded. EXAM DESCRIPTION: Nick Single View11/16/2021 10:47 am CLINICAL HISTORY: Chest pain FINDINGS: Small to moderate right pleural effusion with right basilar atelectasis. Left lung appears clear of acute infiltrate. The heart is mildly to moderately enlarged. Post-surgical changes involve chest LEFT VENTRICULAR WALL MOTION: NORMAL. DOPPLER/COLOR FLOW: MILD PULMONIC INSUFFICIENCY, MILD TRICUSPID REGURGITATION, MODERATE MITRAL REGURGITATION. COMMENTS: NORMAL LEFT VENTRICULAR EJECTION FRACTION 55-60%. NORMAL WALL MOTION. MILD PULMONIC INSUFFICIENCY, MILD TRICUSPID REGURGITATION. MILD TO MODERATE MITRAL REGURGITATION. LEFT ATRIAL ENLARGEMENT. Conclusions/Impression: CARMEN improving CKD III with proteinuria -No NSAIDs -Continue furosemide -MGUS? Hypokalemia -Replete potassium prn Hypercalcemia of unclear etiology -S/P Pamidronate IV X1 dose -PTH-RP 11 HypoPO4 -Encourage nutrition -Replete prn Diastolic CHF, chronic -Daily weight -Continue furosemide Hyperglycemia -No sugar diet Moderate malnutrition -Advance diet as tolerated Slow transit constipation/ Fecal impaction -Laxative regimen as ordered Anemia in chronic illness -Monitor H&H Acute cystitis Sepsis BPH with LUTS Urinary retention -Continue Flomax -Continue [place] Case reviewed with the at the bedside Case reviewed with Dr. Christian
[2021-12-08 15:55] LABS: ALBUMIN, PLEURAL FLUID 0.8 g/dL
[2021-12-10 12:59] LABS: KAPPA LIGHT CHAIN, FREE SERUM 150.5 mg/L (3.3-19.4)
[2021-12-10 13:16] LABS: Immunoglobulin A 529 mg/dL (70-320); Immunoglobulin G 1956 mg/dL (600-1540); Immunoglobulin M 202 mg/dL (50-300)
== END 2021-12-06 17:34 | DRG 871 ==
LOC: ER 10:19 → ERHOLD 13:20 → 2ND 15:15
PROVIDERS: ADMIT Hospitalist; ATTEND Internal Medicine
PROC: 0T9B70Z Drainage of Bladder with Drainage Device, Via Natural or Artificial Opening (ICD-10-PCS; 2021-11-24)
PROC: 0DJD8ZZ Inspection of Lower Intestinal Tract, Via Natural or Artificial Opening Endoscopic (ICD-10-PCS; principal; 2021-11-25 20:00)
PROC: 0W993ZZ Drainage of Right Pleural Cavity, Percutaneous Approach (ICD-10-PCS; 2021-12-04)
DX: A41.9 Sepsis, unspecified organism (principal); J15.0 Pneumonia due to Klebsiella pneumoniae; N17.9 Acute kidney failure, unspecified; I13.0 Hypertensive heart and chronic kidney disease with heart failure and stage 1 through stage 4 chronic kidney disease, or unspecified chronic kidney disease; I50.32 Chronic diastolic (congestive) heart failure; E44.0 Moderate protein-calorie malnutrition; B37.41 Candidal cystitis and urethritis; J98.11 Atelectasis; D47.02 Systemic mastocytosis; L03.116 Cellulitis of left lower limb; J90 Pleural effusion, not elsewhere classified; I47.2 Ventricular tachycardia; I48.20 Chronic atrial fibrillation, unspecified; K56.41 Fecal impaction; E86.1 Hypovolemia; E87.6 Hypokalemia; E83.52 Hypercalcemia; R73.9 Hyperglycemia, unspecified; E78.5 Hyperlipidemia, unspecified; M10.9 Gout, unspecified; K57.90 Diverticulosis of intestine, part unspecified, without perforation or abscess without bleeding; K64.8 Other hemorrhoids; N18.30 Chronic kidney disease, stage 3 unspecified; D63.1 Anemia in chronic kidney disease; N40.1 Benign prostatic hyperplasia with lower urinary tract symptoms; E83.39 Other disorders of phosphorus metabolism; I25.10 Atherosclerotic heart disease of native coronary artery without angina pectoris; Z20.822 Contact with and (suspected) exposure to COVID-19; Z68.24 Body mass index [BMI] 24.0-24.9, adult; Z95.1 Presence of aortocoronary bypass graft; Z86.73 Personal history of transient ischemic attack (TIA), and cerebral infarction without residual deficits
CPT/HCPCS: 0240U; 36415; 70450; 71045; 71250; 72125; 74176; 74270; 74283; 80048; 80053; 80061; 80076; 80202; 81001; 81003; 81015; 82042; 82306; 82570; 82784; 82945; 83519; 83520; 83605; 83615; 83735; 83880; 83970; 84100; 84132; 84145; 84156; 84484; 84550; 85025; 85610; 86334; 87040; 87070; 87077; 87086; 87088; 87186; 87205; 89050; 92610; 93005; 93306; 93971; 94640; 96361; 96365; 97110; 97116; 97161; 97165; 97530; 99285; J0692; J1450; J1650; J1720; J1940; J2270; J2405; J2430; J2543; J2765; J2930; J3010; J3360; J3370; J7030; J7040; J7050; J7120; P9047; U0003